=== PATIENT | female | born 1940 | race Caucasian/White ===

== ENCOUNTER 2017-03-18 15:18 | Emergency (ER) | payer MEDICARE ==
[2017-03-18 15:18] VITALS: BMI 25.6
[2017-03-18 15:36] VITALS: TEMP 97.6
--- NOTE | 2017-03-18 17:00 | C.PDOC ---
History Of Present Illness Pt c/o rectal pain. Time Seen by Provider: 03/18/17 15:37 Chief Complaint (Nursing): GI Problem History Per: Patient, Family History/Exam Limitations: other (Blind) Onset/Duration Of Symptoms: Days (few), Intermittent Episodes Current Symptoms Are (Timing): Still Present Severity: Moderate Location Of Pain/Discomfort: Other (Rectum) Quality Of Discomfort: Unable To Describe, "Pain" Exacerbating Factors: None Alleviating Factors: None Additional History Per: Prior Records Past Medical History Reviewed: Historical Data, Nursing Documentation, Vital Signs Vital Signs: Last Vital Signs Temp 97.6 F 03/18/17 15:30 Pulse 74 03/18/17 15:30 Resp 18 03/18/17 15:30 BP 146/76 03/18/17 15:30 Pulse Ox 97 03/18/17 17:02 - Medical History PMH: Anemia, Anxiety, Asthma, CAD, CHF, COPD, Diabetes, Emphysema, HTN, Hypercholesterolemia, Hyperlipidemia, Hyperthyroidism, Hypothyroidism, Chronic Kidney Disease Surgical History: CABG, Cholecystectomy, Coronary Stent, Pacemaker Other Surgeries: Hemicolectomy with colostomy. BKA. - [facility]ALIA (formerly known as [facility]) Procedures ATHERECTOMY OF OTHER NON-CORONARY VESSEL(S) (11/15/13) BELOW KNEE AMPUTAT NEC (11/15/13) CENTRAL VENOUS CATHETER PLACEMENT WITH GUIDANCE (05/05/14) CONTRAST ARTERIOGRAM-LEG (11/15/13) ENDOSCOPIC BIOPSY OF RECTUM (02/18/15) HEMODIALYSIS (02/18/15) NONEXCIS DEBRID OF WOUND, INFECT, OR BURN (11/15/13) OTHER ENDOSCOPY OF SM INTEST (02/18/15) PACKED CELL TRANSFUSION (11/15/13) PROCEDURE ON TWO VESSELS (11/15/13) VENOUS CATHETERIZATION FOR RENAL DIALYSIS (02/18/15) Family History: States: Unknown Family Hx - Social History Hx Tobacco Use: No Hx Alcohol Use: No Hx Substance Use: No - Immunization History Hx Tetanus Toxoid Vaccination: No Hx Influenza Vaccination: No Hx Pneumococcal Vaccination: No Review Of Systems Except As Marked, All Systems Reviewed And Found Negative. Constitutional: Negative for: Fever Cardiovascular: Negative for: Chest Pain Respiratory: Negative for: Shortness of Breath Gastrointestinal: Positive for: Rectal Pain. Negative for: Vomiting, Abdominal Pain Genitourinary: Negative for: Dysuria Musculoskeletal: Negative for: Neck Pain, Back Pain Neurological: Negative for: Seizures, Altered Mental Status Physical Exam - Physical Exam Appears: No Acute Distress, Chronically Ill Skin: Warm, Dry Head: Atraumatic Neck: Normal ROM, Supple Cardiovascular: Rhythm Regular Respiratory: Normal Breath Sounds, No Accessory Muscle Use Gastrointestinal/Abdominal: Soft, No Tenderness, Other (Colostomy in place draining brown liquid stool) Rectal: Other (Anal os is too small to insert a finger. No external masses.) Back: No CVA Tenderness Extremity: Normal ROM Neurological/Psych: Oriented x3 ED Course And Treatment O2 Sat by Pulse Oximetry: 97 Pulse Ox Interpretation: Normal Medical Decision Making Medical Decision Making: Pt had similar symptoms in 2015 and had a Sigmoidoscopy by Dr. Lino that showed internal hemorrhoids and nonspecific proctitis. Disposition Discussed With DrShyanne: Earnest Kim Jr. Comment: He recommened prescribing pt hemmoroidal rectal suppositories and he will see her in his office. Doctor Will See Patient In The: Office Counseled Patient/Family Regarding: Diagnosis, Need For Followup, Rx Given - Disposition Referrals: Keyla Washington MD [Family Provider] - Earnest Kim Jr., MD [Staff Provider] - Bar Lino MD [Staff Provider] - Disposition: HOME/ ROUTINE Disposition Time: 17:04 Condition: IMPROVED Additional Instructions: Follow up with your doctor and with Dr. Kim for further evaluation and treatment. Return to the ER if you develop fever, vomiting, abdominal pain, worsening of symptoms or if you have any other concerns. Prescriptions: Phenylephrine [Zari-Med NF] 1 supp RC TID PRN #30 sup PRN Reason: Hemorrhoids Instructions: Rectal Pain (ED) - Clinical Impression Clinical Impression: Rectal pain
[2017-03-18 17:19] VITALS: BP 129/94; PULSE 69; RESP 14; O2SAT 98
== END 2017-03-18 17:54 | disposition home or self-care (01) ==
LOC: C.ER 15:18
DX: K62.89 Other specified diseases of anus and rectum (principal)

== ENCOUNTER 2017-04-22 09:25 | Observation (INO) | payer MEDICARE ==
[2017-04-22 09:25] VITALS: BMI 25.6
[2017-04-22] MEDS ORDERED: Aspirin 325 mg EC Tablets PO STA (11:09)
[2017-04-22 11:47] LABS: BASO # 0.1 K/uL (0.0-0.2); BASO % 0.8 % (0.0-2.0); EOS # 0.1 K/uL (0.0-0.7); EOS % 1.4 % (0.0-4.0); HEMATOCRIT 35.1 % (34.0-47.0); LYMPH # 1.5 K/uL (1.0-4.3); MEAN CELL VOLUME 88.4 fL (81.0-99.0); MEAN CORPUSCULAR HEMOGLOBIN 29.4 pg (27.0-31.0); MEAN CORPUSCULAR HGB CONC 33.3 g/dL (33.0-37.0); MEAN PLATELET VOLUME 7.1 fL (7.2-11.7); MONO # 0.6 K/uL (0.0-0.8); MONO % 7.5 % (0.0-10.0); NRBC % 0.1 % (0.0-2.0); RED CELL DISTRIBUTION WIDTH 12.9 % (11.5-14.5); WHITE BLOOD COUNT 7.4 K/uL (4.8-10.8)
[2017-04-22 12:00] LABS: POTASSIUM 4.8 mmol/L (3.6-5.2)
[2017-04-22 12:02] LABS: ALB/GLOB RATIO 1.1 (1.0-2.1); BILIRUBIN,TOTAL 0.6 mg/dL (0.2-1.3); TOTAL PROTEIN 7.3 g/dL (6.3-8.3)
[2017-04-22 12:03] LABS: CALCIUM 9.2 mg/dl (8.6-10.4)
--- NOTE | 2017-04-22 12:17 | C.PDOC ---
History Of Present Illness 76-year-old female, presents to the emergency department with complaints of chest pain after moving left arm last night. pain continued until this morning, resulting in her coming to the ED for evaluation. Pain is non-radiating and reports a cough that is productive with white sputum. Denies fevers, vomiting, diarrhea, recent travel, diaphoresis, or any other associated symptoms. No other complaints at this time. Time Seen by Provider: 04/22/17 10:25 Chief Complaint (Nursing): Chest Pain History Per: Patient History/Exam Limitations: no limitations Onset/Duration Of Symptoms: Hrs Current Symptoms Are (Timing): Still Present Severity: Moderate Pain Scale Rating Of: 5 Quality: "Pain" Associated Symptoms: denies: Nausea, Dyspnea, Diaphoresis, Syncope Exacerbating Factors: Movement Recent travel outside of the [place]: No Past Medical History Reviewed: Historical Data, Nursing Documentation, Vital Signs Vital Signs: Last Vital Signs Temp 98.1 F 04/22/17 09:32 Pulse 75 04/22/17 14:21 Resp 20 04/22/17 14:21 BP 181/69 H 04/22/17 14:21 Pulse Ox 99 04/22/17 14:21 - Medical History PMH: Anemia, Anxiety, Asthma, CAD, CHF, COPD, Diabetes, Emphysema, HTN, Hypercholesterolemia, Hyperlipidemia, Hyperthyroidism, Hypothyroidism, Chronic Kidney Disease Surgical History: CABG, Cholecystectomy, Coronary Stent, [facility] Procedures ATHERECTOMY OF OTHER NON-CORONARY VESSEL(S) (11/15/13) BELOW KNEE AMPUTAT NEC (11/15/13) CENTRAL VENOUS CATHETER PLACEMENT WITH GUIDANCE (05/05/14) CONTRAST ARTERIOGRAM-LEG (11/15/13) ENDOSCOPIC BIOPSY OF RECTUM (02/18/15) HEMODIALYSIS (02/18/15) NONEXCIS DEBRID OF WOUND, INFECT, OR BURN (11/15/13) OTHER ENDOSCOPY OF SM INTEST (02/18/15) PACKED CELL TRANSFUSION (11/15/13) PROCEDURE ON TWO VESSELS (11/15/13) VENOUS CATHETERIZATION FOR RENAL DIALYSIS (02/18/15) Family History: States: No Known Family Hx - Social History Hx Tobacco Use: No Hx Alcohol Use: No Hx Substance Use: No - Immunization History Hx Tetanus Toxoid Vaccination: No Hx Influenza Vaccination: No Hx Pneumococcal Vaccination: No Review Of Systems Except As Marked, All Systems Reviewed And Found Negative. Constitutional: Negative for: Fever, Chills Cardiovascular: Positive for: Chest Pain Respiratory: Positive for: Cough, Sputum. Negative for: Shortness of Breath Gastrointestinal: Negative for: Nausea, Vomiting, Diarrhea Physical Exam - Physical Exam Appears: Non-toxic, No Acute Distress Skin: Warm, Dry, No Rash Head: Atraumatic, Normacephalic Eye(s): bilateral: Normal Inspection, PERRL, EOMI Nose: Normal Oral Mucosa: Moist Lips: Normal Appearing Neck: Normal ROM Cardiovascular: Rhythm Regular, No Murmur Respiratory: Decreased Breath Sounds, No Accessory Muscle Use, No Rales, No Rhonchi, No Stridor, No Wheezing Gastrointestinal/Abdominal: Soft, No Tenderness Back: Normal Inspection Extremity: No Tenderness, Other (Right lower extremity: BKA. Left lower ext: 2-3 + pitting edema. No tenderness to palpation. ) Pulses: Left Dorsalis Pedis: Normal Neurological/Psych: Oriented x3, Normal Motor, Normal Sensation ED Course And Treatment - Laboratory Results Result Diagrams: 04/22/17 11:42 04/22/17 11:42 ECG: Interpreted By Me, Viewed By Al ECG Rhythm: Sinus Rhythm, R BBB ECG Interpretation: No Acute Changes (compared to: 05/26/16) Rate From EC O2 Sat by Pulse Oximetry: 98 (on RA) Pulse Ox Interpretation: Normal - Radiology CXR: Interpreted by Me CXR Interpretation: Yes: No Acute Disease. No: Infiltrates, Cardiomegaly Medical Decision Making Medical Decision Making: The case was discussed with Dr. Washington who agrees to admit the patient to his service. Patient is requesting Dr. Malik for cardiology consult. Disposition - Disposition Disposition: HOSPITALIZED Disposition Time: 11:00 Condition: FAIR - Clinical Impression Clinical Impression: Chest pain, Congestive heart failure - PA / [employer] / Resident Statement MD/DO has reviewed & agrees with the documentation as recorded. - Scribe Statement The provider has reviewed the documentation as recorded by the Scribe (Yeimi Preston) All medical record entries made by the Scribe were at my direction and personally dictated by me. I have reviewed the chart and agree that the record accurately reflects my personal performance of the history, physical exam, medical decision making, and the department course for this patient. I have also personally directed, reviewed, and agree with the discharge instructions and disposition.
[2017-04-22 13:11] LABS: TROPONIN I 0.02 ng/mL (0.00-0.120)
--- NOTE | 2017-04-22 14:09 | RAD ---
PROCEDURE: CHEST RADIOGRAPH, 1 VIEW HISTORY: chest pain COMPARISON: 02/16/2016. FINDINGS: LUNGS: There is mild pulmonary venous congestion. There is bibasilar atelectasis. There is no focal consolidation PLEURA: No pneumothorax or pleural fluid seen. CARDIOVASCULAR: The heart is normal in size. Status post CABG. Atherosclerotic aortic arch calcifications are present. . There is stable position of ileus with ABX. OSSEOUS STRUCTURES: No significant abnormalities. VISUALIZED UPPER ABDOMEN: Normal. OTHER FINDINGS: None. IMPRESSION: No acute findings.
--- NOTE | 2017-04-22 18:00 | CP.PCM.HP ---
History of Present Illness - History of Present Illness History of Present Illness: CC: Chest pain x 1 day HPI: 76-year-old female, presents to the emergency department with complaints of right sided chest pain for the past day. She states that she attempted to stretch yesterday morning when the chest pain first began. She states the pain was located at the Right sternum, and radiated to the Right chest wall with Right arm movement. She described the pain as 8/10, exacerbated with R arm motion, and not associate with deep breathing. She took Tylenol which helped relieve the pain for several hours. Later last night, the R sided chest pain returned, and was still present in the morning, which prompted her to come to the ED. She also admits to a chronic non-productive cough, present for the past few months, which she describes as intermittent throughout the day, and associated with mucous sensation that she cannot expel. She admits her blood pressure recorded in her doctors office on 04/12/17 was 135/72, and is surprised how high it is today in the ED (181/69). Denies fevers, vomiting, diarrhea, recent travel, diaphoresis, or any other associated symptoms. No other complaints at this time. PMHx: Anemia, anxiety, asthma, CAD, CHF, COPD, DM, HTN, HLD, Hypothyroidism, CKD , h/o TIA SHx: CABG in 2004 at [facility] in [place] (triple bypass), cholecystectomy, coronary stent, pacemaker, right BKA Meds: See EMR FamHx: unknown Social: pt lives at home with grandson in [place] denies tobacco, EtOH, illicit drug use non-ambulating ileostomy bag in place since 2008, changed by pt's daughter Present on Admission - Present on Admission Any Indicators Present on Admission: No History of DVT/PE: No History of Uncontrolled Diabetes: No Review of Systems - Review of Systems Review of Systems: - Constitutional Constitutional: absent: Fever, Chills - EENT Eyes: Other (blindness bilaterally) Nose/Mouth/Throat: absent: Nasal Discharge, Sinus Pressure, Dysphagia, Sore Throat - Cardiovascular Cardiovascular: Chest pain (R sided, reproducible to palpation) absent: Dyspnea - Respiratory Respiratory: Cough (infrequent non-productive cough). absent: Dyspnea - Gastrointestinal Gastrointestinal: Other (ileostomy/colostomy bag in place). absent: Abdominal Pain, Nausea, Vomiting - Genitourinary Genitourinary: absent: Dysuria, Freq UTI Note: Hx Urinary Incontinence (pt wears diapers) - Musculoskeletal Musculoskeletal: Other (BKA of right leg) - Neurological Neurological: absent: Headaches, Weakness Past Patient History - Infectious Disease Hx of Infectious Diseases: None - Past Medical History & Family History Past Medical History?: Yes - Past Social History Smoking Status: Never Smoked - CARDIAC Hx Congestive Heart Failure: Yes Hx Hypercholesterolemia: Yes Hx Hypertension: Yes Hx Pacemaker: Yes - PULMONARY Hx Asthma: Yes Hx Chronic Obstructive Pulmonary Disease (COPD): Yes Hx Emphysema: Yes - NEUROLOGICAL HX Cerebrovascular Accident: Yes - HEENT Hx HEENT Problems: Yes Hx Blind: Yes - RENAL Hx Chronic Kidney Disease: Yes - ENDOCRINE/METABOLIC Hx Hyperthyroidism: Yes Hx Hypothyroidism: Yes - HEMATOLOGICAL/ONCOLOGICAL Hx Anemia: Yes - INTEGUMENTARY Hx Dermatological Problems: No - MUSCULOSKELETAL/RHEUMATOLOGICAL Hx Musculoskeletal Disorders: Yes Hx Falls: Yes - GASTROINTESTINAL Hx Gastrointestinal Disorders: Yes Hx Bowel Surgery: Yes (ischemic bowel) Hx Colostomy: Yes - GENITOURINARY/GYNECOLOGICAL Hx Genitourinary Disorders: Yes Hx Incontinence: Yes Hx Urinary Tract Infection: Yes - PSYCHIATRIC Hx Anxiety: Yes Hx Substance Use: No - SURGICAL HISTORY Hx Cholecystectomy: Yes Hx Coronary Artery Bypass Graft: Yes Hx Coronary Stent: Yes - ANESTHESIA Hx Anesthesia: Yes Hx Anesthesia Reactions: No Hx Malignant Hyperthermia: No Meds Allergies/Adverse Reactions: Allergies Allergy/AdvReac Type Severity Reaction Status Date / Time No Known Allergies Allergy Verified 03/18/17 15:36 Physical Exam - Additional Findings Additional findings: - Constitutional Appears: Non-toxic, No Acute Distress - Head Exam Head Exam: ATRAUMATIC, NORMOCEPHALIC - Eye Exam Additional comments: Pt is blind in both eyes - ENT Exam ENT Exam: Mucous Membranes Moist, Normal Oropharynx - Neck Exam Neck exam: Negative for: Lymphadenopathy - Respiratory Exam Respiratory Exam: NORMAL BREATHING PATTERN, Wheezes (mild at L lung base), Rales (mild at L lung base). absent: Rhonchi, Respiratory Distress - Cardiovascular Exam Cardiovascular Exam: REGULAR RHYTHM, RRR, +S1, +S2. absent: Clicks, Diastolic murmur, Gallop, Rubs, Systolic Murmur Additional comments: left chest pacemaker sternotomy scars noted -palpation of R chest wall reproduces chest pain (to a mild degree). - GI/Abdominal Exam GI & Abdominal Exam: Soft. absent: Distended, Firm, Guarding, Rebound, Rigid, Tenderness Additional comments: R-sided colostomy bag noted - Extremities Exam Extremities exam: Positive for: pedal edema (2+ pitting edema left foot to knee) , pedal pulses present (decreased, however palpable in L foot). Negative for: calf tenderness Additional comments: R BKA - Back Exam Back exam: absent: CVA tenderness (L), CVA tenderness (R) -scratches present on back, patients states from itching her back. - Neurological Exam Neurological exam: Alert, Oriented x3 - Psychiatric Exam Psychiatric exam: Normal Affect, Normal Mood - Skin Skin Exam: Normal Color, Warm Results - Vital Signs Recent Vital Signs: Last Vital Signs Temp 98.1 F 04/22/17 09:32 Pulse 75 04/22/17 14:21 Resp 20 04/22/17 14:21 BP 181/69 H 04/22/17 14:21 Pulse Ox 99 04/22/17 14:21 - Labs Result Diagrams: 04/22/17 11:42 04/22/17 11:42 Labs: Laboratory Results - last 24 hr 04/22/17 17:27 POC Glucose (mg/dL) 185 H Assessment & Plan - Assessment and Plan (Free Text) Assessment: Chest Pain -ECG Rhythm: Sinus Rhythm, R BBB -Troponin negative x1 -f/u UBALDO + EKG 2030, 330 -Echo from 2013 - EF 35%, LV wall motion moderately impaired. -f/u echo -Cardio consult, Dr. Malik, help appreciated. Hx CHF (congestive heart failure) Status: Chronic - Lasix 20mg IVP BID TANJA -Pro BNP 2250 on admission -previously on Toprol 25 mg po daily HTN (hypertension) Status: Chronic -BP 181/69 on admission -Stop Sodium bicarb 650mg PO BID - possible source of HTN. -Cont home med Imdur 30mg PO qd. Patient believes there may be additional home meds. Daughter will bring them in tomorrow. - Hydralazine 10mg IVP Q6H PRN, SBP >160 Monitor Cough Mucinex Hypothyroidism Status: Chronic -Cont home med- Synthroid 25mcg po daily -f/u TSH GLORIA (acute kidney injury) Status: Acute BUN 58 / Cr 1.6 -monitor Diabetes mellitus Status: Chronic Novolog ISS - low dose continue home med: Repaglinide 2mg TID Accucheckryder ACHS Hyperlipidemia Status: Acute Comment: Cont home med- Crestor 10mg po HS CAD (coronary artery disease) Comment: s/p CABG Cont home med- ASA 81mg po daily, Plavix 75mg po daily Ileostomy in place Status: Acute Comment: Pt reports 6 years ago colon ischemia requiring surgery. Denies IBD or cancer. Hx of right BKA -site CDI, sensation in tact. Prophylactic measure Status: Acute Comment: Heparin 5000units SC Q12H Pepcid 20mg PO Qdaily Xanax 0.25mg PO BID, PRN anxiety - Date & Time Date: 04/22/17 Time: 18:30
[2017-04-22] MEDS: guaiFENesin 600 mg ER Tab PO SCH (20:35)
[2017-04-22] MEDS: (Novolog) Insulin Aspart, Recombinant 100 u/ml 10 ml vial SC SCH ×2 (20:35→22:41)
[2017-04-23 01:32] VITALS: RESP 20
[2017-04-23] MEDS: Levothyroxine 25 MCG TAB PO SCH (05:51)
[2017-04-23] MEDS: (Novolog) Insulin Aspart, Recombinant 100 u/ml 10 ml vial SC SCH ×4 (07:45→21:56)
[2017-04-23 08:51] LABS: BASO % 0.6 % (0.0-2.0); EOS # 0.1 K/uL (0.0-0.7); EOS % 1.6 % (0.0-4.0); HEMATOCRIT 36.1 % (34.0-47.0); LYMPH # 1.2 K/uL (1.0-4.3); LYMPH % 17.8 % (20.0-40.0); MEAN CORPUSCULAR HEMOGLOBIN 29.8 pg (27.0-31.0); MEAN CORPUSCULAR HGB CONC 33.8 g/dL (33.0-37.0); MEAN PLATELET VOLUME 7.5 fL (7.2-11.7); MONO # 0.4 K/uL (0.0-0.8); MONO % 6.5 % (0.0-10.0); RED CELL DISTRIBUTION WIDTH 12.7 % (11.5-14.5); WHITE BLOOD COUNT 6.8 K/uL (4.8-10.8)
[2017-04-23 09:13] LABS: POTASSIUM 4.6 mmol/L (3.6-5.2)
[2017-04-23 09:15] LABS: BILIRUBIN,TOTAL 0.7 mg/dL (0.2-1.3)
[2017-04-23 09:16] LABS: ALB/GLOB RATIO 1.1 (1.0-2.1); CALCIUM 9.3 mg/dl (8.6-10.4); MAGNESIUM 1.6 mg/dL (1.6-2.3)
[2017-04-23 09:48] LABS: THYROID STIMULATING HORMONE 2.44 mIU/L (0.46-4.68)
[2017-04-23] MEDS: guaiFENesin 600 mg ER Tab PO SCH ×2 (10:24→17:30)
--- NOTE | 2017-04-23 12:38 | CARD ---
APPROVED REPORT EKG Measurement Heart [id number] [place] [id number] <Conclusion> Normal sinus rhythm Right bundle branch block Possible Lateral infarct, age undetermined Possible Inferior infarct, age undetermined Abnormal ECG
--- NOTE | 2017-04-23 18:10 | CP.PCM.CON ---
History of Present Illness - History of Present Illness History of Present Illness: Reason for consultation: Cough and SOB 76-year-old female, presents to the emergency department with complaints of chest pain after moving left arm last night. pain continued until this morning, resulting in her coming to the ED for evaluation. Pain is non-radiating and reports a cough that is productive with white sputum. Review of Systems - Review of Systems All systems: reviewed and no additional remarkable complaints except (COUGH shortness of breath) Past Patient History - Infectious Disease Hx of Infectious Diseases: None - Past Medical History & Family History Past Medical History?: Yes - Past Social History Smoking Status: Never Smoked - CARDIAC Hx Congestive Heart Failure: Yes Hx Hypercholesterolemia: Yes Hx Hypertension: Yes - PULMONARY Hx Chronic Obstructive Pulmonary Disease (COPD): Yes - NEUROLOGICAL HX Cerebrovascular Accident: Yes - HEENT Hx HEENT Problems: Yes Hx Blind: Yes - RENAL Hx Chronic Kidney Disease: Yes - ENDOCRINE/METABOLIC Hx Hypothyroidism: Yes - HEMATOLOGICAL/ONCOLOGICAL Hx Anemia: Yes - INTEGUMENTARY Hx Dermatological Problems: No - MUSCULOSKELETAL/RHEUMATOLOGICAL Hx Musculoskeletal Disorders: Yes Hx Falls: Yes - GASTROINTESTINAL Hx Gastrointestinal Disorders: Yes Hx Bowel Surgery: Yes (ischemic bowel) Hx Colostomy: Yes - GENITOURINARY/GYNECOLOGICAL Hx Genitourinary Disorders: Yes Hx Incontinence: Yes Hx Urinary Tract Infection: Yes - PSYCHIATRIC Hx Anxiety: Yes Hx Substance Use: No - SURGICAL HISTORY Hx Cholecystectomy: Yes Hx Coronary Artery Bypass Graft: Yes Hx Coronary Stent: Yes - ANESTHESIA Hx Anesthesia: Yes Hx Anesthesia Reactions: No Hx Malignant Hyperthermia: No Meds Allergies/Adverse Reactions: Allergies Allergy/AdvReac Type Severity Reaction Status Date / Time No Known Allergies Allergy Verified 03/18/17 15:36 - Medications Medications: Current Medications Alprazolam (Xanax) 0.25 mg PO BID PRN PRN Reason: Anxiety Stop: 04/29/17 19:38 Last Admin: 04/23/17 10:27 Dose: 0.25 mg Aspirin (Aspirin Chewable) 81 mg PO DAILY [facility] Last Admin: 04/23/17 10:24 Dose: 81 mg Clopidogrel Bisulfate (Plavix) 75 mg PO DAILY [facility] Last Admin: 04/23/17 10:24 Dose: 75 mg Famotidine (Pepcid) 20 mg PO DAILY [facility] Last Admin: 04/23/17 10:24 Dose: 20 mg Furosemide (Lasix) 20 mg IVP Q12 [facility] Last Admin: 04/23/17 10:25 Dose: 20 mg Guaifenesin (Mucinex La) 600 mg PO BID [facility] Last Admin: 04/23/17 17:30 Dose: 600 mg Heparin Sodium (Porcine) (Heparin) 5,000 units SC Q12 [facility] Last Admin: 04/23/17 10:25 Dose: 5,000 units Hydralazine HCl (Apresoline) 10 mg IVP Q6H PRN PRN Reason: SBP > 160 Insulin Aspart (Novolog) 0 unit SC ACHS [facility] PRN Reason: Protocol Last Admin: 04/23/17 17:29 Dose: 2 unit Isosorbide Mononitrate (Imdur) 30 mg PO DAILY [facility] Last Admin: 04/23/17 10:24 Dose: 30 mg Levothyroxine Sodium (Synthroid) 25 mcg PO DAILY@0630 [facility] Last Admin: 04/23/17 05:51 Dose: 25 mcg Repaglinide (Prandin) 2 mg PO ACTID [facility] Last Admin: 04/23/17 17:30 Dose: 2 mg Rosuvastatin Calcium (Crestor) 10 mg PO HS [facility] Last Admin: 04/22/17 22:09 Dose: 10 mg Tamsulosin HCl (Flomax) 0.4 mg PO DAILY [facility] Last Admin: 04/23/17 10:24 Dose: 0.4 mg Physical Exam - Head Exam Head Exam: ATRAUMATIC, NORMOCEPHALIC - Eye Exam Eye Exam: Normal appearance - ENT Exam ENT Exam: Mucous Membranes Moist - Neck Exam Neck exam: Positive for: Normal Inspection - Respiratory Exam Respiratory Exam: Clear to Auscultation Bilateral Results - Vital Signs Recent Vital Signs: Last Vital Signs Temp 98.6 F 04/23/17 15:51 Pulse 89 04/23/17 15:51 Resp 20 04/23/17 15:51 BP 99/71 L 04/23/17 15:51 Pulse Ox 98 04/23/17 15:51 - Labs Result Diagrams: 04/24/17 07:14 04/24/17 07:14 Labs: Laboratory Results - last 24 hr 04/22/17 04/23/17 04/23/17 22:39 01:04 06:53 WBC RBC Hgb Hct MCV MCH MCHC RDW Plt Count MPV Neut % (Auto) Lymph % (Auto) Hartley % (Auto) Eos % (Auto) Baso % (Auto) Neut # Lymph # Hartley # Eos # Baso # APTT Sodium Potassium Chloride Carbon Dioxide Anion Gap BUN Creatinine Est GFR ( Amer) Est GFR (Non-Af Amer) POC Glucose (mg/dL) 221 H 243 H Random Glucose Calcium Phosphorus Magnesium Total Bilirubin AST ALT Alkaline Phosphatase Total Creatine Kinase 51 CK-MB (Mass) 1.58 Troponin I, Quant 0.0400 Total Protein Albumin Globulin Albumin/Globulin Ratio Triglycerides Cholesterol LDL Cholesterol Direct HDL Cholesterol TSH 3rd Generation 04/23/17 04/23/17 04/23/17 08:38 08:38 08:38 WBC 6.8 RBC 4.11 Hgb 12.2 Hct 36.1 MCV 88.0 MCH 29.8 MCHC 33.8 RDW 12.7 Plt Count 146 MPV 7.5 Neut % (Auto) 73.5 Lymph % (Auto) 17.8 L Hartley % (Auto) 6.5 Eos % (Auto) 1.6 Baso % (Auto) 0.6 Neut # 5.0 Lymph # 1.2 Hartley # 0.4 Eos # 0.1 Baso # 0.0 APTT 29 Sodium 139 Potassium 4.6 Chloride 106 Carbon Dioxide 23 Anion Gap 14 BUN 57 H Creatinine 1.6 H Est GFR ( Amer) 38 Est GFR (Non-Af Amer) 31 POC Glucose (mg/dL) Random Glucose 228 H Calcium 9.3 Phosphorus 4.0 Magnesium 1.6 Total Bilirubin 0.7 AST 37 H D ALT 31 Alkaline Phosphatase 124 Total Creatine Kinase CK-MB (Mass) Troponin I, Quant Total Protein 7.0 Albumin 3.6 Globulin 3.4 Albumin/Globulin Ratio 1.1 Triglycerides 173 H D Cholesterol 112 LDL Cholesterol Direct 36 HDL Cholesterol 37 TSH 3rd Generation 2.44 04/23/17 04/23/17 11:25 16:39 WBC RBC Hgb Hct MCV MCH MCHC RDW Plt Count MPV Neut % (Auto) Lymph % (Auto) Hartley % (Auto) Eos % (Auto) Baso % (Auto) Neut # Lymph # Hartley # Eos # Baso # APTT Sodium Potassium Chloride Carbon Dioxide Anion Gap BUN Creatinine Est GFR ( Amer) Est GFR (Non-Af Amer) POC Glucose (mg/dL) 370 H 211 H Random Glucose Calcium Phosphorus Magnesium Total Bilirubin AST ALT Alkaline Phosphatase Total Creatine Kinase CK-MB (Mass) Troponin I, Quant Total Protein Albumin Globulin Albumin/Globulin Ratio Triglycerides Cholesterol LDL Cholesterol Direct HDL Cholesterol TSH 3rd Generation Assessment & Plan (1) COPD (chronic obstructive pulmonary disease) with emphysema Status: Acute Comment: cough and shortness of breath secondary to COPD. Chest-x-ray showed no infiltrate. Cardiology workup
--- NOTE | 2017-04-23 20:26 | CP.PCM.CON ---
History of Present Illness - History of Present Illness History of Present Illness: History of Present Illness - History of Present Illness History of Present Illness: Reason For consultation: Chest pain HPI: 76-year-old female, presents to the emergency department with complaints of right sided chest pain for the past day. She states that she attempted to stretch yesterday morning when the chest pain first began. She states the pain was located at the Right sternum, and radiated to the Right chest wall with Right arm movement. She described the pain as 8/10, exacerbated with R arm motion, and not associate with deep breathing. She took Tylenol which helped relieve the pain for several hours. Later last night, the R sided chest pain returned, and was still present in the morning, which prompted her to come to the ED. She also admits to a chronic non-productive cough, present for the past few months, which she describes as intermittent throughout the day, and associated with mucous sensation that she cannot expel. She admits her blood pressure recorded in her doctors office on 04/12/17 was 135/72, and is surprised how high it is today in the ED (181/69). Denies fevers, vomiting, diarrhea, recent travel, diaphoresis, or any other associated symptoms. No other complaints at this time. 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 absent: Dyspnea - Gastrointestinal Gastrointestinal: Other (ileostomy/colostomy bag in place). absent: Abdominal Pain, Nausea, Vomiting - Genitourinary Genitourinary: absent: Dysuria, Freq UTI Note: Hx Urinary Incontinence (pt wears diapers) - Musculoskeletal Musculoskeletal: Other (BKA of right leg) - Neurological Neurological: absent: Headaches, Weakness Physical Exam - Additional Findings Additional findings: - Constitutional Appears: Non-toxic, No Acute Distress - Head Exam Head Exam: ATRAUMATIC, NORMOCEPHALIC - Eye Exam Additional comments: Pt is blind in both eyes - ENT Exam ENT Exam: Mucous Membranes Moist, Normal Oropharynx - Neck Exam Neck exam: Negative for: Lymphadenopathy - Respiratory Exam Respiratory Exam: NORMAL BREATHING PATTERN, Wheezes (mild at L lung base), Rales (mild at L lung base). absent: Rhonchi, Respiratory Distress - Cardiovascular Exam Cardiovascular Exam: REGULAR RHYTHM, RRR, +S1, +S2. absent: Clicks, Diastolic murmur, Gallop, Rubs, Systolic Murmur Additional comments: left chest pacemaker sternotomy scars noted -palpation of R chest wall reproduces chest pain (to a mild degree). - GI/Abdominal Exam GI & Abdominal Exam: Soft. absent: Distended, Firm, Guarding, Rebound, Rigid, Tenderness Additional comments: R-sided colostomy bag noted - Extremities Exam Extremities exam: Positive for: pedal edema (2+ pitting edema left foot to knee) , pedal pulses present (decreased, however palpable in L foot). Negative for: calf tenderness Additional comments: R BKA - Back Exam Back exam: absent: CVA tenderness (L), CVA tenderness (R) -scratches present on back, patients states from itching her back. - Neurological Exam Neurological exam: Alert, Oriented x3 - Psychiatric Exam Psychiatric exam: Normal Affect, Normal Mood - Skin Skin Exam: Normal Color, Warm Past Patient History - Infectious Disease Hx of Infectious Diseases: None - Past Medical History & Family History Past Medical History?: Yes - Past Social History Smoking Status: Never Smoked - CARDIAC Hx Congestive Heart Failure: Yes Hx Hypercholesterolemia: Yes Hx Hypertension: Yes - PULMONARY Hx Chronic Obstructive Pulmonary Disease (COPD): Yes - NEUROLOGICAL HX Cerebrovascular Accident: Yes - HEENT Hx HEENT Problems: Yes Hx Blind: Yes - RENAL Hx Chronic Kidney Disease: Yes - ENDOCRINE/METABOLIC Hx Hypothyroidism: Yes - HEMATOLOGICAL/ONCOLOGICAL Hx Anemia: Yes - INTEGUMENTARY Hx Dermatological Problems: No - MUSCULOSKELETAL/RHEUMATOLOGICAL Hx Musculoskeletal Disorders: Yes Hx Falls: Yes - GASTROINTESTINAL Hx Gastrointestinal Disorders: Yes Hx Bowel Surgery: Yes (ischemic bowel) Hx Colostomy: Yes - GENITOURINARY/GYNECOLOGICAL Hx Genitourinary Disorders: Yes Hx Incontinence: Yes Hx Urinary Tract Infection: Yes - PSYCHIATRIC Hx Anxiety: Yes Hx Substance Use: No - SURGICAL HISTORY Hx Cholecystectomy: Yes Hx Coronary Artery Bypass Graft: Yes Hx Coronary Stent: Yes - ANESTHESIA Hx Anesthesia: Yes Hx Anesthesia Reactions: No Hx Malignant Hyperthermia: No Meds Allergies/Adverse Reactions: Allergies Allergy/AdvReac Type Severity Reaction Status Date / Time No Known Allergies Allergy Verified 03/18/17 15:36 - Medications Medications: Current Medications Albuterol/Ipratropium (Duoneb 3 Mg/0.5 Mg (3 Ml) Ud) 3 ml INH RQ6 [facility] Alprazolam (Xanax) 0.25 mg PO BID PRN PRN Reason: Anxiety Stop: 04/29/17 19:38 Last Admin: 04/23/17 10:27 Dose: 0.25 mg Aspirin (Aspirin Chewable) 81 mg PO DAILY [facility] Last Admin: 04/23/17 10:24 Dose: 81 mg Clopidogrel Bisulfate (Plavix) 75 mg PO DAILY [facility] Last Admin: 04/23/17 10:24 Dose: 75 mg Famotidine (Pepcid) 20 mg PO DAILY [facility] Last Admin: 04/23/17 10:24 Dose: 20 mg Furosemide (Lasix) 20 mg IVP Q12 [facility] Last Admin: 04/23/17 10:25 Dose: 20 mg Guaifenesin (Mucinex La) 600 mg PO BID [facility] Last Admin: 04/23/17 17:30 Dose: 600 mg Heparin Sodium (Porcine) (Heparin) 5,000 units SC Q12 [facility] Last Admin: 04/23/17 10:25 Dose: 5,000 units Hydralazine HCl (Apresoline) 10 mg IVP Q6H PRN PRN Reason: SBP > 160 Insulin Aspart (Novolog) 0 unit SC ACHS [facility] PRN Reason: Protocol Last Admin: 04/23/17 17:29 Dose: 2 unit Isosorbide Mononitrate (Imdur) 30 mg PO DAILY [facility] Last Admin: 04/23/17 10:24 Dose: 30 mg Levothyroxine Sodium (Synthroid) 25 mcg PO DAILY@0630 [facility] Last Admin: 04/23/17 05:51 Dose: 25 mcg Repaglinide (Prandin) 2 mg PO ACTID [facility] Last Admin: 04/23/17 17:30 Dose: 2 mg Rosuvastatin Calcium (Crestor) 10 mg PO HS [facility] Last Admin: 04/22/17 22:09 Dose: 10 mg Tamsulosin HCl (Flomax) 0.4 mg PO DAILY [facility] Last Admin: 04/23/17 10:24 Dose: 0.4 mg Results - Vital Signs Recent Vital Signs: Last Vital Signs Temp 98.6 F 04/23/17 15:51 Pulse 68 04/23/17 16:00 Resp 20 04/23/17 15:51 BP 99/71 L 04/23/17 15:51 Pulse Ox 98 04/23/17 15:51 - Labs Result Diagrams: 04/23/17 08:38 04/23/17 08:38 Labs: Laboratory Results - last 24 hr 04/22/17 04/23/17 04/23/17 22:39 01:04 06:53 WBC RBC Hgb Hct MCV MCH MCHC RDW Plt Count MPV Neut % (Auto) Lymph % (Auto) [place] % (Auto) Eos % (Auto) Baso % (Auto) Neut # Lymph # [place] # Eos # Baso # APTT Sodium Potassium Chloride Carbon Dioxide Anion Gap BUN Creatinine Est GFR ( Amer) Est GFR (Non-Af Amer) POC Glucose (mg/dL) 221 H 243 H Random Glucose Calcium Phosphorus Magnesium Total Bilirubin AST ALT Alkaline Phosphatase Total Creatine Kinase 51 CK-MB (Mass) 1.58 Troponin I, Quant 0.0400 Total Protein Albumin Globulin Albumin/Globulin Ratio Triglycerides Cholesterol LDL Cholesterol Direct HDL Cholesterol TSH 3rd Generation 04/23/17 04/23/17 04/23/17 08:38 08:38 08:38 WBC 6.8 RBC 4.11 Hgb 12.2 Hct 36.1 MCV 88.0 MCH 29.8 MCHC 33.8 RDW 12.7 Plt Count 146 MPV 7.5 Neut % (Auto) 73.5 Lymph % (Auto) 17.8 L [place] % (Auto) 6.5 Eos % (Auto) 1.6 Baso % (Auto) 0.6 Neut # 5.0 Lymph # 1.2 [place] # 0.4 Eos # 0.1 Baso # 0.0 APTT 29 Sodium 139 Potassium 4.6 Chloride 106 Carbon Dioxide 23 Anion Gap 14 BUN 57 H Creatinine 1.6 H Est GFR ( Amer) 38 Est GFR (Non-Af Amer) 31 POC Glucose (mg/dL) Random Glucose 228 H Calcium 9.3 Phosphorus 4.0 Magnesium 1.6 Total Bilirubin 0.7 AST 37 H D ALT 31 Alkaline Phosphatase 124 Total Creatine Kinase CK-MB (Mass) Troponin I, Quant Total Protein 7.0 Albumin 3.6 Globulin 3.4 Albumin/Globulin Ratio 1.1 Triglycerides 173 H D Cholesterol 112 LDL Cholesterol Direct 36 HDL Cholesterol 37 TSH 3rd Generation 2.44 04/23/17 04/23/17 11:25 16:39 WBC RBC Hgb Hct MCV MCH MCHC RDW Plt Count MPV Neut % (Auto) Lymph % (Auto) [place] % (Auto) Eos % (Auto) Baso % (Auto) Neut # Lymph # [place] # Eos # Baso # APTT Sodium Potassium Chloride Carbon Dioxide Anion Gap BUN Creatinine Est GFR ( Amer) Est GFR (Non-Af Amer) POC Glucose (mg/dL) 370 H 211 H Random Glucose Calcium Phosphorus Magnesium Total Bilirubin AST ALT Alkaline Phosphatase Total Creatine Kinase CK-MB (Mass) Troponin I, Quant Total Protein Albumin Globulin Albumin/Globulin Ratio Triglycerides Cholesterol LDL Cholesterol Direct HDL Cholesterol TSH 3rd Generation Assessment & Plan - Assessment and Plan (Free Text) Assessment: Assessment & Plan - Assessment and Plan (Free Text) Assessment: Chest Pain Given presentation unlikely cardiac Follow [place] will follow Hx CHF (congestive heart failure) Status: Chronic - Lasix 20mg IVP BID [facility]AN[facility] -Pro BNP 2250 on admission -previously on Toprol 25 mg po daily HTN (hypertension) Status: Chronic -BP 181/69 on admission -Stop Sodium bicarb 650mg PO BID - possible source of HTN. -Cont home med Imdur 30mg PO qd. Patient believes there may be additional home meds. Daughter will bring them in tomorrow. - Hydralazine 10mg IVP Q6H PRN, SBP >160 Monitor Cough Mucinex Hypothyroidism Status: Chronic -Cont home med- Synthroid 25mcg po daily -f/u TSH GLORIA (acute kidney injury) Status: Acute BUN 58 / Cr 1.6 -monitor Diabetes mellitus Status: Chronic Novolog ISS - low dose continue home med: Repaglinide 2mg TID Sarthak BLUM Hyperlipidemia Status: Acute Comment: Cont home med- Crestor 10mg po HS CAD (coronary artery disease) Comment: s/p CABG Cont home med- ASA 81mg po daily, Plavix 75mg po daily Ileostomy in place Status: Acute Comment: Pt reports 6 years ago colon ischemia requiring surgery. Denies IBD or cancer. Hx of right BKA -site CDI, sensation in tact. Prophylactic measure Status: Acute Comment: Heparin 5000units SC Q12H Pepcid 20mg PO Qdaily Xanax 0.25mg PO BID, PRN anxiety
[2017-04-23] MEDS: Albuterol-Ipratrop 3 mg / 0.5 (3 ml) UD INH SCH (22:26)
[2017-04-24] MEDS: Albuterol-Ipratrop 3 mg / 0.5 (3 ml) UD INH SCH ×3 (01:19→13:12)
[2017-04-24 07:27] LABS: BASO % 0.4 % (0.0-2.0); EOS # 0.1 K/uL (0.0-0.7); EOS % 1.8 % (0.0-4.0); LYMPH # 1.4 K/uL (1.0-4.3); LYMPH % 20.8 % (20.0-40.0); MEAN CELL VOLUME 88.5 fL (81.0-99.0); MEAN CORPUSCULAR HEMOGLOBIN 29.5 pg (27.0-31.0); MEAN CORPUSCULAR HGB CONC 33.3 g/dL (33.0-37.0); MEAN PLATELET VOLUME 7.6 fL (7.2-11.7); MONO # 0.5 K/uL (0.0-0.8); MONO % 7.9 % (0.0-10.0); RED CELL DISTRIBUTION WIDTH 12.7 % (11.5-14.5)
[2017-04-24] MEDS: Levothyroxine 25 MCG TAB PO SCH (07:33)
[2017-04-24] MEDS: (Novolog) Insulin Aspart, Recombinant 100 u/ml 10 ml vial SC SCH ×2 (07:34→11:48)
[2017-04-24 08:08] VITALS: O2SAT 97
[2017-04-24 08:12] LABS: POTASSIUM 4.9 mmol/L (3.6-5.2)
[2017-04-24 08:14] LABS: BILIRUBIN,TOTAL 0.6 mg/dL (0.2-1.3); TOTAL PROTEIN 6.5 g/dL (6.3-8.3)
[2017-04-24 08:15] LABS: CALCIUM 8.9 mg/dl (8.6-10.4); MAGNESIUM 1.6 mg/dL (1.6-2.3); PHOSPHOROUS 4.5 mg/dL (2.5-4.5)
[2017-04-24] MEDS: guaiFENesin 600 mg ER Tab PO SCH ×2 (09:55→17:16)
--- NOTE | 2017-04-24 11:26 | CARD ---
APPROVED REPORT EKG Measurement Heart [id number] HI [id number] <Conclusion> Normal sinus rhythm Nonspecific intraventricular block Possible Lateral infarct, age undetermined Possible Inferior infarct, age undetermined Abnormal ECG
--- NOTE | 2017-04-24 11:59 | PCM.HF ---
Heart Failure Core Measure Beta-Jenny Prescribed: None Contraindication/Reason for not providing: COPD AnticoagulationTherapy for Atrial Fibrillation/Atrialflutter: No Contraindication/Reason for not providing: no afib Implantable Cardioverter Defibrillator Therapy: Yes Contraindication/Reason for not providing: has pacemaker
--- NOTE | 2017-04-24 13:38 | CARD ---
APPROVED REPORT EKG Measurement Heart [id number] [place] [id number] <Conclusion> Normal sinus rhythm Right bundle branch block Possible Inferior infarct, age undetermined Abnormal ECG
--- NOTE | 2017-04-24 13:41 | CARD ---
APPROVED REPORT EXAM: Two-dimensional and M-mode echocardiogram with Doppler and color Doppler. Other Information Quality : GoodRhythm : NSR INDICATION CVA/TIA CAD Congestive Heart Failure COPD CKD Surgery/Intervention Pacemaker: CABG: RISK FACTORS Hypertension Hyperlipidemia Diabetes M-Mode DIMENSIONS RVDd2.89 (2.1-3.2cm)Left Atrium (MM)2.40 (2.5-4.0cm) IVSd1.28 (0.7-1.1cm)Aortic Root3.19 (2.2-3.7cm) LVDd3.86 (4.0-5.6cm)Aortic Cusp Exc.1.70 (1.5-2.0cm) PWd1.21 (0.7-1.1cm)FS (%) 27 % LVDs2.82 (2.0-3.8cm)LVEF (%)53 (>50%) Aortic Valve AI P 1/2 [id number] Mitral Valve MV E Nijrbomu59.6cm/sMV A Tbnlblom959.8cm/sE/A ratio0.6 TDI E/Lateral E'0.0E/Medial E'0.0 Tricuspid Valve TR Peak Taqyajqi096tk/sTR Peak Gr.[id number] <Conclusion> normal size la,lv & ra rv. normal lv ef of 50-55%. abnormal septal motion from pacemaker/icd in rv. lv diastolic dysfunction grade one. normal rv function. sclerotic trileaflet aortic valve with mild ai. mac.mild mr, mild tr with normal pulmonary systolic pressures of 30 mm of hg. no pericardial effusion. normal size sclerotic aortic root.
--- NOTE | 2017-04-24 15:54 | CP.PCM.PN ---
Subjective - Date & Time of Evaluation Date of Evaluation: 04/24/17 Time of Evaluation: 09:00 - Subjective Subjective: patient seen and examined Breathing much improved Still complaining of slight cough Afebrile Objective - Vital Signs/Intake and Output Vital Signs (last 24 hours): Temp Pulse Resp BP Pulse Ox 98.0 F 64 20 150/80 97 04/24/17 07:07 04/24/17 07:07 04/24/17 07:07 04/24/17 09:55 04/24/17 07:07 - Medications Medications: Current Medications Albuterol/Ipratropium (Duoneb 3 Mg/0.5 Mg (3 Ml) Ud) 3 ml INH RQ6 [facility] Last Admin: 04/24/17 13:12 Dose: Not Given Alprazolam (Xanax) 0.25 mg PO BID PRN PRN Reason: Anxiety Stop: 04/29/17 19:38 Last Admin: 04/24/17 09:55 Dose: 0.25 mg Aspirin (Aspirin Chewable) 81 mg PO DAILY [facility] Last Admin: 04/24/17 09:55 Dose: 81 mg Clopidogrel Bisulfate (Plavix) 75 mg PO DAILY [facility] Last Admin: 04/24/17 09:55 Dose: 75 mg Famotidine (Pepcid) 20 mg PO DAILY [facility] Last Admin: 04/24/17 09:55 Dose: 20 mg Furosemide (Lasix) 20 mg IVP Q12 [facility] Last Admin: 04/24/17 09:55 Dose: 20 mg Guaifenesin (Mucinex La) 600 mg PO BID [facility] Last Admin: 04/24/17 09:55 Dose: 600 mg Heparin Sodium (Porcine) (Heparin) 5,000 units SC Q12 [facility] Last Admin: 04/24/17 09:56 Dose: 5,000 units Hydralazine HCl (Apresoline) 10 mg IVP Q6H PRN PRN Reason: SBP > 160 Insulin Aspart (Novolog) 0 unit SC ACHS [facility] PRN Reason: Protocol Last Admin: 04/24/17 11:48 Dose: 3 unit Isosorbide Mononitrate (Imdur) 30 mg PO DAILY [facility] Last Admin: 04/24/17 09:58 Dose: 30 mg Levothyroxine Sodium (Synthroid) 25 mcg PO DAILY@0630 [facility] Last Admin: 04/24/17 07:33 Dose: 25 mcg Repaglinide (Prandin) 2 mg PO ACTID [facility] Last Admin: 04/24/17 11:49 Dose: 2 mg Rosuvastatin Calcium (Crestor) 10 mg PO HS [facility] Last Admin: 04/23/17 21:56 Dose: 10 mg Tamsulosin HCl (Flomax) 0.4 mg PO DAILY [facility] Last Admin: 04/24/17 09:55 Dose: 0.4 mg - Labs Labs: 04/24/17 07:14 04/24/17 07:14 APTT 29 SECONDS (21-34) 04/23/17 08:38 - Head Exam Head Exam: ATRAUMATIC, NORMOCEPHALIC - ENT Exam ENT Exam: Mucous Membranes Moist - Neck Exam Neck Exam: Full ROM, Normal Inspection - Cardiovascular Exam Cardiovascular Exam: Irregular Rhythm - GI/Abdominal Exam GI & Abdominal Exam: Soft, Normal Bowel Sounds Assessment and Plan (1) COPD (chronic obstructive pulmonary disease) with emphysema Assessment & Plan: continue nebulizer treatment consider inhaled steroids Status: Acute
[2017-04-24 16:15] VITALS: BP 86/45; PULSE 67; TEMP 97.8
--- NOTE | 2017-04-24 18:23 | CP.PCM.PN ---
Subjective - Date & Time of Evaluation Date of Evaluation: 04/24/17 Time of Evaluation: 11:00 - Subjective Subjective: Alert, awake, legally blind. No sob or chest pains. Objective - Vital Signs/Intake and Output Vital Signs (last 24 hours): Temp Pulse Resp BP Pulse Ox 97.8 F 67 20 86/45 L 97 04/24/17 16:15 04/24/17 16:15 04/24/17 16:15 04/24/17 16:15 04/24/17 16:15 - Medications Medications: Current Medications Albuterol/Ipratropium (Duoneb 3 Mg/0.5 Mg (3 Ml) Ud) 3 ml INH RQ6 [facility] Last Admin: 04/24/17 13:12 Dose: Not Given Alprazolam (Xanax) 0.25 mg PO BID PRN PRN Reason: Anxiety Stop: 04/29/17 19:38 Last Admin: 04/24/17 09:55 Dose: 0.25 mg Aspirin (Aspirin Chewable) 81 mg PO DAILY [facility] Last Admin: 04/24/17 09:55 Dose: 81 mg Clopidogrel Bisulfate (Plavix) 75 mg PO DAILY [facility] Last Admin: 04/24/17 09:55 Dose: 75 mg Famotidine (Pepcid) 20 mg PO DAILY [facility] Last Admin: 04/24/17 09:55 Dose: 20 mg Furosemide (Lasix) 20 mg IVP Q12 [facility] Last Admin: 04/24/17 09:55 Dose: 20 mg Guaifenesin (Mucinex La) 600 mg PO BID [facility] Last Admin: 04/24/17 17:16 Dose: 600 mg Heparin Sodium (Porcine) (Heparin) 5,000 units SC Q12 [facility] Last Admin: 04/24/17 09:56 Dose: 5,000 units Hydralazine HCl (Apresoline) 10 mg IVP Q6H PRN PRN Reason: SBP > 160 Insulin Aspart (Novolog) 0 unit SC ACHS [facility] PRN Reason: Protocol Last Admin: 04/24/17 11:48 Dose: 3 unit Isosorbide Mononitrate (Imdur) 30 mg PO DAILY [facility] Last Admin: 04/24/17 09:58 Dose: 30 mg Levothyroxine Sodium (Synthroid) 25 mcg PO DAILY@0630 [facility] Last Admin: 04/24/17 07:33 Dose: 25 mcg Repaglinide (Prandin) 2 mg PO ACTID [facility] Last Admin: 04/24/17 17:16 Dose: 2 mg Rosuvastatin Calcium (Crestor) 10 mg PO HS [facility] Last Admin: 04/23/17 21:56 Dose: 10 mg Tamsulosin HCl (Flomax) 0.4 mg PO DAILY [facility] Last Admin: 04/24/17 09:55 Dose: 0.4 mg - Labs Labs: 04/24/17 07:14 04/24/17 07:14 APTT 29 SECONDS (21-34) 04/23/17 08:38 Assessment and Plan - Assessment and Plan (Free Text) Assessment: Patient is seen and examined. Alert, oriented, denies sob or chest pains. Cleared by cardiology, d/w DR [place], plan to discharge home today. Will continue with present meds at home. Advised to follow up in the office in 1 week.
--- NOTE | 2017-04-24 23:19 | CP.PCM.HP ---
History of Present Illness - History of Present Illness History of Present Illness: 76 Year old female with history of multiple medical problems. Patient presented to the emergency room on the day of admission with right sided chest pain associated with shortness of breath. Patient was evaluated in emergency room and admitted for further management. Review of Systems - EENT Additional comments: bilateral blindness - Cardiovascular Cardiovascular: Chest Pain Past Patient History - Infectious Disease Hx of Infectious Diseases: None - Past Medical History & Family History Past Medical History?: Yes - Past Social History Smoking Status: Never Smoked - CARDIAC Hx Congestive Heart Failure: Yes Hx Hypercholesterolemia: Yes Hx Hypertension: Yes - PULMONARY Hx Chronic Obstructive Pulmonary Disease (COPD): Yes - NEUROLOGICAL HX Cerebrovascular Accident: Yes - HEENT Hx HEENT Problems: Yes Hx Blind: Yes - RENAL Hx Chronic Kidney Disease: Yes - ENDOCRINE/METABOLIC Hx Hypothyroidism: Yes - HEMATOLOGICAL/ONCOLOGICAL Hx Anemia: Yes - INTEGUMENTARY Hx Dermatological Problems: No - MUSCULOSKELETAL/RHEUMATOLOGICAL Hx Musculoskeletal Disorders: Yes Hx Falls: Yes - GASTROINTESTINAL Hx Gastrointestinal Disorders: Yes Hx Bowel Surgery: Yes (ischemic bowel) Hx Colostomy: Yes - GENITOURINARY/GYNECOLOGICAL Hx Genitourinary Disorders: Yes Hx Incontinence: Yes Hx Urinary Tract Infection: Yes - PSYCHIATRIC Hx Anxiety: Yes Hx Substance Use: No - SURGICAL HISTORY Hx Cholecystectomy: Yes Hx Coronary Artery Bypass Graft: Yes Hx Coronary Stent: Yes - ANESTHESIA Hx Anesthesia: Yes Hx Anesthesia Reactions: No Hx Malignant Hyperthermia: No Meds Allergies/Adverse Reactions: Allergies Allergy/AdvReac Type Severity Reaction Status Date / Time No Known Allergies Allergy Verified 03/18/17 15:36 Physical Exam - Head Exam Head Exam: ATRAUMATIC, NORMAL INSPECTION, NORMOCEPHALIC - Cardiovascular Exam Cardiovascular Exam: REGULAR RHYTHM - Extremities Exam Additional comments: Rt. MADHURI Results - Vital Signs Recent Vital Signs: Last Vital Signs Temp 97.8 F 04/24/17 16:15 Pulse 67 04/24/17 16:15 Resp 20 04/24/17 16:15 BP 86/45 L 04/24/17 16:15 Pulse Ox 97 04/24/17 16:15 - Labs Result Diagrams: 04/24/17 07:14 04/24/17 07:14 Labs: Laboratory Results - last 24 hr 04/24/17 04/24/17 04/24/17 05:59 07:14 07:14 WBC 7.0 RBC 3.84 Hgb 11.3 Hct 34.0 MCV 88.5 MCH 29.5 MCHC 33.3 RDW 12.7 Plt Count 133 MPV 7.6 Neut % (Auto) 69.1 Lymph % (Auto) 20.8 [place] % (Auto) 7.9 Eos % (Auto) 1.8 Baso % (Auto) 0.4 Neut # 4.8 Lymph # 1.4 [place] # 0.5 Eos # 0.1 Baso # 0.0 Sodium 136 Potassium 4.9 Chloride 106 Carbon Dioxide 20 L Anion Gap 15 BUN 65 H Creatinine 2.3 H Est GFR ( Amer) 25 Est GFR (Non-Af Amer) 21 POC Glucose (mg/dL) 212 H Random Glucose 188 H Calcium 8.9 Phosphorus 4.5 Magnesium 1.6 Total Bilirubin 0.6 AST 21 ALT 26 Alkaline Phosphatase 118 Total Protein 6.5 Albumin 3.2 L Globulin 3.2 Albumin/Globulin Ratio 1.0 04/24/17 04/24/17 11:30 16:49 WBC RBC Hgb Hct MCV MCH MCHC RDW Plt Count MPV Neut % (Auto) Lymph % (Auto) [place] % (Auto) Eos % (Auto) Baso % (Auto) Neut # Lymph # [place] # Eos # Baso # Sodium Potassium Chloride Carbon Dioxide Anion Gap BUN Creatinine Est GFR ( Amer) Est GFR (Non-Af Amer) POC Glucose (mg/dL) 292 H 247 H Random Glucose Calcium Phosphorus Magnesium Total Bilirubin AST ALT Alkaline Phosphatase Total Protein Albumin Globulin Albumin/Globulin Ratio Assessment & Plan - Assessment and Plan (Free Text) Assessment: Chest pain , r/o VA HTN NIDDM BKA Plan: Cardiology consult Echocardiogram Rule out VA Resume patient's home medications.
--- NOTE | 2017-04-24 23:34 | CP.PCM.PN ---
Subjective - Date & Time of Evaluation Date of Evaluation: 04/24/17 Time of Evaluation: 16:20 - Subjective Subjective: Patient seen and evaluated Feels better Possible discharge today Objective - Vital Signs/Intake and Output Vital Signs (last 24 hours): Temp Pulse Resp BP Pulse Ox 97.8 F 67 20 86/45 L 97 04/24/17 16:15 04/24/17 16:15 04/24/17 16:15 04/24/17 16:15 04/24/17 16:15 - Labs Labs: 04/24/17 07:14 04/24/17 07:14 APTT 29 SECONDS (21-34) 04/23/17 08:38
== END 2017-04-24 20:23 | disposition home or self-care (01) ==
LOC: C.ER 09:25 → C.9E 14:09 → C.5T 14:09 → INTOOBSV 14:09 → C.5T 16:59
PROVIDERS: ADMIT Internal Medicine; ATTEND Internal Medicine
DX: J44.1 Chronic obstructive pulmonary disease with (acute) exacerbation (principal); Z79.84 Long term (current) use of oral hypoglycemic drugs; Z89.511 Acquired absence of right leg below knee; H54.0 Blindness, both eyes; E78.5 Hyperlipidemia, unspecified
CPT/HCPCS: 36415; 71010; 80053; 80061; 82948; 83735; 83880; 84100; 84443; 84484; 85025; 85730; 93005; 93306; 96374; 97161; 97530; 99285; G0378; G8978; G8979; J1644; J1940

== ENCOUNTER 2017-07-21 16:04 | Inpatient (IN) | payer MEDICARE ==
[2017-07-21 16:04] VITALS: BMI 25.6
[2017-07-21] MEDS ORDERED: Sodium Chloride 0.9% 1,000 ML IV ONE (16:32)
--- NOTE | 2017-07-21 16:39 | C.PDOC ---
History Of Present Illness Latonya is a 76 y/o female presenting to the ED for 3 day history of a non- productive cough. Reports that today she developed fever and chills, and came to the ED. Denies any associated chest pain, shortness of breath, or urinary complaints. States she feels generally fatigued. PMD: Keyla Washington Time Seen by Provider: 07/21/17 16:14 Chief Complaint (Nursing): Cough, Cold, Congestion History Per: Patient History/Exam Limitations: no limitations Onset/Duration Of Symptoms: Days (x 3) Current Symptoms Are (Timing): Still Present Associated Symptoms: Fever, Chills Additional History Per: Family Past Medical History Reviewed: Historical Data, Nursing Documentation, Vital Signs Vital Signs: Last Vital Signs Temp 98.2 F 07/21/17 18:55 Pulse 81 07/21/17 18:55 Resp 16 07/21/17 18:55 BP 120/53 L 07/21/17 18:55 Pulse Ox 100 07/21/17 18:55 - Medical History PMH: Anemia, Anxiety, Asthma, CAD, CHF, COPD, Diabetes, Emphysema, HTN, Hypercholesterolemia, Hyperlipidemia, Hyperthyroidism, Hypothyroidism, Chronic Kidney Disease Surgical History: CABG, Cholecystectomy, Coronary Stent, Pacemaker - [facility] Procedures ATHERECTOMY OF OTHER NON-CORONARY VESSEL(S) (11/15/13) BELOW KNEE AMPUTAT NEC (11/15/13) CENTRAL VENOUS CATHETER PLACEMENT WITH GUIDANCE (05/05/14) CONTRAST ARTERIOGRAM-LEG (11/15/13) ENDOSCOPIC BIOPSY OF RECTUM (02/18/15) HEMODIALYSIS (02/18/15) NONEXCIS DEBRID OF WOUND, INFECT, OR BURN (11/15/13) OTHER ENDOSCOPY OF SM INTEST (02/18/15) PACKED CELL TRANSFUSION (11/15/13) PROCEDURE ON TWO VESSELS (11/15/13) VENOUS CATHETERIZATION FOR RENAL DIALYSIS (02/18/15) Family History: States: Unknown Family Hx - Social History Hx Tobacco Use: No Hx Alcohol Use: No Hx Substance Use: No - Immunization History Hx Tetanus Toxoid Vaccination: No Hx Influenza Vaccination: No Hx Pneumococcal Vaccination: Yes Review Of Systems Except As Marked, All Systems Reviewed And Found Negative. Constitutional: Positive for: Fever, Chills, Other (Generalized fatigue) Cardiovascular: Negative for: Chest Pain Respiratory: Positive for: Cough. Negative for: Shortness of Breath Gastrointestinal: Negative for: Abdominal Pain Genitourinary: Negative for: Dysuria, Frequency, Incontinence Physical Exam - Physical Exam Appears: Non-toxic, No Acute Distress Skin: Normal Color, Warm, Dry Head: Atraumatic, Normacephalic Eye(s): bilateral: Normal Inspection, PERRL, EOMI Nose: Normal Oral Mucosa: Moist Throat: Normal, No Erythema, No Exudate Neck: Normal, Supple Chest: Symmetrical Cardiovascular: Rhythm Regular, No Murmur Respiratory: Normal Breath Sounds, No Accessory Muscle Use Gastrointestinal/Abdominal: Normal Exam, Bowel Sounds (active), Soft, No Tenderness Back: Normal Inspection, No CVA Tenderness Extremity: Pedal Edema (Scant edema on left lower leg), Deformity (Right leg w/ below knee amputation), No Other (ulcerations) Neurological/Psych: Oriented x3, Normal Speech Gait: Steady ED Course And Treatment - Laboratory Results Result Diagrams: 07/21/17 16:58 07/21/17 16:58 O2 Sat by Pulse Oximetry: 95 (RA) Pulse Ox Interpretation: Normal Medical Decision Making Medical Decision Making: Differentials include but are not limited to: Flu vs. Strep vs. Pneumonia Time: 16:31 Initial Plan: --CBC w/ differential --CMP --VBG --Influenza A B stat --Rapid strep group A ag stat --Chest X-Ray --EKG --Patient started on IV fluids --Given Tylenol 975 mg PO --Pending reevaluation EKG shows NSR at 86bpm with RBBB, unchanged from prior EKG Chest X-Ray: Confluent left basilar consolidative changes with associated small left pleural effusion. BNP mildly elevated Strep and flu negative. WBC elevated and febrile. This could be early pna va viral process. Spoke to Dr. Washington. He is requesting ceftriaxone and blood cultures. He is also requesting straight cath (patient refused), ucx and urinalysis. Disposition - Disposition Disposition: HOSPITALIZED Disposition Time: 17:42 Condition: FAIR - Clinical Impression Clinical Impression: Influenza-like illness, Fever - Scribe Statement The provider has reviewed the documentation as recorded by the Ale Delgado All medical record entries made by the [place] were at my direction and personally dictated by me. I have reviewed the chart and agree that the record accurately reflects my personal performance of the history, physical exam, medical decision making, and the department course for this patient. I have also personally directed, reviewed, and agree with the discharge instructions and disposition.
[2017-07-21] MEDS ORDERED: Sodium Chloride 0.9% 1,000 ML ONE (16:55)
[2017-07-21 17:00] LABS: BASO # 0.1 K/uL (0.0-0.2); BASO % 0.5 % (0.0-2.0); EOS % 0.3 % (0.0-4.0); HEMATOCRIT 34.6 % (34.0-47.0); LYMPH # 1.1 K/uL (1.0-4.3); LYMPH % 8.9 % (20.0-40.0); MEAN CORPUSCULAR HEMOGLOBIN 29.6 pg (27.0-31.0); MEAN CORPUSCULAR HGB CONC 33.6 g/dL (33.0-37.0); MEAN PLATELET VOLUME 7.2 fL (7.2-11.7); MONO # 0.8 K/uL (0.0-0.8); MONO % 6.6 % (0.0-10.0); PLATELET COUNT 138 K/uL (130-400); RED CELL DISTRIBUTION WIDTH 12.9 % (11.5-14.5); WHITE BLOOD COUNT 12.5 K/uL (4.8-10.8)
[2017-07-21 17:07] LABS: VENOUS BLOOD GAS BASE EXCESS -5.8 mmol/L (0.0-2.0); VENOUS BLOOD GAS PCO2 37 mmHg (40-60); VENOUS BLOOD PH 7.33 (7.32-7.43)
[2017-07-21 17:09] LABS: POTASSIUM 5.2 mmol/L (3.6-5.2)
[2017-07-21 17:11] LABS: ALB/GLOB RATIO 1.1 (1.0-2.1); BILIRUBIN,TOTAL 0.6 mg/dL (0.2-1.3)
[2017-07-21 17:12] LABS: CALCIUM 9.1 mg/dl (8.6-10.4)
[2017-07-21 17:24] LABS: TROPONIN I 0.021 ng/mL (0.00-0.120)
--- NOTE | 2017-07-21 17:26 | RAD ---
Chest x-ray single frontal view History: Cough. Comparison: 04/22/2017 Findings: Confluent left basilar consolidative changes with associated small left pleural effusion. Mild venous congestion. Milder patchy consolidative changes in the right infrahilar region. Status post median sternotomy and CABG. Cardiomegaly. Calcification at the aortic knob. Left-sided pacemaker. Degenerative changes in the spine and shoulders. Biapical pleural thickening with upper lobe granulomatous changes. Impression: Confluent left basilar consolidative changes with associated small left pleural effusion.
[2017-07-21] MEDS ORDERED: cefTRIAXone IV 1 gm in Dextros 50 ML IVPB ONE ×2 (17:38→18:53)
[2017-07-21 18:14] LABS: RBC URINE 58 /hpf (0-3); URINE BACTERIA FEW (<OCC); URINE BILIRUBIN NEGATIVE (NEGATIVE); URINE BLOOD 3+ (NEGATIVE); URINE COLOR Yellow (YELLOW); URINE GLUCOSE (UA) 1+ mg/dL (Normal); URINE KETONE NEGATIVE (NEGATIVE); URINE LEUKOCYTE ESTERASE 3+ Leu/uL (Negative); URINE PROTEIN 1+ mg/dL (NEGATIVE); URINE UROBILINOGEN NORMAL mg/dL (0.2-1.0); WBC CLUMPS FEW /hpf; WBC URINE 223 /hpf (0-5)
[2017-07-21 18:25] LABS: BASOPHIL 1 % (0-2); NEUTROPHIL 86 % (50-75); TOTAL CELLS COUNTED 100
[2017-07-21] MEDS: (Novolog) Insulin Aspart, Recombinant 100 u/ml 10 ml vial SC SCH (22:46)
[2017-07-21] MEDS: Sodium Chloride 0.9% 1,000 ML IV SCH (22:58)
[2017-07-22] MEDS: Levothyroxine 25 MCG TAB PO SCH (06:10)
[2017-07-22] MEDS: (Novolog) Insulin Aspart, Recombinant 100 u/ml 10 ml vial SC SCH ×4 (09:09→22:05)
[2017-07-22] MEDS: Aritificial Tears (15ml) OU SCH ×3 (14:28→22:04)
[2017-07-22] MEDS: Sodium Chloride 0.9% 1,000 ML IV SCH (17:49)
[2017-07-22 18:46] VITALS: RESP 20
[2017-07-22] MEDS: Azithromycin 250 MG in Sodium Chloride 0.9% 250 ML IVPB SCH (22:12)
[2017-07-23] MEDS: Levothyroxine 25 MCG TAB PO SCH (06:12)
--- NOTE | 2017-07-23 06:47 | HP ---
HISTORY OF PRESENT ILLNESS: The patient is 76-year-old female with history of multiple medical problems presented to emergency room with symptoms of cough and expectoration for the last 3 days. Symptoms were progressing to shortness of breath. The patient presented to emergency room for evaluation and she was found to have bilateral lower lobe pneumonia with left pleural effusion. The patient was admitted for further management. The patient denied to have any sick contact or travel outside of the country. REVIEW OF SYSTEMS: Other review of systems is positive for blindness and right below-knee amputation. ALLERGIES: NO KNOWN ALLERGIES. HOME MEDICATIONS: Include tamsulosin 0.4 mg daily, sodium bicarbonate 650 mg twice a day, Crestor 10 mg daily, Prandin 0.5 mg 3 times a day, levothyroxine 25 mcg daily, Imdur 50 mg daily, Pepcid 20 mg daily, Plavix 75 mg daily, and Xanax 0.25 mg daily. PAST MEDICAL HISTORY: Hypothyroidism, hypertension, coronary artery disease, status post colostomy, and status post right below-knee amputation. SOCIAL HISTORY: No history of smoking, EtOH, or substance abuse. FAMILY HISTORY: Not contributory. PHYSICAL EXAMINATION GENERAL: The patient is not in any cardiopulmonary distress. VITAL SIGNS: Blood pressure 153/69, temperature 98.1, respiratory rate 20, and pulse 76. HEENT: Pupils equal and reactive to light. Normal appearing mucosa of the conjunctivae. Bilateral eye blindness. NECK: Supple. No JVD. No carotid bruits. No lymph node. No thyromegaly. CHEST AND LUNGS: Bilateral symmetrical expansion. Good air exchange. There is bilateral basilar rales. CARDIOVASCULAR: PMI not localized. S1 and S2. No additional sounds. ABDOMEN: Normoactive bowel sounds. No tenderness. No organomegaly. No masses. Colostomy in site. EXTREMITIES: No cyanosis. No clubbing on the left side, right BKA. CENTRAL NERVOUS SYSTEM: Alert, awake, and oriented x3. No neurological deficit could be appreciated. ASSESSMENT: 1. Bilateral pneumonia. 2. Coronary artery disease. 3. Hypertension. 4. Type 2 diabetes mellitus. 5. Chronic kidney disease stage III. PLAN: Continue current IV antibiotics. Started on both Rocephin and azithromycin. Resume patient's home medications. Sameh MD Felix [facility] # [id number]
[2017-07-23] MEDS: (Novolog) Insulin Aspart, Recombinant 100 u/ml 10 ml vial SC SCH ×4 (08:26→22:15)
[2017-07-23] MEDS: Aritificial Tears (15ml) OU SCH ×4 (10:02→22:13)
--- NOTE | 2017-07-23 12:45 | CP.PCM.CON ---
History of Present Illness - History of Present Illness History of Present Illness: 76 y/o female presenting to the ED for 3 day history of a non-productive cough. Reports that today she developed fever and chills, and came to the ED. Denies any associated chest pain, shortness of breath, or urinary complaints. States she feels generally fatigued. - Medical History PMH: Anemia, Anxiety, Asthma, CAD, CHF, COPD, Diabetes, Emphysema, HTN, Hypercholesterolemia, Hyperlipidemia, Hyperthyroidism, Hypothyroidism, Chronic Kidney Disease Surgical History: CABG, Cholecystectomy, Coronary Stent, Pacemaker - [facility] Procedures ATHERECTOMY OF OTHER NON-CORONARY VESSEL(S) (11/15/13) BELOW KNEE AMPUTAT NEC (11/15/13) CENTRAL VENOUS CATHETER PLACEMENT WITH GUIDANCE (05/05/14) CONTRAST ARTERIOGRAM-LEG (11/15/13) ENDOSCOPIC BIOPSY OF RECTUM (02/18/15) HEMODIALYSIS (02/18/15) NONEXCIS DEBRID OF WOUND, INFECT, OR BURN (11/15/13) OTHER ENDOSCOPY OF SM INTEST (02/18/15) PACKED CELL TRANSFUSION (11/15/13) PROCEDURE ON TWO VESSELS (11/15/13) VENOUS CATHETERIZATION FOR RENAL DIALYSIS (02/18/15) Review of Systems - Constitutional Constitutional: As Per HPI - EENT Eyes: absent: As Per HPI, Blind Spots, Blurred Vision, Change in Vision, Decreased Night Vision, Diplopia, Discharge, Dry Eye, Exophthalmos, Floaters, Irritation, Itchy Eyes, Loss of Peripheral Vision, Pain, Photophobia, Requires Corrective Lenses, Sees Flashes, Spots in Vision, Tunnel Vision, Other Visual Disturbances, Loss of Vision, Other Ears: absent: As Per HPI, Decreased Hearing, Ear Discharge, Ear Pain, Tinnitus, Abnormal Hearing, Disequilibrium, Dizziness, Other Nose/Mouth/Throat: absent: As Per HPI, Epistaxis, Nasal Congestion, Nasal Discharge, Nasal Obstruction, Nasal Trauma, Nose Pain, Post Nasal Drip, Sinus Pain, Sinus Pressure, Bleeding Gums, Change in Voice, Dental Pain, Dry Mouth, Dysphagia, Halitosis, Hoarsness, Lip Swelling, Mouth Lesions, Mouth Pain, Odynophagia, Sore Throat, Throat Swelling, Tongue Swelling, Facial Pain, Neck Pain, Neck Mass, Other - Breasts Breasts: absent: As Per HPI, Change in Shape, Mass, Pain, Nipple Discharge, Nipple Inversion, Skin Changes, Swelling, Other - Cardiovascular Cardiovascular: As Per HPI - Respiratory Respiratory: As Per HPI, Cough. absent: Hemoptysis - Gastrointestinal Gastrointestinal: absent: As Per HPI, Abdominal Pain, Belching, Bloating, Change in Bowel Habits, Change in Stool Character, Coffee Ground Emesis, Constipation, Cramping, Diarrhea, Dyspepsia, Dysphagia, Early Satiety, Excessive Flatus, Fecal Incontinence, Heartburn, Hematemesis, Hematochezia, Loose Stools, Melena, Nausea, Odynophagia, Temesmus, Vomiting, Other - Genitourinary Genitourinary: absent: As Per HPI, Change in Urinary Stream, Difficulty Urinating, Dysuria, Flank Pain, Hematuria, Pyuria, Nocturia, Urinary Incontinence, Urinary Frequency, Urinary Hesitance, Urinary Urgency, Voiding Freq/Small Amts, Freq UTI, Hx Renal/Bladder Calculi, Hx /Renal Surgery, Bladder Distension, Other - Reproductive: Female Reproductive:Female: absent: As Per HPI, Amenorrhea, Amenorrhea/ Control, Currently Menstual, Cycle <21 Days, Cycle >35 Days, Cycle Variable, Menses 1-7 Days, Menses >/= 8 Days, Menses Variable, Cycle > 4 Weeks Between, No Menses for 6 Months, Heavy Menses, Light Menses, Normal Menses, Spotting Between Cycles , S/P Hysterectomy, Menopausal, Post Menopausal, Premenarche, Abnormal Vaginal Bleeding, Dysmenorrhea, Dyspareunia, Genital Lesions, Genital Pruritis, Pelvic Pain, Prolapse Symptoms, Sexual Dysfunction, Vaginal Discharge, Vaginal Dryness , Vaginal Odor, Vaginal Pruritis, Other - Menstruation Menstruation: absent: As Per HPI, Amenorrhea, Amenorrhea/ Control, Currently Menstual, Cycle <21 Days, Cycle >35 Days, Cycle Variable, Menses 1-7 Days, Menses >/= 8 Days, Menses Variable, Cycle > 4 Weeks Between, No Menses for 6 Months, Heavy Menses, Light Menses, Normal Menses, Spotting Between Cycles , S/P Hysterectomy, Menopausal, Post Menopausal, Premenarche, Abnormal Vaginal Bleeding, Dysmenorrhea, Other - Integumentary Integumentary: absent: As Per HPI, Acne, Alopecia, Bleeding Lesions, Change in Hair, Change in Nails, Change in Pigmentation, Changing Lesions, Dry Skin, Erythema, Furuncle, Hirsutism, Lesions, New Lesions, Non-Healing Lesions, Photosensitivity, Pruritus, Rash, Skin Pain, Skin Ulcer, Sores, Striae, Swelling , Unusual Bruising, Wounds, Jaundice, Other - Neurological Neurological: absent: As Per HPI, Abnormal Gait, Abnormal Hearing, Abnormal Movements, Abnormal Speech, Behavioral Changes, Burning Sensations, Confusion, Convulsions, Disequilibrium, Dizziness, Numbness, Focal Weakness, Frequent Falls , Headaches, Lack of Coordination, Loss of Vision, Memory Loss, Paresthesias, Radicular Pain, Restless Legs, Sensory Deficit, Syncope, Tingling, Tremor, Vertigo, Weakness, Other Visual Disturbances, Other - Psychiatric Psychiatric: absent: As Per HPI, Abnormal Sleep Pattern, Anhedonia, Anxiety, Auditory Hallucinations, Behavioral Changes, Change in Appetite, Change in Libido, Confusion, Depression, Difficulty Concentrating, Hallucinations, Homicidal Ideation, Hopelessness, Irritability, Memory Loss, Mood Swings, Panic Attacks, Paranoia, Suicidal Ideation, Visual Hallucinations, Tactile Hallucinations, Other - Endocrine Endocrine: absent: As Per HPI, Change in Body Appearance, Change in Libido, Cold Intolorance, Deepening of Voice, Excessive Sweating, Fatigue, Flushing, Heat Intolorance, Increase in Ring/Shoe/Hat Size, Palpitations, Polydipsia, Polyphagia, Polyuria, Other - Hematologic/Lymphatic Hematologic: absent: As Per HPI, Easy Bleeding, Easy Bruising, Lymphadenopathy, Other Past Patient History - Infectious Disease Hx of Infectious Diseases: None - Past Medical History & Family History Past Medical History?: Yes - Past Social History Smoking Status: Never Smoked - CARDIAC Hx Congestive Heart Failure: Yes Hx Hypercholesterolemia: Yes Hx Hypertension: Yes Hx Pacemaker: Yes - PULMONARY Hx Asthma: Yes Hx Chronic Obstructive Pulmonary Disease (COPD): Yes Hx Emphysema: Yes - NEUROLOGICAL HX Cerebrovascular Accident: Yes - HEENT Hx HEENT Problems: Yes Hx Blind: Yes - RENAL Hx Chronic Kidney Disease: Yes - ENDOCRINE/METABOLIC Hx Hyperthyroidism: Yes Hx Hypothyroidism: Yes - HEMATOLOGICAL/ONCOLOGICAL Hx Anemia: Yes - INTEGUMENTARY Hx Dermatological Problems: No - MUSCULOSKELETAL/RHEUMATOLOGICAL Hx Musculoskeletal Disorders: Yes Hx Falls: Yes - GASTROINTESTINAL Hx Gastrointestinal Disorders: Yes Hx Bowel Surgery: Yes (ischemic bowel) Hx Colostomy: Yes - GENITOURINARY/GYNECOLOGICAL Hx Genitourinary Disorders: Yes Hx Incontinence: Yes Hx Urinary Tract Infection: Yes - PSYCHIATRIC Hx Anxiety: Yes Hx Substance Use: No - SURGICAL HISTORY Hx Cholecystectomy: Yes Hx Coronary Artery Bypass Graft: Yes Hx Coronary Stent: Yes - ANESTHESIA Hx Anesthesia: Yes Hx Anesthesia Reactions: No Hx Malignant Hyperthermia: No Meds Allergies/Adverse Reactions: Allergies Allergy/AdvReac Type Severity Reaction Status Date / Time No Known Allergies Allergy Verified 07/21/17 16:09 - Medications Medications: Current Medications Acetaminophen (Tylenol 325mg Tab) 650 mg PO Q6 PRN PRN Reason: Fever >100.4 F Alprazolam (Xanax) 0.25 mg PO DAILY [facility] Stop: 07/29/17 10:01 Last Admin: 07/23/17 10:03 Dose: 0.25 mg Artificial Tears (Artificial Tears) 0 ml OU QID [facility] Last Admin: 07/23/17 10:02 Dose: 2 drop Clopidogrel Bisulfate (Plavix) 75 mg PO DAILY [facility] Last Admin: 07/23/17 10:03 Dose: 75 mg Famotidine (Pepcid) 20 mg PO DAILY [facility] Last Admin: 07/23/17 10:03 Dose: 20 mg Heparin Sodium (Porcine) (Heparin) 5,000 units SC Q12H [facility] Last Admin: 07/23/17 10:14 Dose: 5,000 units Azithromycin 250 mg/ Sodium (Chloride) 250 mls @ 250 mls/hr IVPB Q24H [facility] Last Admin: 07/22/17 22:12 Dose: 250 mls/hr Sodium Chloride (Sodium Chloride 0.9%) 1,000 mls @ 50 mls/hr IV .Q20H [facility] Last Admin: 07/22/17 17:49 Dose: 50 mls/hr Imipenem/Cilastatin Sodium 500 (mg/ Dextrose) 100 mls @ 100 mls/hr IVPB Q6H [facility] Insulin Aspart (Novolog) 0 unit SC ACHS [facility] PRN Reason: Protocol Last Admin: 07/23/17 12:13 Dose: 3 unit Isosorbide Mononitrate (Imdur Er) 30 mg PO DAILY [facility] Last Admin: 07/23/17 10:03 Dose: 30 mg Levothyroxine Sodium (Synthroid) 25 mcg PO DAILY@0630 [facility] Last Admin: 07/23/17 06:12 Dose: 25 mcg Promethazine HCl (Phenergan Syrup) 12.5 mg PO Q6 PRN PRN Reason: Cough Repaglinide (Prandin) 0.5 mg PO TIDAC [facility] Last Admin: 07/23/17 12:14 Dose: 0.5 mg Rosuvastatin Calcium (Crestor) 10 mg PO HS [facility] Last Admin: 07/22/17 22:04 Dose: 10 mg Sodium Bicarbonate (Sodium Bicarbonate Tab) 650 mg PO BID [facility] Last Admin: 07/23/17 10:03 Dose: 650 mg Tamsulosin HCl (Flomax) 0.4 mg PO DAILY [facility] Last Admin: 07/23/17 10:02 Dose: 0.4 mg Physical Exam - Constitutional Appears: Non-toxic, Chronically Ill - Head Exam Head Exam: ATRAUMATIC, NORMAL INSPECTION, NORMOCEPHALIC - Eye Exam Eye Exam: EOMI. absent: Scleral icterus - ENT Exam ENT Exam: Mucous Membranes Dry - Neck Exam Neck exam: Negative for: Lymphadenopathy - Respiratory Exam Respiratory Exam: Decreased Breath Sounds, Rhonchi - Cardiovascular Exam Cardiovascular Exam: REGULAR RHYTHM - GI/Abdominal Exam GI & Abdominal Exam: Diminished Bowel Sounds, Soft. absent: Tenderness - Rectal Exam Rectal Exam: Deferred - Exam Exam: NORMAL INSPECTION - Extremities Exam Extremities exam: Positive for: pedal edema, pedal pulses present. Negative for : calf tenderness, tenderness - Back Exam Back exam: absent: CVA tenderness (L), CVA tenderness (R), paraspinal tenderness - Neurological Exam Neurological exam: Alert, CN II-XII Intact, Oriented x3, Reflexes Normal - Psychiatric Exam Psychiatric exam: Normal Mood Results - Vital Signs Recent Vital Signs: Last Vital Signs Temp 98.8 F 07/23/17 08:55 Pulse 68 07/23/17 08:55 Resp 20 07/23/17 08:55 BP 150/62 07/23/17 08:55 Pulse Ox 96 07/23/17 08:55 - Labs Result Diagrams: 07/21/17 16:58 07/21/17 16:58 Labs: Laboratory Results - last 24 hr 07/22/17 07/22/17 07/23/17 17:13 21:18 07:02 POC Glucose (mg/dL) 303 H 214 H 144 H 07/23/17 11:03 POC Glucose (mg/dL) 221 H Assessment & Plan (1) Fever Status: Acute (2) Influenza-like illness Status: Acute (3) GLORIA (acute kidney injury) Status: Acute (4) Pneumonia Status: Acute (5) Pneumonia Status: Acute - Assessment and Plan (Free Text) Assessment: await cultures cont iv rx
[2017-07-23] MEDS: Sodium Chloride 0.9% 1,000 ML IV SCH ×2 (13:39→18:00)
[2017-07-23] MEDS: Promethazine 12.5 mg/10 ml Syrup PO PRN ×2 (14:24→22:14)
[2017-07-23] MEDS: Azithromycin 250 MG in Sodium Chloride 0.9% 250 ML IVPB SCH (22:11)
--- NOTE | 2017-07-24 02:20 | PN ---
SUBJECTIVE: The patient is seen today on 07/23/2017, she is not in any cardiopulmonary distress. Cough and shortness of breath are less. PHYSICAL EXAMINATION: VITAL SIGNS: Blood pressure is 150/62, temperature 98.8, respiratory rate 20, and pulse 68. HEENT: The patient has blindness in both eyes. NECK: Supple. No JVD. No carotid bruit. No lymph node. No thyromegaly. CHEST AND LUNGS: Bilaterally symmetrical expansion with good air exchange. No rales. No rhonchi. CARDIOVASCULAR SYSTEM: PMI not localized. S1 and S2. No additional sounds. ABDOMEN: Normoactive bowel sounds. No tenderness. No organomegaly. No masses. The patient has colostomy in placed. EXTREMITIES: The patient has right BKA. CENTRAL NERVOUS SYSTEM: Alert, awake, and oriented x3. No neurological deficits could be appreciated. Urine culture is positive for E. coli. ESBL positive E. coli. ASSESSMENT: Bilateral pneumonia, urine tract infection, coronary artery disease, peripheral vascular disease, status post right below-knee amputation. PLAN: We will do ID consult. Continue current antibiotics and medications, and we will order antitussive medications. Keyla Washington MD
[2017-07-24] MEDS: Promethazine 12.5 mg/10 ml Syrup PO PRN (05:51)
[2017-07-24] MEDS: Levothyroxine 25 MCG TAB PO SCH (05:52)
[2017-07-24] MEDS: (Novolog) Insulin Aspart, Recombinant 100 u/ml 10 ml vial SC SCH ×4 (07:20→22:27)
[2017-07-24 07:56] LABS: BASO % 0.4 % (0.0-2.0); EOS # 0.2 K/uL (0.0-0.7); EOS % 2.6 % (0.0-4.0); HEMATOCRIT 31.7 % (34.0-47.0); LYMPH # 0.7 K/uL (1.0-4.3); LYMPH % 10.8 % (20.0-40.0); MEAN CELL VOLUME 88.5 fL (81.0-99.0); MEAN CORPUSCULAR HEMOGLOBIN 30.1 pg (27.0-31.0); MEAN PLATELET VOLUME 7.5 fL (7.2-11.7); MONO # 0.4 K/uL (0.0-0.8); MONO % 6.5 % (0.0-10.0); RED CELL DISTRIBUTION WIDTH 12.7 % (11.5-14.5); WHITE BLOOD COUNT 6.6 K/uL (4.8-10.8)
[2017-07-24 08:12] LABS: POTASSIUM 4.5 mmol/L (3.6-5.2)
[2017-07-24 08:14] LABS: ALB/GLOB RATIO 0.9 (1.0-2.1); BILIRUBIN,TOTAL 0.3 mg/dL (0.2-1.3)
[2017-07-24 08:15] LABS: CALCIUM 8.6 mg/dl (8.6-10.4)
[2017-07-24] MEDS: Aritificial Tears (15ml) OU SCH ×4 (09:30→21:56)
--- NOTE | 2017-07-24 13:44 | CP.PCM.PN ---
Subjective - Date & Time of Evaluation Date of Evaluation: 07/24/17 Time of Evaluation: 09:00 - Subjective Subjective: less fever/ cough blood c/s neg thus far Objective - Vital Signs/Intake and Output Vital Signs (last 24 hours): Temp Pulse Resp BP Pulse Ox 98.1 F 81 20 155/71 H 97 07/24/17 08:00 07/24/17 08:00 07/24/17 08:00 07/24/17 08:00 07/24/17 08:00 Intake and Output: 07/24/17 07/24/17 06:59 18:59 Intake Total 1390 Output Total 700 Balance 690 - Medications Medications: Current Medications Acetaminophen (Tylenol 325mg Tab) 650 mg PO Q6 PRN PRN Reason: Fever >100.4 F Last Admin: 07/23/17 18:01 Dose: 650 mg Alprazolam (Xanax) 0.25 mg PO DAILY [facility] Stop: 07/29/17 10:01 Last Admin: 07/24/17 09:28 Dose: 0.25 mg Artificial Tears (Artificial Tears) 0 ml OU QID [facility] Last Admin: 07/24/17 09:30 Dose: 1 drop Clopidogrel Bisulfate (Plavix) 75 mg PO DAILY [facility] Last Admin: 07/24/17 09:28 Dose: 75 mg Famotidine (Pepcid) 20 mg PO DAILY [facility] Last Admin: 07/24/17 09:28 Dose: 20 mg Heparin Sodium (Porcine) (Heparin) 5,000 units SC Q12H [facility] Last Admin: 07/24/17 09:28 Dose: 5,000 units Azithromycin 250 mg/ Sodium (Chloride) 250 mls @ 250 mls/hr IVPB Q24H [facility] Last Admin: 07/23/17 22:11 Dose: 250 mls/hr Imipenem/Cilastatin Sodium 500 (mg/ Sodium Chloride) 100 mls @ 100 mls/hr IVPB Q6H [facility] Last Admin: 07/24/17 06:06 Dose: 100 mls/hr Insulin Aspart (Novolog) 0 unit SC ACHS [facility] PRN Reason: Protocol Last Admin: 07/24/17 11:47 Dose: 2 unit Isosorbide Mononitrate (Imdur Er) 30 mg PO DAILY [facility] Last Admin: 07/24/17 09:28 Dose: 30 mg Levothyroxine Sodium (Synthroid) 25 mcg PO DAILY@0630 [facility] Last Admin: 07/24/17 05:52 Dose: 25 mcg Promethazine HCl (Phenergan Syrup) 12.5 mg PO Q6 PRN PRN Reason: Cough Last Admin: 07/24/17 05:51 Dose: 12.5 mg Repaglinide (Prandin) 0.5 mg PO TIDAC [facility] Last Admin: 07/24/17 11:49 Dose: 0.5 mg Rosuvastatin Calcium (Crestor) 10 mg PO HS [facility] Last Admin: 07/23/17 22:16 Dose: 10 mg Sodium Bicarbonate (Sodium Bicarbonate Tab) 650 mg PO BID [facility] Last Admin: 07/24/17 09:28 Dose: 650 mg Tamsulosin HCl (Flomax) 0.4 mg PO DAILY [facility] Last Admin: 07/24/17 09:28 Dose: 0.4 mg - Labs Labs: 07/24/17 07:47 07/24/17 07:47 - Constitutional Appears: Non-toxic, Chronically Ill - Head Exam Head Exam: NORMOCEPHALIC - Eye Exam Eye Exam: PERRL - ENT Exam ENT Exam: Mucous Membranes Dry, Normal External Ear Exam - Neck Exam Neck Exam: absent: Lymphadenopathy - Respiratory Exam Respiratory Exam: Decreased Breath Sounds, Rhonchi - Cardiovascular Exam Cardiovascular Exam: REGULAR RHYTHM, +S1, +S2 - GI/Abdominal Exam GI & Abdominal Exam: Distended, Soft - Rectal Exam Rectal Exam: Deferred - Exam Exam: NORMAL INSPECTION - Extremities Exam Extremities Exam: absent: Pedal Edema - Back Exam Back Exam: absent: CVA tenderness (L), CVA tenderness (R) - Neurological Exam Neurological Exam: Alert, Awake, Oriented x3 - Psychiatric Exam Psychiatric exam: Depressed - Skin Skin Exam: Dry Assessment and Plan (1) Fever Status: Acute (2) Influenza-like illness Status: Acute (3) GLORIA (acute kidney injury) Status: Acute (4) Pneumonia Status: Acute (5) Pneumonia Status: Acute
[2017-07-24] MEDS: Azithromycin 250 MG in Sodium Chloride 0.9% 250 ML IVPB SCH (23:00)
--- NOTE | 2017-07-25 00:27 | PN ---
DATE: 07/24/2017 SUBJECTIVE: The patient is seen today on 07/24/2017. The patient is not in any cardiopulmonary distress. PHYSICAL EXAMINATION VITAL SIGNS: Blood pressure is 130/70, temperature 98.2, respiratory rate 18, and pulse 76. HEENT: The patient is blind in both eyes. NECK: Supple. No JVD. No carotid bruit. No lymph node. No thyromegaly. CHEST AND LUNGS: Bilaterally symmetrical expansion with good air exchange. No rales. No rhonchi. CARDIOVASCULAR SYSTEM: PMI not localized. S1 and S2. No additional sounds. ABDOMEN: Normoactive bowel sounds. Colostomy bag in place. EXTREMITIES: Right BKA. No edema or cyanosis of the left lower extremity. CENTRAL NERVOUS SYSTEM: Alert, awake, and oriented x2. No neurological deficits could be appreciated. ASSESSMENT: 1. Community acquired pneumonia. 2. Urinary tract infection. 3. Type 2 diabetes mellitus. 4. Coronary artery disease. PLAN: Continue current IV antibiotics and follow ID recommendations. Ashley MD Felix
[2017-07-25] MEDS: Azithromycin 250 MG in Sodium Chloride 0.9% 250 ML IVPB SCH ×2 (00:38→22:02)
[2017-07-25] MEDS: Levothyroxine 25 MCG TAB PO SCH (06:16)
[2017-07-25 06:36] LABS: BASO % 0.2 % (0.0-2.0); EOS # 0.1 K/uL (0.0-0.7); EOS % 2.1 % (0.0-4.0); HEMATOCRIT 32.2 % (34.0-47.0); LYMPH # 0.9 K/uL (1.0-4.3); LYMPH % 14.5 % (20.0-40.0); MEAN CELL VOLUME 87.7 fL (81.0-99.0); MEAN CORPUSCULAR HEMOGLOBIN 29.8 pg (27.0-31.0); MEAN CORPUSCULAR HGB CONC 33.9 g/dL (33.0-37.0); MEAN PLATELET VOLUME 7.4 fL (7.2-11.7); MONO # 0.6 K/uL (0.0-0.8); MONO % 9.6 % (0.0-10.0); RED CELL DISTRIBUTION WIDTH 12.8 % (11.5-14.5); WHITE BLOOD COUNT 6.5 K/uL (4.8-10.8)
[2017-07-25 07:11] LABS: CALCIUM 8.7 mg/dl (8.6-10.4); POTASSIUM 4.1 mmol/L (3.6-5.2)
[2017-07-25] MEDS: (Novolog) Insulin Aspart, Recombinant 100 u/ml 10 ml vial SC SCH ×4 (08:25→22:01)
[2017-07-25] MEDS: Aritificial Tears (15ml) OU SCH ×4 (10:01→21:56)
--- NOTE | 2017-07-25 11:43 | CARD ---
APPROVED REPORT EKG Measurement Heart [id number] <Conclusion> Normal sinus rhythm Right bundle branch block Possible Inferior infarct, age undetermined Abnormal ECG
[2017-07-25 13:41] LABS: RBC URINE 26 /hpf (0-3); URINE BACTERIA RARE (<OCC); URINE BILIRUBIN NEGATIVE (NEGATIVE); URINE BLOOD 2+ (NEGATIVE); URINE COLOR Yellow (YELLOW); URINE GLUCOSE (UA) 3+ mg/dL (Normal); URINE KETONE TRACE mg/dL (NEGATIVE); URINE LEUKOCYTE ESTERASE 3+ Leu/uL (Negative); URINE PROTEIN 1+ mg/dL (NEGATIVE); URINE UROBILINOGEN NORMAL mg/dL (0.2-1.0); WBC URINE 503 /hpf (0-5)
[2017-07-25] MEDS: Promethazine 12.5 mg/10 ml Syrup PO PRN (14:10)
--- NOTE | 2017-07-26 02:19 | PN ---
DAILY PROGRESS NOTE DATE: 07/25/2017 SUBJECTIVE: She overall feels better with short of breath and less cough. PHYSICAL EXAMINATION: VITAL SIGNS: Blood pressure 131/91, temperature 98.9, respiratory rate 20, and pulse 77. 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 Pale appearing mucosa of the conjunctivae, oropharyngeal and nasal membrane mucosa. NECK: Supple. No JVD. No carotid bruit. No lymph node. No thyromegaly. CHEST AND LUNGS: Bilateral symmetrical expansion. Good air exchange. No rales. No rhonchi. CARDIOVASCULAR SYSTEM: PMI not localized. S1 and S2. No additional sounds. ABDOMEN: Normoactive bowel sounds. No tenderness. No organomegaly. A colostomy bag in place. EXTREMITIES: Right BKA. CENTRAL NERVOUS SYSTEM: Alert, awake, and oriented x3. No neurological deficits could be appreciated. ASSESSMENT: Pneumonia, urinary tract infection, coronary artery disease, hypertension, type 2 diabetes mellitus, and hypothyroidism. PLAN: Continue current IV antibiotics and follow ID recommendations. Ashley MD Felix
[2017-07-26] MEDS: Levothyroxine 25 MCG TAB PO SCH (06:17)
[2017-07-26] MEDS: (Novolog) Insulin Aspart, Recombinant 100 u/ml 10 ml vial SC SCH ×4 (08:12→22:10)
[2017-07-26] MEDS: Aritificial Tears (15ml) OU SCH ×4 (09:26→21:58)
--- NOTE | 2017-07-26 14:52 | CP.PCM.PN ---
Subjective - Date & Time of Evaluation Date of Evaluation: 07/26/17 Time of Evaluation: 10:00 - Subjective Subjective: feels ok no fever cough or sob iv rx in progress Objective - Vital Signs/Intake and Output Vital Signs (last 24 hours): Temp Pulse Resp BP Pulse Ox 98.2 F 75 20 166/77 H 95 07/26/17 08:16 07/26/17 14:01 07/26/17 14:01 07/26/17 14:01 07/26/17 14:01 Intake and Output: 07/26/17 07/26/17 06:59 18:59 Intake Total 1100 600 Output Total 450 600 Balance 650 0 - Medications Medications: Current Medications Acetaminophen (Tylenol 325mg Tab) 650 mg PO Q6 PRN PRN Reason: Fever >100.4 F Last Admin: 07/23/17 18:01 Dose: 650 mg Alprazolam (Xanax) 0.25 mg PO DAILY [facility] Stop: 07/29/17 10:01 Last Admin: 07/26/17 09:25 Dose: 0.25 mg Artificial Tears (Artificial Tears) 0 ml OU QID [facility] Last Admin: 07/26/17 14:05 Dose: 1 drop Clopidogrel Bisulfate (Plavix) 75 mg PO DAILY [facility] Last Admin: 07/26/17 09:25 Dose: 75 mg Famotidine (Pepcid) 20 mg PO DAILY [facility] Last Admin: 07/26/17 09:25 Dose: 20 mg Heparin Sodium (Porcine) (Heparin) 5,000 units SC Q12H [facility] Last Admin: 07/26/17 09:26 Dose: 5,000 units Azithromycin 250 mg/ Sodium (Chloride) 250 mls @ 250 mls/hr IVPB Q24H [facility] Last Admin: 07/25/17 22:02 Dose: 250 mls/hr Imipenem/Cilastatin Sodium 500 (mg/ Sodium Chloride) 100 mls @ 100 mls/hr IVPB Q6H [facility] Last Admin: 07/26/17 12:37 Dose: 100 mls/hr Insulin Aspart (Novolog) 0 unit SC ACHS [facility] PRN Reason: Protocol Last Admin: 07/26/17 11:45 Dose: 4 unit Isosorbide Mononitrate (Imdur Er) 30 mg PO DAILY [facility] Last Admin: 07/26/17 09:25 Dose: 30 mg Levothyroxine Sodium (Synthroid) 25 mcg PO DAILY@0630 [facility] Last Admin: 07/26/17 06:17 Dose: 25 mcg Promethazine HCl (Phenergan Syrup) 12.5 mg PO Q6 PRN PRN Reason: Cough Last Admin: 07/25/17 14:10 Dose: 12.5 mg Repaglinide (Prandin) 0.5 mg PO TIDAC [facility] Last Admin: 07/26/17 11:45 Dose: 0.5 mg Rosuvastatin Calcium (Crestor) 10 mg PO HS [facility] Last Admin: 07/25/17 21:57 Dose: 10 mg Sodium Bicarbonate (Sodium Bicarbonate Tab) 650 mg PO BID [facility] Last Admin: 07/26/17 09:25 Dose: 650 mg Tamsulosin HCl (Flomax) 0.4 mg PO DAILY [facility] Last Admin: 07/26/17 09:25 Dose: 0.4 mg - Labs Labs: 07/25/17 06:23 07/25/17 06:23 - Constitutional Appears: Non-toxic, Chronically Ill - Head Exam Head Exam: NORMOCEPHALIC - Eye Exam Additional comments: blind both eyes - ENT Exam ENT Exam: Mucous Membranes Dry - Neck Exam Neck Exam: absent: Lymphadenopathy - Respiratory Exam Respiratory Exam: Decreased Breath Sounds - Cardiovascular Exam Cardiovascular Exam: REGULAR RHYTHM - GI/Abdominal Exam GI & Abdominal Exam: Distended, Soft - Rectal Exam Rectal Exam: Deferred - Exam Exam: NORMAL INSPECTION - Extremities Exam Extremities Exam: absent: Pedal Edema - Back Exam Back Exam: absent: CVA tenderness (L), CVA tenderness (R) - Neurological Exam Neurological Exam: Alert, Awake, Oriented x3 Assessment and Plan (1) Fever Status: Acute (2) Influenza-like illness Status: Acute (3) GLORIA (acute kidney injury) Status: Acute (4) Pneumonia Status: Acute (5) Pneumonia Status: Acute
[2017-07-26 16:20] VITALS: O2SAT 96
[2017-07-26] MEDS: Azithromycin 250 MG in Sodium Chloride 0.9% 250 ML IVPB SCH (22:02)
--- NOTE | 2017-07-27 02:50 | PN ---
DAILY PROGRESS NOTE DATE: 07/26/2017 SUBJECTIVE: She is not in any cardiopulmonary distress. PHYSICAL EXAMINATION: VITAL SIGNS: Blood pressure is 166/77, temperature 98.2, respiratory rate 20, and pulse 75. HEENT: The patient is blind in both eyes. NECK: Supple. No JVD. No carotid bruit. No lymph node. No thyromegaly. CHEST AND LUNGS: Bilateral symmetrical expansion. Good air exchange. No rales. No rhonchi. CARDIOVASCULAR: PMI not localized. S1 and S2. No additional sounds. ABDOMEN: Normoactive bowel sounds. No tenderness. No organomegaly. No masses. EXTREMITIES: No cyanosis, no clubbing, and no edema of the left lower extremity. The patient has right BKA. CENTRAL NERVOUS SYSTEM: Alert, awake, and oriented x3. No neurological deficits could be appreciated. LABORATORY DATA: Repeated urine culture has no growth on 07/25/2017. The patient is currently on Primaxin treating E. coli positive for ESBL. ASSESSMENT: 1. Pneumonia. 2. Urinary tract infection. 3. Type 2 diabetes mellitus. 4. Hypothyroidism. 5. Coronary artery disease. PLAN: Continue current antibiotics and follow ID recommendations. Keyla Washington MD
[2017-07-27] MEDS: Levothyroxine 25 MCG TAB PO SCH (06:06)
[2017-07-27] MEDS: (Novolog) Insulin Aspart, Recombinant 100 u/ml 10 ml vial SC SCH ×3 (08:16→16:30)
[2017-07-27] MEDS: Aritificial Tears (15ml) OU SCH ×2 (09:07→13:25)
[2017-07-27 11:37] LABS: BASO % 0.4 % (0.0-2.0); EOS # 0.1 K/uL (0.0-0.7); EOS % 1.9 % (0.0-4.0); HEMATOCRIT 31.2 % (34.0-47.0); LYMPH # 0.9 K/uL (1.0-4.3); LYMPH % 14.2 % (20.0-40.0); MEAN CELL VOLUME 88.7 fL (81.0-99.0); MEAN CORPUSCULAR HEMOGLOBIN 30.4 pg (27.0-31.0); MEAN CORPUSCULAR HGB CONC 34.3 g/dL (33.0-37.0); MEAN PLATELET VOLUME 7.3 fL (7.2-11.7); MONO # 0.5 K/uL (0.0-0.8); MONO % 7.5 % (0.0-10.0); RED CELL DISTRIBUTION WIDTH 12.8 % (11.5-14.5); WHITE BLOOD COUNT 6.4 K/uL (4.8-10.8)
[2017-07-27 11:49] LABS: POTASSIUM 4.5 mmol/L (3.6-5.2)
[2017-07-27 11:51] LABS: ALB/GLOB RATIO 1.1 (1.0-2.1); BILIRUBIN,TOTAL 0.3 mg/dL (0.2-1.3); TOTAL PROTEIN 5.7 g/dL (6.3-8.3)
[2017-07-27 11:52] LABS: CALCIUM 9.1 mg/dl (8.6-10.4)
--- NOTE | 2017-07-27 13:56 | CP.PCM.PN ---
Subjective - Date & Time of Evaluation Date of Evaluation: 07/27/17 Time of Evaluation: 10:20 - Subjective Subjective: Pt seen and examined today , denies any chest pain, sob, abdominal pain, dysuria , fever , chills , c/o mild dry cough a febrile Objective - Vital Signs/Intake and Output Vital Signs (last 24 hours): Temp Pulse Resp BP Pulse Ox 97.9 F 73 20 154/73 H 96 07/27/17 07:57 07/27/17 07:57 07/27/17 07:57 07/27/17 07:57 07/27/17 07:57 Intake and Output: 07/27/17 07/27/17 06:59 18:59 Intake Total 400 Output Total 1250 Balance -850 - Medications Medications: Current Medications Acetaminophen (Tylenol 325mg Tab) 650 mg PO Q6 PRN PRN Reason: Fever >100.4 F Last Admin: 07/23/17 18:01 Dose: 650 mg Alprazolam (Xanax) 0.25 mg PO DAILY [facility] Stop: 07/29/17 10:01 Last Admin: 07/27/17 09:07 Dose: 0.25 mg Artificial Tears (Artificial Tears) 0 ml OU QID [facility] Last Admin: 07/27/17 13:25 Dose: 1 drop Clopidogrel Bisulfate (Plavix) 75 mg PO DAILY [facility] Last Admin: 07/27/17 09:07 Dose: 75 mg Famotidine (Pepcid) 20 mg PO DAILY [facility] Last Admin: 07/27/17 09:07 Dose: 20 mg Heparin Sodium (Porcine) (Heparin) 5,000 units SC Q12H [facility] Last Admin: 07/27/17 09:07 Dose: 5,000 units Azithromycin 250 mg/ Sodium (Chloride) 250 mls @ 250 mls/hr IVPB Q24H [facility] Last Admin: 07/26/17 22:02 Dose: 250 mls/hr Imipenem/Cilastatin Sodium 500 (mg/ Sodium Chloride) 100 mls @ 100 mls/hr IVPB Q6H [facility] Last Admin: 07/27/17 13:25 Dose: 100 mls/hr Insulin Aspart (Novolog) 0 unit SC ACHS [facility] PRN Reason: Protocol Last Admin: 07/27/17 12:10 Dose: 4 unit Isosorbide Mononitrate (Imdur Er) 30 mg PO DAILY [facility] Last Admin: 07/27/17 09:06 Dose: 30 mg Levothyroxine Sodium (Synthroid) 25 mcg PO DAILY@0630 [facility] Last Admin: 07/27/17 06:06 Dose: 25 mcg Promethazine HCl (Phenergan Syrup) 12.5 mg PO Q6 PRN PRN Reason: Cough Last Admin: 07/25/17 14:10 Dose: 12.5 mg Repaglinide (Prandin) 0.5 mg PO TIDAC [facility] Last Admin: 07/27/17 12:10 Dose: 0.5 mg Rosuvastatin Calcium (Crestor) 10 mg PO HS [facility] Last Admin: 07/26/17 21:59 Dose: 10 mg Sodium Bicarbonate (Sodium Bicarbonate Tab) 650 mg PO BID [facility] Last Admin: 07/27/17 09:06 Dose: 650 mg Tamsulosin HCl (Flomax) 0.4 mg PO DAILY [facility] Last Admin: 07/27/17 09:07 Dose: 0.4 mg - Labs Labs: 07/27/17 11:29 07/27/17 11:29 - Constitutional Appears: Well, No Acute Distress - Respiratory Exam Respiratory Exam: Clear to Ausculation Bilateral, NORMAL BREATHING PATTERN - Cardiovascular Exam Cardiovascular Exam: REGULAR RHYTHM, +S1, +S2 - GI/Abdominal Exam GI & Abdominal Exam: Soft, Normal Bowel Sounds - Neurological Exam Neurological Exam: Alert, Awake, Oriented x3 Assessment and Plan - Assessment and Plan (Free Text) Assessment: 76 yr old female admitted for fever and cough urine culture - + E coli and sensitive to imepenum and started on imepenum repeat urine culture- negative blood culture- negative labs today - WNL ( cr.- base line) seen by Dr. Washington today , cleared for discharge home today if Dr. Larsen cleared from ID stand point D/W Dr. Larsen , no antibiotics needed upon discharge Discharge plan discussed with patient , who understands and agrees with plan SW will arrange transportation and contact family
[2017-07-27 16:05] VITALS: BP 144/67; PULSE 74; TEMP 98.2
--- NOTE | 2017-07-28 20:30 | DS ---
REASON FOR ADMISSION: This is a 76-year-old female with history of multiple medical problems, was admitted for sepsis secondary to urinary tract infection and pneumonia. COURSE OF HOSPITALIZATION: The patient was admitted to medical floor and she was started and continued on IV antibiotics. The patient was found to have positive UTI and IV antibiotics was continued for 7 days. The patient was stable and repeated urine culture was negative. The patient was discharged to home to resume her usual medications. FINAL DIAGNOSES: 1. Sepsis. 2. Urinary tract infection. 3. Pneumonia. [facility] MD Felix
== END 2017-07-27 17:45 | disposition home or self-care (01) | DRG 871 ==
LOC: C.ER 16:04 → C.9E 17:46 → C.3T 18:19 → OBSVTOIN 07-22 12:36
PROVIDERS: ADMIT Internal Medicine; ATTEND Internal Medicine
DX: A41.9 Sepsis, unspecified organism (principal); J18.9 Pneumonia, unspecified organism; N17.9 Acute kidney failure, unspecified; I13.0 Hypertensive heart and chronic kidney disease with heart failure and stage 1 through stage 4 chronic kidney disease, or unspecified chronic kidney disease; E11.22 Type 2 diabetes mellitus with diabetic chronic kidney disease; I50.9 Heart failure, unspecified; N39.0 Urinary tract infection, site not specified; J44.0 Chronic obstructive pulmonary disease with (acute) lower respiratory infection; E03.9 Hypothyroidism, unspecified; E78.5 Hyperlipidemia, unspecified; I25.10 Atherosclerotic heart disease of native coronary artery without angina pectoris; N18.3 Chronic kidney disease, stage 3 (moderate); Z86.73 Personal history of transient ischemic attack (TIA), and cerebral infarction without residual deficits; Z95.0 Presence of cardiac pacemaker; Z93.3 Colostomy status; J43.9 Emphysema, unspecified

== ENCOUNTER 2017-09-28 19:39 | Inpatient (IN) | payer MEDICARE ==
[2017-09-28 19:40] VITALS: BMI 25.6
[2017-09-28] MEDS ORDERED: Sodium Chloride 0.9% 500 ML IV ONE (20:37)
--- NOTE | 2017-09-28 20:37 | C.PDOC ---
History Of Present Illness 76 year old female with long standing Hx of recurrent UTIs, also has Hx of severe peripheral vascular disease and blind in both eyes all related to her DM. Patient presents today c/o acute pain during urination associated with frequency, urgency with superpubic discomfort. Patient has a BKA in her right leg and RLQ colostomy that is functioning well. Patient reports finishing 1 course of antibiotics approximately a week and a half ago symptoms never resolved. Patient denies fever, SOB, cough, back pain, nausea, vomit. Chief Complaint (Nursing): Female Genitourinary History Per: Patient, Family History/Exam Limitations: no limitations Onset/Duration Of Symptoms: Days Current Symptoms Are (Timing): Still Present Quality Of Discomfort: "Pain" Associated Symptoms: Urinary Symptoms. denies: Fever, Nausea, Back Pain Alleviating Factors: None Recent travel outside of the [place]: No Additional History Per: Patient, Family Abnormal Vaginal Bleeding: No Past Medical History Reviewed: Historical Data, Nursing Documentation, Vital Signs Vital Signs: Last Vital Signs Temp 97.4 F L 09/29/17 00:42 Pulse 80 09/29/17 00:42 Resp 16 09/29/17 00:42 BP 126/53 L 09/29/17 00:42 Pulse Ox 100 09/29/17 00:42 - Medical History PMH: Anemia, Anxiety, Asthma, CAD, CHF, COPD, Diabetes, Emphysema, HTN, Hypercholesterolemia, Hyperlipidemia, Hyperthyroidism, Hypothyroidism, Chronic Kidney Disease Surgical History: CABG, Cholecystectomy, Coronary Stent, Pacemaker - [facility] Procedures ATHERECTOMY OF OTHER NON-CORONARY VESSEL(S) (11/15/13) BELOW KNEE AMPUTAT NEC (11/15/13) CENTRAL VENOUS CATHETER PLACEMENT WITH GUIDANCE (05/05/14) CONTRAST ARTERIOGRAM-LEG (11/15/13) ENDOSCOPIC BIOPSY OF RECTUM (02/18/15) HEMODIALYSIS (02/18/15) NONEXCIS DEBRID OF WOUND, INFECT, OR BURN (11/15/13) OTHER ENDOSCOPY OF SM INTEST (02/18/15) PACKED CELL TRANSFUSION (11/15/13) PROCEDURE ON TWO VESSELS (11/15/13) VENOUS CATHETERIZATION FOR RENAL DIALYSIS (02/18/15) Family History: States: Unknown Family Hx - Social History Hx Tobacco Use: No Hx Alcohol Use: No Hx Substance Use: No - Immunization History Hx Tetanus Toxoid Vaccination: No Hx Influenza Vaccination: No Hx Pneumococcal Vaccination: Yes Review Of Systems Constitutional: Negative for: Fever, Chills Cardiovascular: Negative for: Chest Pain, Palpitations Respiratory: Negative for: Cough, Shortness of Breath Gastrointestinal: Negative for: Nausea, Vomiting, Abdominal Pain Genitourinary: Positive for: Dysuria, Frequency, Incontinence, Hematuria. Negative for: Vaginal Discharge, Vaginal Bleeding Skin: Negative for: Rash Neurological: Negative for: Weakness, Numbness Physical Exam - Physical Exam Appears: Non-toxic, No Acute Distress Skin: Normal Color, Warm, Dry Head: Atraumatic, Normacephalic Eye(s): bilateral: Other (Blind) Ear(s): Bilateral: Normal Nose: No Discharge, No Deformity Oral Mucosa: Moist, No Drooling Throat: Normal, No Erythema, No Exudate Neck: Normal ROM, Supple Chest: Symmetrical Cardiovascular: Rhythm Regular, No Murmur Respiratory: Normal Breath Sounds, No Rales, No Rhonchi, No Wheezing Gastrointestinal/Abdominal: Soft, No Guarding, No Rebound, Other (RLQ colostomy bag functioning well, no signs of infection) Back: No CVA Tenderness Extremity: No Calf Tenderness, Deformity (Right leg BKA), Other (Left foot normal) Neurological/Psych: Oriented x3, Normal Speech, Normal Cognition, Other (Non focal) ED Course And Treatment - Laboratory Results Result Diagrams: 09/28/17 20:55 09/28/17 20:55 O2 Sat by Pulse Oximetry: 99 (On RA) Pulse Ox Interpretation: Normal Medical Decision Making Medical Decision Making: Plan : * Blood work, UA ordered * IV fluids given * Urine culture collected Patient refused straight cath to collect her urine. UTI and DM mellitus labs will be needed for UTI diagnosis. Discussed with patient's PMD, Dr. Washington, who will admit patient under his service. Disposition - Disposition Disposition: HOSPITALIZED Disposition Time: 22:14 Condition: FAIR - Clinical Impression Clinical Impression: UTI (urinary tract infection), Dehydration, UTI (lower urinary tract infection) , Renal insufficiency - Scribe Statement The provider has reviewed the documentation as recorded by the Scribe Jignesh Galindo All medical record entries made by the Scribe were at my direction and personally dictated by me. I have reviewed the chart and agree that the record accurately reflects my personal performance of the history, physical exam, medical decision making, and the department course for this patient. I have also personally directed, reviewed, and agree with the discharge instructions and disposition. Decision To Admit - Pt Status Changed To: Hospital Disposition Of: Inpatient - Admit Certification Admit to Inpatient:: After my assessment, the patient will require hospitalization for at least two midnights. This is because of the severity of symptoms shown, intensity of services needed, and/or the medical risk in this patient being treated as an outpatient. - InPatient: Physician Admission Certification: I certify that this patient requires 2 or more midnights of care for the following reason:: uti,renal insufficiency - . Bed Request Type: Regular Admitting Physician: Keyla Washington Patient Diagnosis: UTI (urinary tract infection), Dehydration, UTI (lower urinary tract infection) , Renal insufficiency
[2017-09-28 20:58] LABS: BASO % 0.5 % (0.0-2.0); EOS # 0.1 K/uL (0.0-0.7); EOS % 1.9 % (0.0-4.0); HEMATOCRIT 31.8 % (34.0-47.0); LYMPH # 1.5 K/uL (1.0-4.3); LYMPH % 22.2 % (20.0-40.0); MEAN CORPUSCULAR HEMOGLOBIN 29.5 pg (27.0-31.0); MEAN CORPUSCULAR HGB CONC 33.2 g/dL (33.0-37.0); MEAN PLATELET VOLUME 7.4 fL (7.2-11.7); MONO # 0.5 K/uL (0.0-0.8); MONO % 7.3 % (0.0-10.0); RED CELL DISTRIBUTION WIDTH 13.3 % (11.5-14.5); WHITE BLOOD COUNT 6.8 K/uL (4.8-10.8)
[2017-09-28 21:13] LABS: RBC URINE 47 /hpf (0-3); URINE BACTERIA MOD (<OCC); URINE BILIRUBIN NEGATIVE (NEGATIVE); URINE BLOOD 3+ (NEGATIVE); URINE COLOR Yellow (YELLOW); URINE GLUCOSE (UA) 1+ mg/dL (Normal); URINE KETONE NEGATIVE (NEGATIVE); URINE LEUKOCYTE ESTERASE 3+ Leu/uL (Negative); URINE PROTEIN 1+ mg/dL (NEGATIVE); URINE UROBILINOGEN NORMAL mg/dL (0.2-1.0); WBC URINE 286 /hpf (0-5)
[2017-09-28 21:14] LABS: ALB/GLOB RATIO 1.2 (1.0-2.1); BILIRUBIN,TOTAL 0.5 mg/dL (0.2-1.3); CALCIUM 8.3 mg/dl (8.6-10.4); POTASSIUM 5.2 mmol/L (3.6-5.2); TOTAL PROTEIN 6.4 g/dL (6.3-8.3)
[2017-09-28] MEDS ORDERED: Piperacillin/Tazobact 2.25 gm Inj IVPB STA (22:15)
[2017-09-28] MEDS ORDERED: Sodium Chloride 0.9% 1,000 ML IV ONE (22:19)
[2017-09-28] MEDS ORDERED: Sodium Chloride 0.9% 1,000 ML ONE (22:30)
[2017-09-28] MEDS ORDERED: Piperacill/Tazo 2.25gm in Dex 2.25 GM/50 ML BAG IVPB ONE (23:00)
[2017-09-29] MEDS: Sodium Chloride 0.9% 1,000 ML IV SCH ×2 (07:33→20:00)
[2017-09-29] MEDS: (Novolog) Insulin Aspart, Recombinant 100 u/ml 10 ml vial SC SCH ×4 (08:13→22:44)
[2017-09-29 08:17] VITALS: RESP 20
[2017-09-29] MEDS: Piperacill/Tazo 2.25gm in Dex 2.25 GM/50 ML BAG IVPB SCH ×2 (14:14→21:18)
[2017-09-29] MEDS: Aritificial Tears (15ml) OU SCH (18:00)
[2017-09-30] MEDS: Piperacill/Tazo 2.25gm in Dex 2.25 GM/50 ML BAG IVPB SCH ×3 (06:02→21:03)
[2017-09-30] MEDS: Levothyroxine 25 MCG TAB PO SCH (06:35)
--- NOTE | 2017-09-30 07:09 | HP ---
HISTORY OF PRESENT ILLNESS: This is a 76-year-old female with history of multiple medical problems including peripheral vascular disease, status post right BKA. The patient is legally blind, with colostomy. The patient presented to emergency room with symptoms of lower abdominal pain associated with burning urination, nausea, vomiting, and decreased oral intake. The patient was evaluated in emergency room where she was found to have acute renal failure with BUN of 78, creatinine 2.2 as well as urine with 286 wbcs. The patient was evaluated in emergency room and admitted for sepsis secondary to urinary tract infection. REVIEW OF SYSTEMS: Other review of systems is negative. ALLERGIES: NO KNOWN ALLERGY. HOME MEDICATIONS: As per MAR. PAST MEDICAL HISTORY: Hypertension, type 2 diabetes mellitus, peripheral vascular disease. PAST SURGICAL HISTORY: Status post colostomy, status post BKA. SOCIAL HISTORY: No history of smoking, EtOH, or substance abuse. FAMILY HISTORY: Noncontributory. PHYSICAL EXAMINATION: GENERAL: The patient is in bed, comfortable, with no cardiopulmonary distress. VITAL SIGNS: Blood pressure 147/69, temperature 98.1, respiratory rate 20, and pulse 73. NECK: Supple. No JVD. No carotid bruit. No lymph node. No thyromegaly. CHEST/LUNGS: Bilateral symmetrical expansion. Good air exchange. No rales, no rhonchi. CARDIOVASCULAR SYSTEM: PMI not localized. S1, S2. No additional sounds. ABDOMEN: Normoactive bowel sounds. No tenderness. No organomegaly. Colostomy is in place. EXTREMITIES: Right BKA. CHIEF PILOT: Alert, awake, oriented x3. No neurological deficit could be appreciated. ASSESSMENT: 1. Symptomatic urinary tract infection. 2. Acute renal failure. 3. Type 2 diabetes mellitus, uncontrolled. 4. Hypertension. 5. Peripheral vascular disease, status post below-knee amputation. 6. Status post colon resection with colostomy secondary to recurrent diverticulitis. PLAN: Continue current antibiotics, IV fluids, resume the patient's home medications, DVT prophylaxis. Ashley MD Felix
[2017-09-30] MEDS: (Novolog) Insulin Aspart, Recombinant 100 u/ml 10 ml vial SC SCH ×4 (07:40→22:02)
[2017-09-30 07:42] LABS: BASO % 0.6 % (0.0-2.0); EOS # 0.2 K/uL (0.0-0.7); EOS % 3.1 % (0.0-4.0); LYMPH % 16.6 % (20.0-40.0); MEAN CELL VOLUME 88.8 fL (81.0-99.0); MEAN CORPUSCULAR HEMOGLOBIN 29.8 pg (27.0-31.0); MEAN CORPUSCULAR HGB CONC 33.6 g/dL (33.0-37.0); MEAN PLATELET VOLUME 7.3 fL (7.2-11.7); MONO # 0.4 K/uL (0.0-0.8); MONO % 7.2 % (0.0-10.0); RED CELL DISTRIBUTION WIDTH 13.1 % (11.5-14.5); WHITE BLOOD COUNT 5.8 K/uL (4.8-10.8)
[2017-09-30 08:22] LABS: ALB/GLOB RATIO 1.1 (1.0-2.1); BILIRUBIN,TOTAL 0.5 mg/dL (0.2-1.3); POTASSIUM 4.9 mmol/L (3.6-5.2); TOTAL PROTEIN 5.8 g/dL (6.3-8.3)
[2017-09-30] MEDS: Aritificial Tears (15ml) OU SCH ×3 (09:04→17:25)
[2017-09-30] MEDS: Sodium Chloride 0.9% 1,000 ML IV SCH (13:14)
--- NOTE | 2017-10-01 00:31 | PN ---
DATE: 09/30/2017 SUBJECTIVE: She has less abdominal pain and burning feeling. PHYSICAL EXAMINATION: VITAL SIGNS: Blood pressure 134/64, temperature 98.4, respiratory rate 20, and pulse 64. HEENT: The patient has bilateral blindness. NECK: Supple. No JVD. No carotid bruit. No lymph node. No thyromegaly. CHEST/LUNGS: Bilateral symmetrical expansion. Good air exchange. No rales, no rhonchi. CARDIOVASCULAR: PMI not localized. S1 and S2. No additional sounds. ABDOMEN: Normoactive bowel sounds. No tenderness. No organomegaly. No masses. The patient has colostomy in place. EXTREMITIES: No cyanosis, no clubbing, no edema. The patient has right BKA. DIRECTOR OF LEADERSHIP DEVELOPMENT: Alert, awake, oriented x2. No neurological deficit could be appreciated. ASSESSMENT: 1. Acute renal failure. 2. Symptomatic urinary tract infection. 3. Type 2 diabetes mellitus. 4. Hypertension. 5. Peripheral vascular disease status post below-knee amputation. 6. Legally blind. PLAN: Continue current IV antibiotics and IV fluid, and monitor electrolytes and kidney function. [facility] MD Felix
[2017-10-01] MEDS: Sodium Chloride 0.9% 1,000 ML IV SCH ×3 (03:15→17:34)
[2017-10-01] MEDS: Piperacill/Tazo 2.25gm in Dex 2.25 GM/50 ML BAG IVPB SCH ×3 (06:05→21:45)
[2017-10-01] MEDS: Levothyroxine 25 MCG TAB PO SCH (06:31)
[2017-10-01 06:59] LABS: HEMATOCRIT 32.1 % (34.0-47.0); MEAN CELL VOLUME 89.8 fL (81.0-99.0); MEAN CORPUSCULAR HEMOGLOBIN 29.7 pg (27.0-31.0); MEAN CORPUSCULAR HGB CONC 33.1 g/dL (33.0-37.0); MEAN PLATELET VOLUME 7.2 fL (7.2-11.7); RED CELL DISTRIBUTION WIDTH 13.4 % (11.5-14.5); WHITE BLOOD COUNT 5.3 K/uL (4.8-10.8)
[2017-10-01 07:50] LABS: CALCIUM 8.1 mg/dl (8.6-10.4); POTASSIUM 4.7 mmol/L (3.6-5.2)
[2017-10-01] MEDS: (Novolog) Insulin Aspart, Recombinant 100 u/ml 10 ml vial SC SCH ×4 (08:23→21:45)
[2017-10-01] MEDS: Aritificial Tears (15ml) OU SCH ×3 (10:03→17:53)
--- NOTE | 2017-10-01 13:10 | CP.PCM.CON ---
<Marcial Manzo - Last Filed: 10/01/17 13:04> History of Present Illness - History of Present Illness History of Present Illness: 76 year old female patient well know to attending, Dr. 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 Pt seen and has no pedal or lower extremity complaints. Pt denies recent f/c/cp/sob/n/v. Past Patient History - Infectious Disease Hx of Infectious Diseases: None - Past Medical History & Family History Past Medical History?: Yes - Past Social History Smoking Status: Never Smoked - CARDIAC Hx Congestive Heart Failure: Yes Hx Hypercholesterolemia: Yes Hx Hypertension: Yes Hx Pacemaker: Yes - PULMONARY Hx Asthma: Yes Hx Chronic Obstructive Pulmonary Disease (COPD): Yes Hx Emphysema: Yes - NEUROLOGICAL HX Cerebrovascular Accident: Yes - HEENT Hx HEENT Problems: Yes Hx Blind: Yes - RENAL Hx Chronic Kidney Disease: Yes - ENDOCRINE/METABOLIC Hx Hyperthyroidism: Yes Hx Hypothyroidism: Yes - HEMATOLOGICAL/ONCOLOGICAL Hx Anemia: Yes - INTEGUMENTARY Hx Dermatological Problems: No - MUSCULOSKELETAL/RHEUMATOLOGICAL Hx Musculoskeletal Disorders: Yes Hx Falls: Yes - GASTROINTESTINAL Hx Gastrointestinal Disorders: Yes Hx Bowel Surgery: Yes (ischemic bowel) Hx Colostomy: Yes - GENITOURINARY/GYNECOLOGICAL Hx Genitourinary Disorders: Yes Hx Incontinence: Yes Hx Urinary Tract Infection: Yes - PSYCHIATRIC Hx Anxiety: Yes Hx Substance Use: No - SURGICAL HISTORY Hx Cholecystectomy: Yes Hx Coronary Artery Bypass Graft: Yes Hx Coronary Stent: Yes - ANESTHESIA Hx Anesthesia: Yes Hx Anesthesia Reactions: No Hx Malignant Hyperthermia: No Meds Allergies/Adverse Reactions: Allergies Allergy/AdvReac Type Severity Reaction Status Date / Time No Known Allergies Allergy Verified 09/28/17 19:53 - Medications Medications: Current Medications Alprazolam (Xanax) 0.25 mg PO DAILY [facility] Last Admin: 10/01/17 10:01 Dose: 0.25 mg Artificial Tears (Artificial Tears) 1 ml OU TID [facility] Last Admin: 10/01/17 10:03 Dose: 1 drop Clopidogrel Bisulfate (Plavix) 75 mg PO DAILY [facility] Last Admin: 10/01/17 09:59 Dose: 75 mg Famotidine (Pepcid) 20 mg PO DAILY [facility] Last Admin: 10/01/17 09:59 Dose: 20 mg Heparin Sodium (Porcine) (Heparin) 5,000 units SC Q8 [facility] Last Admin: 10/01/17 06:03 Dose: 5,000 units Piperacillin Sod/Tazobactam Sod (Zosyn 2.25 Gm Iv Premix) 2.25 gm in 50 mls @ 100 mls/hr IVPB Q8 [facility] Last Admin: 10/01/17 06:05 Dose: 100 mls/hr Sodium Chloride (Sodium Chloride 0.9%) 1,000 mls @ 80 mls/hr IV .[id number] [facility] Last Admin: 10/01/17 10:02 Dose: Not Given Insulin Aspart (Novolog) 0 unit SC ACHS [facility] PRN Reason: Protocol Last Admin: 10/01/17 11:31 Dose: 2 unit Isosorbide Mononitrate (Imdur Er) 30 mg PO DAILY [facility] Last Admin: 10/01/17 09:59 Dose: 30 mg Levothyroxine Sodium (Synthroid) 25 mcg PO DAILY@0630 [facility] Last Admin: 10/01/17 06:31 Dose: 25 mcg Losartan Potassium (Cozaar) 25 mg PO DAILY [facility] Last Admin: 10/01/17 10:01 Dose: 25 mg Mupirocin (Bactroban Ointment) 0 gm TOP BID [facility] Last Admin: 10/01/17 10:03 Dose: 1 applic Pneumococcal Polyvalent Vaccine (Pneumovax 23 Vaccine) 0.5 ml IM .ONCE ONE Stop: 10/02/17 10:01 Repaglinide (Prandin) 0.5 mg PO ACTID [facility] Last Admin: 10/01/17 11:31 Dose: 0.5 mg Rosuvastatin Calcium (Crestor) 10 mg PO HS [facility] Last Admin: 09/30/17 21:02 Dose: 10 mg Sodium Bicarbonate (Sodium Bicarbonate Tab) 650 mg PO BID [facility] Last Admin: 10/01/17 09:59 Dose: 650 mg Tamsulosin HCl (Flomax) 0.4 mg PO DAILY [facility] Last Admin: 10/01/17 09:59 Dose: 0.4 mg Physical Exam - Constitutional Appears: Well, Non-toxic, No Acute Distress - Extremities Exam Additional comments: Lower extremeity focused. Right: BKA site noted, stable soft tisuse coverage absnet pressure points of skin breakdown. Left: Derm: Partial 1st digital amputation site noted, cicatrix well healed and stable. distal 5th digit hyperkeratotic lesion noted, absent acute signs of infection. No open wound or lesions noted. No acute signs of infection noted. MUSK: Partial 1st digital amputation site noted. No tenderness to palpation throughout lower leg. - Neurological Exam Neurological exam: Alert, Oriented x3 - Psychiatric Exam Psychiatric exam: Normal Affect, Normal Mood Results - Vital Signs Recent Vital Signs: Last Vital Signs Temp 98.1 F 10/01/17 08:36 Pulse 68 10/01/17 08:36 Resp 20 10/01/17 08:36 BP 170/77 H 10/01/17 08:36 Pulse Ox 97 10/01/17 08:36 - Labs Result Diagrams: 10/01/17 06:55 10/01/17 06:55 Labs: Laboratory Results - last 24 hr 09/30/17 09/30/17 10/01/17 16:28 21:22 06:55 WBC 5.3 RBC 3.57 L Hgb 10.6 L Hct 32.1 L MCV 89.8 MCH 29.7 MCHC 33.1 RDW 13.4 Plt Count 130 MPV 7.2 Sodium Potassium Chloride Carbon Dioxide Anion Gap BUN Creatinine Est GFR ( Amer) Est GFR (Non-Af Amer) POC Glucose (mg/dL) 293 H 283 H Random Glucose Calcium 10/01/17 10/01/17 10/01/17 06:55 07:23 11:05 WBC RBC Hgb Hct MCV MCH MCHC RDW Plt Count MPV Sodium 141 Potassium 4.7 Chloride 115 H Carbon Dioxide 19 L Anion Gap 12 BUN 31 H Creatinine 1.7 H Est GFR ( Amer) 35 Est GFR (Non-Af Amer) 29 POC Glucose (mg/dL) 173 H 225 H Random Glucose 147 H Calcium 8.1 L Assessment & Plan - Assessment and Plan (Free Text) Assessment: 76 year old 1) stable right BKA site (DOS: 11/15/13) 2) left foot hyperkeratotic lesion, stable. Plan: Pt seen and evaluated with attend with attending, Dr. Yun, present. No indications for local wound care. Pts lower extremities present stable. Stable from podiatric standpoint. - Date & Time Date: 10/01/17 Time: 08:55 <Giovanni Yun - Last Filed: 10/02/17 09:58> Meds - Medications Medications: Current Medications Alprazolam (Xanax) 0.25 mg PO DAILY [facility] Last Admin: 10/01/17 10:01 Dose: 0.25 mg Artificial Tears (Artificial Tears) 1 ml OU TID [facility] Last Admin: 10/01/17 17:53 Dose: 1 drop Clopidogrel Bisulfate (Plavix) 75 mg PO DAILY [facility] Last Admin: 10/01/17 09:59 Dose: 75 mg Famotidine (Pepcid) 20 mg PO DAILY [facility] Last Admin: 10/01/17 09:59 Dose: 20 mg Heparin Sodium (Porcine) (Heparin) 5,000 units SC Q8 [facility] Last Admin: 10/02/17 05:25 Dose: 5,000 units Piperacillin Sod/Tazobactam Sod (Zosyn 2.25 Gm Iv Premix) 2.25 gm in 50 mls @ 100 mls/hr IVPB Q8 [facility] Last Admin: 10/02/17 05:25 Dose: 100 mls/hr Insulin Aspart (Novolog) 0 unit SC ACHS [facility] PRN Reason: Protocol Last Admin: 10/02/17 08:30 Dose: 1 unit Isosorbide Mononitrate (Imdur Er) 30 mg PO DAILY [facility] Last Admin: 10/01/17 09:59 Dose: 30 mg Levothyroxine Sodium (Synthroid) 25 mcg PO DAILY@0630 [facility] Last Admin: 10/02/17 05:34 Dose: 25 mcg Losartan Potassium (Cozaar) 25 mg PO DAILY [facility] Last Admin: 10/01/17 10:01 Dose: 25 mg Mupirocin (Bactroban Ointment) 0 gm TOP BID [facility] Last Admin: 10/01/17 18:45 Dose: 1 applic Naphazoline HCl/Pheniramine Maleate (Naphcon-A Opht) 0 ml OP BID [facility] Last Admin: 10/01/17 20:00 Dose: 2 drop Pneumococcal Polyvalent Vaccine (Pneumovax 23 Vaccine) 0.5 ml IM .ONCE ONE Stop: 10/02/17 10:01 Repaglinide (Prandin) 0.5 mg PO ACTID [facility] Last Admin: 10/02/17 08:30 Dose: 0.5 mg Rosuvastatin Calcium (Crestor) 10 mg PO HS [facility] Last Admin: 10/01/17 21:43 Dose: 10 mg Sodium Bicarbonate (Sodium Bicarbonate Tab) 650 mg PO BID [facility] Last Admin: 10/01/17 17:36 Dose: 650 mg Tamsulosin HCl (Flomax) 0.4 mg PO DAILY [facility] Last Admin: 10/01/17 09:59 Dose: 0.4 mg Results - Vital Signs Recent Vital Signs: Last Vital Signs Temp 98.4 F 10/02/17 07:42 Pulse 67 10/02/17 07:42 Resp 20 10/02/17 07:42 BP 162/82 H 10/02/17 07:42 Pulse Ox 98 10/02/17 07:42 - Labs Result Diagrams: 10/01/17 06:55 10/01/17 06:55 Labs: Laboratory Results - last 24 hr 10/01/17 10/01/17 10/01/17 11:05 16:33 21:03 POC Glucose (mg/dL) 225 H 226 H 249 H 10/02/17 07:26 POC Glucose (mg/dL) 160 H Assessment & Plan - Assessment and Plan (Free Text) Plan: pt was seen at bedside with resident . pt had been seen at her residence on previous sat. for infection of toe 5 left due to pt most likely stubbing toe hitting and pulling nail . nail was removed from distal skin and small amount of drainage and erythema was noted, Bacitracin dressing was applied and follow up mat hospital as pt was to be admitted for other unrelated condition. There is no sign of infection noted in foot . It should be noted as a correction there is no partial amp toe 1 left.agree with all other findings . DR YUN .
[2017-10-01] MEDS: Naphazoline-Pheniramine Ophth Soln OP SCH (20:00)
--- NOTE | 2017-10-02 01:47 | PN ---
DATE: 10/01/2017 SUBJECTIVE: The patient is seen today, 10/01/2017. She is having less abdominal pain and decreased nausea and vomiting and shortness of breath. PHYSICAL EXAMINATION: VITAL SIGNS: Blood pressure 130/62, temperature 98.2, respiratory rate 20 and pulse 71. HEENT: Slightly pale mucosa of the conjunctivae. NECK: Supple. No JVD. No carotid bruit. No lymph node. No thyromegaly. CHEST AND LUNGS: Bilateral symmetrical expansion. Good air exchange. No rales, no rhonchi. CARDIOVASCULAR: PMI not localized. S1 and S2. No additional sounds. ABDOMEN: Normoactive bowel sounds. Colostomy bag in place. EXTREMITIES: Right BKA, and left side, no cyanosis, no clubbing, no edema. CENTRAL NERVOUS SYSTEMS: Alert, awake, oriented X3, and moves all extremities equally. ASSESSMENT: 1. Symptomatic urinary tract infection. 2. Prerenal azotemia with acute renal failure secondary to decreased oral intake and frequent vomiting. 3. Type 2 diabetes mellitus. 4. Hypertension. 5. Coronary artery disease status post coronary artery bypass graft. 6. Peripheral vascular disease status post right [id number]. PLAN: Continue current antibiotics and IV fluids. Creatinine is improving, down to 1.7. Continue Accu-Cheks with insulin coverage. Keyla Washington MD
[2017-10-02] MEDS: Piperacill/Tazo 2.25gm in Dex 2.25 GM/50 ML BAG IVPB SCH ×3 (05:25→21:58)
[2017-10-02] MEDS: Sodium Chloride 0.9% 1,000 ML IV SCH ×2 (05:34→19:21)
[2017-10-02] MEDS: Levothyroxine 25 MCG TAB PO SCH (05:34)
[2017-10-02] MEDS: (Novolog) Insulin Aspart, Recombinant 100 u/ml 10 ml vial SC SCH ×4 (08:30→22:07)
[2017-10-02] MEDS ORDERED: Pneumococcal 23-Valent Vaccine IM ONE (10:00)
[2017-10-02] MEDS: Aritificial Tears (15ml) OU SCH ×3 (10:59→18:00)
[2017-10-02] MEDS: Naphazoline-Pheniramine Ophth Soln OP SCH ×2 (10:59→19:01)
[2017-10-02 14:47] LABS: CALCIUM 7.5 mg/dl (8.6-10.4); POTASSIUM 4.5 mmol/L (3.6-5.2)
--- NOTE | 2017-10-02 22:46 | PN ---
DATE: 10/02/2017 SUBJECTIVE: She is not in any cardiopulmonary distress. PHYSICAL EXAMINATION: VITAL SIGNS: Blood pressure 152/61, temperature 98.7, respiratory rate 20, and pulse 65. HEENT: Slightly pale mucosa of the conjunctiva. NECK: Supple. No JVD. No carotid bruit. No lymph node. No thyromegaly. CHEST AND LUNGS: Bilateral symmetrical expansion. Good air exchange. No rales, no rhonchi. CARDIOVASCULAR SYSTEM: PMI not localized. S1 and S2. No additional sounds. ABDOMEN: Colostomy bag in place. No tenderness. EXTREMITIES: No cyanosis, no clubbing, no edema. CENTRAL NERVOUS SYSTEMS: Alert, awake, oriented x3. No neurological deficit could be appreciated. ASSESSMENT: Sepsis, urinary tract infection, acute renal failure, type 2 diabetes mellitus, hypertension. PLAN: Continue current IV antibiotics and if the patient is feeling stable, we will discharge on p.o. antibiotics tomorrow morning. Keyla Washington MD
[2017-10-02 23:31] VITALS: O2SAT 97
[2017-10-03] MEDS: Levothyroxine 25 MCG TAB PO SCH (05:38)
[2017-10-03] MEDS: Piperacill/Tazo 2.25gm in Dex 2.25 GM/50 ML BAG IVPB SCH ×2 (05:38→13:00)
[2017-10-03 08:07] VITALS: BP 177/78; PULSE 86; TEMP 98.5
[2017-10-03] MEDS: (Novolog) Insulin Aspart, Recombinant 100 u/ml 10 ml vial SC SCH ×2 (08:24→12:30)
[2017-10-03] MEDS: Naphazoline-Pheniramine Ophth Soln OP SCH (10:08)
[2017-10-03] MEDS: Aritificial Tears (15ml) OU SCH ×2 (10:08→12:59)
--- NOTE | 2017-10-03 11:46 | PCM.HF ---
Heart Failure Core Measure - Heart Failure Ejection Fraction: 40 % or Greater (EF 50-55%) FRANK Inhibitor Prescribed: No Contraindication/Reason for not providing: on ARB Beta-Jenny Prescribed: None Contraindication/Reason for not providing: EF >40% Angiotensin II Receptor Jenny Prescribed: Yes AnticoagulationTherapy for Atrial Fibrillation/Atrialflutter: No Contraindication/Reason for not providing: no afib Aldosterone Antagonist Prescribed: No Contraindication/Reason for not providing: EF >40% Hydralazine Nitrate Prescribed: No Contraindication/Reason for not providing: EF > 40% Implantable Cardioverter Defibrillator Therapy: Yes Cardiac Resynchronization Therapy Prescribed: No Contraindication/Reason for not providing: on pacemaker - Follow up Will be discharged to: Home Follow Up Date (must be within 7 days from discharge): 10/07/17 Follow Up Time: 09:00
--- NOTE | 2017-10-03 17:50 | CP.PCM.PN ---
Subjective - Date & Time of Evaluation Date of Evaluation: 10/03/17 Time of Evaluation: 11:00 - Subjective Subjective: Alert, awake, no sob or chest pains, NAD. Objective - Vital Signs/Intake and Output Vital Signs (last 24 hours): Temp Pulse Resp BP Pulse Ox 98.5 F 86 20 177/78 H 97 10/03/17 08:06 10/03/17 08:06 10/03/17 08:06 10/03/17 08:06 10/03/17 08:06 Intake and Output: 10/03/17 10/03/17 06:59 18:59 Intake Total 500 2040 Output Total 100 400 Balance 400 1640 - Labs Labs: 10/01/17 06:55 10/02/17 14:11 Assessment and Plan - Assessment and Plan (Free Text) Assessment: Patient is seen and examined, alert, awake, no distress, legally blind. No sob or chest pains noted. Daughter at the bedside. D/W DR Washington, plan to discharge home today on keflex po for 5 days. All medications called in to the pharmacy. Advised to follow with PMD in 1 week.
--- NOTE | 2017-10-04 09:24 | DS ---
REASON FOR ADMISSION: This is a 76 years old female with history of multiple medical problems, who was admitted for sepsis secondary to urinary tract infection. COURSE OF HOSPITALIZATION: The patient was admitted to medical floor and she was started on IV antibiotics. As the patient was evaluated in the emergency room, she was found to have acute renal failure. The patient was started on both IV fluid and antibiotics and the patient's renal function and her general status of nausea and vomiting have improved significantly and the patient was discharged to home in a stable condition to continue Keflex for another 5 days. FINAL DIAGNOSES: Symptomatic urinary tract infection, acute renal failure, type 2 diabetes mellitus, hypertension, coronary artery disease, status post right below-knee amputation. TORY OF PRESENT ILLNESS: Text. PAST MEDICAL HISTORY: Text. FAMILY HISTORY: Text. HABITS: ____REVIEW OF SYSTEMS: Text. PHYSICAL EXAMINATION: VITAL SIGNS: Text. ABDOMEN: Text. EXTREMITIES: Text. ABDOMEN: Text. NEUROLOGIC: Text. MEDICATIONS: Text, text, text. LABORATORY DATA: Text, text, text. ASSESSMENT AND PLAN: Text. Keyla Washington MD cc:
== END 2017-10-03 15:51 | disposition home or self-care (01) | DRG 872 ==
LOC: C.ER 19:39 → C.9E 22:15 → C.3T 22:43
PROVIDERS: ADMIT Internal Medicine; ATTEND Internal Medicine
DX: A41.9 Sepsis, unspecified organism (principal); N17.9 Acute kidney failure, unspecified; E11.22 Type 2 diabetes mellitus with diabetic chronic kidney disease; E11.51 Type 2 diabetes mellitus with diabetic peripheral angiopathy without gangrene; N39.0 Urinary tract infection, site not specified; I13.0 Hypertensive heart and chronic kidney disease with heart failure and stage 1 through stage 4 chronic kidney disease, or unspecified chronic kidney disease; E86.0 Dehydration; E03.9 Hypothyroidism, unspecified; E11.65 Type 2 diabetes mellitus with hyperglycemia; E78.00 Pure hypercholesterolemia, unspecified; E78.5 Hyperlipidemia, unspecified; H54.8 Legal blindness, as defined in USA; I25.10 Atherosclerotic heart disease of native coronary artery without angina pectoris; I50.9 Heart failure, unspecified; J43.9 Emphysema, unspecified; N18.9 Chronic kidney disease, unspecified; Z86.73 Personal history of transient ischemic attack (TIA), and cerebral infarction without residual deficits; Z87.440 Personal history of urinary (tract) infections; Z89.511 Acquired absence of right leg below knee; Z93.3 Colostomy status; Z90.49 Acquired absence of other specified parts of digestive tract; Z87.19 Personal history of other diseases of the digestive system; Z95.5 Presence of coronary angioplasty implant and graft; Z95.1 Presence of aortocoronary bypass graft; Z95.0 Presence of cardiac pacemaker

== ENCOUNTER 2017-10-14 17:36 | Inpatient (IN) | payer MEDICARE ==
[2017-10-14 17:36] VITALS: BMI 25.6
[2017-10-14] MEDS ORDERED: Lactated Ringer's 1,000 ML IV ONE (20:25)
[2017-10-14] MEDS ORDERED: (Novolin R) Insulin Human Regular 100 units/ml vial IV STA (20:26)
[2017-10-14 20:45] LABS: BASO % 0.5 % (0.0-2.0); EOS # 0.1 K/uL (0.0-0.7); EOS % 1.6 % (0.0-4.0); HEMATOCRIT 33.7 % (34.0-47.0); LYMPH # 0.4 K/uL (1.0-4.3); LYMPH % 5.4 % (20.0-40.0); MEAN CELL VOLUME 88.6 fL (81.0-99.0); MEAN CORPUSCULAR HEMOGLOBIN 29.4 pg (27.0-31.0); MEAN CORPUSCULAR HGB CONC 33.2 g/dL (33.0-37.0); MEAN PLATELET VOLUME 7.5 fL (7.2-11.7); MONO # 0.5 K/uL (0.0-0.8); MONO % 7.3 % (0.0-10.0); PLATELET COUNT 190 K/uL (130-400); RED CELL DISTRIBUTION WIDTH 12.9 % (11.5-14.5); WHITE BLOOD COUNT 7.5 K/uL (4.8-10.8)
[2017-10-14 20:53] LABS: RBC URINE 47 /hpf (0-3); URINE BACTERIA MANY (<OCC); URINE BILIRUBIN NEGATIVE (NEGATIVE); URINE BLOOD 3+ (NEGATIVE); URINE COLOR Yellow (YELLOW); URINE GLUCOSE (UA) 3+ mg/dL (Normal); URINE KETONE NEGATIVE (NEGATIVE); URINE LEUKOCYTE ESTERASE 3+ Leu/uL (Negative); URINE PROTEIN 1+ mg/dL (NEGATIVE); URINE UROBILINOGEN NORMAL mg/dL (0.2-1.0); WBC URINE 288 /hpf (0-5)
[2017-10-14 20:54] LABS: ALB/GLOB RATIO 1.2 (1.0-2.1); BILIRUBIN,TOTAL 0.5 mg/dL (0.2-1.3); CALCIUM 8.3 mg/dl (8.6-10.4); POTASSIUM 5.5 mmol/L (3.6-5.2); TOTAL PROTEIN 7.1 g/dL (6.3-8.3)
[2017-10-14] MEDS ORDERED: (Novolin R) Insulin Human Regular 100 units/ml vial IV ONE (21:01)
[2017-10-14] MEDS ORDERED: (Novolin R) Insulin Human Regular 100 units/ml vial ONE (21:05)
[2017-10-14 21:06] LABS: TROPONIN I 0.033 ng/mL (0.00-0.120)
--- NOTE | 2017-10-14 21:11 | C.PDOC ---
History Of Present Illness 76yo female, brought to ED by her daughter for evaluation of persistent dysuria and UTI for many months. Daughter also reports on episode of vomiting this morning and a tactile fever and chills last night. Time Seen by Provider: 10/14/17 20:16 Chief Complaint (Nursing): Weakness/Neurological Deficit History Per: Patient, Family History/Exam Limitations: no limitations Onset/Duration Of Symptoms: Persistent Current Symptoms Are (Timing): Still Present Past Medical History Reviewed: Historical Data, Nursing Documentation, Vital Signs Vital Signs: Last Vital Signs Temp 98.4 F 10/15/17 01:05 Pulse 96 H 10/15/17 01:05 Resp 20 10/15/17 01:05 BP 142/82 10/15/17 01:05 Pulse Ox 96 10/15/17 01:05 - Medical History PMH: Anemia, Anxiety, Arthritis (BACK; L KNEE), Asthma, CAD, CHF, COPD, Diabetes , Emphysema, HTN, Hypercholesterolemia, Hyperlipidemia, Hyperthyroidism, Hypothyroidism, Chronic Kidney Disease Surgical History: CABG (x3), Cholecystectomy, Coronary Stent, Pacemaker - [facility] Procedures ATHERECTOMY OF OTHER NON-CORONARY VESSEL(S) (11/15/13) BELOW KNEE AMPUTAT NEC (11/15/13) CENTRAL VENOUS CATHETER PLACEMENT WITH GUIDANCE (05/05/14) CONTRAST ARTERIOGRAM-LEG (11/15/13) ENDOSCOPIC BIOPSY OF RECTUM (02/18/15) HEMODIALYSIS (02/18/15) NONEXCIS DEBRID OF WOUND, INFECT, OR BURN (11/15/13) OTHER ENDOSCOPY OF SM INTEST (02/18/15) PACKED CELL TRANSFUSION (11/15/13) PROCEDURE ON TWO VESSELS (11/15/13) VENOUS CATHETERIZATION FOR RENAL DIALYSIS (02/18/15) Family History: States: Unknown Family Hx - Social History Hx Tobacco Use: No Hx Alcohol Use: No Hx Substance Use: No - Immunization History Hx Tetanus Toxoid Vaccination: No Hx Influenza Vaccination: No Hx Pneumococcal Vaccination: Yes Review Of Systems Except As Marked, All Systems Reviewed And Found Negative. Constitutional: Positive for: Fever (tactile), Chills, Other (poorly controlled blood glucose level, 400 despite poor diet.) Gastrointestinal: Positive for: Vomiting (x1) Genitourinary: Positive for: Dysuria, Other (multiple UTI's) Physical Exam - Physical Exam Appears: Non-toxic Skin: Normal Color, Warm Head: Atraumatic, Normacephalic Eye(s): bilateral: Other (cataracts) Neck: Supple Cardiovascular: Rhythm Regular Respiratory: Normal Breath Sounds Gastrointestinal/Abdominal: Soft, Other (right lower quadrant with colostomy bag ) Extremity: Other (right BKA) Neurological/Psych: Oriented x3, Normal Speech, Normal Cognition ED Course And Treatment - Laboratory Results Result Diagrams: 10/14/17 20:35 10/14/17 20:35 Lab Interpretation: Abnormal (unconteolled DM, CRI, UA 288 WBC's) ECG: Viewed By Me ECG Rhythm: Sinus Tachycardia, R BBB ECG Interpretation: Abnormal Interpretation Of ECG: inferior infarct, age undetermined. Rate From EC (bpm) O2 Sat by Pulse Oximetry: 97 Pulse Ox Interpretation: Normal - Radiology CXR: Interpreted by Me CXR Interpretation: Yes: Infiltrates (+RLL PNA, small L effusion (stable, chronic)) Progress Note: insulin, rocephin, azithromycin, IVF's. Reevaluation Time: 21:59 Reassessment Condition: Improved - Physician Consult Information Outcome Of Conversation: 2030: d/w Dr. Washington, PMD- ok to admit to Hospitalists. 2199: d/w Dr. Ramey, Hospitalist- ok to adm Medical Decision Making Medical Decision Making: recurrent UTI poorly controlled DM cough/congestion, RLL PNA Case discussed with PMD Dr. Washington who defers to Hospitalist Time: 2156 Patient to be admitted for evaluation of pneumonia, UTI under Dr. Ramey Disposition Doctor Will See Patient In The: Hospital Counseled Patient/Family Regarding: Studies Performed, Diagnosis - Disposition Disposition: HOSPITALIZED Disposition Time: 22:02 Condition: GOOD - Clinical Impression Clinical Impression: CKD (chronic kidney disease), Renal insufficiency, Diabetes mellitus, Influenza -like illness, Pneumonia - Scribe Statement The provider has reviewed the documentation as recorded by the Ale Palacios Provider Attestation: All medical record entries made by the Ale were at my direction and personally dictated by me. I have reviewed the chart and agree that the record accurately reflects my personal performance of the history, physical exam, medical decision making, and the department course for this patient. I have also personally directed, reviewed, and agree with the discharge instructions and disposition.
--- NOTE | 2017-10-14 21:48 | C.PDOC ---
Time Seen by Provider: 10/14/17 20:16 Chief Complaint (Nursing): Weakness/Neurological Deficit Past Medical History Vital Signs: Last Vital Signs Temp 99.5 F 10/14/17 17:47 Pulse 96 H 10/14/17 17:47 Resp 21 10/14/17 17:47 BP 135/83 10/14/17 17:47 Pulse Ox 98 10/14/17 17:47 - Medical History PMH: Anemia, Anxiety, Arthritis (BACK; L KNEE), Asthma, CAD, CHF, COPD, Diabetes , Emphysema, HTN, Hypercholesterolemia, Hyperlipidemia, Hyperthyroidism, Hypothyroidism, Chronic Kidney Disease Surgical History: CABG (x3), Cholecystectomy, Coronary Stent, Pacemaker - [facility] Procedures ATHERECTOMY OF OTHER NON-CORONARY VESSEL(S) (11/15/13) BELOW KNEE AMPUTAT NEC (11/15/13) CENTRAL VENOUS CATHETER PLACEMENT WITH GUIDANCE (05/05/14) CONTRAST ARTERIOGRAM-LEG (11/15/13) ENDOSCOPIC BIOPSY OF RECTUM (02/18/15) HEMODIALYSIS (02/18/15) NONEXCIS DEBRID OF WOUND, INFECT, OR BURN (11/15/13) OTHER ENDOSCOPY OF SM INTEST (02/18/15) PACKED CELL TRANSFUSION (11/15/13) PROCEDURE ON TWO VESSELS (11/15/13) VENOUS CATHETERIZATION FOR RENAL DIALYSIS (02/18/15) Family History: States: Unknown Family Hx - Social History Hx Tobacco Use: No Hx Alcohol Use: No Hx Substance Use: No - Immunization History Hx Tetanus Toxoid Vaccination: No Hx Influenza Vaccination: No Hx Pneumococcal Vaccination: Yes ED Course And Treatment O2 Sat by Pulse Oximetry: 98 Disposition - Disposition
[2017-10-14] MEDS ORDERED: cefTRIAXone IV 1 gm in Dextros 50 ML IV ONE (21:53)
[2017-10-14] MEDS ORDERED: Azithromycin 500 MG in Sodium Chloride 0.9% 250 ML IV STA (21:53)
[2017-10-14] MEDS ORDERED: cefTRIAXone IV 1 gm in Dextros 50 ML IVPB ONE (22:01)
[2017-10-14 22:25] LABS: EOSINOPHIL 1 % (0-4); NEUTROPHIL 78 % (50-75); TOTAL CELLS COUNTED 100
[2017-10-14 22:26] LABS: LARGE PLATELETS PRESENT
[2017-10-14] MEDS ORDERED: Meropenem 500 MG in Sodium Chloride 0.9% 100 ML IVPB SCH (23:45)
--- NOTE | 2017-10-15 00:17 | CP.PCM.HP ---
<Fabricio Centeno - Last Filed: 10/15/17 00:19> History of Present Illness - History of Present Illness History of Present Illness: Medicine H/P CC: Fever, Chills, Body Aches HPI: Patient is a 76F with a PMH of DM, CHF, COPD and recurrent UTIs comes in after having a week of worsening fatigue, body aches and dysuria. Last night she experienced shaking chills and fevers as well as dysuria. She has been treated for a UTI on and off for years. She was admitted previously for UTI that grew E.coli and then Klebsiella that were relatively resistant. She was treated with imipenem at that time. Nothing makes her symptoms better or worse. Denies radiation. Describes the pain as burning on urination. The dysuria has been intermittent. Also complaining of multiple episodes of vomiting both earlier today and while in the ED. Denies any back pain ROS: Per HPI PMD: Felix PMH: Urinary Incontinence, Reccurent UTI, Anemia, Anxiety, Asthma, CAD, CHF, COPD, Diabetes, Emphysema, HTN, Hypercholesterolemia, Hyperlipidemia, Hyperthyroidism, Hypothyroidism, Chronic Kidney Disease, Blind PSH: CABG (Triple), Cholecystectomy, Coronary Stent, Pacemaker, RT.BKA., colon resection for bowel FH: Unremarkable SH: Denies tobacco use, drinking. Takes care of her self with the help of her daughter Meds: See MAR All: None Present on Admission - Present on Admission Any Indicators Present on Admission: No Review of Systems - Review of Systems Review of Systems: per hpi Past Patient History - Infectious Disease Hx of Infectious Diseases: None - Past Medical History & Family History Past Medical History?: Yes - Past Social History Smoking Status: Never Smoked - CARDIAC Hx Congestive Heart Failure: Yes Hx Hypercholesterolemia: Yes Hx Hypertension: Yes Hx Pacemaker: Yes - PULMONARY Hx Asthma: Yes Hx Chronic Obstructive Pulmonary Disease (COPD): Yes Hx Emphysema: Yes - NEUROLOGICAL Hx Neurological Disorder: Yes HX Cerebrovascular Accident: Yes - HEENT Hx HEENT Problems: Yes Hx Blind: Yes - RENAL Hx Chronic Kidney Disease: Yes - ENDOCRINE/METABOLIC Hx Hyperthyroidism: Yes Hx Hypothyroidism: Yes - HEMATOLOGICAL/ONCOLOGICAL Hx Anemia: Yes - INTEGUMENTARY Hx Dermatological Problems: No - MUSCULOSKELETAL/RHEUMATOLOGICAL Hx Arthritis: Yes (BACK; L KNEE) - GASTROINTESTINAL Hx Gastrointestinal Disorders: Yes Hx Bowel Surgery: Yes (ischemic bowel) Hx Colostomy: Yes - GENITOURINARY/GYNECOLOGICAL Hx Genitourinary Disorders: Yes Hx Incontinence: Yes Hx Urinary Tract Infection: Yes - PSYCHIATRIC Hx Anxiety: Yes Hx Substance Use: No - SURGICAL HISTORY Hx Cholecystectomy: Yes Hx Coronary Artery Bypass Graft: Yes (x3) Hx Coronary Stent: Yes - ANESTHESIA Hx Anesthesia: Yes Hx Anesthesia Reactions: No Hx Malignant Hyperthermia: No Meds Allergies/Adverse Reactions: Allergies Allergy/AdvReac Type Severity Reaction Status Date / Time No Known Allergies Allergy Verified 09/28/17 19:53 Physical Exam - Constitutional Additional comments: congested laying in bed with bucket for emesis - Head Exam Head Exam: ATRAUMATIC, NORMAL INSPECTION, NORMOCEPHALIC - Eye Exam Additional comments: blind - ENT Exam ENT Exam: Mucous Membranes Moist - Neck Exam Neck exam: Positive for: Normal Inspection - Respiratory Exam Respiratory Exam: Clear to Auscultation Bilateral, NORMAL BREATHING PATTERN - Cardiovascular Exam Cardiovascular Exam: REGULAR RHYTHM - GI/Abdominal Exam GI & Abdominal Exam: Normal Bowel Sounds, Soft. absent: Distended, Tenderness Additional comments: ostomy - Extremities Exam Additional comments: R. BKA - Back Exam Back exam: absent: CVA tenderness (L), CVA tenderness (R) - Neurological Exam Neurological exam: Alert, Oriented x3 - Psychiatric Exam Psychiatric exam: Normal Affect, Normal Mood - Skin Skin Exam: Dry, Intact, Normal Color, Warm Results - Vital Signs Recent Vital Signs: Last Vital Signs Temp 99.5 F 10/14/17 17:47 Pulse 91 H 10/14/17 22:57 Resp 16 10/14/17 22:57 BP 113/56 L 10/14/17 22:57 Pulse Ox 96 10/14/17 22:57 - Labs Result Diagrams: 10/14/17 20:35 10/14/17 20:35 Labs: Laboratory Results - last 24 hr 10/14/17 10/14/17 10/14/17 20:00 20:35 20:35 WBC 7.5 RBC 3.80 Hgb 11.2 Hct 33.7 L MCV 88.6 MCH 29.4 MCHC 33.2 RDW 12.9 Plt Count 190 MPV 7.5 Neut % (Auto) 85.2 H Lymph % (Auto) 5.4 L Chambers % (Auto) 7.3 Eos % (Auto) 1.6 Baso % (Auto) 0.5 Neut # 6.4 Lymph # 0.4 L Chambers # 0.5 Eos # 0.1 Baso # 0.0 Neutrophils % (Manual) 78 H Band Neutrophils % 11 H* Lymphocytes % (Manual) 6 L Monocytes % (Manual) 4 Eosinophils % (Manual) 1 Platelet Estimate Normal Large Platelets Present Hypochromasia (manual) Slight Microcytosis (manual) Slight Ovalocytes Slight Sodium Potassium Chloride Carbon Dioxide Anion Gap BUN Creatinine Est GFR ( Amer) Est GFR (Non-Af Amer) POC Glucose (mg/dL) Random Glucose Calcium Total Bilirubin AST ALT Alkaline Phosphatase Troponin I NT-Pro-B Natriuret Pep Total Protein Albumin Globulin Albumin/Globulin Ratio Urine Color Yellow Urine Clarity Hazy Urine pH 5.0 Ur Specific [place]inger 1.012 Urine Protein 1+ H Urine Glucose (UA) 3+ H Urine Ketones Negative Urine Blood 3+ H Urine Nitrate Negative Urine Bilirubin Negative Urine Urobilinogen Normal Ur Leukocyte Esterase 3+ H Urine WBC (Auto) 288 H Urine RBC (Auto) 47 H Ur Squamous Epith Cells 3 Urine Bacteria Many H Influenza Typ A,B (EIA) Negative for flu a/b 10/14/17 10/14/17 10/14/17 20:35 20:39 22:00 WBC RBC Hgb Hct MCV MCH MCHC RDW Plt Count MPV Neut % (Auto) Lymph % (Auto) Chambers % (Auto) Eos % (Auto) Baso % (Auto) Neut # Lymph # Chambers # Eos # Baso # Neutrophils % (Manual) Band Neutrophils % Lymphocytes % (Manual) Monocytes % (Manual) Eosinophils % (Manual) Platelet Estimate Large Platelets Hypochromasia (manual) Microcytosis (manual) Ovalocytes Sodium 135 Potassium 5.5 H Chloride 104 Carbon Dioxide 20 L Anion Gap 16 BUN 50 H Creatinine 1.6 H Est GFR ( Amer) 38 Est GFR (Non-Af Amer) 31 POC Glucose (mg/dL) 307 H 232 H Random Glucose 335 H Calcium 8.3 L Total Bilirubin 0.5 AST 19 ALT 38 Alkaline Phosphatase 129 H D Troponin I 0.0330 NT-Pro-B Natriuret Pep 3420 H Total Protein 7.1 Albumin 3.8 Globulin 3.2 Albumin/Globulin Ratio 1.2 Urine Color Urine Clarity Urine pH Ur Specific [place]inger Urine Protein Urine Glucose (UA) Urine Ketones Urine Blood Urine Nitrate Urine Bilirubin Urine Urobilinogen Ur Leukocyte Esterase Urine WBC (Auto) Urine RBC (Auto) Ur Squamous Epith Cells Urine Bacteria Influenza Typ A,B (EIA) Assessment & Plan (1) Urinary tract infection Assessment and Plan: ID (Rosalinda) Imipenem 50 IV Q6 NS @ 80 Urine Culture - F/U Status: Acute Priority: Medium (2) Diabetes mellitus Assessment and Plan: F/U A1C ISS High Accuchecks Status: Chronic (3) CAD (coronary artery disease) Assessment and Plan: Hx of Triple CABG Plavix 75 PO QD Imdur 30 PO QD Losartan 25 PO QD Crestor 10 PO HS Tele Status: Acute (4) Hypothyroidism Assessment and Plan: Synthroid 25 PO QD Status: Chronic (5) Prophylactic measure Assessment and Plan: Lovenox 40 SC QD Pepcid 20 PO QD CCD Status: Acute <Epi Ramey - Last Filed: 10/15/17 06:38> Results - Vital Signs Recent Vital Signs: Last Vital Signs Temp 98.4 F 10/15/17 01:05 Pulse 96 H 10/15/17 01:05 Resp 20 10/15/17 03:29 BP 142/82 10/15/17 01:05 Pulse Ox 97 10/15/17 01:16 - Labs Result Diagrams: 10/14/17 20:35 10/14/17 20:35 Labs: Laboratory Results - last 24 hr 10/14/17 10/14/17 10/14/17 20:00 20:35 20:35 WBC 7.5 RBC 3.80 Hgb 11.2 Hct 33.7 L MCV 88.6 MCH 29.4 MCHC 33.2 RDW 12.9 Plt Count 190 MPV 7.5 Neut % (Auto) 85.2 H Lymph % (Auto) 5.4 L Chambers % (Auto) 7.3 Eos % (Auto) 1.6 Baso % (Auto) 0.5 Neut # 6.4 Lymph # 0.4 L Chambers # 0.5 Eos # 0.1 Baso # 0.0 Neutrophils % (Manual) 78 H Band Neutrophils % 11 H* Lymphocytes % (Manual) 6 L Monocytes % (Manual) 4 Eosinophils % (Manual) 1 Platelet Estimate Normal Large Platelets Present Hypochromasia (manual) Slight Microcytosis (manual) Slight Ovalocytes Slight Sodium Potassium Chloride Carbon Dioxide Anion Gap BUN Creatinine Est GFR ( Amer) Est GFR (Non-Af Amer) POC Glucose (mg/dL) Random Glucose Calcium Total Bilirubin AST ALT Alkaline Phosphatase Troponin I NT-Pro-B Natriuret Pep Total Protein Albumin Globulin Albumin/Globulin Ratio Urine Color Yellow Urine Clarity Hazy Urine pH 5.0 Ur Specific [place] 1.012 Urine Protein 1+ H Urine Glucose (UA) 3+ H Urine Ketones Negative Urine Blood 3+ H Urine Nitrate Negative Urine Bilirubin Negative Urine Urobilinogen Normal Ur Leukocyte Esterase 3+ H Urine WBC (Auto) 288 H Urine RBC (Auto) 47 H Ur Squamous Epith Cells 3 Urine Bacteria Many H Influenza Typ A,B (EIA) Negative for flu a/b 10/14/17 10/14/17 10/14/17 20:35 20:39 22:00 WBC RBC Hgb Hct MCV MCH MCHC RDW Plt Count MPV Neut % (Auto) Lymph % (Auto) Chambers % (Auto) Eos % (Auto) Baso % (Auto) Neut # Lymph # Chambers # Eos # Baso # Neutrophils % (Manual) Band Neutrophils % Lymphocytes % (Manual) Monocytes % (Manual) Eosinophils % (Manual) Platelet Estimate Large Platelets Hypochromasia (manual) Microcytosis (manual) Ovalocytes Sodium 135 Potassium 5.5 H Chloride 104 Carbon Dioxide 20 L Anion Gap 16 BUN 50 H Creatinine 1.6 H Est GFR ( Amer) 38 Est GFR (Non-Af Amer) 31 POC Glucose (mg/dL) 307 H 232 H Random Glucose 335 H Calcium 8.3 L Total Bilirubin 0.5 AST 19 ALT 38 Alkaline Phosphatase 129 H D Troponin I 0.0330 NT-Pro-B Natriuret Pep 3420 H Total Protein 7.1 Albumin 3.8 Globulin 3.2 Albumin/Globulin Ratio 1.2 Urine Color Urine Clarity Urine pH Ur Specific [place]inger Urine Protein Urine Glucose (UA) Urine Ketones Urine Blood Urine Nitrate Urine Bilirubin Urine Urobilinogen Ur Leukocyte Esterase Urine WBC (Auto) Urine RBC (Auto) Ur Squamous Epith Cells Urine Bacteria Influenza Typ A,B (EIA) Assessment & Plan - Date & Time Date: 10/15/17 (I have seen and examined the patient. I agree with the findings and plan of care as documented by Dr. Centeno. Patient with UTI. Recurrent issue. Monitor for signs and symptoms of sepsis. Check blood and urine cultures. Primaxin for now. ID consult. Also with uncontrolled diabetes and history of CAD. Continue home meds. NISS and accuchecks. Adjust home meds as necessary. Monitor for acute changes.) Time: 06:36 Attending/Attestation - Attestation I have personally seen and examined this patient.: Yes I have fully participated in the care of the patient.: Yes I have reviewed all pertinent clinical information: Yes
[2017-10-15] MEDS ORDERED: Imipenem/Cilastatin 500 MG in Dextrose 5% In Water 100 ML IV SCH (00:30)
[2017-10-15] MEDS: Sodium Chloride 0.9% 1,000 ML IV SCH ×3 (01:00→19:42)
[2017-10-15] MEDS: Imipenem/Cilastatin 500 MG in Dextrose 5% In Water 100 ML IVPB SCH ×3 (01:00→12:29)
[2017-10-15 01:06] VITALS: RESP 20
[2017-10-15] MEDS: Levothyroxine 25 MCG TAB PO SCH (05:40)
--- NOTE | 2017-10-15 07:46 | CP.PCM.PN ---
<Yuriy Smith R - Last Filed: 10/15/17 16:18> Subjective - Date & Time of Evaluation Date of Evaluation: 10/15/17 Time of Evaluation: 07:43 - Subjective Subjective: PGY-[address] Clayton. No acute events noted overnight. Patient states she is feeling much better today. She is no longer having dysuria, shakes, fevers. She says she feels as if she was at her baseline. Her main concern was resuming her home medications. Patient denies chest pain, shortness of breath, abdominal pain, fevers, nausea, vomiting, diarrhea. Objective - Vital Signs/Intake and Output Vital Signs (last 24 hours): Temp Pulse Resp BP Pulse Ox 98.5 F 90 20 140/82 97 10/15/17 05:00 10/15/17 05:00 10/15/17 05:00 10/15/17 05:00 10/15/17 05:00 - Medications Medications: Current Medications Acetaminophen (Tylenol 325mg Tab) 650 mg PO Q6 PRN PRN Reason: Fever >100.4 F Clopidogrel Bisulfate (Plavix) 75 mg PO DAILY [facility] Enoxaparin Sodium (Lovenox) 40 mg SC DAILY [facility] Famotidine (Pepcid) 20 mg PO DAILY [facility] Sodium Chloride (Sodium Chloride 0.9%) 1,000 mls @ 80 mls/hr IV .[id number] [facility] Last Admin: 10/15/17 01:00 Dose: 80 mls/hr Imipenem/Cilastatin Sodium 500 (mg/ Dextrose) 100 mls @ 100 mls/hr IVPB Q6H [facility] Last Admin: 10/15/17 05:40 Dose: 100 mls/hr Insulin Human Regular (Novolin R) 0 unit SC ACHS [facility] PRN Reason: Protocol Isosorbide Mononitrate (Imdur Er) 30 mg PO DAILY [facility] Levothyroxine Sodium (Synthroid) 25 mcg PO DAILY@0630 [facility] Last Admin: 10/15/17 05:40 Dose: 25 mcg Losartan Potassium (Cozaar) 25 mg PO DAILY [facility] Ondansetron HCl (Zofran Inj) 4 mg IVP Q6 PRN PRN Reason: Nausea/Vomiting Rosuvastatin Calcium (Crestor) 10 mg PO HS [facility] Last Admin: 10/15/17 01:44 Dose: 10 mg Saccharomyces Boulardii (Florastor) 250 mg PO Q12 [facility] Tamsulosin HCl (Flomax) 0.4 mg PO DAILY [facility] - Labs Labs: 10/14/17 20:35 10/14/17 20:35 - Additional Findings Additional findings: - Constitutional Additional comments: congested laying in bed with bucket for emesis - Head Exam Head Exam: ATRAUMATIC, NORMAL INSPECTION, NORMOCEPHALIC - Eye Exam 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 absent: Distended, Tenderness Additional comments: ostomy bag with green/yellow fluid - Extremities Exam Additional comments: R. BKA - Back Exam Back exam: absent: CVA tenderness (L), CVA tenderness (R) - Neurological Exam Neurological exam: Alert, Oriented x3 - Psychiatric Exam Psychiatric exam: Normal Affect, Normal Mood - Skin Skin Exam: Dry, Intact, Normal Color, Warm Assessment and Plan - Assessment and Plan (Free Text) Assessment: Urinary tract infection Assessment and Plan: ID consult, Dr Tellez Imipenem 500mg IV Q12H (renal dosing) Florastor 250mg PO Q12H NS @ 80 cc/hr UA 10/14: 3+ blood, 3+ leukocyte esterase, wbc 288 (H), rbc 47 (H), bacteria - many F/U Urine Culture F/U Blood Culture Status: Acute Priority: Medium Diabetes mellitus Assessment and Plan: F/U A1C ISS High Accuchecks Repaglinide 0.5mg PO TIDAC Sodium Bicarbonate 650mg PO BID Status: Chronic Chronic Kidney Disease Elevated potassium; Elevated BUN/Cr CAD (coronary artery disease) Assessment and Plan: Cardiology consult, Dr Malik Hx of Triple CABG Plavix 75mg PO QD Imdur 30mg PO QD Losartan 25mg PO QD Crestor 10mg PO HS TeleSitter Status: Acute Congestive Heart Failure, Diastolic Cardiology consult, Dr Malik Pro-BNP 3420 ECHO 03/2017: Abnormal septal motion from pacemaker/ICD in RV. LV diastolic dysfunction grade one. LVEF 50-55%. Sclerotic tri-leaflet aortic valve with mild ai. Hypothyroidism Assessment and Plan: Synthroid 25 PO QD Status: Chronic Urinary Incontinence Tamsulosin 0.4mg PO QD Anxiety Alprazolam 0.25mg PO QD Prophylactic measure Assessment and Plan: Lovenox 30mg SC QD (renal dosing) Pepcid 20mg PO QD Carb Consistent Diet Status: Acute <Ariana Clayton - Last Filed: 10/16/17 17:13> Objective - Vital Signs/Intake and Output Vital Signs (last 24 hours): Temp Pulse Resp BP Pulse Ox 98.7 F 75 20 119/68 95 10/16/17 15:00 10/16/17 15:00 10/16/17 15:00 10/16/17 15:00 10/16/17 15:00 Intake and Output: 10/16/17 10/16/17 06:59 18:59 Intake Total 1790 750 Output Total 450 Balance 1340 750 - Medications Medications: Current Medications Acetaminophen (Tylenol 325mg Tab) 650 mg PO Q6 PRN PRN Reason: Fever >100.4 F Last Admin: 10/15/17 10:15 Dose: 650 mg Alprazolam (Xanax) 0.25 mg PO DAILY [facility] Stop: 10/22/17 11:46 Last Admin: 10/16/17 09:54 Dose: 0.25 mg Clopidogrel Bisulfate (Plavix) 75 mg PO DAILY [facility] Last Admin: 10/16/17 09:54 Dose: 75 mg Enoxaparin Sodium (Lovenox) 30 mg SC DAILY [facility] Last Admin: 10/16/17 09:55 Dose: 30 mg Famotidine (Pepcid) 20 mg PO DAILY [facility] Last Admin: 10/16/17 09:55 Dose: 20 mg Fluticasone Propionate (Flonase) 1 spr LUIS BID [facility] Last Admin: 10/16/17 09:57 Dose: 1 spr Sodium Chloride (Sodium Chloride 0.9%) 1,000 mls @ 80 mls/hr IV .[id number] [facility] Last Admin: 10/16/17 13:20 Dose: Not Given Imipenem/Cilastatin Sodium 500 (mg/ Sodium Chloride) 100 mls @ 100 mls/hr IV Q12H [facility] Insulin Human Regular (Novolin R) 0 unit SC ACHS [facility] PRN Reason: Protocol Last Admin: 10/16/17 12:01 Dose: 2 unit Isosorbide Mononitrate (Imdur Er) 30 mg PO DAILY [facility] Last Admin: 10/16/17 09:55 Dose: 30 mg Levothyroxine Sodium (Synthroid) 25 mcg PO DAILY@0630 [facility] Last Admin: 10/16/17 06:45 Dose: 25 mcg Losartan Potassium (Cozaar) 25 mg PO DAILY [facility] Last Admin: 10/16/17 09:55 Dose: 25 mg Ondansetron HCl (Zofran Inj) 4 mg IVP Q6 PRN PRN Reason: Nausea/Vomiting Repaglinide (Prandin) 0.5 mg PO TIDAC [facility] Last Admin: 10/16/17 12:01 Dose: 0.5 mg Rosuvastatin Calcium (Crestor) 10 mg PO HS [facility] Last Admin: 10/15/17 21:16 Dose: 10 mg Saccharomyces Boulardii (Florastor) 250 mg PO Q12 [facility] Last Admin: 10/16/17 09:55 Dose: 250 mg Sodium Bicarbonate (Sodium Bicarbonate Tab) 650 mg PO BID [facility] Last Admin: 10/16/17 09:54 Dose: 650 mg Tamsulosin HCl (Flomax) 0.4 mg PO DAILY [facility] Last Admin: 10/16/17 09:55 Dose: 0.4 mg - Labs Labs: 10/16/17 07:54 10/16/17 07:54 Attending/Attestation - Attestation I have personally seen and examined this patient.: Yes I have fully participated in the care of the patient.: Yes I have reviewed all pertinent clinical information, including history, physical exam and plan: Yes Notes (Text): patient was seen and examined Case discussed with the resident I agree with the documentation of the assessment and the plan
[2017-10-15] MEDS: (Novolin R) Insulin Human Regular 100 units/ml vial SC SCH ×4 (08:25→21:17)
--- NOTE | 2017-10-15 08:36 | RAD ---
Chest x-ray single frontal view History: Shortness breath. Comparison 04/22/2017 Findings: Small left pleural effusion with adjacent left basilar airspace opacity. Patchy increased markings in the right infrahilar region which may represent infiltrate. Clinical correlation. Diffuse increased interstitial lung markings. Biapical pleural thickening. Suggestion of left-sided rib deformities. Status post median sternotomy and CABG. Calcification at the aortic knob. Left-sided pacemaker. Degenerative changes in the spine and shoulders. Impression: Small left pleural effusion with adjacent left basilar airspace opacity. Patchy increased markings in the right infrahilar region which may represent infiltrate. Clinical correlation. Diffuse increased interstitial lung markings. Biapical pleural thickening. Suggestion of left-sided rib deformities. Status post median sternotomy and CABG. Calcification at the aortic knob. Left-sided pacemaker.
[2017-10-15 08:38] LABS: BASO % 0.4 % (0.0-2.0); EOS # 0.1 K/uL (0.0-0.7); LYMPH # 0.6 K/uL (1.0-4.3); LYMPH % 10.8 % (20.0-40.0); MEAN CELL VOLUME 88.5 fL (81.0-99.0); MEAN CORPUSCULAR HEMOGLOBIN 30.9 pg (27.0-31.0); MEAN CORPUSCULAR HGB CONC 34.9 g/dL (33.0-37.0); MEAN PLATELET VOLUME 7.2 fL (7.2-11.7); MONO # 0.6 K/uL (0.0-0.8); MONO % 10.5 % (0.0-10.0)
[2017-10-15 09:05] LABS: ALB/GLOB RATIO 0.8 (1.0-2.1); BILIRUBIN,TOTAL 0.4 mg/dL (0.2-1.3); CALCIUM 8.3 mg/dl (8.6-10.4); POTASSIUM 4.6 mmol/L (3.6-5.2); TOTAL PROTEIN 7.6 g/dL (6.3-8.3)
[2017-10-15] MEDS ORDERED: Enoxaparin 40 mg Syringe SC SCH (10:00)
[2017-10-15] MEDS: Saccharomyces Boulardi 250 mg Cap PO SCH ×2 (10:11→21:17)
[2017-10-15] MEDS ORDERED: Imipenem/Cilastatin 500 MG in Dextrose 5% In Water 250 ML IVPB SCH ×2 (12:00→17:45)
--- NOTE | 2017-10-15 13:32 | CP.PCM.CON ---
Past Patient History - Infectious Disease Hx of Infectious Diseases: None - Past Medical History & Family History Past Medical History?: Yes - Past Social History Smoking Status: Unknown If Ever Smoked - CARDIAC Hx Cardiac Disorders: Yes Hx Congestive Heart Failure: Yes Hx Hypercholesterolemia: Yes Hx Hypertension: Yes Hx Pacemaker: Yes - PULMONARY Hx Respiratory Disorders: Yes Hx Asthma: Yes Hx Chronic Obstructive Pulmonary Disease (COPD): Yes Hx Emphysema: Yes - NEUROLOGICAL Hx Neurological Disorder: Yes HX Cerebrovascular Accident: Yes - HEENT Hx HEENT Problems: Yes Hx Blind: Yes - RENAL Hx Chronic Kidney Disease: Yes - ENDOCRINE/METABOLIC Hx Endocrine Disorders: Yes Hx Hyperthyroidism: Yes Hx Hypothyroidism: Yes - HEMATOLOGICAL/ONCOLOGICAL Hx Blood Disorders: Yes Hx Anemia: Yes - INTEGUMENTARY Hx Dermatological Problems: No - MUSCULOSKELETAL/RHEUMATOLOGICAL Hx Musculoskeletal Disorders: Yes Hx Arthritis: Yes (BACK; L KNEE) Hx Falls: No - GASTROINTESTINAL Hx Gastrointestinal Disorders: Yes Hx Bowel Surgery: Yes (ischemic bowel) Hx Colostomy: Yes - GENITOURINARY/GYNECOLOGICAL Hx Genitourinary Disorders: Yes Hx Incontinence: Yes Hx Urinary Tract Infection: Yes - PSYCHIATRIC Hx Psychophysiologic Disorder: Yes Hx Anxiety: Yes Hx Substance Use: No - SURGICAL HISTORY Hx Surgeries: Yes Hx Cholecystectomy: Yes Hx Coronary Artery Bypass Graft: Yes (x3) Hx Coronary Stent: Yes - ANESTHESIA Hx Anesthesia: Yes Hx Anesthesia Reactions: No Hx Malignant Hyperthermia: No Has any member of the family had a problem w/ anesthesia?: No Meds Allergies/Adverse Reactions: Allergies Allergy/AdvReac Type Severity Reaction Status Date / Time No Known Allergies Allergy Verified 09/28/17 19:53 - Medications Medications: Current Medications Acetaminophen (Tylenol 325mg Tab) 650 mg PO Q6 PRN PRN Reason: Fever >100.4 F Last Admin: 10/15/17 10:15 Dose: 650 mg Alprazolam (Xanax) 0.25 mg PO DAILY [facility] Stop: 10/22/17 11:46 Last Admin: 10/15/17 12:27 Dose: 0.25 mg Clopidogrel Bisulfate (Plavix) 75 mg PO DAILY [facility] Last Admin: 10/15/17 10:11 Dose: 75 mg Enoxaparin Sodium (Lovenox) 30 mg SC DAILY [facility] Famotidine (Pepcid) 20 mg PO DAILY [facility] Last Admin: 10/15/17 10:11 Dose: 20 mg Fluticasone Propionate (Flonase) 1 spr LUIS BID [facility] Sodium Chloride (Sodium Chloride 0.9%) 1,000 mls @ 80 mls/hr IV .[id number] [facility] Last Admin: 10/15/17 12:32 Dose: Not Given Imipenem/Cilastatin Sodium 500 (mg/ Dextrose) 250 mls @ 250 mls/hr IVPB Q6H [facility] Imipenem/Cilastatin Sodium 500 (mg/ Dextrose) 250 mls @ 250 mls/hr IV Q12H [facility] Insulin Human Regular (Novolin R) 0 unit SC ACHS [facility] PRN Reason: Protocol Last Admin: 10/15/17 12:27 Dose: 2 unit Isosorbide Mononitrate (Imdur Er) 30 mg PO DAILY [facility] Last Admin: 10/15/17 10:11 Dose: 30 mg Levothyroxine Sodium (Synthroid) 25 mcg PO DAILY@0630 [facility] Last Admin: 10/15/17 05:40 Dose: 25 mcg Losartan Potassium (Cozaar) 25 mg PO DAILY [facility] Last Admin: 10/15/17 10:11 Dose: 25 mg Ondansetron HCl (Zofran Inj) 4 mg IVP Q6 PRN PRN Reason: Nausea/Vomiting Repaglinide (Prandin) 0.5 mg PO TIDAC [facility] Rosuvastatin Calcium (Crestor) 10 mg PO HS [facility] Last Admin: 10/15/17 01:44 Dose: 10 mg Saccharomyces Boulardii (Florastor) 250 mg PO Q12 [facility] Last Admin: 10/15/17 10:11 Dose: 250 mg Sodium Bicarbonate (Sodium Bicarbonate Tab) 650 mg PO BID [facility] Last Admin: 10/15/17 12:27 Dose: 650 mg Tamsulosin HCl (Flomax) 0.4 mg PO DAILY [facility] Last Admin: 10/15/17 10:11 Dose: 0.4 mg Results - Vital Signs Recent Vital Signs: Last Vital Signs Temp 98.0 F 10/15/17 08:10 Pulse 85 10/15/17 08:10 Resp 20 10/15/17 08:10 BP 153/79 H 10/15/17 08:10 Pulse Ox 97 10/15/17 08:10 - Labs Result Diagrams: 10/15/17 08:27 10/15/17 08:27 Labs: Laboratory Results - last 24 hr 10/14/17 10/14/17 10/14/17 20:00 20:35 20:35 WBC 7.5 RBC 3.80 Hgb 11.2 Hct 33.7 L MCV 88.6 MCH 29.4 MCHC 33.2 RDW 12.9 Plt Count 190 MPV 7.5 Neut % (Auto) 85.2 H Lymph % (Auto) 5.4 L [place] % (Auto) 7.3 Eos % (Auto) 1.6 Baso % (Auto) 0.5 Neut # 6.4 Lymph # 0.4 L [place] # 0.5 Eos # 0.1 Baso # 0.0 Neutrophils % (Manual) 78 H Band Neutrophils % 11 H* Lymphocytes % (Manual) 6 L Monocytes % (Manual) 4 Eosinophils % (Manual) 1 Platelet Estimate Normal Large Platelets Present Hypochromasia (manual) Slight Microcytosis (manual) Slight Ovalocytes Slight Sodium Potassium Chloride Carbon Dioxide Anion Gap BUN Creatinine Est GFR ( Amer) Est GFR (Non-Af Amer) POC Glucose (mg/dL) Random Glucose Calcium Total Bilirubin AST ALT Alkaline Phosphatase Troponin I NT-Pro-B Natriuret Pep Total Protein Albumin Globulin Albumin/Globulin Ratio Urine Color Yellow Urine Clarity Hazy Urine pH 5.0 Ur Specific [place] 1.012 Urine Protein 1+ H Urine Glucose (UA) 3+ H Urine Ketones Negative Urine Blood 3+ H Urine Nitrate Negative Urine Bilirubin Negative Urine Urobilinogen Normal Ur Leukocyte Esterase 3+ H Urine WBC (Auto) 288 H Urine RBC (Auto) 47 H Ur Squamous Epith Cells 3 Urine Bacteria Many H Influenza Typ A,B (EIA) Negative for flu a/b 10/14/17 10/14/17 10/14/17 20:35 20:39 22:00 WBC RBC Hgb Hct MCV MCH MCHC RDW Plt Count MPV Neut % (Auto) Lymph % (Auto) [place] % (Auto) Eos % (Auto) Baso % (Auto) Neut # Lymph # [place] # Eos # Baso # Neutrophils % (Manual) Band Neutrophils % Lymphocytes % (Manual) Monocytes % (Manual) Eosinophils % (Manual) Platelet Estimate Large Platelets Hypochromasia (manual) Microcytosis (manual) Ovalocytes Sodium 135 Potassium 5.5 H Chloride 104 Carbon Dioxide 20 L Anion Gap 16 BUN 50 H Creatinine 1.6 H Est GFR ( Amer) 38 Est GFR (Non-Af Amer) 31 POC Glucose (mg/dL) 307 H 232 H Random Glucose 335 H Calcium 8.3 L Total Bilirubin 0.5 AST 19 ALT 38 Alkaline Phosphatase 129 H D Troponin I 0.0330 NT-Pro-B Natriuret Pep 3420 H Total Protein 7.1 Albumin 3.8 Globulin 3.2 Albumin/Globulin Ratio 1.2 Urine Color Urine Clarity Urine pH Ur Specific [place] Urine Protein Urine Glucose (UA) Urine Ketones Urine Blood Urine Nitrate Urine Bilirubin Urine Urobilinogen Ur Leukocyte Esterase Urine WBC (Auto) Urine RBC (Auto) Ur Squamous Epith Cells Urine Bacteria Influenza Typ A,B (EIA) 10/15/17 10/15/17 10/15/17 07:10 08:27 08:27 WBC 6.0 RBC 3.50 L Hgb 10.8 L Hct 31.0 L MCV 88.5 MCH 30.9 MCHC 34.9 RDW 13.0 Plt Count 156 MPV 7.2 Neut % (Auto) 76.3 H Lymph % (Auto) 10.8 L [place] % (Auto) 10.5 H Eos % (Auto) 2.0 Baso % (Auto) 0.4 Neut # 4.6 Lymph # 0.6 L [place] # 0.6 Eos # 0.1 Baso # 0.0 Neutrophils % (Manual) Band Neutrophils % Lymphocytes % (Manual) Monocytes % (Manual) Eosinophils % (Manual) Platelet Estimate Large Platelets Hypochromasia (manual) Microcytosis (manual) Ovalocytes Sodium 132 Potassium 4.6 Chloride 103 Carbon Dioxide 21 L Anion Gap 12 BUN 36 H Creatinine 1.3 H Est GFR ( Amer) 48 Est GFR (Non-Af Amer) 40 POC Glucose (mg/dL) 191 H Random Glucose 197 H Calcium 8.3 L Total Bilirubin 0.4 AST 19 ALT 32 Alkaline Phosphatase 111 Troponin I NT-Pro-B Natriuret Pep Total Protein 7.6 Albumin 3.4 L Globulin 4.2 H Albumin/Globulin Ratio 0.8 L Urine Color Urine Clarity Urine pH Ur Specific [place] Urine Protein Urine Glucose (UA) Urine Ketones Urine Blood Urine Nitrate Urine Bilirubin Urine Urobilinogen Ur Leukocyte Esterase Urine WBC (Auto) Urine RBC (Auto) Ur Squamous Epith Cells Urine Bacteria Influenza Typ A,B (EIA) 10/15/17 11:19 WBC RBC Hgb Hct MCV MCH MCHC RDW Plt Count MPV Neut % (Auto) Lymph % (Auto) [place] % (Auto) Eos % (Auto) Baso % (Auto) Neut # Lymph # [place] # Eos # Baso # Neutrophils % (Manual) Band Neutrophils % Lymphocytes % (Manual) Monocytes % (Manual) Eosinophils % (Manual) Platelet Estimate Large Platelets Hypochromasia (manual) Microcytosis (manual) Ovalocytes Sodium Potassium Chloride Carbon Dioxide Anion Gap BUN Creatinine Est GFR ( Amer) Est GFR (Non-Af Amer) POC Glucose (mg/dL) 228 H Random Glucose Calcium Total Bilirubin AST ALT Alkaline Phosphatase Troponin I NT-Pro-B Natriuret Pep Total Protein Albumin Globulin Albumin/Globulin Ratio Urine Color Urine Clarity Urine pH Ur Specific [place] Urine Protein Urine Glucose (UA) Urine Ketones Urine Blood Urine Nitrate Urine Bilirubin Urine Urobilinogen Ur Leukocyte Esterase Urine WBC (Auto) Urine RBC (Auto) Ur Squamous Epith Cells Urine Bacteria Influenza Typ A,B (EIA)
--- NOTE | 2017-10-15 15:21 | CP.PCM.CON ---
History of Present Illness - History of Present Illness History of Present Illness: dictated Past Patient History - Infectious Disease Hx of Infectious Diseases: None - Past Medical History & Family History Past Medical History?: Yes - Past Social History Smoking Status: Unknown If Ever Smoked - CARDIAC Hx Cardiac Disorders: Yes Hx Congestive Heart Failure: Yes Hx Hypercholesterolemia: Yes Hx Hypertension: Yes Hx Pacemaker: Yes - PULMONARY Hx Respiratory Disorders: Yes Hx Asthma: Yes Hx Chronic Obstructive Pulmonary Disease (COPD): Yes Hx Emphysema: Yes - NEUROLOGICAL Hx Neurological Disorder: Yes HX Cerebrovascular Accident: Yes - HEENT Hx HEENT Problems: Yes Hx Blind: Yes - RENAL Hx Chronic Kidney Disease: Yes - ENDOCRINE/METABOLIC Hx Endocrine Disorders: Yes Hx Hyperthyroidism: Yes Hx Hypothyroidism: Yes - HEMATOLOGICAL/ONCOLOGICAL Hx Blood Disorders: Yes Hx Anemia: Yes - INTEGUMENTARY Hx Dermatological Problems: No - MUSCULOSKELETAL/RHEUMATOLOGICAL Hx Musculoskeletal Disorders: Yes Hx Arthritis: Yes (BACK; L KNEE) Hx Falls: No - GASTROINTESTINAL Hx Gastrointestinal Disorders: Yes Hx Bowel Surgery: Yes (ischemic bowel) Hx Colostomy: Yes - GENITOURINARY/GYNECOLOGICAL Hx Genitourinary Disorders: Yes Hx Incontinence: Yes Hx Urinary Tract Infection: Yes - PSYCHIATRIC Hx Psychophysiologic Disorder: Yes Hx Anxiety: Yes Hx Substance Use: No - SURGICAL HISTORY Hx Surgeries: Yes Hx Cholecystectomy: Yes Hx Coronary Artery Bypass Graft: Yes (x3) Hx Coronary Stent: Yes - ANESTHESIA Hx Anesthesia: Yes Hx Anesthesia Reactions: No Hx Malignant Hyperthermia: No Has any member of the family had a problem w/ anesthesia?: No Meds Allergies/Adverse Reactions: Allergies Allergy/AdvReac Type Severity Reaction Status Date / Time No Known Allergies Allergy Verified 09/28/17 19:53 - Medications Medications: Current Medications Acetaminophen (Tylenol 325mg Tab) 650 mg PO Q6 PRN PRN Reason: Fever >100.4 F Last Admin: 10/15/17 10:15 Dose: 650 mg Alprazolam (Xanax) 0.25 mg PO DAILY [facility] Stop: 10/22/17 11:46 Last Admin: 10/15/17 12:27 Dose: 0.25 mg Clopidogrel Bisulfate (Plavix) 75 mg PO DAILY [facility] Last Admin: 10/15/17 10:11 Dose: 75 mg Enoxaparin Sodium (Lovenox) 30 mg SC DAILY [facility] Famotidine (Pepcid) 20 mg PO DAILY [facility] Last Admin: 10/15/17 10:11 Dose: 20 mg Fluticasone Propionate (Flonase) 1 spr LUIS BID [facility] Sodium Chloride (Sodium Chloride 0.9%) 1,000 mls @ 80 mls/hr IV .[id number] [facility] Last Admin: 10/15/17 12:32 Dose: Not Given Imipenem/Cilastatin Sodium 500 (mg/ Dextrose) 250 mls @ 250 mls/hr IV Q12H [facility] Insulin Human Regular (Novolin R) 0 unit SC ACHS [facility] PRN Reason: Protocol Last Admin: 10/15/17 12:27 Dose: 2 unit Isosorbide Mononitrate (Imdur Er) 30 mg PO DAILY [facility] Last Admin: 10/15/17 10:11 Dose: 30 mg Levothyroxine Sodium (Synthroid) 25 mcg PO DAILY@0630 [facility] Last Admin: 10/15/17 05:40 Dose: 25 mcg Losartan Potassium (Cozaar) 25 mg PO DAILY [facility] Last Admin: 10/15/17 10:11 Dose: 25 mg Ondansetron HCl (Zofran Inj) 4 mg IVP Q6 PRN PRN Reason: Nausea/Vomiting Repaglinide (Prandin) 0.5 mg PO TIDAC [facility] Rosuvastatin Calcium (Crestor) 10 mg PO HS [facility] Last Admin: 10/15/17 01:44 Dose: 10 mg Saccharomyces Boulardii (Florastor) 250 mg PO Q12 [facility] Last Admin: 10/15/17 10:11 Dose: 250 mg Sodium Bicarbonate (Sodium Bicarbonate Tab) 650 mg PO BID [facility] Last Admin: 10/15/17 12:27 Dose: 650 mg Tamsulosin HCl (Flomax) 0.4 mg PO DAILY [facility] Last Admin: 10/15/17 10:11 Dose: 0.4 mg Results - Vital Signs Recent Vital Signs: Last Vital Signs Temp 98.0 F 10/15/17 08:10 Pulse 85 10/15/17 08:10 Resp 20 10/15/17 08:10 BP 153/79 H 10/15/17 08:10 Pulse Ox 97 10/15/17 08:10 - Labs Result Diagrams: 10/15/17 08:27 10/15/17 08:27 Labs: Laboratory Results - last 24 hr 10/14/17 10/14/17 10/14/17 20:00 20:35 20:35 WBC 7.5 RBC 3.80 Hgb 11.2 Hct 33.7 L MCV 88.6 MCH 29.4 MCHC 33.2 RDW 12.9 Plt Count 190 MPV 7.5 Neut % (Auto) 85.2 H Lymph % (Auto) 5.4 L [place] % (Auto) 7.3 Eos % (Auto) 1.6 Baso % (Auto) 0.5 Neut # 6.4 Lymph # 0.4 L [place] # 0.5 Eos # 0.1 Baso # 0.0 Neutrophils % (Manual) 78 H Band Neutrophils % 11 H* Lymphocytes % (Manual) 6 L Monocytes % (Manual) 4 Eosinophils % (Manual) 1 Platelet Estimate Normal Large Platelets Present Hypochromasia (manual) Slight Microcytosis (manual) Slight Ovalocytes Slight Sodium Potassium Chloride Carbon Dioxide Anion Gap BUN Creatinine Est GFR ( Amer) Est GFR (Non-Af Amer) POC Glucose (mg/dL) Random Glucose Calcium Total Bilirubin AST ALT Alkaline Phosphatase Troponin I NT-Pro-B Natriuret Pep Total Protein Albumin Globulin Albumin/Globulin Ratio Urine Color Yellow Urine Clarity Hazy Urine pH 5.0 Ur Specific [place] 1.012 Urine Protein 1+ H Urine Glucose (UA) 3+ H Urine Ketones Negative Urine Blood 3+ H Urine Nitrate Negative Urine Bilirubin Negative Urine Urobilinogen Normal Ur Leukocyte Esterase 3+ H Urine WBC (Auto) 288 H Urine RBC (Auto) 47 H Ur Squamous Epith Cells 3 Urine Bacteria Many H Influenza Typ A,B (EIA) Negative for flu a/b 10/14/17 10/14/17 10/14/17 20:35 20:39 22:00 WBC RBC Hgb Hct MCV MCH MCHC RDW Plt Count MPV Neut % (Auto) Lymph % (Auto) [place] % (Auto) Eos % (Auto) Baso % (Auto) Neut # Lymph # [place] # Eos # Baso # Neutrophils % (Manual) Band Neutrophils % Lymphocytes % (Manual) Monocytes % (Manual) Eosinophils % (Manual) Platelet Estimate Large Platelets Hypochromasia (manual) Microcytosis (manual) Ovalocytes Sodium 135 Potassium 5.5 H Chloride 104 Carbon Dioxide 20 L Anion Gap 16 BUN 50 H Creatinine 1.6 H Est GFR ( Amer) 38 Est GFR (Non-Af Amer) 31 POC Glucose (mg/dL) 307 H 232 H Random Glucose 335 H Calcium 8.3 L Total Bilirubin 0.5 AST 19 ALT 38 Alkaline Phosphatase 129 H D Troponin I 0.0330 NT-Pro-B Natriuret Pep 3420 H Total Protein 7.1 Albumin 3.8 Globulin 3.2 Albumin/Globulin Ratio 1.2 Urine Color Urine Clarity Urine pH Ur Specific [place] Urine Protein Urine Glucose (UA) Urine Ketones Urine Blood Urine Nitrate Urine Bilirubin Urine Urobilinogen Ur Leukocyte Esterase Urine WBC (Auto) Urine RBC (Auto) Ur Squamous Epith Cells Urine Bacteria Influenza Typ A,B (EIA) 10/15/17 10/15/17 10/15/17 07:10 08:27 08:27 WBC 6.0 RBC 3.50 L Hgb 10.8 L Hct 31.0 L MCV 88.5 MCH 30.9 MCHC 34.9 RDW 13.0 Plt Count 156 MPV 7.2 Neut % (Auto) 76.3 H Lymph % (Auto) 10.8 L [place] % (Auto) 10.5 H Eos % (Auto) 2.0 Baso % (Auto) 0.4 Neut # 4.6 Lymph # 0.6 L [place] # 0.6 Eos # 0.1 Baso # 0.0 Neutrophils % (Manual) Band Neutrophils % Lymphocytes % (Manual) Monocytes % (Manual) Eosinophils % (Manual) Platelet Estimate Large Platelets Hypochromasia (manual) Microcytosis (manual) Ovalocytes Sodium 132 Potassium 4.6 Chloride 103 Carbon Dioxide 21 L Anion Gap 12 BUN 36 H Creatinine 1.3 H Est GFR ( Amer) 48 Est GFR (Non-Af Amer) 40 POC Glucose (mg/dL) 191 H Random Glucose 197 H Calcium 8.3 L Total Bilirubin 0.4 AST 19 ALT 32 Alkaline Phosphatase 111 Troponin I NT-Pro-B Natriuret Pep Total Protein 7.6 Albumin 3.4 L Globulin 4.2 H Albumin/Globulin Ratio 0.8 L Urine Color Urine Clarity Urine pH Ur Specific [place] Urine Protein Urine Glucose (UA) Urine Ketones Urine Blood Urine Nitrate Urine Bilirubin Urine Urobilinogen Ur Leukocyte Esterase Urine WBC (Auto) Urine RBC (Auto) Ur Squamous Epith Cells Urine Bacteria Influenza Typ A,B (EIA) 10/15/17 11:19 WBC RBC Hgb Hct MCV MCH MCHC RDW Plt Count MPV Neut % (Auto) Lymph % (Auto) [place] % (Auto) Eos % (Auto) Baso % (Auto) Neut # Lymph # [place] # Eos # Baso # Neutrophils % (Manual) Band Neutrophils % Lymphocytes % (Manual) Monocytes % (Manual) Eosinophils % (Manual) Platelet Estimate Large Platelets Hypochromasia (manual) Microcytosis (manual) Ovalocytes Sodium Potassium Chloride Carbon Dioxide Anion Gap BUN Creatinine Est GFR ( Amer) Est GFR (Non-Af Amer) POC Glucose (mg/dL) 228 H Random Glucose Calcium Total Bilirubin AST ALT Alkaline Phosphatase Troponin I NT-Pro-B Natriuret Pep Total Protein Albumin Globulin Albumin/Globulin Ratio Urine Color Urine Clarity Urine pH Ur Specific [place] Urine Protein Urine Glucose (UA) Urine Ketones Urine Blood Urine Nitrate Urine Bilirubin Urine Urobilinogen Ur Leukocyte Esterase Urine WBC (Auto) Urine RBC (Auto) Ur Squamous Epith Cells Urine Bacteria Influenza Typ A,B (EIA)
[2017-10-15] MEDS: Fluticasone Nasal 50 mcg/Spray NAS SCH (17:56)
--- NOTE | 2017-10-15 18:22 | CARD ---
APPROVED REPORT EKG Measurement Heart [id number] <Conclusion> Sinus tachycardia Left axis deviation Right bundle branch block Inferior infarct, age undetermined Abnormal ECG
[2017-10-16] MEDS: Imipenem/Cilastatin 500 MG in Dextrose 5% In Water 250 ML IV SCH ×2 (00:15→13:19)
[2017-10-16] MEDS: Sodium Chloride 0.9% 1,000 ML IV SCH ×3 (00:50→21:57)
[2017-10-16] MEDS: Levothyroxine 25 MCG TAB PO SCH (06:45)
--- NOTE | 2017-10-16 07:07 | CP.PCM.PN ---
<Yuriy Smith R - Last Filed: 10/16/17 14:53> Subjective - Date & Time of Evaluation Date of Evaluation: 10/16/17 Time of Evaluation: 07:02 - Subjective Subjective: PGY-[address] Clayton. No acute events overnight noted. Her only complaint was nasal congestion. Patient denies chest pain, abdominal pain, shortness of breath, nausea, vomiting , fevers, chills, diarrhea. Objective - Vital Signs/Intake and Output Vital Signs (last 24 hours): Temp Pulse Resp BP Pulse Ox 99.2 F 91 H 20 153/82 H 95 10/16/17 00:00 10/16/17 00:00 10/16/17 00:00 10/16/17 00:00 10/16/17 00:00 Intake and Output: 10/16/17 10/16/17 06:59 18:59 Intake Total 1790 Output Total 450 Balance 1340 - Medications Medications: Current Medications Acetaminophen (Tylenol 325mg Tab) 650 mg PO Q6 PRN PRN Reason: Fever >100.4 F Last Admin: 10/15/17 10:15 Dose: 650 mg Alprazolam (Xanax) 0.25 mg PO DAILY [facility] Stop: 10/22/17 11:46 Last Admin: 10/15/17 12:27 Dose: 0.25 mg Clopidogrel Bisulfate (Plavix) 75 mg PO DAILY [facility] Last Admin: 10/15/17 10:11 Dose: 75 mg Enoxaparin Sodium (Lovenox) 30 mg SC DAILY [facility] Famotidine (Pepcid) 20 mg PO DAILY [facility] Last Admin: 10/15/17 10:11 Dose: 20 mg Fluticasone Propionate (Flonase) 1 spr LUIS BID [facility] Last Admin: 10/15/17 17:56 Dose: 1 spr Sodium Chloride (Sodium Chloride 0.9%) 1,000 mls @ 80 mls/hr IV .[id number] [facility] Last Admin: 10/16/17 00:50 Dose: Not Given Imipenem/Cilastatin Sodium 500 (mg/ Dextrose) 250 mls @ 250 mls/hr IV Q12H [facility] Last Admin: 10/16/17 00:15 Dose: 250 mls/hr Insulin Human Regular (Novolin R) 0 unit SC ACHS [facility] PRN Reason: Protocol Last Admin: 10/15/17 21:17 Dose: Not Given Isosorbide Mononitrate (Imdur Er) 30 mg PO DAILY [facility] Last Admin: 10/15/17 10:11 Dose: 30 mg Levothyroxine Sodium (Synthroid) 25 mcg PO DAILY@0630 [facility] Last Admin: 10/16/17 06:45 Dose: 25 mcg Losartan Potassium (Cozaar) 25 mg PO DAILY [facility] Last Admin: 10/15/17 10:11 Dose: 25 mg Ondansetron HCl (Zofran Inj) 4 mg IVP Q6 PRN PRN Reason: Nausea/Vomiting Repaglinide (Prandin) 0.5 mg PO TIDAC [facility] Last Admin: 10/15/17 16:30 Dose: 0.5 mg Rosuvastatin Calcium (Crestor) 10 mg PO HS [facility] Last Admin: 10/15/17 21:16 Dose: 10 mg Saccharomyces Boulardii (Florastor) 250 mg PO Q12 [facility] Last Admin: 10/15/17 21:17 Dose: 250 mg Sodium Bicarbonate (Sodium Bicarbonate Tab) 650 mg PO BID [facility] Last Admin: 10/15/17 17:55 Dose: 650 mg Tamsulosin HCl (Flomax) 0.4 mg PO DAILY [facility] Last Admin: 10/15/17 10:11 Dose: 0.4 mg - Labs Labs: 10/15/17 08:27 10/15/17 08:27 - Additional Findings Additional findings: - Constitutional Additional comments: congested laying in bed with bucket for emesis - Head Exam Head Exam: ATRAUMATIC, NORMAL INSPECTION, NORMOCEPHALIC - Eye Exam 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 absent: Distended, Tenderness Additional comments: ostomy bag with green/yellow fluid - Extremities Exam Additional comments: R. BKA - Back Exam Back exam: absent: CVA tenderness (L), CVA tenderness (R) - Neurological Exam Neurological exam: Alert, Oriented x3 - Psychiatric Exam Psychiatric exam: Normal Affect, Normal Mood - Skin Skin Exam: Dry, Intact, Normal Color, Warm Assessment and Plan - Assessment and Plan (Free Text) Assessment: Urinary tract infection Assessment and Plan: Recurrent UTIs possibly 2/2 to neurogenic bladder ID consult, Dr Tellez UA 10/14: 3+ blood, 3+ leukocyte esterase, wbc 288 (H), rbc 47 (H), bacteria - many F/U Urine Culture Blood Culture 10/14: shows no growth up to date Imaging: CT abd/pelvis w/o contrast 10/16 (ordered due to recurrent UTIs): "Mild urinary bladder wall thickening and associated adjacent inflammatory stranding. Cystitis is not excluded. Bilateral nonobstructing renal calculi. Left basilar atelectasis/infiltrate. Cholecystectomy. Mildly nodular hepatic contour. Correlate clinically. Partial right hemicolectomy. Right lower quadrant colostomy. Midline abdominal hernia containing bowel without evidence of obstruction. Previously noted abnormal soft tissue density left side of the inferior rectum at the level of the anal rectal complex is again evident and should be further evaluated if it has not already been done as this was previously described on examination of 02/21/2015. Rule out neoplasm. IVC filter ". Aforementioned rectal "abnormal soft tissue density" was worked up in 01/2015, a proctoscopy was performed at that time and a rectal biopsy was done which came back negative for dysplasia. Meds: Imipenem 500mg IV Q12H (renal dosing) Florastor 250mg PO Q12H NS @ 80 cc/hr Status: Acute Priority: Medium Diabetes mellitus Assessment and Plan: F/U A1C ISS High Accuchecks Meds: Repaglinide 0.5mg PO TIDAC Sodium Bicarbonate 650mg PO BID Status: Chronic Chronic Kidney Disease Elevated BUN/Cr CAD (coronary artery disease) Assessment and Plan: Cardiology consult, Dr Malik Hx of Triple CABG Meds: Plavix 75mg PO QD Imdur 30mg PO QD Losartan 25mg PO QD Crestor 10mg PO HS Status: Acute Congestive Heart Failure, Diastolic Cardiology consult, Dr Malik Pro-BNP 3420 ECHO 03/2017: Abnormal septal motion from pacemaker/ICD in RV. LV diastolic dysfunction grade one. LVEF 50-55%. Sclerotic tri-leaflet aortic valve with mild ai. Hypothyroidism Assessment and Plan: Synthroid 25 PO QD Status: Chronic Urinary Incontinence Tamsulosin 0.4mg PO QD Anxiety Alprazolam 0.25mg PO QD Tele[employer]itter Prophylactic measure Assessment and Plan: Lovenox 30mg SC QD (renal dosing) Pepcid 20mg PO QD Carb Consistent Diet Status: Acute <Jared Claytonyadiraregine - Last Filed: 10/16/17 17:27> Objective - Vital Signs/Intake and Output Vital Signs (last 24 hours): Temp Pulse Resp BP Pulse Ox 98.7 F 75 20 119/68 95 10/16/17 15:00 10/16/17 15:00 10/16/17 15:00 10/16/17 15:00 10/16/17 15:00 Intake and Output: 10/16/17 10/16/17 06:59 18:59 Intake Total 1790 750 Output Total 450 Balance 1340 750 - Medications Medications: Current Medications Acetaminophen (Tylenol 325mg Tab) 650 mg PO Q6 PRN PRN Reason: Fever >100.4 F Last Admin: 10/15/17 10:15 Dose: 650 mg Alprazolam (Xanax) 0.25 mg PO DAILY [facility] Stop: 10/22/17 11:46 Last Admin: 10/16/17 09:54 Dose: 0.25 mg Clopidogrel Bisulfate (Plavix) 75 mg PO DAILY [facility] Last Admin: 10/16/17 09:54 Dose: 75 mg Enoxaparin Sodium (Lovenox) 30 mg SC DAILY [facility] Last Admin: 10/16/17 09:55 Dose: 30 mg Famotidine (Pepcid) 20 mg PO DAILY [facility] Last Admin: 10/16/17 09:55 Dose: 20 mg Fluticasone Propionate (Flonase) 1 spr LUIS BID [facility] Last Admin: 10/16/17 09:57 Dose: 1 spr Sodium Chloride (Sodium Chloride 0.9%) 1,000 mls @ 80 mls/hr IV .[id number] [facility] Last Admin: 10/16/17 13:20 Dose: Not Given Imipenem/Cilastatin Sodium 500 (mg/ Sodium Chloride) 100 mls @ 100 mls/hr IV Q12H [facility] Insulin Human Regular (Novolin R) 0 unit SC ACHS [facility] PRN Reason: Protocol Last Admin: 10/16/17 12:01 Dose: 2 unit Isosorbide Mononitrate (Imdur Er) 30 mg PO DAILY [facility] Last Admin: 10/16/17 09:55 Dose: 30 mg Levothyroxine Sodium (Synthroid) 25 mcg PO DAILY@0630 [facility] Last Admin: 10/16/17 06:45 Dose: 25 mcg Losartan Potassium (Cozaar) 25 mg PO DAILY [facility] Last Admin: 10/16/17 09:55 Dose: 25 mg Ondansetron HCl (Zofran Inj) 4 mg IVP Q6 PRN PRN Reason: Nausea/Vomiting Repaglinide (Prandin) 0.5 mg PO TIDAC [facility] Last Admin: 10/16/17 12:01 Dose: 0.5 mg Rosuvastatin Calcium (Crestor) 10 mg PO HS [facility] Last Admin: 10/15/17 21:16 Dose: 10 mg Saccharomyces Boulardii (Florastor) 250 mg PO Q12 [facility] Last Admin: 10/16/17 09:55 Dose: 250 mg Sodium Bicarbonate (Sodium Bicarbonate Tab) 650 mg PO BID [facility] Last Admin: 10/16/17 09:54 Dose: 650 mg Tamsulosin HCl (Flomax) 0.4 mg PO DAILY [facility] Last Admin: 10/16/17 09:55 Dose: 0.4 mg - Labs Labs: 10/16/17 07:54 10/16/17 07:54 Attending/Attestation - Attestation I have personally seen and examined this patient.: Yes I have fully participated in the care of the patient.: Yes I have reviewed all pertinent clinical information, including history, physical exam and plan: Yes Notes (Text): patient is feeling better Seen and examined continue primaxin blood cultures negative HA1c 9.4/poorly controlled DM Need out patient f/u and diabetes control pulmonary consult appreciated.I will get CT chets without contrast I agree with the residents documentation of assessment and the plan 10/16/17 17:25
--- NOTE | 2017-10-16 07:23 | CON ---
INFECTIOUS DISEASE CONSULTATION REQUESTING PHYSICIAN: Epi Ramey DO. HISTORY OF PRESENT ILLNESS: This patient is a 76-year-old female. She was admitted here with fever, chills, and body aches. She states she was recently here with UTI. She got 5 days of antibiotics here and oral. I find she was here from 09/28/2017 to 10/03/2017. She has UTI, renal insufficiency. PAST MEDICAL HISTORY: Significant for diabetes mellitus, CHF, COPD, has had UTIs, comes in with fatigue, body ache. Her nose is runny and she states she may have flu, but she was tested for flu, I guess, and she was told she has pneumoniae. She also admits to having UTI now. She complains of dysuria when she is sits to pee. She is wheelchair bound most of the time, comes in with fever and chills and she was admitted before with UTI and found she had Klebsiella, which was sensitive. She was, however, treated with imipenem at that time and she also has history of colostomy, right BKA, and she is blind. She is having flu like symptoms, body aches, dysuria, fatigue, chills and runny nose. She does not bring up any phlegm. Past medical history is significant for urinary incontinence, recurrent UTI, anemia, anxiety, asthma, CHF, COPD, coronary artery disease, diabetes, emphysema, hypertension, high cholesterol, hyperlipidemia, hyperthyroidism, chronic kidney disease and she is blind because of diabetes. PAST SURGICAL HISTORY: CABG. She also has a pacemaker with defibrillator, right BKA, colon resection for bowel. She does have colostomy and cholecystectomy, coronary stent. FAMILY HISTORY: Unremarkable. SOCIAL HISTORY: Negative for smoking or drinking. Her daughter has authority in her medical decisions. REVIEW OF SYSTEMS: GENERAL: She denied any other new symptoms, but she has had UTIs in the past. She never smoked. CARDIAC: She has congestive heart failure, hypercholesterolemia, hypertension, pacemaker. PULMONARY: She has COPD, asthma, emphysema. NEUROLOGIC: She has CVA in the past, blindness, mostly bed bound. HEENT: She is blind. KIDNEY: She has chronic kidney problem. ENDOCRINOLOGIC: She has had hypo and hyperthyroidism. HEMATOLOGIC: She suffers from anemia. SKIN: Intact skin. She has no problem. MUSCULOSKELETAL: Arthritis, she did have left knee problem. GI: She has had gastrointestinal disorders, ischemic bowel, history of colostomy. : She is incontinent. She wears a diaper and has UTI. PSYCHIATRIC: She has anxiety. No substance abuse. SURGERIES: She has had cholecystectomy, coronary artery bypass, coronary stent. ALLERGIES: SHE IS NOT ALLERGIC TO ANY MEDICINES. MEDICATIONS: Tylenol, Xanax, Plavix, Lovenox, Pepcid, Flonase, imipenem, Novolin R, Imdur, Synthroid, Cozaar, Zofran, Prandin, Crestor, Florastor, sodium bicarbonate, sodium chloride, IV fluid, and she is on Flomax. PHYSICAL EXAMINATION: VITAL SIGNS: I find her temperature is 98.5, pulse 85, blood pressure 153/79, respirations are 20. HEENT: Head is atraumatic and normocephalic. Patient is blind. Mucous membranes are moist. NECK: Supple. JVP is flat. Trachea is central. LUNGS: Clear. No crackles or rhonchi. HEART: S1 and S2 regular. Has coronary artery surgical scar. ABDOMEN: Soft, nontender, no guarding, no rigidity present. She has a colostomy bag. EXTREMITIES: Right BKA. Left leg is unremarkable. She has amputated left great toe, partial. SKIN: No lesions. PSYCHIATRIC: She has a normal affect and mood at this time. LABORATORY DATA: White count today, hemoglobin 10.8, hematocrit 31, platelet count is 156. Sodium is 132, potassium 4.6, chloride 103, CO2 is 21, BUN is 12, creatinine is 1.3. She is on imipenem 500 q.12. Her creatine was elevated when she came in. X-ray shows a small left pleural effusion slightly increased in the right infrahilar area, which may represent infiltrates and left-sided rib deformities, status post sternotomy and CABG. PLAN: At this time, we are awaiting for the culture reports and she is empirically on imipenem. We will follow. She does have renal insufficiency, diabetic with blindness, status post colostomy, and right BKA. Suggest to continue this and if she is having repeated UTIs, we should get a Urology evaluation. She is on Flomax also for that. We will follow. Teresa Tellez MD
[2017-10-16] MEDS: (Novolin R) Insulin Human Regular 100 units/ml vial SC SCH ×4 (07:54→21:58)
[2017-10-16 08:08] LABS: BASO % 0.6 % (0.0-2.0); EOS # 0.1 K/uL (0.0-0.7); EOS % 3.3 % (0.0-4.0); HEMATOCRIT 32.8 % (34.0-47.0); LYMPH # 0.6 K/uL (1.0-4.3); LYMPH % 14.8 % (20.0-40.0); MEAN CELL VOLUME 88.2 fL (81.0-99.0); MEAN CORPUSCULAR HEMOGLOBIN 30.5 pg (27.0-31.0); MEAN CORPUSCULAR HGB CONC 34.6 g/dL (33.0-37.0); MEAN PLATELET VOLUME 7.2 fL (7.2-11.7); MONO # 0.5 K/uL (0.0-0.8); MONO % 12.1 % (0.0-10.0); RED CELL DISTRIBUTION WIDTH 12.9 % (11.5-14.5); WHITE BLOOD COUNT 4.1 K/uL (4.8-10.8)
[2017-10-16 08:30] LABS: ALB/GLOB RATIO 0.8 (1.0-2.1); BILIRUBIN,TOTAL 0.5 mg/dL (0.2-1.3); CALCIUM 8.2 mg/dl (8.6-10.4); POTASSIUM 4.6 mmol/L (3.6-5.2); TOTAL PROTEIN 7.4 g/dL (6.3-8.3)
[2017-10-16] MEDS: Enoxaparin 30 mg Syringe SC SCH (09:55)
[2017-10-16] MEDS: Saccharomyces Boulardi 250 mg Cap PO SCH ×2 (09:55→21:56)
[2017-10-16] MEDS: Fluticasone Nasal 50 mcg/Spray NAS SCH ×2 (09:57→17:59)
[2017-10-16] MEDS ORDERED: Enoxaparin 40 mg Syringe SC SCH (10:00)
[2017-10-16] MEDS ORDERED: Enoxaparin 30 mg Syringe SC SCH (10:00)
--- NOTE | 2017-10-16 13:42 | CT ---
PROCEDURE: CT Abdomen and Pelvis without Oral or IV contrast. HISTORY: recurrent UTIs and urinary incontinence COMPARISON: CT of the abdomen pelvis without contrast performed 05/25/15 TECHNIQUE: Contiguous axial images of the abdomen and pelvis. No oral or IV contrast administered. Coronal and Sagittal reformats generated and reviewed. Radiation dose: Total exam DLP = 758.33 mGy-cm. This CT exam was performed using one or more of the following dose reduction techniques: Automated exposure control, adjustment of the mA and/or kV according to patient size, and/or use of iterative reconstruction technique. FINDINGS: There is limited evaluation of the solid organs without the administration of IV contrast. LOWER THORAX: Left basilar atelectasis or infiltrate. There is no visible pleural effusion or pneumothorax. Partially imaged pacemaker wires. LIVER: Mildly nodular hepatic contour. GALLBLADDER AND BILE DUCTS: Cholecystectomy. PANCREAS: Fatty replacement of the pancreas. SPLEEN: Splenic calcification, likely granuloma. ADRENALS: Unremarkable. KIDNEYS AND URETERS: No hydronephrosis or obstructing renal calculus. Bilateral nonobstructing renal calculi. BLADDER: Mild urinary bladder wall thickening and associated adjacent inflammatory stranding ; correlate with urinalysis. Cystitis is not excluded. REPRODUCTIVE: Uterus is present. BOWEL: The stomach is nondistended. Lack of oral contrast limits evaluation for bowel pathology. No evidence bowel obstruction. Partial right hemicolectomy. Right lower quadrant colostomy. Midline abdominal hernia containing bowel without evidence of obstruction. Previously noted abnormal soft tissue density left side of the inferior rectum at the level of the anal rectal complex is again evident and should be further evaluated if it has not already been done as this was previously described on examination of 02/21/2015. Rule out neoplasm. PERITONEUM: No significant free fluid. No definite free air. LYMPH NODES: No bulky lymphadenopathy identified. VASCULATURE: IVC filter. No aortic aneurysm. BONES: Osseous demineralization. Degenerative changes. OTHER FINDINGS: None. IMPRESSION: Mild urinary bladder wall thickening and associated adjacent inflammatory stranding ; correlate with urinalysis. Cystitis is not excluded. Bilateral nonobstructing renal calculi. Left basilar atelectasis/infiltrate. Cholecystectomy. Mildly nodular hepatic contour. Correlate clinically. Partial right hemicolectomy. Right lower quadrant colostomy. Midline abdominal hernia containing bowel without evidence of obstruction. Previously noted abnormal soft tissue density left side of the inferior rectum at the level of the anal rectal complex is again evident and should be further evaluated if it has not already been done as this was previously described on examination of 02/21/2015. Rule out neoplasm. IVC filter. Additional incidental findings as above.
--- NOTE | 2017-10-16 15:45 | CP.PCM.CON ---
History of Present Illness - History of Present Illness History of Present Illness: Patient is a 76F with a PMH of DM, CHF, COPD and recurrent UTIs comes in after having a week of worsening fatigue, body aches and dysuria. Last night she experienced shaking chills and fevers as well as dysuria. She has been treated for a UTI on and off for years. She was admitted previously for UTI that grew E.coli and then Klebsiella that were relatively resistant. She was treated with imipenem at that time. Pulmonary consult is called for airspace disease seen in left lower lobe on CT abdomen. Patient also complains of cough, yellow phlegm, and intermittent dyspnea. Review of Systems - Review of Systems All systems: reviewed and no additional remarkable complaints except (See HPI rest negative) Past Patient History - Infectious Disease Hx of Infectious Diseases: None - Past Medical History & Family History Past Medical History?: Yes - Past Social History Smoking Status: Unknown If Ever Smoked - CARDIAC Hx Cardiac Disorders: Yes Hx Congestive Heart Failure: Yes Hx Hypercholesterolemia: Yes Hx Hypertension: Yes Hx Pacemaker: Yes - PULMONARY Hx Respiratory Disorders: Yes Hx Asthma: Yes Hx Chronic Obstructive Pulmonary Disease (COPD): Yes Hx Emphysema: Yes - NEUROLOGICAL Hx Neurological Disorder: Yes HX Cerebrovascular Accident: Yes - HEENT Hx HEENT Problems: Yes Hx Blind: Yes - RENAL Hx Chronic Kidney Disease: Yes - ENDOCRINE/METABOLIC Hx Endocrine Disorders: Yes Hx Hyperthyroidism: Yes Hx Hypothyroidism: Yes - HEMATOLOGICAL/ONCOLOGICAL Hx Blood Disorders: Yes Hx Anemia: Yes - INTEGUMENTARY Hx Dermatological Problems: No - MUSCULOSKELETAL/RHEUMATOLOGICAL Hx Musculoskeletal Disorders: Yes Hx Arthritis: Yes (BACK; L KNEE) Hx Falls: No - GASTROINTESTINAL Hx Gastrointestinal Disorders: Yes Hx Bowel Surgery: Yes (ischemic bowel) Hx Colostomy: Yes - GENITOURINARY/GYNECOLOGICAL Hx Genitourinary Disorders: Yes Hx Incontinence: Yes Hx Urinary Tract Infection: Yes - PSYCHIATRIC Hx Psychophysiologic Disorder: Yes Hx Anxiety: Yes Hx Substance Use: No - SURGICAL HISTORY Hx Surgeries: Yes Hx Cholecystectomy: Yes Hx Coronary Artery Bypass Graft: Yes (x3) Hx Coronary Stent: Yes - ANESTHESIA Hx Anesthesia: Yes Hx Anesthesia Reactions: No Hx Malignant Hyperthermia: No Has any member of the family had a problem w/ anesthesia?: No Meds Allergies/Adverse Reactions: Allergies Allergy/AdvReac Type Severity Reaction Status Date / Time No Known Allergies Allergy Verified 09/28/17 19:53 - Medications Medications: Current Medications Acetaminophen (Tylenol 325mg Tab) 650 mg PO Q6 PRN PRN Reason: Fever >100.4 F Last Admin: 10/15/17 10:15 Dose: 650 mg Alprazolam (Xanax) 0.25 mg PO DAILY [facility] Stop: 10/22/17 11:46 Last Admin: 10/16/17 09:54 Dose: 0.25 mg Clopidogrel Bisulfate (Plavix) 75 mg PO DAILY [facility] Last Admin: 10/16/17 09:54 Dose: 75 mg Enoxaparin Sodium (Lovenox) 30 mg SC DAILY [facility] Last Admin: 10/16/17 09:55 Dose: 30 mg Famotidine (Pepcid) 20 mg PO DAILY [facility] Last Admin: 10/16/17 09:55 Dose: 20 mg Fluticasone Propionate (Flonase) 1 spr LUIS BID [facility] Last Admin: 10/16/17 09:57 Dose: 1 spr Sodium Chloride (Sodium Chloride 0.9%) 1,000 mls @ 80 mls/hr IV .[id number] [facility] Last Admin: 10/16/17 13:20 Dose: Not Given Imipenem/Cilastatin Sodium 500 (mg/ Dextrose) 250 mls @ 250 mls/hr IV Q12H [facility] Last Admin: 10/16/17 13:19 Dose: 250 mls/hr Insulin Human Regular (Novolin R) 0 unit SC ACHS [facility] PRN Reason: Protocol Last Admin: 10/16/17 12:01 Dose: 2 unit Isosorbide Mononitrate (Imdur Er) 30 mg PO DAILY [facility] Last Admin: 10/16/17 09:55 Dose: 30 mg Levothyroxine Sodium (Synthroid) 25 mcg PO DAILY@0630 [facility] Last Admin: 10/16/17 06:45 Dose: 25 mcg Losartan Potassium (Cozaar) 25 mg PO DAILY [facility] Last Admin: 10/16/17 09:55 Dose: 25 mg Ondansetron HCl (Zofran Inj) 4 mg IVP Q6 PRN PRN Reason: Nausea/Vomiting Repaglinide (Prandin) 0.5 mg PO TIDAC [facility] Last Admin: 10/16/17 12:01 Dose: 0.5 mg Rosuvastatin Calcium (Crestor) 10 mg PO HS [facility] Last Admin: 10/15/17 21:16 Dose: 10 mg Saccharomyces Boulardii (Florastor) 250 mg PO Q12 [facility] Last Admin: 10/16/17 09:55 Dose: 250 mg Sodium Bicarbonate (Sodium Bicarbonate Tab) 650 mg PO BID [facility] Last Admin: 10/16/17 09:54 Dose: 650 mg Tamsulosin HCl (Flomax) 0.4 mg PO DAILY [facility] Last Admin: 10/16/17 09:55 Dose: 0.4 mg Physical Exam - Head Exam Head Exam: NORMAL INSPECTION - Eye Exam Eye Exam: Normal appearance - ENT Exam ENT Exam: Mucous Membranes Moist - Neck Exam Neck exam: Positive for: Normal Inspection - Respiratory Exam Respiratory Exam: Clear to Auscultation Bilateral - Cardiovascular Exam Cardiovascular Exam: REGULAR RHYTHM, +S1, +S2 - GI/Abdominal Exam GI & Abdominal Exam: Normal Bowel Sounds, Soft - Extremities Exam Extremities exam: Positive for: normal inspection Results - Vital Signs Recent Vital Signs: Last Vital Signs Temp 98 F 10/16/17 08:29 Pulse 73 10/16/17 08:29 Resp 20 10/16/17 08:29 BP 153/74 H 10/16/17 08:29 Pulse Ox 96 10/16/17 08:29 - Labs Result Diagrams: 10/16/17 07:54 10/16/17 07:54 Labs: Laboratory Results - last 24 hr 10/15/17 10/15/17 10/16/17 16:22 20:55 06:58 WBC RBC Hgb Hct MCV MCH MCHC RDW Plt Count MPV Neut % (Auto) Lymph % (Auto) [place] % (Auto) Eos % (Auto) Baso % (Auto) Neut # Lymph # [place] # Eos # Baso # Sodium Potassium Chloride Carbon Dioxide Anion Gap BUN Creatinine Est GFR ( Amer) Est GFR (Non-Af Amer) POC Glucose (mg/dL) 235 H 102 135 H Random Glucose Hemoglobin A1c Calcium Total Bilirubin AST ALT Alkaline Phosphatase Total Protein Albumin Globulin Albumin/Globulin Ratio 10/16/17 10/16/17 10/16/17 07:54 07:54 07:54 WBC 4.1 L RBC 3.72 L Hgb 11.3 Hct 32.8 L MCV 88.2 MCH 30.5 MCHC 34.6 RDW 12.9 Plt Count 148 MPV 7.2 Neut % (Auto) 69.2 Lymph % (Auto) 14.8 L [place] % (Auto) 12.1 H Eos % (Auto) 3.3 Baso % (Auto) 0.6 Neut # 2.9 Lymph # 0.6 L [place] # 0.5 Eos # 0.1 Baso # 0.0 Sodium 131 L Potassium 4.6 Chloride 102 Carbon Dioxide 24 Anion Gap 10 BUN 26 H Creatinine 1.2 Est GFR ( Amer) 53 Est GFR (Non-Af Amer) 44 POC Glucose (mg/dL) Random Glucose 141 H Hemoglobin A1c 9.4 H Calcium 8.2 L Total Bilirubin 0.5 AST 26 ALT 24 Alkaline Phosphatase 98 Total Protein 7.4 Albumin 3.3 L Globulin 4.1 H Albumin/Globulin Ratio 0.8 L 10/16/17 10:52 WBC RBC Hgb Hct MCV MCH MCHC RDW Plt Count MPV Neut % (Auto) Lymph % (Auto) [place] % (Auto) Eos % (Auto) Baso % (Auto) Neut # Lymph # [place] # Eos # Baso # Sodium Potassium Chloride Carbon Dioxide Anion Gap BUN Creatinine Est GFR ( Amer) Est GFR (Non-Af Amer) POC Glucose (mg/dL) 190 H Random Glucose Hemoglobin A1c Calcium Total Bilirubin AST ALT Alkaline Phosphatase Total Protein Albumin Globulin Albumin/Globulin Ratio Assessment & Plan (1) Pneumonia Status: Acute (2) Abnormal abdominal CT scan Status: Acute - Assessment and Plan (Free Text) Plan: Continue Abx LLL CT abdomen findings appear more chronic in nature and there is no evidence of acute pneumonia Will recommend CT chest without contrast to further evaluate Bronchodilators We will follow-up after CT chest.
--- NOTE | 2017-10-16 21:17 | CP.PCM.PN ---
Subjective - Date & Time of Evaluation Date of Evaluation: 10/16/17 Time of Evaluation: 05:00 - Subjective Subjective: dictated Objective - Vital Signs/Intake and Output Vital Signs (last 24 hours): Temp Pulse Resp BP Pulse Ox 98.7 F 75 20 119/68 95 10/16/17 15:00 10/16/17 15:00 10/16/17 15:00 10/16/17 15:00 10/16/17 15:00 Intake and Output: 10/16/17 10/17/17 18:59 06:59 Intake Total 750 Balance 750 - Medications Medications: Current Medications Acetaminophen (Tylenol 325mg Tab) 650 mg PO Q6 PRN PRN Reason: Fever >100.4 F Last Admin: 10/15/17 10:15 Dose: 650 mg Alprazolam (Xanax) 0.25 mg PO DAILY [facility] Stop: 10/22/17 11:46 Last Admin: 10/16/17 09:54 Dose: 0.25 mg Clopidogrel Bisulfate (Plavix) 75 mg PO DAILY [facility] Last Admin: 10/16/17 09:54 Dose: 75 mg Enoxaparin Sodium (Lovenox) 30 mg SC DAILY [facility] Last Admin: 10/16/17 09:55 Dose: 30 mg Famotidine (Pepcid) 20 mg PO DAILY [facility] Last Admin: 10/16/17 09:55 Dose: 20 mg Fluticasone Propionate (Flonase) 1 spr LUIS BID [facility] Last Admin: 10/16/17 17:59 Dose: 1 spr Sodium Chloride (Sodium Chloride 0.9%) 1,000 mls @ 80 mls/hr IV .[id number] [facility] Last Admin: 10/16/17 13:20 Dose: Not Given Imipenem/Cilastatin Sodium 500 (mg/ Sodium Chloride) 100 mls @ 100 mls/hr IV Q12H [facility] Insulin Human Regular (Novolin R) 0 unit SC ACHS [facility] PRN Reason: Protocol Last Admin: 10/16/17 17:10 Dose: 6 unit Isosorbide Mononitrate (Imdur Er) 30 mg PO DAILY [facility] Last Admin: 10/16/17 09:55 Dose: 30 mg Levothyroxine Sodium (Synthroid) 25 mcg PO DAILY@0630 [facility] Last Admin: 10/16/17 06:45 Dose: 25 mcg Losartan Potassium (Cozaar) 25 mg PO DAILY [facility] Last Admin: 10/16/17 09:55 Dose: 25 mg Ondansetron HCl (Zofran Inj) 4 mg IVP Q6 PRN PRN Reason: Nausea/Vomiting Repaglinide (Prandin) 0.5 mg PO TIDAC [facility] Last Admin: 10/16/17 17:10 Dose: 0.5 mg Rosuvastatin Calcium (Crestor) 10 mg PO HS [facility] Last Admin: 10/15/17 21:16 Dose: 10 mg Saccharomyces Boulardii (Florastor) 250 mg PO Q12 [facility] Last Admin: 10/16/17 09:55 Dose: 250 mg Sodium Bicarbonate (Sodium Bicarbonate Tab) 650 mg PO BID [facility] Last Admin: 10/16/17 17:57 Dose: 650 mg Tamsulosin HCl (Flomax) 0.4 mg PO DAILY [facility] Last Admin: 10/16/17 09:55 Dose: 0.4 mg - Labs Labs: 10/16/17 07:54 10/16/17 07:54
--- NOTE | 2017-10-16 21:37 | CT ---
EXAM: CT Chest Without Intravenous Contrast EXAM DATE/TIME: Exam ordered 10/16/2017 5:17 PM CLINICAL HISTORY: 76 years old, female; Signs and symptoms; Cough and shortness of breath; Symptoms not specified; Additional info: R/O interstitial lung disease, possible pneumonia TECHNIQUE: Axial computed tomography images of the chest without intravenous contrast. All CT scans at this facility use one or more dose reduction techniques, viz.: automated exposure control; ma/kV adjustment per patient size (including targeted exams where dose is matched to indication; i.e. head); or iterative reconstruction technique. Coronal and sagittal reformatted images were created and reviewed. COMPARISON: CT - CHEST W/O CONTRAST 2015-02-24 12:16 FINDINGS: Lungs: Thickening of the interlobular septa is noted at the left lung base. Note is made the patient is positioned in a shadow left lateral oblique position for the scan. The interlobular septal thickening may be hypoventilatory change. A 2 mm pleural-based nodule is noted in the right upper lobe (series 3 image 50). Pleural space: Unremarkable. No pneumothorax. No significant effusion. Heart: Coronary artery calcifications present. No significant pericardial effusion. Mediastinum: There is a small hiatal hernia Thyroid: Subcentimeter low density nodules are noted within the thyroid isthmus. Bones/joints: There has been a median sternotomy. No acute fracture. No dislocation. Soft tissues: A pacemaker device is implanted within the soft tissues of the left anterior chest wall. Vasculature: Inferior vena cava filter is present. Lymph nodes: Unremarkable. No enlarged lymph nodes. Gallbladder and bile ducts: Clips are noted in the gallbladder fossa. Spleen: A calcification is noted within the splenic parenchyma. Tubes, lines and devices: Pacemaker wires are noted in the heart. IMPRESSION: Thickening of the interlobular septi within the left lung could be a reflection of interstitial lung disease. Since the patient is positioned dependently in the left side, the thickening could also be related to hypoventilatory change. 2. 2 mm pleural-based nodule in the right upper lobe. For low-risk patients, no follow-up is necessary. For high-risk patients (smoking history or other known risk factors) an optional chest CT at 12 months could be performed. 3. Small hiatal hernia. 4. Subcentimeter low density nodules within the thyroid isthmus. Recommend further evaluation with thyroid ultrasound.
--- NOTE | 2017-10-16 23:04 | CP.PCM.PN ---
Subjective - Date & Time of Evaluation Date of Evaluation: 10/16/17 Time of Evaluation: 08:40 - Subjective Subjective: Patient seen and evaluated Denies chest pain and dyspnea Objective - Vital Signs/Intake and Output Vital Signs (last 24 hours): Temp Pulse Resp BP Pulse Ox 98.7 F 75 20 119/68 95 10/16/17 15:00 10/16/17 15:00 10/16/17 15:00 10/16/17 15:00 10/16/17 15:00 Intake and Output: 10/16/17 10/17/17 18:59 06:59 Intake Total 750 990 Balance 750 990 - Medications Medications: Current Medications Acetaminophen (Tylenol 325mg Tab) 650 mg PO Q6 PRN PRN Reason: Fever >100.4 F Last Admin: 10/15/17 10:15 Dose: 650 mg Alprazolam (Xanax) 0.25 mg PO DAILY [facility] Stop: 10/22/17 11:46 Last Admin: 10/16/17 09:54 Dose: 0.25 mg Clopidogrel Bisulfate (Plavix) 75 mg PO DAILY [facility] Last Admin: 10/16/17 09:54 Dose: 75 mg Enoxaparin Sodium (Lovenox) 30 mg SC DAILY [facility] Last Admin: 10/16/17 09:55 Dose: 30 mg Famotidine (Pepcid) 20 mg PO DAILY [facility] Last Admin: 10/16/17 09:55 Dose: 20 mg Fluticasone Propionate (Flonase) 1 spr LUIS BID [facility] Last Admin: 10/16/17 17:59 Dose: 1 spr Sodium Chloride (Sodium Chloride 0.9%) 1,000 mls @ 80 mls/hr IV .[id number] [facility] Last Admin: 10/16/17 21:57 Dose: 80 mls/hr Imipenem/Cilastatin Sodium 500 (mg/ Sodium Chloride) 100 mls @ 100 mls/hr IV Q12H [facility] Insulin Human Regular (Novolin R) 0 unit SC ACHS [facility] PRN Reason: Protocol Last Admin: 10/16/17 21:58 Dose: Not Given Isosorbide Mononitrate (Imdur Er) 30 mg PO DAILY [facility] Last Admin: 10/16/17 09:55 Dose: 30 mg Levothyroxine Sodium (Synthroid) 25 mcg PO DAILY@0630 [facility] Last Admin: 10/16/17 06:45 Dose: 25 mcg Losartan Potassium (Cozaar) 25 mg PO DAILY [facility] Last Admin: 10/16/17 09:55 Dose: 25 mg Ondansetron HCl (Zofran Inj) 4 mg IVP Q6 PRN PRN Reason: Nausea/Vomiting Repaglinide (Prandin) 0.5 mg PO TIDAC [facility] Last Admin: 10/16/17 17:10 Dose: 0.5 mg Rosuvastatin Calcium (Crestor) 10 mg PO HS [facility] Last Admin: 10/16/17 21:55 Dose: 10 mg Saccharomyces Boulardii (Florastor) 250 mg PO Q12 [facility] Last Admin: 10/16/17 21:56 Dose: 250 mg Sodium Bicarbonate (Sodium Bicarbonate Tab) 650 mg PO BID [facility] Last Admin: 10/16/17 17:57 Dose: 650 mg Tamsulosin HCl (Flomax) 0.4 mg PO DAILY [facility] Last Admin: 10/16/17 09:55 Dose: 0.4 mg - Labs Labs: 10/16/17 07:54 10/16/17 07:54
[2017-10-17] MEDS: Sodium Chloride 0.9% 1,000 ML IV SCH ×3 (01:45→21:28)
--- NOTE | 2017-10-17 02:31 | PN ---
INFECTIOUS DISEASE FOLLOWUP SUBJECTIVE: The patient says she has been coughing a lot. She was seen by the provider network manager. She also tells me she had CAT scans of chest and she also had abdominal and pelvic CAT scan. She is coughing. She is on IV fluids. We will look into that and her IV site gets it is in the antecubital fossa, otherwise she says the dysuria is a little better, but she is incontinent of urine and wears a diaper. She denies any nausea and vomiting. PHYSICAL EXAMINATION: GENERAL: She is obese. VITAL SIGNS: T-max is 98.7, pulse 75, blood pressure 119/68, respirations are 20. HEENT: Head is atraumatic, normocephalic. NECK: Supple. LUNGS: Clear. Decreased breath sounds. No wheezing today. HEART: S1, S2 is regular. ABDOMEN: Soft, nontender. No guarding. No rigidity present. Has a colostomy bag. EXTREMITIES: Have no edema. She has a right BKA. LABORATORY DATA: Labs are noted. Labs show white count is 4.1 today, hemoglobin 11.3, hematocrit 32.8, platelet count is 148. BUN is 26, creatinine is 1.2. She does have diabetes. Urine culture came out as multiple species suggest repeat specimen, this is very difficult to find out with her since she is incontinent. We will again ask for a repeat urine culture if we can straight cath her. Also, we will order a urinalysis again as it was rejected as contaminant and the patient remains on Primaxin. The CAT scan reports are pending for the chest. We will look into her fluid situation as BUN is 26 today, so she does need some fluids, it seems and we will follow the CAT scan results. ASSESSMENT AND PLAN: The patient came in with urinary tract infection, has frequent urinary tract infection and was having dyspnea and had Pulmonary evaluation also. Teresa Tellez MD
[2017-10-17 04:55] LABS: RBC URINE 8 /hpf (0-3); URINE BACTERIA RARE (<OCC); URINE BILIRUBIN NEGATIVE (NEGATIVE); URINE BLOOD 1+ (NEGATIVE); URINE COLOR Yellow (YELLOW); URINE GLUCOSE (UA) 1+ mg/dL (Normal); URINE KETONE NEGATIVE (NEGATIVE); URINE LEUKOCYTE ESTERASE 3+ Leu/uL (Negative); URINE PROTEIN NEGATIVE (NEGATIVE); URINE UROBILINOGEN NORMAL mg/dL (0.2-1.0); WBC URINE 382 /hpf (0-5)
[2017-10-17] MEDS: Levothyroxine 25 MCG TAB PO SCH (06:11)
[2017-10-17] MEDS: (Novolin R) Insulin Human Regular 100 units/ml vial SC SCH ×3 (08:28→21:27)
[2017-10-17 08:45] LABS: BASO % 0.7 % (0.0-2.0); EOS # 0.2 K/uL (0.0-0.7); EOS % 4.2 % (0.0-4.0); HEMATOCRIT 29.8 % (34.0-47.0); LYMPH # 0.8 K/uL (1.0-4.3); LYMPH % 18.4 % (20.0-40.0); MEAN CELL VOLUME 87.7 fL (81.0-99.0); MEAN CORPUSCULAR HEMOGLOBIN 30.6 pg (27.0-31.0); MEAN CORPUSCULAR HGB CONC 34.9 g/dL (33.0-37.0); MEAN PLATELET VOLUME 7.2 fL (7.2-11.7); MONO # 0.6 K/uL (0.0-0.8); MONO % 14.6 % (0.0-10.0); WHITE BLOOD COUNT 4.4 K/uL (4.8-10.8)
[2017-10-17 08:58] LABS: ALB/GLOB RATIO 1.1 (1.0-2.1); BILIRUBIN,TOTAL 0.3 mg/dL (0.2-1.3); CALCIUM 8.2 mg/dl (8.6-10.4); POTASSIUM 4.7 mmol/L (3.6-5.2); TOTAL PROTEIN 5.7 g/dL (6.3-8.3)
[2017-10-17] MEDS: Enoxaparin 30 mg Syringe SC SCH (10:30)
[2017-10-17] MEDS: Saccharomyces Boulardi 250 mg Cap PO SCH ×2 (10:30→21:26)
[2017-10-17] MEDS: Fluticasone Nasal 50 mcg/Spray NAS SCH ×2 (10:42→18:14)
--- NOTE | 2017-10-17 15:24 | CP.PCM.PN ---
Subjective - Date & Time of Evaluation Date of Evaluation: 10/17/17 Time of Evaluation: 15:19 - Subjective Subjective: PGY-[address] Clayton. No acute events overnight noted. Patient refused straight cath for repeat urine culture as prior urine culture possible contamination. Dysuria has improved, patient still incontinent and wears diaper. Patient denies chest pain, abdominal pain, shortness of breath, nausea, vomiting, fever, chills, diarrhea. Objective - Vital Signs/Intake and Output Vital Signs (last 24 hours): Temp Pulse Resp BP Pulse Ox 98 F 84 20 135/72 96 10/17/17 08:17 10/17/17 08:17 10/17/17 08:17 10/17/17 08:17 10/17/17 08:17 Intake and Output: 10/17/17 10/17/17 06:59 18:59 Intake Total 1830 500 Output Total 300 250 Balance 1530 250 - Medications Medications: Current Medications Acetaminophen (Tylenol 325mg Tab) 650 mg PO Q6 PRN PRN Reason: Fever >100.4 F Last Admin: 10/15/17 10:15 Dose: 650 mg Alprazolam (Xanax) 0.25 mg PO DAILY [facility] Stop: 10/22/17 11:46 Last Admin: 10/17/17 10:32 Dose: 0.25 mg Clopidogrel Bisulfate (Plavix) 75 mg PO DAILY [facility] Last Admin: 10/17/17 10:30 Dose: 75 mg Enoxaparin Sodium (Lovenox) 30 mg SC DAILY [facility] Last Admin: 10/17/17 10:30 Dose: 30 mg Famotidine (Pepcid) 20 mg PO DAILY [facility] Last Admin: 10/17/17 10:30 Dose: 20 mg Fluticasone Propionate (Flonase) 1 spr LUIS BID [facility] Last Admin: 10/17/17 10:42 Dose: 1 spr Sodium Chloride (Sodium Chloride 0.9%) 1,000 mls @ 80 mls/hr IV .[id number] [facility] Last Admin: 10/17/17 14:20 Dose: Not Given Imipenem/Cilastatin Sodium 500 (mg/ Sodium Chloride) 100 mls @ 100 mls/hr IV Q12H [facility] Last Admin: 10/17/17 00:26 Dose: 100 mls/hr Insulin Human Regular (Novolin R) 0 unit SC ACHS [facility] PRN Reason: Protocol Last Admin: 10/17/17 08:28 Dose: 2 unit Isosorbide Mononitrate (Imdur Er) 30 mg PO DAILY [facility] Last Admin: 10/17/17 10:30 Dose: 30 mg Levothyroxine Sodium (Synthroid) 25 mcg PO DAILY@0630 [facility] Last Admin: 10/17/17 06:11 Dose: 25 mcg Losartan Potassium (Cozaar) 25 mg PO DAILY [facility] Last Admin: 10/17/17 10:30 Dose: 25 mg Ondansetron HCl (Zofran Inj) 4 mg IVP Q6 PRN PRN Reason: Nausea/Vomiting Repaglinide (Prandin) 0.5 mg PO TIDAC [facility] Last Admin: 10/17/17 08:28 Dose: 0.5 mg Rosuvastatin Calcium (Crestor) 10 mg PO HS [facility] Last Admin: 10/16/17 21:55 Dose: 10 mg Saccharomyces Boulardii (Florastor) 250 mg PO Q12 [facility] Last Admin: 10/17/17 10:30 Dose: 250 mg Sodium Bicarbonate (Sodium Bicarbonate Tab) 650 mg PO BID [facility] Last Admin: 10/17/17 10:30 Dose: 650 mg Tamsulosin HCl (Flomax) 0.4 mg PO DAILY [facility] Last Admin: 10/17/17 10:30 Dose: 0.4 mg - Labs Labs: 10/17/17 08:33 10/17/17 08:33 - Additional Findings Additional findings: Additional comments: - Head Exam Head Exam: ATRAUMATIC, NORMAL INSPECTION, NORMOCEPHALIC - Eye Exam 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 absent: Distended, Tenderness Additional comments: ostomy bag with green/yellow fluid - Extremities Exam Additional comments: R. BKA - Back Exam Back exam: absent: CVA tenderness (L), CVA tenderness (R) - Neurological Exam Neurological exam: Alert, Oriented x3 - Psychiatric Exam Psychiatric exam: Normal Affect, Normal Mood - Skin Skin Exam: Dry, Intact, Normal Color, Warm Assessment and Plan - Assessment and Plan (Free Text) Assessment: Urinary tract infection Assessment and Plan: Recurrent UTIs possibly 2/2 to neurogenic bladder ID consult, Dr Tellez UA 10/14: 3+ blood, 3+ leukocyte esterase, wbc 288 (H), rbc 47 (H), bacteria - many UA 10/17: 1+ blood, 3+ leukocyte esterase, wbc 382 (H), rbc 8 (H), bacteria - rare Urine Culture 10/14 likely contamination Blood Culture 10/14: shows no growth up to date F/U Urine Culture 10/17 Imaging: CT abd/pelvis w/o contrast 10/16 (ordered due to recurrent UTIs): "Mild urinary bladder wall thickening and associated adjacent inflammatory stranding. Cystitis is not excluded. Bilateral nonobstructing renal calculi. Left basilar atelectasis/infiltrate. Cholecystectomy. Mildly nodular hepatic contour. Correlate clinically. Partial right hemicolectomy. Right lower quadrant colostomy. Midline abdominal hernia containing bowel without evidence of obstruction. Previously noted abnormal soft tissue density left side of the inferior rectum at the level of the anal rectal complex is again evident and should be further evaluated if it has not already been done as this was previously described on examination of 02/21/2015. Rule out neoplasm. IVC filter ". Aforementioned rectal "abnormal soft tissue density" was worked up in 01/2015, a proctoscopy was performed at that time and a rectal biopsy was done which came back negative for dysplasia. Meds: Imipenem 500mg IV Q12H (renal dosing) Florastor 250mg PO Q12H NS @ 80 cc/hr Status: Acute Priority: Medium Diabetes mellitus Assessment and Plan: HgbA1C 9.4 ISS High Accuchecks Meds: Repaglinide 0.5mg PO TIDAC Sodium Bicarbonate 650mg PO BID Status: Chronic Chronic Kidney Disease Elevated BUN/Cr CAD (coronary artery disease) Assessment and Plan: Cardiology consult, Dr Malik Hx of Triple CABG Meds: Plavix 75mg PO QD Imdur 30mg PO QD Losartan 25mg PO QD Crestor 10mg PO HS Status: Acute Congestive Heart Failure, Diastolic Cardiology consult, Dr Malik Pro-BNP 3420 ECHO 03/2017: Abnormal septal motion from pacemaker/ICD in RV. LV diastolic dysfunction grade one. LVEF 50-55%. Sclerotic tri-leaflet aortic valve with mild ai. Hypothyroidism Assessment and Plan: Synthroid 25 PO QD Status: Chronic Urinary Incontinence Tamsulosin 0.4mg PO QD Anxiety Alprazolam 0.25mg PO QD [employer] Prophylactic measure Assessment and Plan: Lovenox 30mg SC QD (renal dosing) Pepcid 20mg PO QD Carb Consistent Diet Status: Acute
--- NOTE | 2017-10-17 19:15 | CP.PCM.PN ---
Subjective - Date & Time of Evaluation Date of Evaluation: 10/17/17 Time of Evaluation: 19:15 - Subjective Subjective: Patient seen and examined No events overnight CT chest reviewed Objective - Vital Signs/Intake and Output Vital Signs (last 24 hours): Temp Pulse Resp BP Pulse Ox 98.6 F 69 20 138/68 96 10/17/17 15:00 10/17/17 15:00 10/17/17 15:00 10/17/17 15:00 10/17/17 15:00 Intake and Output: 10/17/17 10/18/17 18:59 06:59 Intake Total 500 Output Total 250 Balance 250 - Medications Medications: Current Medications Acetaminophen (Tylenol 325mg Tab) 650 mg PO Q6 PRN PRN Reason: Fever >100.4 F Last Admin: 10/15/17 10:15 Dose: 650 mg Alprazolam (Xanax) 0.25 mg PO DAILY [facility] Stop: 10/22/17 11:46 Last Admin: 10/17/17 10:32 Dose: 0.25 mg Clopidogrel Bisulfate (Plavix) 75 mg PO DAILY [facility] Last Admin: 10/17/17 10:30 Dose: 75 mg Enoxaparin Sodium (Lovenox) 30 mg SC DAILY [facility] Last Admin: 10/17/17 10:30 Dose: 30 mg Famotidine (Pepcid) 20 mg PO DAILY [facility] Last Admin: 10/17/17 10:30 Dose: 20 mg Fluticasone Propionate (Flonase) 1 spr LUIS BID [facility] Last Admin: 10/17/17 18:14 Dose: 1 spr Sodium Chloride (Sodium Chloride 0.9%) 1,000 mls @ 80 mls/hr IV .[id number] [facility] Last Admin: 10/17/17 14:20 Dose: Not Given Imipenem/Cilastatin Sodium 500 (mg/ Sodium Chloride) 100 mls @ 100 mls/hr IV Q12H [facility] Last Admin: 10/17/17 00:26 Dose: 100 mls/hr Insulin Human Regular (Novolin R) 0 unit SC ACHS [facility] PRN Reason: Protocol Last Admin: 10/17/17 18:16 Dose: 4 unit Isosorbide Mononitrate (Imdur Er) 30 mg PO DAILY [facility] Last Admin: 10/17/17 10:30 Dose: 30 mg Levothyroxine Sodium (Synthroid) 25 mcg PO DAILY@0630 [facility] Last Admin: 10/17/17 06:11 Dose: 25 mcg Losartan Potassium (Cozaar) 25 mg PO DAILY [facility] Last Admin: 10/17/17 10:30 Dose: 25 mg Ondansetron HCl (Zofran Inj) 4 mg IVP Q6 PRN PRN Reason: Nausea/Vomiting Repaglinide (Prandin) 0.5 mg PO TIDAC [facility] Last Admin: 10/17/17 18:16 Dose: 0.5 mg Rosuvastatin Calcium (Crestor) 10 mg PO HS [facility] Last Admin: 10/16/17 21:55 Dose: 10 mg Saccharomyces Boulardii (Florastor) 250 mg PO Q12 [facility] Last Admin: 10/17/17 10:30 Dose: 250 mg Sodium Bicarbonate (Sodium Bicarbonate Tab) 650 mg PO BID [facility] Last Admin: 10/17/17 18:17 Dose: 650 mg Tamsulosin HCl (Flomax) 0.4 mg PO DAILY [facility] Last Admin: 10/17/17 10:30 Dose: 0.4 mg - Labs Labs: 10/17/17 08:33 10/17/17 08:33 - Head Exam Head Exam: NORMAL INSPECTION - Eye Exam Eye Exam: Normal appearance - ENT Exam ENT Exam: Mucous Membranes Moist - Neck Exam Neck Exam: Normal Inspection - Respiratory Exam Respiratory Exam: Clear to Ausculation Bilateral - Cardiovascular Exam Cardiovascular Exam: REGULAR RHYTHM, +S1, +S2 - GI/Abdominal Exam GI & Abdominal Exam: Soft, Normal Bowel Sounds - Extremities Exam Extremities Exam: Normal Inspection Assessment and Plan (1) Lung nodule Status: Acute (2) UTI (lower urinary tract infection) Status: Acute (3) Abnormal CT scan, chest Status: Acute (4) Dyspnea Status: Acute - Assessment and Plan (Free Text) Plan: Continue Abx Bronchodilators Lung nodule needs to outpatient follow-up No evidence of pneumonia DVT/GI prophylaxis
--- NOTE | 2017-10-17 20:39 | CP.PCM.PN ---
Subjective - Date & Time of Evaluation Date of Evaluation: 10/17/17 Time of Evaluation: 16:15 - Subjective Subjective: Patient seen and evaluated Comfortable No cardiac events Objective - Vital Signs/Intake and Output Vital Signs (last 24 hours): Temp Pulse Resp BP Pulse Ox 98.6 F 69 20 138/68 96 10/17/17 15:00 10/17/17 15:00 10/17/17 15:00 10/17/17 15:00 10/17/17 15:00 Intake and Output: 10/17/17 10/18/17 18:59 06:59 Intake Total 500 Output Total 250 Balance 250 - Medications Medications: Current Medications Acetaminophen (Tylenol 325mg Tab) 650 mg PO Q6 PRN PRN Reason: Fever >100.4 F Last Admin: 10/15/17 10:15 Dose: 650 mg Alprazolam (Xanax) 0.25 mg PO DAILY [facility] Stop: 10/22/17 11:46 Last Admin: 10/17/17 10:32 Dose: 0.25 mg Clopidogrel Bisulfate (Plavix) 75 mg PO DAILY [facility] Last Admin: 10/17/17 10:30 Dose: 75 mg Enoxaparin Sodium (Lovenox) 30 mg SC DAILY [facility] Last Admin: 10/17/17 10:30 Dose: 30 mg Famotidine (Pepcid) 20 mg PO DAILY [facility] Last Admin: 10/17/17 10:30 Dose: 20 mg Fluticasone Propionate (Flonase) 1 spr LUIS BID [facility] Last Admin: 10/17/17 18:14 Dose: 1 spr Sodium Chloride (Sodium Chloride 0.9%) 1,000 mls @ 80 mls/hr IV .[id number] [facility] Last Admin: 10/17/17 14:20 Dose: Not Given Imipenem/Cilastatin Sodium 500 (mg/ Sodium Chloride) 100 mls @ 100 mls/hr IV Q12H [facility] Last Admin: 10/17/17 00:26 Dose: 100 mls/hr Insulin Human Regular (Novolin R) 0 unit SC ACHS [facility] PRN Reason: Protocol Last Admin: 10/17/17 18:16 Dose: 4 unit Isosorbide Mononitrate (Imdur Er) 30 mg PO DAILY [facility] Last Admin: 10/17/17 10:30 Dose: 30 mg Levothyroxine Sodium (Synthroid) 25 mcg PO DAILY@0630 [facility] Last Admin: 10/17/17 06:11 Dose: 25 mcg Losartan Potassium (Cozaar) 25 mg PO DAILY [facility] Last Admin: 10/17/17 10:30 Dose: 25 mg Ondansetron HCl (Zofran Inj) 4 mg IVP Q6 PRN PRN Reason: Nausea/Vomiting Repaglinide (Prandin) 0.5 mg PO TIDAC [facility] Last Admin: 10/17/17 18:16 Dose: 0.5 mg Rosuvastatin Calcium (Crestor) 10 mg PO HS [facility] Last Admin: 10/16/17 21:55 Dose: 10 mg Saccharomyces Boulardii (Florastor) 250 mg PO Q12 [facility] Last Admin: 10/17/17 10:30 Dose: 250 mg Sodium Bicarbonate (Sodium Bicarbonate Tab) 650 mg PO BID [facility] Last Admin: 10/17/17 18:17 Dose: 650 mg Tamsulosin HCl (Flomax) 0.4 mg PO DAILY [facility] Last Admin: 10/17/17 10:30 Dose: 0.4 mg - Labs Labs: 10/17/17 08:33 10/17/17 08:33
--- NOTE | 2017-10-17 21:03 | CP.PCM.PN ---
Subjective - Date & Time of Evaluation Date of Evaluation: 10/17/17 Time of Evaluation: 05:15 - Subjective Subjective: dictated Objective - Vital Signs/Intake and Output Vital Signs (last 24 hours): Temp Pulse Resp BP Pulse Ox 98.6 F 69 20 138/68 96 10/17/17 15:00 10/17/17 15:00 10/17/17 15:00 10/17/17 15:00 10/17/17 15:00 Intake and Output: 10/17/17 10/18/17 18:59 06:59 Intake Total 500 Output Total 250 Balance 250 - Medications Medications: Current Medications Acetaminophen (Tylenol 325mg Tab) 650 mg PO Q6 PRN PRN Reason: Fever >100.4 F Last Admin: 10/15/17 10:15 Dose: 650 mg Alprazolam (Xanax) 0.25 mg PO DAILY [facility] Stop: 10/22/17 11:46 Last Admin: 10/17/17 10:32 Dose: 0.25 mg Clopidogrel Bisulfate (Plavix) 75 mg PO DAILY [facility] Last Admin: 10/17/17 10:30 Dose: 75 mg Enoxaparin Sodium (Lovenox) 30 mg SC DAILY [facility] Last Admin: 10/17/17 10:30 Dose: 30 mg Famotidine (Pepcid) 20 mg PO DAILY [facility] Last Admin: 10/17/17 10:30 Dose: 20 mg Fluticasone Propionate (Flonase) 1 spr LUIS BID [facility] Last Admin: 10/17/17 18:14 Dose: 1 spr Sodium Chloride (Sodium Chloride 0.9%) 1,000 mls @ 80 mls/hr IV .[id number] [facility] Last Admin: 10/17/17 14:20 Dose: Not Given Imipenem/Cilastatin Sodium 500 (mg/ Sodium Chloride) 100 mls @ 100 mls/hr IV Q12H [facility] Last Admin: 10/17/17 00:26 Dose: 100 mls/hr Insulin Human Regular (Novolin R) 0 unit SC ACHS [facility] PRN Reason: Protocol Last Admin: 10/17/17 18:16 Dose: 4 unit Isosorbide Mononitrate (Imdur Er) 30 mg PO DAILY [facility] Last Admin: 10/17/17 10:30 Dose: 30 mg Levothyroxine Sodium (Synthroid) 25 mcg PO DAILY@0630 [facility] Last Admin: 10/17/17 06:11 Dose: 25 mcg Losartan Potassium (Cozaar) 25 mg PO DAILY [facility] Last Admin: 10/17/17 10:30 Dose: 25 mg Ondansetron HCl (Zofran Inj) 4 mg IVP Q6 PRN PRN Reason: Nausea/Vomiting Repaglinide (Prandin) 0.5 mg PO TIDAC [facility] Last Admin: 10/17/17 18:16 Dose: 0.5 mg Rosuvastatin Calcium (Crestor) 10 mg PO HS [facility] Last Admin: 10/16/17 21:55 Dose: 10 mg Saccharomyces Boulardii (Florastor) 250 mg PO Q12 [facility] Last Admin: 10/17/17 10:30 Dose: 250 mg Sodium Bicarbonate (Sodium Bicarbonate Tab) 650 mg PO BID [facility] Last Admin: 10/17/17 18:17 Dose: 650 mg Tamsulosin HCl (Flomax) 0.4 mg PO DAILY [facility] Last Admin: 10/17/17 10:30 Dose: 0.4 mg - Labs Labs: 10/17/17 08:33 10/17/17 08:33
[2017-10-18] MEDS: Sodium Chloride 0.9% 1,000 ML IV SCH ×2 (02:45→09:30)
--- NOTE | 2017-10-18 03:03 | PN ---
DATE: SUBJECTIVE: Patient still complained of cough and still complained of dysuria, and she wanted to find out a CAT scan report and she was seen by the contact worker. She denies any other complaints. T-max is 98.6. She also states that Dr. Malik has told her that she cannot have any procedure done and that because of the cardiac situation. PHYSICAL EXAMINATION: VITAL SIGNS: Pulse is 69, blood pressure 138/68, respirations are 20. HEENT: Head is atraumatic, normocephalic. She is blind. NECK: Supple. LUNGS: Clear. Occasional wheeze but decreased rhonchi, better breath sounds. HEART: S1, S2 is regular. ABDOMEN: Soft, nontender. No guarding and no rigidity present. EXTREMITIES: Left leg is unremarkable. 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 LABORATORY DATA: White count is 4.4, hemoglobin 10.4, hematocrit 29.8, platelet count is 138. The serology came out influenza is negative. Actually urine culture showed multiple contaminant, so I had ordered repeat and the repeat one still shows wbc 382 and 3+ leukocytes. ASSESSMENT AND PLAN: She is incontinent of urine and has had many urinary tract infections in the past, so we will follow the report and leave her on Primaxin at this time. She is also on blood thinner Plavix, Lovenox, Pepcid, Flonase, on insulin and isosorbide. She has a pacemaker and she has had amputations. Impression is that she came in. She had acute exacerbation of chronic obstructive pulmonary disease. She has urinary tract infection, and she has history of failure, diabetic and blindness. We will follow with other consultants, and I am waiting for the repeat urine culture report. Teresa Tellez MD
[2017-10-18] MEDS: Levothyroxine 25 MCG TAB PO SCH (06:01)
[2017-10-18] MEDS: (Novolin R) Insulin Human Regular 100 units/ml vial SC SCH ×3 (08:04→17:18)
[2017-10-18 08:20] LABS: BASO % 0.6 % (0.0-2.0); EOS # 0.2 K/uL (0.0-0.7); HEMATOCRIT 28.8 % (34.0-47.0); LYMPH % 21.4 % (20.0-40.0); MEAN CELL VOLUME 87.5 fL (81.0-99.0); MEAN CORPUSCULAR HEMOGLOBIN 31.3 pg (27.0-31.0); MEAN CORPUSCULAR HGB CONC 35.8 g/dL (33.0-37.0); MEAN PLATELET VOLUME 7.2 fL (7.2-11.7); MONO # 0.5 K/uL (0.0-0.8); MONO % 10.9 % (0.0-10.0); NRBC % 0.1 % (0.0-2.0); RED CELL DISTRIBUTION WIDTH 12.8 % (11.5-14.5); WHITE BLOOD COUNT 4.7 K/uL (4.8-10.8)
[2017-10-18 08:30] LABS: BILIRUBIN,TOTAL 0.4 mg/dL (0.2-1.3); CALCIUM 8.3 mg/dl (8.6-10.4); POTASSIUM 4.6 mmol/L (3.6-5.2); TOTAL PROTEIN 6.6 g/dL (6.3-8.3)
[2017-10-18 08:34] LABS: ALB/GLOB RATIO 0.8 (1.0-2.1)
[2017-10-18] MEDS: Fluticasone Nasal 50 mcg/Spray NAS SCH ×2 (09:24→17:19)
[2017-10-18] MEDS: Enoxaparin 30 mg Syringe SC SCH (09:24)
[2017-10-18] MEDS: Saccharomyces Boulardi 250 mg Cap PO SCH (09:25)
--- NOTE | 2017-10-18 15:26 | CP.PCM.PN ---
Subjective - Date & Time of Evaluation Date of Evaluation: 10/18/17 Time of Evaluation: 15:25 Objective - Vital Signs/Intake and Output Vital Signs (last 24 hours): Temp Pulse Resp BP Pulse Ox 98.1 F 77 20 135/69 97 10/18/17 07:42 10/18/17 07:42 10/18/17 07:42 10/18/17 07:42 10/18/17 07:42 Intake and Output: 10/18/17 10/18/17 06:59 18:59 Intake Total 1680 1090 Output Total 100 250 Balance 1580 840 - Medications Medications: Current Medications Acetaminophen (Tylenol 325mg Tab) 650 mg PO Q6 PRN PRN Reason: Fever >100.4 F Last Admin: 10/15/17 10:15 Dose: 650 mg Alprazolam (Xanax) 0.25 mg PO DAILY [facility] Stop: 10/22/17 11:46 Last Admin: 10/18/17 09:24 Dose: 0.25 mg Clopidogrel Bisulfate (Plavix) 75 mg PO DAILY [facility] Last Admin: 10/18/17 09:25 Dose: 75 mg Enoxaparin Sodium (Lovenox) 30 mg SC DAILY [facility] Last Admin: 10/18/17 09:24 Dose: 30 mg Famotidine (Pepcid) 20 mg PO DAILY [facility] Last Admin: 10/18/17 09:25 Dose: 20 mg Fluticasone Propionate (Flonase) 1 spr LUIS BID [facility] Last Admin: 10/18/17 09:24 Dose: 1 spr Imipenem/Cilastatin Sodium 500 (mg/ Sodium Chloride) 100 mls @ 100 mls/hr IV Q12H [facility] Last Admin: 10/18/17 12:07 Dose: 100 mls/hr Insulin Human Regular (Novolin R) 0 unit SC ACHS [facility] PRN Reason: Protocol Last Admin: 10/18/17 12:06 Dose: 2 unit Isosorbide Mononitrate (Imdur Er) 30 mg PO DAILY [facility] Last Admin: 10/18/17 09:24 Dose: 30 mg Levothyroxine Sodium (Synthroid) 25 mcg PO DAILY@0630 [facility] Last Admin: 10/18/17 06:01 Dose: 25 mcg Losartan Potassium (Cozaar) 25 mg PO DAILY [facility] Last Admin: 10/18/17 09:25 Dose: 25 mg Ondansetron HCl (Zofran Inj) 4 mg IVP Q6 PRN PRN Reason: Nausea/Vomiting Repaglinide (Prandin) 0.5 mg PO TIDAC [facility] Last Admin: 10/18/17 12:06 Dose: 0.5 mg Rosuvastatin Calcium (Crestor) 10 mg PO HS [facility] Last Admin: 10/17/17 21:26 Dose: 10 mg Saccharomyces Boulardii (Florastor) 250 mg PO Q12 [facility] Last Admin: 10/18/17 09:25 Dose: 250 mg Sodium Bicarbonate (Sodium Bicarbonate Tab) 650 mg PO BID [facility] Last Admin: 10/18/17 09:24 Dose: 650 mg Tamsulosin HCl (Flomax) 0.4 mg PO DAILY [facility] Last Admin: 10/18/17 09:25 Dose: 0.4 mg - Labs Labs: 10/18/17 08:02 10/18/17 08:02 Assessment and Plan (1) Lung nodule Status: Acute (2) UTI (lower urinary tract infection) Status: Acute (3) Abnormal CT scan, chest Status: Acute (4) Dyspnea Status: Acute
[2017-10-18 16:08] VITALS: BP 151/77; PULSE 75; TEMP 98.3; O2SAT 96
--- NOTE | 2017-10-18 16:19 | CP.PCM.DIS ---
Provider - Provider Date of Admission: 10/14/17 21:57 Attending physician: Epi Ramey MD Primary care physician: PMD: Dr Washington Consults: Cardiology: Dr Malik ID: Dr Tellez Pulm: Dr Jaime Time Spent in preparation of Discharge (in minutes): 39 Hospital Course - Lab Results Lab Results: Micro Results 10/14/17 20:25 Blood Blood Culture - Preliminary NO GROWTH AFTER 3 DAYS 10/14/17 20:25 Blood Blood Culture - Preliminary NO GROWTH AFTER 3 DAYS 10/14/17 20:35 Urine,Clean Catch Urine Culture - Final MULTIPLE SPECIES. SUGGEST REPEAT SPECIMEN. Most Recent Lab Values WBC 4.7 K/uL (4.8-10.8) L 10/18/17 08:02 RBC 3.29 Mil/uL (3.80-5.20) L 10/18/17 08:02 Hgb 10.3 g/dL (11.0-16.0) L 10/18/17 08:02 Hct 28.8 % (34.0-47.0) L 10/18/17 08:02 MCV 87.5 fL (81.0-99.0) 10/18/17 08:02 MCH 31.3 pg (27.0-31.0) H 10/18/17 08:02 MCHC 35.8 g/dL (33.0-37.0) 10/18/17 08:02 RDW 12.8 % (11.5-14.5) 10/18/17 08:02 Plt Count 146 K/uL (130-400) 10/18/17 08:02 MPV 7.2 fL (7.2-11.7) 10/18/17 08:02 Neut % (Auto) 62.1 % (50.0-75.0) 10/18/17 08:02 Lymph % (Auto) 21.4 % (20.0-40.0) 10/18/17 08:02 [place] % (Auto) 10.9 % (0.0-10.0) H 10/18/17 08:02 Eos % (Auto) 5.0 % (0.0-4.0) H 10/18/17 08:02 Baso % (Auto) 0.6 % (0.0-2.0) 10/18/17 08:02 Neut # 2.9 K/uL (1.8-7.0) 10/18/17 08:02 Lymph # 1.0 K/uL (1.0-4.3) 10/18/17 08:02 [place] # 0.5 K/uL (0.0-0.8) 10/18/17 08:02 Eos # 0.2 K/uL (0.0-0.7) 10/18/17 08:02 Baso # 0.0 K/uL (0.0-0.2) 10/18/17 08:02 Neutrophils % (Manual) 78 % (50-75) H 10/14/17 20:35 Band Neutrophils % 11 % (0-2) H* 10/14/17 20:35 Lymphocytes % (Manual) 6 % (20-40) L 10/14/17 20:35 Monocytes % (Manual) 4 % (0-10) 10/14/17 20:35 Eosinophils % (Manual) 1 % (0-4) 10/14/17 20:35 Platelet Estimate Normal (NORMAL) 10/14/17 20:35 Large Platelets Present 10/14/17 20:35 Hypochromasia (manual) Slight 10/14/17 20:35 Microcytosis (manual) Slight 10/14/17 20:35 Ovalocytes Slight 10/14/17 20:35 Sodium 133 mmol/L (132-148) 10/18/17 08:02 Potassium 4.6 mmol/L (3.6-5.2) 10/18/17 08:02 Chloride 107 mmol/L (98-107) 10/18/17 08:02 Carbon Dioxide 20 mmol/L (22-30) L 10/18/17 08:02 Anion Gap 9 (10-20) L 10/18/17 08:02 BUN 21 mg/dL (7-17) H 10/18/17 08:02 Creatinine 1.3 mg/dL (0.7-1.2) H 10/18/17 08:02 Est GFR ( Amer) 48 10/18/17 08:02 Est GFR (Non-Af Amer) 40 10/18/17 08:02 POC Glucose (mg/dL) 194 mg/dL (65-110) H 10/18/17 11:21 Random Glucose 119 mg/dL (65-105) H 10/18/17 08:02 Hemoglobin A1c 9.4 % (4.2-6.5) H 10/16/17 07:54 Calcium 8.3 mg/dl (8.6-10.4) L 10/18/17 08:02 Total Bilirubin 0.4 mg/dL (0.2-1.3) 10/18/17 08:02 AST 22 U/L (14-36) 10/18/17 08:02 ALT 18 U/L (9-52) 10/18/17 08:02 Alkaline Phosphatase 88 U/L (38-126) 10/18/17 08:02 Troponin I 0.0330 ng/mL (0.00-0.120) 10/14/17 20:35 NT-Pro-B Natriuret Pep 3420 pg/mL (0-900) H 10/14/17 20:35 Total Protein 6.6 g/dL (6.3-8.3) 10/18/17 08:02 Albumin 2.9 g/dL (3.5-5.0) L 10/18/17 08:02 Globulin 3.7 gm/dL (2.2-3.9) 10/18/17 08:02 Albumin/Globulin Ratio 0.8 (1.0-2.1) L 10/18/17 08:02 Urine Color Yellow (YELLOW) 10/17/17 04:43 Urine Clarity Hazy (Clear) 10/17/17 04:43 Urine pH 5.0 (5.0-8.0) 10/17/17 04:43 Ur Specific [place] 1.005 (1.003-1.030) 10/17/17 04:43 Urine Protein Negative mg/dL (NEGATIVE) 10/17/17 04:43 Urine Glucose (UA) 1+ mg/dL (Normal) 10/17/17 04:43 Urine Ketones Negative mg/dL (NEGATIVE) 10/17/17 04:43 Urine Blood 1+ (NEGATIVE) H 10/17/17 04:43 Urine Nitrate Negative (NEGATIVE) 10/17/17 04:43 Urine Bilirubin Negative (NEGATIVE) 10/17/17 04:43 Urine Urobilinogen Normal mg/dL (0.2-1.0) 10/17/17 04:43 Ur Leukocyte Esterase 3+ [place]/uL (Negative) H 10/17/17 04:43 Urine WBC (Auto) 382 /hpf (0-5) H 10/17/17 04:43 Urine RBC (Auto) 8 /hpf (0-3) H 10/17/17 04:43 Ur Squamous Epith Cells 2 /hpf (0-5) 10/17/17 04:43 Urine Bacteria Rare (<OCC) 10/17/17 04:43 Urine Yeast (Budding) Occ /hpf (NEGATIVE) H 10/17/17 04:43 Influenza Typ A,B (EIA) Negative for flu a/b (NEGATIVE) 10/14/17 20:00 - Hospital Course Hospital Course: Medicine H/P CC: Fever, Chills, Body Aches HPI: Patient is a 76F with a PMH of DM, CHF, COPD and recurrent UTIs comes in after having a week of worsening fatigue, body aches and dysuria. Last night she experienced shaking chills and fevers as well as dysuria. She has been treated for a UTI on and off for years. She was admitted previously for UTI that grew E.coli and then Klebsiella that were relatively resistant. She was treated with imipenem at that time. Nothing makes her symptoms better or worse. Denies radiation. Describes the pain as burning on urination. The dysuria has been intermittent. Also complaining of multiple episodes of vomiting both earlier today and while in the ED. Denies any back pain ROS: Per HPI PMD: Felix PMH: Urinary Incontinence, Reccurent UTI, Anemia, Anxiety, Asthma, CAD, CHF, COPD, Diabetes, Emphysema, HTN, Hypercholesterolemia, Hyperlipidemia, Hyperthyroidism, Hypothyroidism, Chronic Kidney Disease, Blind PSH: CABG (Triple), Cholecystectomy, Coronary Stent, Pacemaker, RT.BKA., colon resection for bowel FH: Unremarkable SH: Denies tobacco use, drinking. Takes care of her self with the help of her daughter Meds: See MAR All: None HOSPITAL COURSE: UTI This patient was treated for a UTI (possibly 2/2 to neurogenic bladder). ID, Dr Tellez, was consulted, Her blood cultures were negative. A urine culture was done however it was contaminated. A second urine culture was attempted however the patient refused a straight cath. On admission she had a dirty UA which was repeated 3 days later with improvement in results. She was given Imipenem 500mg IVP Q12H (renally dosed) and Florastor 250mg PO Q12. Imaging results are as follows: CT abd/pelvis w/o contrast 10/16 (ordered due to recurrent UTIs): "Mild urinary bladder wall thickening and associated adjacent inflammatory stranding. Cystitis is not excluded. Bilateral nonobstructing renal calculi. Left basilar atelectasis/infiltrate. Cholecystectomy. Mildly nodular hepatic contour. Correlate clinically. Partial right hemicolectomy. Right lower quadrant colostomy. Midline abdominal hernia containing bowel without evidence of obstruction. Previously noted abnormal soft tissue density left side of the inferior rectum at the level of the anal rectal complex is again evident and should be further evaluated if it has not already been done as this was previously described on examination of 02/21/2015. Rule out neoplasm. IVC filter ". Aforementioned rectal "abnormal soft tissue density" was worked up in 01/2015, a proctoscopy was performed at that time and a rectal biopsy was done which came back negative for dysplasia. Diabetes mellitus This is a patient with a history of DM. Her HgbA1C was 9.4. She was put on ISS High dose and accuchecks were done. She was given her home meds Repaglinide 0.5mg PO TIDAC and Sodium Bicarbonate 650mg PO BID. CAD (coronary artery disease) This patient has a history of CAD with a hx of triple CABG. Cardiology was consulted, Dr Malik. She was given the following meds (her home meds): Hx of Triple CABG Meds: Plavix 75mg PO QD Imdur 30mg PO QD Losartan 25mg PO QD Crestor 10mg PO HS Congestive Heart Failure, Diastolic A Pro-BNP was done on this admission which was 3420. An ECHO from 03/2017 showed Abnormal septal motion from pacemaker/ICD in RV. LV diastolic dysfunction grade one. LVEF 50-55%. Sclerotic tri-leaflet aortic valve with mild ai. Hypothyroidism Synthroid 25 PO QD Urinary Incontinence Tamsulosin 0.4mg PO QD Anxiety Alprazolam 0.25mg PO QD TeleSitter Discharge Exam - Head Exam Head Exam: NORMAL INSPECTION - Additional Findings Additional findings: - Head Exam Head Exam: ATRAUMATIC, NORMAL INSPECTION, NORMOCEPHALIC - Eye Exam 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 absent: Distended, Tenderness Additional comments: ostomy bag with green/yellow fluid - Extremities Exam Additional comments: R. BKA - Back Exam Back exam: absent: CVA tenderness (L), CVA tenderness (R) - Neurological Exam Neurological exam: Alert, Oriented x3 - Psychiatric Exam Psychiatric exam: Normal Affect, Normal Mood - Skin Skin Exam: Dry, Intact, Normal Color, Warm Discharge Plan - Discharge Medications Prescriptions: Cephalexin [cephalexin] 500 mg PO TID 4 Days #15 cap - Follow Up Plan Condition: GOOD Disposition: HOME/ ROUTINE Instructions: Urinary Tract Infection in Women (DC), Urinary Tract Infection in Men (DC), Dysuria (GEN) Additional Instructions: Patient is medically stable for discharge. Patient will be given a script for the following medication to be taken as prescribed: Keflex 500mg 1 tablet at breakfast, 1 tablet at lunch, 1 tablet at dinner for a total of 4 days Patient should resume all her normal home medications. Patient should follow-up outpatient with Dr Gary Polo, Phone number: [phone]. Dr Gary Polo will see the patient in his office. Patient should follow-up with her PMD in 1 week. If symptoms return or worsen, patient should promptly return to the ER.
--- NOTE | 2017-10-18 17:25 | CP.PCM.PN ---
Subjective - Date & Time of Evaluation Date of Evaluation: 10/18/17 Time of Evaluation: 05:00 - Subjective Subjective: dictated Objective - Vital Signs/Intake and Output Vital Signs (last 24 hours): Temp Pulse Resp BP Pulse Ox 98.3 F 75 20 151/77 H 96 10/18/17 15:07 10/18/17 15:07 10/18/17 15:07 10/18/17 15:07 10/18/17 15:07 Intake and Output: 10/18/17 10/18/17 06:59 18:59 Intake Total 1680 1090 Output Total 100 250 Balance 1580 840 - Medications Medications: Current Medications Acetaminophen (Tylenol 325mg Tab) 650 mg PO Q6 PRN PRN Reason: Fever >100.4 F Last Admin: 10/15/17 10:15 Dose: 650 mg Alprazolam (Xanax) 0.25 mg PO DAILY [facility] Stop: 10/22/17 11:46 Last Admin: 10/18/17 09:24 Dose: 0.25 mg Clopidogrel Bisulfate (Plavix) 75 mg PO DAILY [facility] Last Admin: 10/18/17 09:25 Dose: 75 mg Enoxaparin Sodium (Lovenox) 30 mg SC DAILY [facility] Last Admin: 10/18/17 09:24 Dose: 30 mg Famotidine (Pepcid) 20 mg PO DAILY [facility] Last Admin: 10/18/17 09:25 Dose: 20 mg Fluticasone Propionate (Flonase) 1 spr LUIS BID [facility] Last Admin: 10/18/17 17:19 Dose: 1 spr Imipenem/Cilastatin Sodium 500 (mg/ Sodium Chloride) 100 mls @ 100 mls/hr IV Q12H [facility] Last Admin: 10/18/17 12:07 Dose: 100 mls/hr Insulin Human Regular (Novolin R) 0 unit SC ACHS [facility] PRN Reason: Protocol Last Admin: 10/18/17 17:18 Dose: 4 unit Isosorbide Mononitrate (Imdur Er) 30 mg PO DAILY [facility] Last Admin: 10/18/17 09:24 Dose: 30 mg Levothyroxine Sodium (Synthroid) 25 mcg PO DAILY@0630 [facility] Last Admin: 10/18/17 06:01 Dose: 25 mcg Losartan Potassium (Cozaar) 25 mg PO DAILY [facility] Last Admin: 10/18/17 09:25 Dose: 25 mg Ondansetron HCl (Zofran Inj) 4 mg IVP Q6 PRN PRN Reason: Nausea/Vomiting Repaglinide (Prandin) 0.5 mg PO TIDAC [facility] Last Admin: 10/18/17 17:19 Dose: 0.5 mg Rosuvastatin Calcium (Crestor) 10 mg PO HS [facility] Last Admin: 10/17/17 21:26 Dose: 10 mg Saccharomyces Boulardii (Florastor) 250 mg PO Q12 [facility] Last Admin: 10/18/17 09:25 Dose: 250 mg Sodium Bicarbonate (Sodium Bicarbonate Tab) 650 mg PO BID [facility] Last Admin: 10/18/17 17:20 Dose: 650 mg Tamsulosin HCl (Flomax) 0.4 mg PO DAILY [facility] Last Admin: 10/18/17 09:25 Dose: 0.4 mg - Labs Labs: 10/18/17 08:02 10/18/17 08:02
--- NOTE | 2017-10-18 20:03 | PN ---
DATE: SUBJECTIVE: The patient is feeling better. She still has nasal voice, however and they were not able to catheterize her as she refused. So, we are going to sent her with the culture report based on the last culture report. Her urine was sensitive to cefazolin. She is going to go on cefazolin at home. PHYSICAL EXAMINATION: GENERAL: She denies any other complaints. She is incontinent of urine. VITAL SIGNS: T-max is 98.3, pulse 75, blood pressure 151/77, respirations are 20. HEENT: Head is atraumatic and normocephalic. NECK: Supple. LUNGS: Have a occasional wheeze, otherwise clear. HEART: S1 and S2, regular. ABDOMEN: Soft, nontender. No guarding. No rigidity present. EXTREMITIES: No edema in the lower extremities. She has a right BKA. IMPRESSION: She had recurrent urinary tract infections and incontinent of urine and is blind. Teresa Tellez MD
--- NOTE | 2017-10-19 16:47 | CP.PCM.PN ---
Subjective - Date & Time of Evaluation Date of Evaluation: 10/18/17 Time of Evaluation: 07:05 - Subjective Subjective: Patient seen and evaluated denies chest pain and dyspnea For discharge today Objective - Vital Signs/Intake and Output Vital Signs (last 24 hours): Temp Pulse Resp BP Pulse Ox 98.3 F 75 20 151/77 H 96 10/18/17 15:07 10/18/17 15:07 10/18/17 15:07 10/18/17 15:07 10/18/17 15:07 - Labs Labs: 10/18/17 08:02 10/18/17 08:02
== END 2017-10-18 20:45 | disposition home or self-care (01) | DRG 690 ==
LOC: C.ER 17:36 → C.9E 21:57 → C.3T 22:54
PROVIDERS: ADMIT Family Medicine; ATTEND Family Medicine
DX: N39.0 Urinary tract infection, site not specified (principal); E11.22 Type 2 diabetes mellitus with diabetic chronic kidney disease; E11.65 Type 2 diabetes mellitus with hyperglycemia; I13.0 Hypertensive heart and chronic kidney disease with heart failure and stage 1 through stage 4 chronic kidney disease, or unspecified chronic kidney disease; I50.32 Chronic diastolic (congestive) heart failure; J44.1 Chronic obstructive pulmonary disease with (acute) exacerbation; E03.9 Hypothyroidism, unspecified; R32 Unspecified urinary incontinence; F41.9 Anxiety disorder, unspecified; I25.10 Atherosclerotic heart disease of native coronary artery without angina pectoris; N18.9 Chronic kidney disease, unspecified; E78.00 Pure hypercholesterolemia, unspecified; H54.7 Unspecified visual loss; Z95.1 Presence of aortocoronary bypass graft; Z95.5 Presence of coronary angioplasty implant and graft; Z89.511 Acquired absence of right leg below knee

== ENCOUNTER 2018-08-27 19:28 | Inpatient (IN) | payer MEDICARE ==
[2018-08-27 19:28] VITALS: BMI 25.6
--- NOTE | 2018-08-27 19:48 | C.PDOC ---
History Of Present Illness 77 year old female with PMHx of insulin dependant DM presents to the ED c/o nausea, feeling tired that started today. Patient states he is feeling very weak, not able to eat anything. Patient denies fever, chills, vomit, diarrhea, dizziness. Time Seen by Provider: 08/27/18 19:47 Chief Complaint (Nursing): GI Problem History Per: Patient History/Exam Limitations: no limitations Onset/Duration Of Symptoms: Days Current Symptoms Are (Timing): Still Present Severity: Moderate Pain Scale Rating Of: 4 Reports Recently: Seen In ED, Treated By A Physician, Hospitalized Recent travel outside of the [place]: No Additional History Per: Patient Past Medical History Reviewed: Historical Data, Nursing Documentation, Vital Signs Vital Signs: Last Vital Signs Temp 98.3 F 08/27/18 19:38 Pulse 91 H 08/27/18 19:38 Resp 18 08/27/18 19:38 BP 170/65 H 08/27/18 19:38 Pulse Ox 98 08/27/18 19:38 - Medical History PMH: Anemia, Anxiety, Arthritis (BACK; L KNEE), Asthma, CAD, CHF, COPD, Diabetes, Emphysema, HTN, Hypercholesterolemia, Hyperlipidemia, Hyperthyroidism, Hypothyroidism, Chronic Kidney Disease Surgical History: CABG (x3), Cholecystectomy, Coronary Stent, Pacemaker - [facility] Procedures ATHERECTOMY OF OTHER NON-CORONARY VESSEL(S) (11/15/13) BELOW KNEE AMPUTAT NEC (11/15/13) CENTRAL VENOUS CATHETER PLACEMENT WITH GUIDANCE (05/05/14) CONTRAST ARTERIOGRAM-LEG (11/15/13) ENDOSCOPIC BIOPSY OF RECTUM (02/18/15) HEMODIALYSIS (02/18/15) NONEXCIS DEBRID OF WOUND, INFECT, OR BURN (11/15/13) OTHER ENDOSCOPY OF SM INTEST (02/18/15) PACKED CELL TRANSFUSION (11/15/13) PROCEDURE ON TWO VESSELS (11/15/13) VENOUS CATHETERIZATION FOR RENAL DIALYSIS (02/18/15) Family History: States: Unknown Family Hx - Social History Hx Tobacco Use: No Hx Alcohol Use: No Hx Substance Use: No - Immunization History Hx Tetanus Toxoid Vaccination: No Hx Influenza Vaccination: Yes Hx Pneumococcal Vaccination: No Review Of Systems Constitutional: Positive for: Malaise. Negative for: Fever, Chills ENT: Negative for: Throat Pain Cardiovascular: Negative for: Chest Pain, Palpitations Gastrointestinal: Positive for: Nausea. Negative for: Vomiting, Abdominal Pain, Diarrhea Genitourinary: Positive for: Dysuria, Frequency Musculoskeletal: Negative for: Back Pain Skin: Negative for: Rash Neurological: Negative for: Weakness, Numbness, Headache, Dizziness Psych: Negative for: Anxiety Physical Exam - Physical Exam Appears: Non-toxic, No Acute Distress Skin: Warm, Dry Head: Normacephalic Eye(s): bilateral: Other (blind) Oral Mucosa: Dry Neck: Supple Chest: Symmetrical, Other (CABG scar) Cardiovascular: Rhythm Regular Respiratory: No Rales, Rhonchi (scattered), No Wheezing Gastrointestinal/Abdominal: Soft, Tenderness (diffuse mild), No Guarding, No Rebound, Other (RLQ colostomy) Back: No CVA Tenderness Extremity: Pedal Edema (left ), Other (right BKA) Pulses: Left Dorsalis Pedis: Normal Neurological/Psych: Oriented x3, Normal Speech Gait: With Assistance ED Course And Treatment - Laboratory Results Result Diagrams: 08/27/18 20:14 08/27/18 20:14 ECG: Interpreted By Me, Viewed By Me ECG Rhythm: Sinus Rhythm (89), R BBB O2 Sat by Pulse Oximetry: 98 (ON RA) Pulse Ox Interpretation: Normal Progress Note: Plan: - EKG. - Labs. - Protonix 40 mg IVP. - IV fluids. - Zofran 4 mg IVP. - UA Disposition Discussed With DrShyanne: Keyla Washington Comment: accepted the pt on his service and took over the care at 10:30PM Doctor Will See Patient In The: Hospital Counseled Patient/Family Regarding: Studies Performed, Diagnosis - Disposition Disposition: HOSPITALIZED Disposition Time: 19:48 Condition: FAIR Forms: [facility] (Lithuanian) - POA Present On Arrival: Poor Glycemic Control - Clinical Impression Clinical Impression: Dehydration, UTI (lower urinary tract infection), Renal function tests abnormal - Scribe Statement The provider has reviewed the documentation as recorded by the Scribe Jignesh Galindo All medical record entries made by the Scribe were at my direction and personally dictated by me. I have reviewed the chart and agree that the record accurately reflects my personal performance of the history, physical exam, medical decision making, and the department course for this patient. I have also personally directed, reviewed, and agree with the discharge instructions and disposition. Decision To Admit - Pt Status Changed To: Hospital Disposition Of: Inpatient - Admit Certification Admit to Inpatient:: After my assessment, the patient will require hospitalization for at least two midnights. This is because of the severity of symptoms shown, intensity of services needed, and/or the medical risk in this patient being treated as an outpatient. - InPatient: Physician Admission Certification: I certify that this patient requires 2 or more midnights of care for the following reason:: After my assessment, the patient will require hospitalization for at least two midnights. This is because of the severity of symptoms shown, intensity of services needed, and/or the medical risk in this patient being treated as an outpatient. - . Bed Request Type: Regular Admitting Physician: Keyla Washington Patient Diagnosis: Dehydration, UTI (lower urinary tract infection), Renal function tests abnormal
[2018-08-27] MEDS ORDERED: Sodium Chloride 0.9% 1,000 ML ONE (20:08)
[2018-08-27] MEDS ORDERED: Sodium Chloride 0.9% 1,000 ML IV ONE (20:15)
[2018-08-27 20:21] LABS: BASO % 0.6 % (0.0-2.0); EOS # 0.2 K/uL (0.0-0.7); EOS % 2.9 % (0.0-4.0); HEMOGLOBIN 11.6 g/dL (11.0-16.0); LYMPH # 0.5 K/uL (1.0-4.3); LYMPH % 9.2 % (20.0-40.0); MEAN CORPUSCULAR HGB CONC 33.2 g/dL (33.0-37.0); MEAN PLATELET VOLUME 7.1 fL (7.2-11.7); MONO # 0.4 K/uL (0.0-0.8); NEUT # 4.3 K/uL (1.8-7.0); NEUT % 80.3 % (50.0-75.0); PLATELET COUNT 154 K/uL (130-400); RBC 3.86 Mil/uL (3.80-5.20); RED CELL DISTRIBUTION WIDTH 13.1 % (11.5-14.5); WHITE BLOOD COUNT 5.3 K/uL (4.8-10.8)
[2018-08-27 20:26] LABS: MEAN CELL VOLUME 90.2 fL (81.0-99.0)
[2018-08-27 20:33] LABS: INR 1.1; PROTHROMBIN TIME 11.5 SECONDS (9.7-12.2)
[2018-08-27 20:48] LABS: ALB/GLOB RATIO 1.2 (1.0-2.1); CALCIUM 9.1 mg/dl (8.6-10.4)
[2018-08-27 20:50] LABS: EOSINOPHIL 2 % (0-4); LYMPHOCYTE 11 % (20-40); MONOCYTE 10 % (0-10); NEUTROPHIL 77 % (50-75); PLATELET ESTIMATE NORMAL (NORMAL); TOTAL CELLS COUNTED 100
[2018-08-27 20:51] LABS: ANISOCYTOSIS SLIGHT; HYPOCHROMIC SLIGHT; POIKILOCYTOSIS SLIGHT
[2018-08-27 21:49] LABS: SQUAMOUS EPITHIAL 1 /hpf (0-5); URINE BACTERIA MOD (<OCC); URINE BILIRUBIN NEGATIVE (NEGATIVE); URINE BLOOD 3+ (NEGATIVE); URINE CLARITY Hazy (Clear); URINE COLOR Yellow (YELLOW); URINE GLUCOSE (UA) NORMAL (Normal); URINE LEUKOCYTE ESTERASE 3+ Leu/uL (Negative); URINE PROTEIN 1+ mg/dL (NEGATIVE); URINE UROBILINOGEN NORMAL mg/dL (0.2-1.0)
[2018-08-27] MEDS ORDERED: Piperacillin/Tazobact 3.375 gm 100 ML IVPB ONE (22:40)
[2018-08-27] MEDS: Piperacillin/Tazobact 3.375 GM in Sodium Chloride 100 ML IVPB SCH (22:48)
[2018-08-28] MEDS: Piperacillin/Tazobact 3.375 GM in Sodium Chloride 100 ML IVPB SCH (04:00)
[2018-08-28 07:13] VITALS: RESP 20
[2018-08-28] MEDS: Sodium Chloride 0.9% 1,000 ML IV SCH ×2 (08:10→20:38)
[2018-08-28] MEDS: Piperacillin/Tazobact 2.25 GM in Sodium Chloride 100 ML IV SCH ×3 (10:56→21:58)
[2018-08-28 11:21] LABS: BASO % 0.2 % (0.0-2.0); EOS # 0.2 K/uL (0.0-0.7); EOS % 3.8 % (0.0-4.0); HEMOGLOBIN 10.8 g/dL (11.0-16.0); LYMPH # 0.3 K/uL (1.0-4.3); LYMPH % 7.5 % (20.0-40.0); MEAN CELL VOLUME 90.1 fL (81.0-99.0); MEAN CORPUSCULAR HEMOGLOBIN 30.9 pg (27.0-31.0); MEAN CORPUSCULAR HGB CONC 34.3 g/dL (33.0-37.0); MEAN PLATELET VOLUME 7.2 fL (7.2-11.7); MONO # 0.4 K/uL (0.0-0.8); MONO % 9.7 % (0.0-10.0); NEUT # 3.4 K/uL (1.8-7.0); NEUT % 78.8 % (50.0-75.0); RBC 3.49 Mil/uL (3.80-5.20); RED CELL DISTRIBUTION WIDTH 12.8 % (11.5-14.5); WHITE BLOOD COUNT 4.3 K/uL (4.8-10.8)
[2018-08-28 11:41] LABS: PLATELET COUNT 122 K/uL (130-400)
--- NOTE | 2018-08-28 12:00 | CARD ---
APPROVED REPORT Date of service: 08/27/2018 EKG Measurement Heart [id number] [id number] <Conclusion> Normal sinus rhythm Possible Left atrial enlargement Right bundle branch block Possible Inferior infarct, age undetermined Abnormal ECG
[2018-08-28 12:19] LABS: BANDS 3 % (0-2); EOSINOPHIL 4 % (0-4); LYMPHOCYTE 7 % (20-40); MONOCYTE 7 % (0-10); NEUTROPHIL 79 % (50-75); PLATELET ESTIMATE SLIGHTLY DECREASED (NORMAL); TOTAL CELLS COUNTED 100
[2018-08-28 12:20] LABS: OVALOCYTES SLIGHT
[2018-08-28] MEDS: (Novolin R) Insulin Human Regular 100 units/ml vial SC SCH ×3 (12:36→21:51)
[2018-08-28] MEDS: Naphazoline-Pheniramine Ophth Soln OP SCH (17:35)
--- NOTE | 2018-08-29 00:30 | CP.PCM.PCO ---
Addendum entered and electronically signed by Ant Hay 08/29/18 06:49: House doctor note: Paged for rash, itchy. Patient seen and examined at bedside. Patient stated it started a few hours prior and it is really itchy. Patient denies SOB & chest pain. Patient has urticaria type of rash on shoulder & back. Vitals WNL. 1 X benadryl ordered. Reviewed medicine list, held Zosyn for now as it might be cause of reaction. Informed nursing staff to give PMD update in AM. Paged again in the AM for similar complaints. Patient states the itch was going away, but now its in the lower back as well. Patient denies SOB & chest pain. Same type of rash as before. 1 X solumedrol 40mg given. Informed nursing staff to give PMD update in AM. Original Note:
[2018-08-29] MEDS ORDERED: MethylPREDNISolone 40 mg Vial IVP STA (05:38)
[2018-08-29] MEDS: Levothyroxine 25 MCG TAB PO SCH (05:45)
[2018-08-29 06:38] LABS: CALCIUM 7.5 mg/dl (8.6-10.4)
--- NOTE | 2018-08-29 06:48 | HP ---
DATE OF EXAM: 08/28/2018 HISTORY OF PRESENT ILLNESS: This is a 77-year-old female with history of multiple medical problems who presented to the emergency room with symptoms of one day duration of generalized weakness and shivering. The patient also admits that she lost her appetite and there is decreased oral intake. The patient was stating that she was not able to lift her head up and she was feeling sick. The patient was brought to the emergency room where she was found to be dehydrated and in metabolic acidosis as well as urinary tract infection. The patient was started on IV antibiotics and admitted for further management. Other review of system is negative. ALLERGIES: NO KNOWN ALLERGY. MEDICATIONS: As per MAR, reviewed and ordered. PAST MEDICAL HISTORY: Peripheral vascular disease, status post right BKA; type 2 diabetes mellitus; blindness; hypertension; chronic kidney disease. SOCIAL HISTORY: No history of smoking, EtOH or substance abuse. FAMILY HISTORY: Noncontributory. PHYSICAL EXAMINATION: GENERAL: The patient is in bed, not in any cardiopulmonary distress at the time of this examination. VITAL SIGNS: Blood pressure 147/64, temperature 97.6, respiratory rate 20 and pulse 84. HEENT: Blindness. NECK: Supple. No JVD. No carotid bruit. No lymph node. No thyromegaly. CHEST AND LUNGS: Bilateral symmetrical expansion. Good air exchange. No rales. No rhonchi. CARDIOVASCULAR SYSTEM: PMI not localized. S1, S2. No additional sounds. ABDOMEN: Normoactive bowel sounds. Colostomy is in place. EXTREMITIES: Left BKA. HELP DESK COORDINATOR: Alert, awake, oriented x3. No neurological deficit could be appreciated. ASSESSMENT: Dehydration, acute on chronic kidney disease, metabolic acidosis, urinary tract infection, type 2 diabetes mellitus, and blindness. PLAN: We will continue IV fluid, IV antibiotics. Follow results of the cultures done. Resume the patient's home medications. Keyla Washington MD
[2018-08-29] MEDS: Naphazoline-Pheniramine Ophth Soln OP SCH ×2 (09:26→17:11)
[2018-08-29] MEDS: Sodium Chloride 0.9% 1,000 ML IV SCH ×2 (09:28→21:34)
[2018-08-29] MEDS: (Novolin R) Insulin Human Regular 100 units/ml vial SC SCH ×4 (09:30→21:33)
[2018-08-29] MEDS ORDERED: Pneumococcal 23-Valent Vaccine IM ONE (10:00)
[2018-08-29] MEDS ORDERED: Influenza Vaccine 60 MCG/0.5 ML SYR (3 yr & up) IM ONE (10:00)
[2018-08-30] MEDS: Levothyroxine 25 MCG TAB PO SCH (05:33)
--- NOTE | 2018-08-30 05:58 | CP.PCM.PCO ---
Physician Communication Note - Physician Communication Note Physician Communication Note: House doc note: Paged for patient's complaints of rash on back. Benadryl 25 Addendum Addendum: 08/30/18 06:01 House doc note: Paged by nurse at 5:45 after patient complained of pruritic rash on back. Patient able to speak in full sentences, denies chest pain or shortness of breath. She states she does not feel like her throat is closing. Benadryl 25mg PO given stat.
[2018-08-30 08:00] LABS: BASO % 0.2 % (0.0-2.0); EOS # 0.2 K/uL (0.0-0.7); EOS % 4.2 % (0.0-4.0); HEMOGLOBIN 9.4 g/dL (11.0-16.0); LYMPH # 0.4 K/uL (1.0-4.3); LYMPH % 7.5 % (20.0-40.0); MEAN CELL VOLUME 89.7 fL (81.0-99.0); MEAN CORPUSCULAR HEMOGLOBIN 30.7 pg (27.0-31.0); MEAN CORPUSCULAR HGB CONC 34.2 g/dL (33.0-37.0); MEAN PLATELET VOLUME 7.4 fL (7.2-11.7); MONO # 0.4 K/uL (0.0-0.8); MONO % 7.2 % (0.0-10.0); NEUT # 4.8 K/uL (1.8-7.0); NEUT % 80.9 % (50.0-75.0); PLATELET COUNT 122 K/uL (130-400); RBC 3.05 Mil/uL (3.80-5.20); RED CELL DISTRIBUTION WIDTH 13.1 % (11.5-14.5)
[2018-08-30 08:26] LABS: ALB/GLOB RATIO 0.9 (1.0-2.1); ALBUMIN 2.4 g/dL (3.5-5.0)
[2018-08-30] MEDS: (Novolin R) Insulin Human Regular 100 units/ml vial SC SCH ×4 (08:26→21:51)
[2018-08-30 09:45] LABS: ANISOCYTOSIS SLIGHT; BANDS 1 % (0-2); BASOPHIL 1 % (0-2); EOSINOPHIL 4 % (0-4); LYMPHOCYTE 10 % (20-40); MONOCYTE 5 % (0-10); NEUTROPHIL 79 % (50-75); PLATELET ESTIMATE SLIGHTLY DECREASED (NORMAL); POIKILOCYTOSIS SLIGHT; TOTAL CELLS COUNTED 100
[2018-08-30 09:46] LABS: HYPOCHROMIC SLIGHT; OVALOCYTES SLIGHT; POLYCHROMIC SLIGHT
[2018-08-30] MEDS: Naphazoline-Pheniramine Ophth Soln OP SCH ×2 (10:13→17:54)
[2018-08-30] MEDS: Sodium Chloride 0.9% 1,000 ML IV SCH ×2 (10:30→21:52)
--- NOTE | 2018-08-30 21:04 | PN ---
DATE: 08/29/2018 SUBJECTIVE: The patient was seen on August 29, 2018. She has mild fever. OBJECTIVE: VITAL SIGNS: Temperature 99.2, respiratory rate 20, pulse 84, and blood pressure 135/65. HEENT: Blindness of both eyes. NECK: Supple. No JVD. No carotid bruit. No lymph node. No thyromegaly. CHEST AND LUNGS: Bilateral symmetrical expansion. Good air exchange. No rales. No rhonchi. CARDIOVASCULAR: PMI not localized. S1, S2. No additional sounds. ABDOMEN: Colostomy bag in place. EXTREMITIES: Right BKA. CENTRAL NERVOUS SYSTEM: Alert, awake, oriented x3. Moves all extremities equally. ASSESSMENT: Acute on chronic kidney disease, dehydration, urinary tract infection, anemia of chronic disease, uncontrolled type 2 diabetes mellitus with hyperglycemia. PLAN: Continue IV fluid, Rocephin 1 g IV daily. Follow the urine culture and blood culture done. Even the patient had a course of outpatient antibiotic, and she is unlikely to have any growth. Ashley MD Felix
--- NOTE | 2018-08-31 01:00 | PN ---
DATE: 08/30/2018 SUBJECTIVE: The patient is seen today, 08/30/2018. She is having rashes and itchiness. PHYSICAL EXAMINATION VITAL SIGNS: Blood pressure 139/67, temperature 97.9, respiratory rate 20 and pulse 68. HEENT: Blindness to both eyes. NECK: Supple. No JVD. No carotid bruit. No lymph node. No thyromegaly. CHEST AND LUNGS: Bilateral symmetrical expansion. Good air exchange. No rales, no rhonchi. CARDIOVASCULAR SYSTEM: PMI not localized. S1, S2. No additional sounds. ABDOMEN: Normoactive bowel sounds. No tenderness. No organomegaly. No masses. EXTREMITIES: No cyanosis, no clubbing, no edema. Right BKA. CENTRAL NERVOUS SYSTEM: Alert, awake, oriented x3. No neurological deficit could be appreciated. SKIN: The patient has erythematous maculopapular rashes with itching. ASSESSMENT: Urinary tract infection, [id number] kidney disease, dehydration, type 2 diabetes mellitus with hyperglycemia, hypertension. PLAN: Continue current IV fluid. Discontinue Rocephin. We will give Benadryl 25 mg three times a day. We will change antibiotic to Cipro 200 mg IV every 12 hours. Keyla Washington MD
[2018-08-31] MEDS: Levothyroxine 25 MCG TAB PO SCH (07:00)
[2018-08-31] MEDS: (Novolin R) Insulin Human Regular 100 units/ml vial SC SCH ×4 (08:35→21:29)
[2018-08-31] MEDS ORDERED: Influenza Vaccine 60 MCG/0.5 ML SYR (3 yr & up) IM ONE (10:00)
[2018-08-31] MEDS ORDERED: Pneumococcal 23-Valent Vaccine IM ONE (10:00)
[2018-08-31] MEDS: Naphazoline-Pheniramine Ophth Soln OP SCH ×2 (10:42→18:14)
[2018-08-31] MEDS ORDERED: Ciprofloxacin 400mg/200ml D5W 400 MG/200 ML BAG IVPB SCH (12:00)
[2018-08-31] MEDS: Sodium Chloride 0.9% 1,000 ML IV SCH (18:16)
--- NOTE | 2018-09-01 00:38 | PN ---
DATE: 08/31/2018 DAILY PROGRESS NOTE SUBJECTIVE: The patient is seen today, 08/31/2018. She is still having itching and generalized body rash. The patient also was confused. PHYSICAL EXAMINATION: VITAL SIGNS: Blood pressure 134/69, temperature 99, respiratory rate 20, pulse 71. HEENT: Slightly pale mucosa of the conjunctivae. NECK: Supple. No JVD. No carotid bruit. No lymph node. No thyromegaly. CHEST AND LUNGS: Bilateral symmetrical expansion. Good air exchange. ABDOMEN: Colostomy bag in place. EXTREMITIES: Left BKA. CENTRAL NERVOUS SYSTEM: Alert, awake, and oriented x2. Moves all extremities equally. ASSESSMENT: Urinary tract infection, acute on chronic kidney disease, dehydration, type 2 diabetes mellitus. PLAN: We will stop the Benadryl as the patient thought to have confusion. We will give one dose of Solu-Medrol 125 mg IV push. We will stop Cipro also. Keyla Washington MD
[2018-09-01] MEDS: Levothyroxine 25 MCG TAB PO SCH (05:40)
[2018-09-01] MEDS: Sodium Chloride 0.9% 1,000 ML IV SCH ×2 (05:53→21:52)
[2018-09-01] MEDS: (Novolin R) Insulin Human Regular 100 units/ml vial SC SCH ×4 (07:54→21:54)
[2018-09-01] MEDS: Naphazoline-Pheniramine Ophth Soln OP SCH ×2 (10:55→17:05)
[2018-09-01 11:28] LABS: BASO % 0.1 % (0.0-2.0); EOS % 0.4 % (0.0-4.0); HEMOGLOBIN 9.8 g/dL (11.0-16.0); LYMPH # 0.5 K/uL (1.0-4.3); LYMPH % 7.7 % (20.0-40.0); MEAN CELL VOLUME 91.3 fL (81.0-99.0); MEAN CORPUSCULAR HEMOGLOBIN 30.6 pg (27.0-31.0); MEAN CORPUSCULAR HGB CONC 33.5 g/dL (33.0-37.0); MEAN PLATELET VOLUME 7.6 fL (7.2-11.7); MONO # 0.2 K/uL (0.0-0.8); MONO % 2.6 % (0.0-10.0); NEUT # 5.5 K/uL (1.8-7.0); NEUT % 89.2 % (50.0-75.0); NRBC % 0.2 % (0.0-2.0); PLATELET COUNT 127 K/uL (130-400); RBC 3.21 Mil/uL (3.80-5.20); WHITE BLOOD COUNT 6.2 K/uL (4.8-10.8)
[2018-09-01 11:41] LABS: CALCIUM 7.9 mg/dl (8.6-10.4)
[2018-09-01 12:15] LABS: LYMPHOCYTE 3 % (20-40); MONOCYTE 1 % (0-10); NEUTROPHIL 96 % (50-75); PLATELET ESTIMATE NORMAL (NORMAL); TOTAL CELLS COUNTED 100
[2018-09-02 00:26] VITALS: PULSE 84; O2SAT 96
--- NOTE | 2018-09-02 04:02 | PN ---
DATE: 09/01/2018 SUBJECTIVE: The patient is seen today. 09/01/2018. She is still having rashes and itching. Antibiotic was started. Microbiology showed no growth in urine or blood. PHYSICAL EXAMINATION: VITAL SIGNS: Blood pressure is 125/63, temperature 98.2, respiratory rate 20, and pulse 72. HEENT: Normal-appearing mucosa of the conjunctivae, oropharynx and nasal membrane mucosa. NECK: Supple. No JVD. No carotid bruit. No lymph node. No thyromegaly. CHEST: Lungs, bilateral symmetrical expansion. Good air exchange. No rales, no rhonchi. CARDIOVASCULAR: PMI not localized. S1, S2. No additional sounds. ABDOMEN: Normoactive bowel sounds. Colostomy bag in place. EXTREMITIES: Left BKA. MODEL TECHNICIAN: Alert, awake, oriented x3. Moves all extremities equally. ASSESSMENT: [id number] renal failure, dehydration, hyperkalemia, possible urinary tract infection with multiple drug allergies. PLAN: Keep the antibiotics off, and give the patient prednisone 40 mg today. If the rashes improve, the patient will be discharged back home today as creatinine is now down to its baseline of 1.6. Keyla Washington MD
[2018-09-02] MEDS: Levothyroxine 25 MCG TAB PO SCH (06:08)
[2018-09-02] MEDS: Sodium Chloride 0.9% 1,000 ML IV SCH (06:14)
[2018-09-02] MEDS: (Novolin R) Insulin Human Regular 100 units/ml vial SC SCH ×3 (08:00→11:53)
[2018-09-02 08:23] VITALS: BP 151/69; TEMP 98.2
[2018-09-02] MEDS: Naphazoline-Pheniramine Ophth Soln OP SCH (10:07)
--- NOTE | 2018-09-02 18:26 | CP.PCM.PN ---
Objective - Vital Signs/Intake and Output Vital Signs (last 24 hours): Temp Pulse Resp BP Pulse Ox 98.2 F 84 20 151/69 H 96 09/02/18 08:22 09/02/18 08:22 09/02/18 08:22 09/02/18 08:22 09/02/18 08:22 Intake and Output: 09/02/18 09/02/18 06:59 18:59 Intake Total 450 120 Output Total 1000 100 Balance -550 20 - Labs Labs: 09/01/18 11:14 09/01/18 11:14 PT 11.5 SECONDS (9.7-12.2) 08/27/18 20:14 INR 1.1 08/27/18 20:14 APTT 30 SECONDS (21-34) 08/27/18 20:14 Assessment and Plan - Assessment and Plan (Free Text) Assessment: Patient admitted with weakness, UTI, seen and examined. Symptoms resolving. Discussed with DR Washington , plan to discharge home today. Advised to follow up in the office in 1 week. Alert and oriented, legally blind , no distress.
--- NOTE | 2018-09-03 20:44 | DS ---
The patient is seen today, 09/02/2018. REASON FOR ADMISSION: This is a 77-year-old female with history of blindness, right below-knee amputation, was admitted for generalized weakness and acute renal failure. COURSE OF HOSPITALIZATION: The patient was admitted to medical floor as she was started on IV fluid. Due to increased white blood cell count in the urine, the patient was also started on IV antibiotics empirically. The patient developed some allergic reaction to Zosyn and then to Cipro. The patient was feeling much better, and she was discharged home to resume her preadmission medications. FINAL DIAGNOSES: Acute renal failure, dehydration, urinary tract infection, type 2 diabetes mellitus, hypertension. [facility] MD Felix
== END 2018-09-02 14:27 | disposition home or self-care (01) | DRG 683 ==
LOC: C.ER 19:28 → C.3T 22:29
PROVIDERS: ADMIT Internal Medicine; ATTEND Internal Medicine
DX: N17.9 Acute kidney failure, unspecified (principal); N39.0 Urinary tract infection, site not specified; I13.0 Hypertensive heart and chronic kidney disease with heart failure and stage 1 through stage 4 chronic kidney disease, or unspecified chronic kidney disease; E87.2 Acidosis; E86.0 Dehydration; E11.65 Type 2 diabetes mellitus with hyperglycemia; E03.9 Hypothyroidism, unspecified; E11.22 Type 2 diabetes mellitus with diabetic chronic kidney disease; J44.9 Chronic obstructive pulmonary disease, unspecified; I25.10 Atherosclerotic heart disease of native coronary artery without angina pectoris; I50.9 Heart failure, unspecified; N18.9 Chronic kidney disease, unspecified; E11.39 Type 2 diabetes mellitus with other diabetic ophthalmic complication; E87.5 Hyperkalemia; D63.8 Anemia in other chronic diseases classified elsewhere; E78.5 Hyperlipidemia, unspecified; E78.00 Pure hypercholesterolemia, unspecified; L50.9 Urticaria, unspecified; H54.8 Legal blindness, as defined in USA; Z89.511 Acquired absence of right leg below knee; Z95.5 Presence of coronary angioplasty implant and graft; Z95.1 Presence of aortocoronary bypass graft; Z79.4 Long term (current) use of insulin

== ENCOUNTER 2018-10-08 00:14 | Inpatient (IN) | payer MEDICARE ==
[2018-10-08 00:15] VITALS: BMI 25.6
--- NOTE | 2018-10-08 00:32 | C.PDOC ---
History Of Present Illness Patient who is an insulin dependent diabetic presents to the ER with a complaint of nausea, feeling tired, and not tolerating PO. Patient was at rehab stating she is not feeling well, especially over the last 3 days. Denies fever or chills. Time Seen by Provider: 10/08/18 00:31 Chief Complaint (Nursing): GI Problem History Per: Patient History/Exam Limitations: no limitations Onset/Duration Of Symptoms: Days (3) Current Symptoms Are (Timing): Still Present Radiation Of Pain To:: None Quality Of Discomfort: Unable To Describe Associated Symptoms: Nausea, Other (Feeling tired, Not tolerating PO). denies: Fever, Chills Exacerbating Factors: None Alleviating Factors: None Recent travel outside of the [place]: No Abnormal Vaginal Bleeding: No Past Medical History Reviewed: Historical Data, Nursing Documentation, Vital Signs - Medical History PMH: Anemia, Anxiety, Arthritis (BACK; L KNEE), Asthma, CAD, CHF, COPD (COPD, Emphysema,), Diabetes, Emphysema, HTN, Hypercholesterolemia, Hyperlipidemia, Hyperthyroidism, Hypothyroidism, Chronic Kidney Disease Surgical History: CABG (x3), Cholecystectomy, Coronary Stent, Pacemaker - [facility] Procedures ATHERECTOMY OF OTHER NON-CORONARY VESSEL(S) (11/15/13) BELOW KNEE AMPUTAT NEC (11/15/13) CENTRAL VENOUS CATHETER PLACEMENT WITH GUIDANCE (05/05/14) CONTRAST ARTERIOGRAM-LEG (11/15/13) ENDOSCOPIC BIOPSY OF RECTUM (02/18/15) HEMODIALYSIS (02/18/15) NONEXCIS DEBRID OF WOUND, INFECT, OR BURN (11/15/13) OTHER ENDOSCOPY OF SM INTEST (02/18/15) PACKED CELL TRANSFUSION (11/15/13) PROCEDURE ON TWO VESSELS (11/15/13) VENOUS CATHETERIZATION FOR RENAL DIALYSIS (02/18/15) Family History: States: No Known Family Hx - Social History Hx Tobacco Use: No Hx Alcohol Use: No Hx Substance Use: No - Immunization History Hx Tetanus Toxoid Vaccination: No Hx Influenza Vaccination: No Hx Pneumococcal Vaccination: Yes Review Of Systems Constitutional: Positive for: Other (Not tolerating PO, Feeling tired). Negative for: Fever, Chills Cardiovascular: Negative for: Chest Pain, Palpitations Respiratory: Negative for: Cough, Shortness of Breath Gastrointestinal: Positive for: Nausea Neurological: Negative for: Weakness, Numbness Physical Exam - Physical Exam Appears: Non-toxic Skin: Warm, Dry Head: Normacephalic Eye(s): bilateral: Other (Blind) Oral Mucosa: Moist Neck: Trachea Midline, Supple Chest: No Tenderness, Other (CABG scar) Cardiovascular: Rhythm Regular Respiratory: No Rales, No Rhonchi, No Wheezing Gastrointestinal/Abdominal: Soft, No Tenderness, Other (LLQ colostomy) Extremity: Pedal Edema (Left trace), Other (Right BKA) Pulses: Left Dorsalis Pedis: Normal Neurological/Psych: Oriented x3 ED Course And Treatment - Laboratory Results Result Diagrams: 10/08/18 00:57 10/08/18 04:35 ECG: Interpreted By Me, Viewed By Me ECG Rhythm: Sinus Rhythm (97), R BBB, Nonspecific Changes O2 Sat by Pulse Oximetry: 97 (Room air) Pulse Ox Interpretation: Normal - Radiology CXR: Interpreted by Me, Viewed By Me CXR Interpretation: Yes: Other (pacer left, small left effusion, cabg). No: Infiltrates, Fracture, Cardiomegaly Progress Note: EKG, blood work, CXR, and urinalysis ordered. IV fluids and zofran administered. spoke wirh dr polanco - icu - in view that her renal function improving, her K back to wnl, pt ok to go to telemetry. Pt is severly dehydrated. Continuing ivf. Lungs are CTA. Abd soft, non tender., colostomy on rlq. no complaints, afebrile. Will need a repeat Lactate in 1 hour Critical Care Time - Critical Care Note Total Time (in mins): 30 Documented critical care: time excludes all time spent performing seperately billable procedures. Disposition Discussed With : Keyla Washington Comment: accepted the pt on his service and took over the care at 4:18 AM Doctor Will See Patient In The: Hospital Counseled Patient/Family Regarding: Studies Performed, Diagnosis - Disposition Disposition: HOSPITALIZED Disposition Time: 00:31 Condition: GUARDED - POA Present On Arrival: Poor Glycemic Control - Clinical Impression Clinical Impression: Dehydration, Electrolyte abnormality, Acute renal failure (ARF), Phantom limb pain, Hyperkalemia - Scribe Statement The provider has reviewed the documentation as recorded by the Scribe Alexx Patel All medical record entries made by the Scribe were at my direction and personally dictated by me. I have reviewed the chart and agree that the record accurately reflects my personal performance of the history, physical exam, medical decision making, and the department course for this patient. I have also personally directed, reviewed, and agree with the discharge instructions and disposition. Decision To Admit - Pt Status Changed To: Hospital Disposition Of: Inpatient - Admit Certification Admit to Inpatient:: After my assessment, the patient will require hospitalization for at least two midnights. This is because of the severity of symptoms shown, intensity of services needed, and/or the medical risk in this patient being treated as an outpatient. - InPatient: Physician Admission Certification:: After my assessment, the patient will require hospitalization for at least two midnights. This is because of the severity of symptoms shown, intensity of services needed, and/or the medical risk in this patient being treated as an outpatient. - . Bed Request Type: Telemetry Admitting Physician: Keyla Washington Patient Diagnosis: Dehydration, Electrolyte abnormality, Acute renal failure (ARF), Phantom limb pain, Hyperkalemia
[2018-10-08] MEDS ORDERED: Sodium Chloride 0.9% 1,000 ML IV ONE ×4 (00:49→05:21)
[2018-10-08] MEDS ORDERED: Sodium Chloride 0.9% 1,000 ML ONE (00:57)
[2018-10-08 01:02] LABS: BASO % 0.3 % (0.0-2.0); EOS % 0.3 % (0.0-4.0); HEMOGLOBIN 11.1 g/dL (11.0-16.0); LYMPH # 0.9 K/uL (1.0-4.3); LYMPH % 9.2 % (20.0-40.0); MEAN CELL VOLUME 91.1 fL (81.0-99.0); MEAN CORPUSCULAR HEMOGLOBIN 29.8 pg (27.0-31.0); MEAN CORPUSCULAR HGB CONC 32.7 g/dL (33.0-37.0); MEAN PLATELET VOLUME 7.3 fL (7.2-11.7); MONO # 0.8 K/uL (0.0-0.8); MONO % 8.2 % (0.0-10.0); NEUT # 8.4 K/uL (1.8-7.0); PLATELET COUNT 210 K/uL (130-400); RBC 3.74 Mil/uL (3.80-5.20); RED CELL DISTRIBUTION WIDTH 13.5 % (11.5-14.5); WHITE BLOOD COUNT 10.2 K/uL (4.8-10.8)
[2018-10-08 01:08] LABS: INR 1.1; PROTHROMBIN TIME 11.7 SECONDS (9.7-12.2)
[2018-10-08 01:18] LABS: VENOUS BLOOD GAS BASE EXCESS -13.3 mmol/L (0.0-2.0); VENOUS BLOOD GAS PCO2 40 mmHg (40-60); VENOUS BLOOD GAS PO2 27 mm/Hg (30-55); VENOUS BLOOD PH 7.17 (7.32-7.43)
[2018-10-08 01:49] LABS: ALB/GLOB RATIO 1.1 (1.0-2.1); ALBUMIN 3.6 g/dL (3.5-5.0); CALCIUM 8.7 mg/dl (8.6-10.4)
[2018-10-08] MEDS ORDERED: Calcium Gluconate 4.65 MEQ in Dextrose 5% In Water 100 ML IVPB ONE (01:50)
[2018-10-08] MEDS ORDERED: Sod Polystyrene Sulf 15 gm/60 ml Susp PO ONE (01:50)
[2018-10-08] MEDS ORDERED: (Novolin R) Insulin Human Regular 100 units/ml vial SC ONE (01:51)
[2018-10-08] MEDS ORDERED: Dextrose 50% SYRINGE Inj (50 ml) IV STA (01:52)
[2018-10-08] MEDS ORDERED: Calcium Gluconate 4.65 mEq/10 ml Inj ONE (01:59)
[2018-10-08] MEDS: Albuterol-Ipratrop 3 mg / 0.5 (3 ml) UD IH SCH ×3 (02:00→02:18)
[2018-10-08] MEDS ORDERED: Sod Polystyrene Sulf 15 gm/60 ml Susp ONE (02:04)
[2018-10-08] MEDS ORDERED: Dextrose 50% SYRINGE Inj (50 ml) ONE (02:05)
[2018-10-08] MEDS ORDERED: (Novolin R) Insulin Human Regular 100 units/ml vial ONE (02:05)
[2018-10-08 02:11] LABS: ANISOCYTOSIS SLIGHT; BANDS 1 % (0-2); LYMPHOCYTE 10 % (20-40); MONOCYTE 10 % (0-10); NEUTROPHIL 79 % (50-75); PLATELET ESTIMATE NORMAL (NORMAL); POIKILOCYTOSIS SLIGHT; TOTAL CELLS COUNTED 100
[2018-10-08] MEDS ORDERED: Albuterol-Ipratrop 3 mg / 0.5 (3 ml) UD ONE ×3 (02:16)
[2018-10-08 05:07] LABS: VENOUS BLOOD GAS BASE EXCESS -17.3 mmol/L (0.0-2.0); VENOUS BLOOD GAS PCO2 39 mmHg (40-60); VENOUS BLOOD GAS PO2 20 mm/Hg (30-55); VENOUS BLOOD PH 7.09 (7.32-7.43)
[2018-10-08 05:13] LABS: CALCIUM 7.7 mg/dl (8.6-10.4)
[2018-10-08] MEDS ORDERED: Piperacillin/Tazobact 3.375 gm 100 ML IVPB STA (05:24)
[2018-10-08] MEDS ORDERED: Gentamicin 80 mg/2mL Inj. IVPB STA (05:29)
[2018-10-08] MEDS ORDERED: Vancomycin 1 GM 1 GM/250 ML BAG IVPB SCH (05:30)
[2018-10-08 07:21] LABS: VENOUS BLOOD GAS BASE EXCESS -18.7 mmol/L (0.0-2.0); VENOUS BLOOD GAS PCO2 35 mmHg (40-60); VENOUS BLOOD GAS PO2 34 mm/Hg (30-55); VENOUS BLOOD PH 7.08 (7.32-7.43)
--- NOTE | 2018-10-08 07:49 | RAD ---
Chest x-ray single frontal view HISTORY: Abdominal pain. COMPARISON: 10/14/2017 Findings: Small left pleural effusion with left basilar consolidative changes. Mild patchy increased markings in the right infrahilar region. Mild venous congestion. Enlarged ectatic aorta with atherosclerotic calcification at the aortic knob. Status post median sternotomy and CABG. Cardiomegaly. Left-sided pacemaker. Degenerative changes in the spine and shoulders. Deformities of several left lateral thoracic ribs. Impression: Small left pleural effusion with left basilar consolidative changes. Mild patchy increased markings in the right infrahilar region. Mild venous congestion. Enlarged ectatic aorta with atherosclerotic calcification at the aortic knob. Status post median sternotomy and CABG. Cardiomegaly. Left-sided pacemaker. Degenerative changes in the spine and shoulders. Deformities of several left lateral thoracic ribs.
[2018-10-08] MEDS ORDERED: Sodium Chloride 0.9% 500 ML IV SCH (08:15)
--- NOTE | 2018-10-08 08:34 | CP.PCM.PN ---
Subjective - Date & Time of Evaluation Date of Evaluation: 10/08/18 Time of Evaluation: 08:25 - Subjective Subjective: INNERSOLE MAKER NOTES RN CALLED AND REPORTED VBG RESULT OF PH 7.03 Patient seen and examined at bed side , alert, ox3 , tachycardia and hypotensive , states she is very weak and not feeling well , associated with abdominal pain and nausea and poor apetite for a week . denies ay fever, dysuria or burning upon urination Objective - Vital Signs/Intake and Output Vital Signs (last 24 hours): Temp Pulse Resp BP Pulse Ox 97.8 F 119 H 20 128/63 98 10/08/18 07:35 10/08/18 07:35 10/08/18 07:35 10/08/18 07:35 10/08/18 07:35 - Medications Medications: Current Medications Vancomycin HCl (Vancomycin 1gm In Normal Saline Addvantage) 1 gm in 250 mls @ 166.667 mls/hr IVPB STAT TANJA; Protocol Last Admin: 10/08/18 06:00 Dose: 166.667 mls/hr Sodium Chloride (Sodium Chloride 0.9%) 500 mls @ 500 mls/hr IV .Q1H TANJA Stop: 10/08/18 09:14 Sodium Bicarbonate 100 meq/ (Sodium Chloride) 1,100 mls @ 100 mls/hr IV .Q11H TANJA Aztreonam 2 gm/ Sodium (Chloride) 100 mls @ 100 mls/hr IVPB Q12 TANJA; Protocol - Labs Labs: 10/08/18 00:57 10/08/18 04:35 PT 11.7 SECONDS (9.7-12.2) 10/08/18 00:57 INR 1.1 10/08/18 00:57 APTT 26 SECONDS (21-34) 10/08/18 00:57 - Constitutional Appears: No Acute Distress - Respiratory Exam Respiratory Exam: Clear to Ausculation Bilateral, NORMAL BREATHING PATTERN - Cardiovascular Exam Cardiovascular Exam: Tachycardia, REGULAR RHYTHM - Neurological Exam Neurological Exam: Alert, Awake, Oriented x3 Assessment and Plan - Assessment and Plan (Free Text) Assessment: A/P 77 yr old female with pmhx of CAD, CHF, COPD Diabetes, Emphysema, HTN, Hypercholesterolemia,sent from rehab with abdominal pain and nausea and admitted with Dehydration, Electrolyte abnormality, Acute renal failure (ARF), and , Hyperkalemia vbg - repeat shows -PH- 7.09, PCO2-35 AND CO2- 11.5, LACTIC ACID - 2.7 Patient received 1 liter of IVF in ER and gentamycin and vanco ordered by ER physician PLAN metbolic acidosis bolus 500 ml nss started stat abg ordered- pending result u/a and C&S - stat D/w Dr. Washington , recommends to start Nahco3 100 meq in 1 liter at 100 ml/hr Dr. Klein nephrology consult and start antibiotics with azactum empirically until cultures and urine test results
[2018-10-08 08:46] LABS: ARTERIAL BLOOD GAS HCO3 12.6 mmol/L (21-28); ARTERIAL BLOOD GAS O2 SAT 99.1 % (95-98); ARTERIAL BLOOD GAS PCO2 26 mm/Hg (35-45); ARTERIAL BLOOD GAS PH 7.21 (7.35-7.45); ARTERIAL BLOOD GAS PO2 103 mm/Hg (80-100); ARTERIAL BLOOD GAS TCO2 11.2 mmol/L (22-28)
[2018-10-08] MEDS ORDERED: Glucagon Recombinant 1 mg Inj IM PRN (08:54)
[2018-10-08] MEDS ORDERED: Dextrose 50% SYRINGE Inj (50 ml) IV PRN (08:54)
[2018-10-08] MEDS: Sodium Bicarbonate 8.4% 150 MEQ in Dextrose 5% In Water 1,000 ML IV SCH (10:29)
--- NOTE | 2018-10-08 10:54 | CT ---
Date of service: 10/08/2018 PROCEDURE: CT Pelvis without contrast HISTORY: Attention right hip COMPARISON: None available. TECHNIQUE: Contiguous axial images of the pelvis . No intravenous or oral contrast given. Coronal and sagittal reformats generated. Radiation dose: Total exam DLP = 895.65 mGy-cm. This CT exam was performed using one or more of the following dose reduction techniques: Automated exposure control, adjustment of the mA and/or kV according to patient size, and/or use of iterative reconstruction technique. FINDINGS: BLADDER: Wall of urinary bladder wall thickening may in part be due to incomplete distention however correlation with urinalysis recommended to exclude cystitis versus other intrinsic/invasive wall lesion.. REPRODUCTIVE ORGANS: There are small apparent vascular calcifications up about the periphery of the uterus. VISUALIZED BOWEL: There is a right parasagittal colostomy seen in the lower abdomen/upper pelvis region. PERITONEUM: Unremarkable, as visualized. No free fluid. No free air. LYMPH NODES: Unremarkable. No enlarged lymph nodes. BONES: No definitive evidence of acute displaced fracture nor dislocation. The osseous structures appear intact or diffusely demineralized. Mild degenerative spondylosis of the lumbosacral spine. Mild sclerosis both SI joints. VASCULATURE: [id number] aortic atherosclerotic calcification or mural plaque present. In situ IVC filter OTHER FINDINGS: No nonobstructing bilateral renal calcifications are present IMPRESSION: No evidence of acute displaced fracture nor dislocation. Wall thickening of the urinary bladder of which may in part be due to incomplete distention however correlation with urinalysis recommended to exclude the possibility of cystitis versus other intrinsic/invasive wall lesion. Right parasagittal colostomy. Note this report was placed in PA review folder for follow up.
[2018-10-08] MEDS ORDERED: Aztreonam 2 GM in Sodium Chloride 0.9% 100 ML IVPB SCH (11:00)
--- NOTE | 2018-10-08 11:57 | CP.PCM.CON ---
History of Present Illness - History of Present Illness History of Present Illness: ptis seen and examined, full consult is dictated #[id number] 1. GLORIA on ckd-3 2. hyperchloremic met.acidosis 3. s/p Hyperkalemia 4. s/p hypotension 5. b/l nephrolithiasis check urinalysis, c/s c/w ivf D5W with nahco3 150 meq /lit at 100 ml/hr x 24 hrs check urine lytes, osm, cr bmp in am Past Patient History - Infectious Disease Hx of Infectious Diseases: None - Past Medical History & Family History Past Medical History?: Yes - Past Social History Smoking Status: Former Smoker - CARDIAC Hx Congestive Heart Failure: Yes Hx Hypercholesterolemia: Yes Hx Hypertension: Yes Hx Pacemaker: Yes - PULMONARY Hx Asthma: Yes Hx Chronic Obstructive Pulmonary Disease (COPD): Yes (COPD, Emphysema,) Hx Emphysema: Yes - NEUROLOGICAL HX Cerebrovascular Accident: Yes - HEENT Hx HEENT Problems: Yes Hx Blind: Yes - RENAL Hx Chronic Kidney Disease: Yes - ENDOCRINE/METABOLIC Hx Diabetes Mellitus Type 1: Yes Hx Hyperthyroidism: Yes Hx Hypothyroidism: Yes - HEMATOLOGICAL/ONCOLOGICAL Hx Anemia: Yes - INTEGUMENTARY Hx Dermatological Problems: No - MUSCULOSKELETAL/RHEUMATOLOGICAL Hx Falls: No - GASTROINTESTINAL Hx Gastrointestinal Disorders: Yes Hx Bowel Surgery: Yes (ischemic bowel) Hx Colostomy: Yes Other/Comment: amputation - GENITOURINARY/GYNECOLOGICAL Hx Genitourinary Disorders: Yes Hx Incontinence: Yes Hx Urinary Tract Infection: Yes - PSYCHIATRIC Hx Anxiety: Yes Hx Substance Use: No - SURGICAL HISTORY Hx Cholecystectomy: Yes Hx Coronary Artery Bypass Graft: Yes (x3) Hx Coronary Stent: Yes - ANESTHESIA Hx Anesthesia: Yes Hx Anesthesia Reactions: No Hx Malignant Hyperthermia: No Meds Allergies/Adverse Reactions: Allergies Allergy/AdvReac Type Severity Reaction Status Date / Time piperacillin Allergy RASH Verified 10/08/18 00:22 - Medications Medications: Current Medications Acetaminophen (Tylenol 325mg Tab) 650 mg PO Q6 PRN PRN Reason: Pain, moderate (4-7) Last Admin: 10/08/18 11:26 Dose: 650 mg Alprazolam (Xanax) 0.25 mg PO DAILY TANJA Stop: 10/15/18 10:01 Last Admin: 10/08/18 10:33 Dose: 0.25 mg Clopidogrel Bisulfate (Plavix) 75 mg PO DAILY TANJA Dextrose (Dextrose 50% Inj) 0 ml IV STAT PRN; Protocol PRN Reason: Hypoglycemia Protocol Dextrose (Glutose 15) 0 gm PO ONCE PRN; Protocol PRN Reason: Hypoglycemia Protocol Glucagon (Glucagen Diagnostic Kit) 0 mg IM STAT PRN; Protocol PRN Reason: Hypoglycemia Protocol Heparin Sodium (Porcine) (Heparin) 5,000 units SC Q12 TANJA Last Admin: 10/08/18 10:33 Dose: 5,000 units Vancomycin HCl (Vancomycin 1gm In Normal Saline Addvantage) 1 gm in 250 mls @ 166.667 mls/hr IVPB STAT TANJA; Protocol Last Admin: 10/08/18 06:00 Dose: 166.667 mls/hr Sodium Bicarbonate 150 meq/ (Dextrose) 1,150 mls @ 100 mls/hr IV .[id number] TANJA Last Admin: 10/08/18 10:29 Dose: 100 mls/hr Dextrose (Dextrose 5% In Water 1000 Ml) 1,000 mls @ 0 mls/hr IV .Q0M PRN; Protocol PRN Reason: Hypoglycemia Protocol Aztreonam 1 gm/ Sodium (Chloride) 100 mls @ 100 mls/hr IVPB Q12 TANJA; Protocol Insulin Aspart (Novolog) 0 unit SC ACHS TANJA; Protocol Levothyroxine Sodium (Synthroid) 25 mcg PO DAILY@0630 TANJA Rosuvastatin Calcium (Crestor) 5 mg PO HS TANJA Tamsulosin HCl (Flomax) 0.4 mg PO DAILY [facility] Last Admin: 10/08/18 10:33 Dose: 0.4 mg Results - Vital Signs Recent Vital Signs: Last Vital Signs Temp 97.8 F 10/08/18 07:35 Pulse 119 H 10/08/18 07:35 Resp 20 10/08/18 07:35 BP 128/63 10/08/18 07:35 Pulse Ox 98 10/08/18 07:35 - Labs Result Diagrams: 10/08/18 00:57 10/08/18 20:10 Labs: Laboratory Results - last 24 hr 10/08/18 10/08/18 10/08/18 00:21 00:57 00:57 WBC 10.2 D RBC 3.74 L Hgb 11.1 Hct 34.0 MCV 91.1 MCH 29.8 MCHC 32.7 L RDW 13.5 Plt Count 210 MPV 7.3 Neut % (Auto) 82.0 H Lymph % (Auto) 9.[address] [place] % (Auto) 8.2 Eos % (Auto) 0.3 Baso % (Auto) 0.3 Neut # (Auto) 8.4 H Lymph # (Auto) 0.[address] [place] # (Auto) 0.8 Eos # (Auto) 0.0 Baso # (Auto) 0.0 Neutrophils % (Manual) 79 H Band Neutrophils % 1 Lymphocytes % (Manual) 10 L Monocytes % (Manual) 10 Platelet Estimate Normal Poikilocytosis (manual Slight Anisocytosis (manual) Slight PT INR APTT Puncture Site pCO2 pO2 HCO3 ABG pH ABG Total CO2 ABG O2 Saturation ABG Base Excess Eugene Test ABG Potassium VBG pH VBG pCO2 VBG HCO3 VBG Total CO2 VBG O2 Sat (Calc) VBG Base Excess VBG Potassium A-a O2 Difference Respiratory Index Glucose Lactate FiO2 Crit Value Called To Crit Value Called By Crit Value Read Back Blood Gas Notified Time Sodium 135 Potassium 6.2 H* D Chloride 108 H Carbon Dioxide 15 L Anion Gap 18 BUN 85 H Creatinine 3.2 H Est GFR ( Amer) 17 Est GFR (Non-Af Amer) 14 POC Glucose (mg/dL) 137 H Random Glucose 145 H Calcium 8.7 Total Bilirubin 0.5 AST 29 ALT 25 Alkaline Phosphatase 103 Total Protein 7.0 Albumin 3.6 Globulin 3.4 Albumin/Globulin Ratio 1.1 Lipase 12 L Arterial Blood Potassium Venous Blood Potassium B-Hydroxybutyrate 0.36 H 10/08/18 10/08/18 10/08/18 00:57 01:10 04:19 WBC RBC Hgb Hct MCV MCH MCHC RDW Plt Count MPV Neut % (Auto) Lymph % (Auto) [place] % (Auto) Eos % (Auto) Baso % (Auto) Neut # (Auto) Lymph # (Auto) [place] # (Auto) Eos # (Auto) Baso # (Auto) Neutrophils % (Manual) Band Neutrophils % Lymphocytes % (Manual) Monocytes % (Manual) Platelet Estimate Poikilocytosis (manual Anisocytosis (manual) PT 11.7 INR 1.1 APTT 26 Puncture Site pCO2 pO2 27 L HCO3 ABG pH ABG Total CO2 ABG O2 Saturation ABG Base Excess Eugene Test ABG Potassium VBG pH 7.17 L* VBG pCO2 40 VBG HCO3 12.8 VBG Total CO2 15.8 L VBG O2 Sat (Calc) 49.1 VBG Base Excess -13.3 L VBG Potassium 5.4 H A-a O2 Difference Respiratory Index Glucose 157 H Lactate 1.1 FiO2 Crit Value Called To Johnnie lin/rn Crit Value Called By Joselo durham/rt Crit Value Read Back Y Blood Gas Notified Time 120 Sodium 135.0 Potassium Chloride 106.0 Carbon Dioxide Anion Gap BUN Creatinine Est GFR ( Amer) Est GFR (Non-Af Amer) POC Glucose (mg/dL) 258 H Random Glucose Calcium Total Bilirubin AST ALT Alkaline Phosphatase Total Protein Albumin Globulin Albumin/Globulin Ratio Lipase Arterial Blood Potassium Venous Blood Potassium 5.4 H B-Hydroxybutyrate 10/08/18 10/08/18 10/08/18 04:35 04:55 07:17 WBC RBC Hgb Hct MCV MCH MCHC RDW Plt Count MPV Neut % (Auto) Lymph % (Auto) [place] % (Auto) Eos % (Auto) Baso % (Auto) Neut # (Auto) Lymph # (Auto) [place] # (Auto) Eos # (Auto) Baso # (Auto) Neutrophils % (Manual) Band Neutrophils % Lymphocytes % (Manual) Monocytes % (Manual) Platelet Estimate Poikilocytosis (manual Anisocytosis (manual) PT INR APTT Puncture Site pCO2 pO2 20 L 34 HCO3 ABG pH ABG Total CO2 ABG O2 Saturation ABG Base Excess Eugene Test ABG Potassium VBG pH 7.09 L* 7.08 L* VBG pCO2 39 L 35 L VBG HCO3 9.2 8.8 VBG Total CO2 13.0 L 11.5 L VBG O2 Sat (Calc) 32.6 L 66.7 H VBG Base Excess -17.3 L -18.7 L VBG Potassium 3.9 4.3 A-a O2 Difference Respiratory Index Glucose 276 H 316 H Lactate 3.1 H 2.7 H FiO2 Crit Value Called To Johnnie alberto medical orderlyjerilyn Engle rn 6t Crit Value Called By Rosemary patel rt Edmundo manrique [employer] restorer Crit Value Read Back Y Y Blood Gas Notified Time 505 720 Sodium 136 138.0 140.0 Potassium 4.2 Chloride 113 H 114.0 H 115.0 H Carbon Dioxide 12 L Anion Gap 16 BUN 77 H Creatinine 2.9 H Est GFR ( Amer) 19 Est GFR (Non-Af Amer) 16 POC Glucose (mg/dL) Random Glucose 263 H Calcium 7.7 L Total Bilirubin AST ALT Alkaline Phosphatase Total Protein Albumin Globulin Albumin/Globulin Ratio Lipase Arterial Blood Potassium Venous Blood Potassium 3.9 4.3 B-Hydroxybutyrate 10/08/18 08:39 WBC RBC Hgb Hct MCV MCH MCHC RDW Plt Count MPV Neut % (Auto) Lymph % (Auto) [place] % (Auto) Eos % (Auto) Baso % (Auto) Neut # (Auto) Lymph # (Auto) [place] # (Auto) Eos # (Auto) Baso # (Auto) Neutrophils % (Manual) Band Neutrophils % Lymphocytes % (Manual) Monocytes % (Manual) Platelet Estimate Poikilocytosis (manual Anisocytosis (manual) PT INR APTT Puncture Site Rba pCO2 26 L pO2 103 H HCO3 12.6 L ABG pH 7.21 L ABG Total CO2 11.2 L ABG O2 Saturation 99.1 H ABG Base Excess -15.8 L Eugene Test Na ABG Potassium 4.3 VBG pH VBG pCO2 VBG HCO3 VBG Total CO2 VBG O2 Sat (Calc) VBG Base Excess VBG Potassium A-a O2 Difference 14.0 Respiratory Index 0.1 Glucose 366 H Lactate 1.5 FiO2 21.0 Crit Value Called To Crit Value Called By Crit Value Read Back Blood Gas Notified Time Sodium 139.0 Potassium Chloride 118.0 H Carbon Dioxide Anion Gap BUN Creatinine Est GFR ( Amer) Est GFR (Non-Af Amer) POC Glucose (mg/dL) Random Glucose Calcium Total Bilirubin AST ALT Alkaline Phosphatase Total Protein Albumin Globulin Albumin/Globulin Ratio Lipase Arterial Blood Potassium 4.3 Venous Blood Potassium B-Hydroxybutyrate
[2018-10-08] MEDS: (Novolog) Insulin Aspart, Recombinant 100 u/ml 10 ml vial SC SCH ×3 (13:02→22:00)
[2018-10-08 20:49] LABS: CALCIUM 8.2 mg/dl (8.6-10.4)
--- NOTE | 2018-10-08 21:07 | CARD ---
APPROVED REPORT Date of service: 10/08/2018 EKG Measurement Heart [id number] <Conclusion> Normal sinus rhythm Possible Left atrial enlargement Right bundle branch block Inferior infarct, age undetermined Cannot rule out Anterior infarct, age undetermined Abnormal ECG
[2018-10-08] MEDS: Aztreonam 1 GM in Sodium Chloride 0.9% 100 ML IVPB SCH (22:01)
[2018-10-08 22:35] LABS: SQUAMOUS EPITHIAL < 1 /hpf (0-5); URINE BILIRUBIN NEGATIVE (NEGATIVE); URINE BLOOD 3+ (NEGATIVE); URINE CLARITY Hazy (Clear); URINE COLOR Yellow (YELLOW); URINE GLUCOSE (UA) 2+ mg/dL (Normal); URINE LEUKOCYTE ESTERASE 3+ Leu/uL (Negative); URINE PROTEIN 2+ mg/dL (NEGATIVE); URINE UROBILINOGEN NORMAL mg/dL (0.2-1.0); WBC CLUMPS MANY /hpf
[2018-10-08 22:43] LABS: URINE BACTERIA FEW (<OCC)
[2018-10-08 22:59] LABS: CREATININE, RANDOM URINE 32.2 mg/dL
[2018-10-09] MEDS: Sodium Bicarbonate 8.4% 150 MEQ in Dextrose 5% In Water 1,000 ML IV SCH
[2018-10-09] MEDS: Levothyroxine 25 MCG TAB PO SCH (06:34)
--- NOTE | 2018-10-09 06:41 | HP ---
HISTORY OF PRESENT ILLNESS: This is a 77-year-old female with history of multiple medical problems was in subacute rehabilitation when she started to feel nausea and she has decreased oral intake. The patient has generalized weakness associated with body aches and remarkable decrease of oral intake. The patient was brought to emergency room for evaluation where she was found to have acute kidney injury with metabolic acidosis and hyperkalemia. 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 Other review of system is negative. ALLERGIES: Positive for penicillin. MEDICATIONS: Reviewed and ordered as per MAR. SOCIAL HISTORY: No history of smoking, EtOH or substance abuse. FAMILY HISTORY: Noncontributory. PAST MEDICAL HISTORY: Coronary artery disease, status post coronary artery bypass graft, status post partial colectomy with colostomy bag in place, type 2 diabetes mellitus, hypothyroidism, hypertension. PHYSICAL EXAMINATION: GENERAL: The patient is not in any cardiopulmonary distress at the time of this examination. VITAL SIGNS: Blood pressure 128/63, temperature 97.8, respiratory rate 20, and pulse 119. HEENT: Blindness of both eyes. Normal-appearing mucosa. NECK: Supple. No JVD. No carotid bruit. No lymph node. No thyromegaly. CHEST AND LUNGS: Bilateral symmetrical expansion. Good air exchange. No rales, no rhonchi. CARDIOVASCULAR SYSTEM: PMI not localized. S1, S2. No additional sounds. ABDOMEN: Normoactive bowel sounds. No tenderness. No organomegaly. No masses. EXTREMITIES: Right BKA and no cyanosis, no clubbing, no edema. CENTRAL NERVOUS SYSTEM: Alert, awake, oriented x2. No neurological deficit could be appreciated. LABORATORY DATA: Blood work done in the emergency room revealed metabolic acidosis. ASSESSMENT: Acute renal failure with BUN of 85 and creatinine 3.2, hyperkalemia with potassium 6.2, history of type 2 diabetes mellitus, hypothyroidism, hypertension, legally blind. PLAN: We will give the patient IV fluid, sodium bicarbonate. Due to lactic acidosis, also we will start the patient empirically on antibiotics and we will follow urine culture and blood culture, renal consult. Keyla Washington MD [facility] # [id number]
[2018-10-09] MEDS: (Novolog) Insulin Aspart, Recombinant 100 u/ml 10 ml vial SC SCH ×4 (08:08→21:58)
--- NOTE | 2018-10-09 08:25 | CON ---
DATE: 10/08/2018 RENAL CONSULTATION LOCATED: Room 663, bed A. REQUESTED BY: Keyla Washington MD REASON FOR CONSULTATION: Hyperkalemia, metabolic acidosis, renal failure, and for further evaluation. HISTORY OF PRESENT ILLNESS: Mrs. Lovell is a 77-year-old elderly female with a past medical history significant for longstanding hypertension, diabetes for more than 20 years, coronary artery disease, status post CABG about 13 years ago, status post AICD and defibrillator placement, also chronic kidney disease with a baseline creatinine about 1.7 to 2, status post right partial colectomy with a colostomy, bilateral nephrolithiasis, and hyperlipidemia who presented to the emergency room with chief complaints of nausea, vomiting, and also copious amount of fluid in the colostomy bag for the last few days. Denies any fever or chills. Denies headache, dizziness, and also complains of lower back pain. The patient was found to be hypertensive in the emergency room, and the patient was given 2 L bolus IV fluids, and subsequently, given another liter on the floor. The patient is not in acute distress. The patient was treated for the hyperkalemia last night. The patient still complains of nausea and vomiting; vomiting mostly clear fluid. The patient is not in acute distress, slightly restless. PAST MEDICAL HISTORY: Significant for anemia, anxiety, arthritis, asthma, CAD, CHF, COPD, emphysema, diabetes, hypertension, hyperlipidemia, chronic kidney disease, and hypothyroidism. PAST SURGICAL HISTORY: Status post cholecystectomy, status post CABG and AICD placement, and status post right BKA. ALLERGIES: ALLERGY TO PIPERACILLIN. SOCIAL HISTORY: Denies any smoking, alcohol, or drug abuse. FAMILY HISTORY: Not significant. CURRENT MEDICATIONS: Include as follows: Azactam 1 g every 12 hours, Crestor 5 mg p.o. at bedtime, IV fluids D5W with 150 mEq sodium bicarbonate at 100 mL per hour, Flomax 0.4 mg p.o. daily, subcu heparin 5000 units every 12 hours, Plavix 75 mg p.o. daily, levothyroxine 25 mcg p.o. daily, Xanax 0.25 mg p.o. daily, Tylenol, and Zofran 4 mg IV every 8 hours p.r.n. REVIEW OF SYSTEMS: Significant for nausea, vomiting, back pain, and weakness. All other review of systems are reviewed and are negative. PHYSICAL EXAMINATION: VITAL SIGNS: Her blood pressure on admission to the emergency room 78/31, pulse 78, respirations 18, temperature 97.4, and saturation 97%. Height 5 feet 1 inch, weight is 125 pounds. GENERAL: Mrs. Lovell is a 77-year-old elderly female, moderately built, moderately nourished, not in acute distress. HEENT: Pupils are normal and reactive to light and accommodation. Conjunctivae pink. Sclerae anicteric. Tongue is moist. Trachea is midline. LUNGS: Symmetric on both sides. Bilateral breath sounds present. Clear to auscultation. CARDIOVASCULAR SYSTEM: [place] at the fifth intercostal space midclavicular line. S1 and S2 audible. No murmur. No gallop. The patient has a midsternal scar present from the previous CABG, and also the patient has AICD on the left subclavian region. ABDOMEN: Status post colostomy, status post right partial colectomy, and cholecystectomy scars present. Abdomen is soft and tympanitic. No guarding. No rigidity. No hepatosplenomegaly. CENTRAL NERVOUS SYSTEM: The patient is alert, awake, and oriented times 2 to 3. Sensory and motor system is grossly within normal limits. EXTREMITIES: No cyanosis, no clubbing, no edema in the left leg; status post BKA. LABORATORY DATA: Include as follows: As of 10/08/2018; WBC 10.2, hemoglobin 11.1, hematocrit is 34, and platelets 210. Neutrophils 79, bands 1, lymphs 10, monos 10. PT 11.7, PTT 26; and VBG, pH is 7.17, pCO2 40, bicarb is 12.8, and saturation 49%. Repeat VBG; pH 7, pCO2 of 35, bicarb is 8.8, and saturation is 66.7%. Other laboratory data on admission: Sodium 135, potassium 6.2, chloride 108, CO2 of 15, with anion gap of 12, BUN 85, creatinine 3.2, glucose 145, calcium 8.7. Total bili 0.5, AST 29, ALT 25, alkaline phosphatase 103, total protein 7, albumin 3.6. Repeat potassium this morning is 4.2, sodium 136, chloride 113, CO2 of 12, BUN 77, creatinine 2.6, glucose 263, and calcium 7.7. Anion gap is 11. Urinalysis as of 10/08/2018; yellow, hazy, pH 5, specific 112, protein 2+, glucose 2+, ketones negative, blood 3+, nitrites negative, bilirubin negative, urobilinogen normal, leukocyte esterase 3+, wbc's 739, rbc's 121, bacteria occasional, wbc's clumps many, squamous epithelial cells 1, yeast occasional, urine osmolality 412. Urine creatinine and urine sodium are pending. Beta hydroxybutyric acid is 0.36. Other reports as of 10/08/2018, chest x-ray, impression; degenerative changes in spine and shoulder, deformities of several left lateral thoracic ribs, small left pleural effusion with left basilar consolidative changes, mild patchy increased markings in the right infrahilar region, mild venous congestion, enlarged ectatic aorta with atherosclerotic calcification in the aortic valve, status post median sternotomy and CABG and cardiomegaly, left-sided pacemaker. CT of the pelvis as of 10/08/2018, impression; non-obstructing bilateral renal calcification was present. No evidence of acute displaced fracture or dislocation, wall thickening of the urinary bladder which may in part due to incomplete distention, however, correlation with urinalysis recommended to exclude the possibility of cystitis versus other intrinsic invasive lesion, right parasagittal colostomy. ASSESSMENT AND PLAN: In summary, Mrs. Lovell is a 77-year-old elderly female with history of longstanding hypertension, diabetes, hyperlipidemia, coronary artery disease, status post coronary artery bypass grafting, status post automatic implantable cardioverter defibrillator placement, status post cholecystectomy, status post right partial colectomy, status post right below knee amputation who was admitted with weakness, nausea, vomiting, and hypotension with copious amount of drainage from the colostomy and high potassium on admission with a baseline creatinine about 1.7 from the last admission. 1. Acute kidney injury on top of the chronic kidney disease stage 3. 2. Hyperchloremic metabolic acidosis, most likely secondary to colostomy. 3. Hyperkalemia. 4. Hypotension. 5. Continue IV fluids D5W with sodium bicarb 150 mEq at 100 mL/hour. The patient has a bicarb deficit about 350 mEq to correct the bicarb to about 20 to 22. Check urine cultures and also check urine lytes and osmolality, creatinine to calculate FENa and followup BMP in a.m. Case discussed with nurse practitioner in rounds. 6. Nephrolithiasis, non-obstructing. We will follow with you. Thank you for allowing me to participate in your patient's care. Rafael Krishna MD
[2018-10-09] MEDS: Aztreonam 1 GM in Sodium Chloride 0.9% 100 ML IVPB SCH ×2 (10:14→22:27)
[2018-10-09] MEDS ORDERED: Dextrose 50% SYRINGE Inj (50 ml) IV PRN (12:34)
[2018-10-09] MEDS ORDERED: Glucagon Recombinant 1 mg Inj IM PRN (12:34)
[2018-10-09 14:22] LABS: CALCIUM 7.9 mg/dl (8.6-10.4)
[2018-10-09] MEDS: Sodium Chloride 0.45% 1,000 ML IV SCH ×2 (14:26→22:29)
[2018-10-09] MEDS ORDERED: Potassium Chloride 20 mEq/15 ml LIQ UD PO ONE (15:45)
[2018-10-09] MEDS: (Lantus) Insulin Glargine, Recombinant SC SCH (22:28)
--- NOTE | 2018-10-10 00:05 | PN ---
DATE: 10/09/2018 SUBJECTIVE: The patient is seen today, 10/09/2018. She is not in any cardiopulmonary distress and was examined and the patient's daughter was at the bedside. PHYSICAL EXAMINATION: VITAL SIGNS: Blood pressure 119/70, temperature 97.9, respiratory rate 20, and pulse 97. HEENT: The patient has bilateral blindness. Normal-appearing mucosa of the conjunctivae, oropharynx, and nasal membrane mucosa. NECK: Supple. No JVD. No carotid bruit. No lymph node. No thyromegaly. CHEST AND LUNGS: Bilateral symmetrical expansion. Good air exchange. No rales, no rhonchi. CARDIOVASCULAR SYSTEM: PMI not localized. S1, S2. No additional sounds. ABDOMEN: Normoactive bowel sounds. No tenderness. No organomegaly. No masses. The patient's colostomy is in place EXTREMITIES: No cyanosis, no clubbing, no edema on the left lower extremity, but the patient has right BKA. SPANISH MEDICAL INTERPRETER: Alert, awake, oriented x2. Moves all extremities equally. LABORATORY DATA: Urinalysis showed wbcs more than 700 and urine culture is pending. ASSESSMENT: 1. Symptomatic urinary tract infection. 2. Acute on chronic kidney disease. 3. Hyperkalemia. PLAN: Continue IV fluid with sodium bicarb. Resume the patient's diabetes medications as the patient has hyperglycemia. Monitor electrolytes. Keyla Washington MD
[2018-10-10] MEDS: Levothyroxine 25 MCG TAB PO SCH (06:09)
[2018-10-10] MEDS: (Novolog) Insulin Aspart, Recombinant 100 u/ml 10 ml vial SC SCH ×4 (08:36→21:48)
[2018-10-10 08:58] LABS: CALCIUM 7.9 mg/dl (8.6-10.4)
[2018-10-10] MEDS: Aztreonam 1 GM in Sodium Chloride 0.9% 100 ML IVPB SCH ×2 (09:06→22:02)
[2018-10-10] MEDS: Sodium Chloride 0.45% 1,000 ML IV SCH (09:11)
--- NOTE | 2018-10-10 09:17 | CP.PCM.PN ---
Subjective - Date & Time of Evaluation Date of Evaluation: 10/10/18 Time of Evaluation: 09:17 - Subjective Subjective: pt is seen and examined, follow up consult is dictated #[id number] Objective - Vital Signs/Intake and Output Vital Signs (last 24 hours): Temp Pulse Resp BP Pulse Ox 99.0 F 95 H 18 112/58 L 97 10/10/18 07:40 10/10/18 07:40 10/10/18 07:40 10/10/18 07:40 10/10/18 07:40 Intake and Output: 10/10/18 10/10/18 06:59 18:59 Intake Total 2120 Output Total 1150 Balance 970 - Medications Medications: Current Medications Acetaminophen (Tylenol 325mg Tab) 650 mg PO Q6 PRN PRN Reason: Pain, moderate (4-7) Last Admin: 10/09/18 18:52 Dose: 650 mg Alprazolam (Xanax) 0.25 mg PO DAILY [facility] Stop: 10/15/18 10:01 Last Admin: 10/10/18 09:07 Dose: 0.25 mg Clopidogrel Bisulfate (Plavix) 75 mg PO DAILY [facility] Last Admin: 10/10/18 09:07 Dose: 75 mg Dextrose (Dextrose 50% Inj) 0 ml IV STAT PRN; Protocol PRN Reason: Hypoglycemia Protocol Dextrose (Glutose 15) 0 gm PO ONCE PRN; Protocol PRN Reason: Hypoglycemia Protocol Dextrose (Dextrose 50% Inj) 0 ml IV STAT PRN; Protocol PRN Reason: Hypoglycemia Protocol Dextrose (Glutose 15) 0 gm PO ONCE PRN; Protocol PRN Reason: Hypoglycemia Protocol Glucagon (Glucagen Diagnostic Kit) 0 mg IM STAT PRN; Protocol PRN Reason: Hypoglycemia Protocol Glucagon (Glucagen Diagnostic Kit) 0 mg IM STAT PRN; Protocol PRN Reason: Hypoglycemia Protocol Heparin Sodium (Porcine) (Heparin) 5,000 units SC Q12 [facility] Last Admin: 10/10/18 09:07 Dose: 5,000 units Dextrose (Dextrose 5% In Water 1000 Ml) 1,000 mls @ 0 mls/hr IV .Q0M PRN; Protocol PRN Reason: Hypoglycemia Protocol Aztreonam 1 gm/ Sodium (Chloride) 100 mls @ 100 mls/hr IVPB Q12 [facility]; Protocol Last Admin: 10/10/18 09:06 Dose: 100 mls/hr Dextrose (Dextrose 5% In Water 1000 Ml) 1,000 mls @ 0 mls/hr IV .Q0M PRN; Protocol PRN Reason: Hypoglycemia Protocol Sodium Chloride (Sodium Chloride 0.45%) 1,000 mls @ 100 mls/hr IV .Q10H [facility] Last Admin: 10/09/18 22:29 Dose: 100 mls/hr Insulin Aspart (Novolog) 0 unit SC [facility]; Protocol Last Admin: 10/10/18 08:36 Dose: 3 units Insulin Glargine (Lantus) 8 unit SC [facility] Last Admin: 10/09/18 22:28 Dose: Not Given Levothyroxine Sodium (Synthroid) 25 mcg PO DAILY@0630 [facility] Last Admin: 10/10/18 06:09 Dose: 25 mcg Ondansetron HCl (Zofran Inj) 4 mg IVP Q8 PRN PRN Reason: Nausea/Vomiting Last Admin: 10/09/18 18:51 Dose: 4 mg Repaglinide (Prandin) 0.5 mg PO TIDAC [facility] Last Admin: 10/10/18 08:36 Dose: 0.5 mg Rosuvastatin Calcium (Crestor) 5 mg PO [facility] Last Admin: 10/09/18 22:27 Dose: 5 mg Tamsulosin HCl (Flomax) 0.4 mg PO DAILY [facility] Last Admin: 10/10/18 09:07 Dose: 0.4 mg - Labs Labs: 10/08/18 00:57 10/10/18 08:25 PT 11.7 SECONDS (9.7-12.2) 10/08/18 00:57 INR 1.1 10/08/18 00:57 APTT 26 SECONDS (21-34) 10/08/18 00:57
[2018-10-10] MEDS: Naphazoline-Pheniramine Ophth Soln OP SCH (17:53)
[2018-10-10] MEDS: (Lantus) Insulin Glargine, Recombinant SC SCH (21:49)
[2018-10-11] MEDS: Sodium Chloride 0.45% 1,000 ML IV SCH ×2 (05:00→09:12)
[2018-10-11] MEDS: Levothyroxine 25 MCG TAB PO SCH (05:43)
[2018-10-11] MEDS: (Novolog) Insulin Aspart, Recombinant 100 u/ml 10 ml vial SC SCH ×4 (07:41→21:57)
[2018-10-11] MEDS: Aztreonam 1 GM in Sodium Chloride 0.9% 100 ML IVPB SCH ×2 (09:11→21:23)
[2018-10-11] MEDS: Naphazoline-Pheniramine Ophth Soln OP SCH ×2 (09:12→17:55)
--- NOTE | 2018-10-11 10:26 | CON ---
DATE: 10/10/2018 FOLLOWUP RENAL CONSULTATION LOCATION: The patient is located in room 663, bed A. REQUESTED BY: Keyla Washington MD REASON FOR FOLLOWUP: Acute renal failure, chronic kidney disease, metabolic acidosis, hyperkalemia, and dehydration. HISTORY OF PRESENT ILLNESS: Ms. Lovell is a 77-year-old elderly female with past medical history significant for longstanding hypertension, diabetes, coronary artery disease status post CABG, status post pacemaker placement, status post right partial colectomy, status post colostomy, status post cholecystectomy, legally blind, status post right BKA, was admitted with the chief complaint of feeling weak, nausea, vomiting, and watery diarrhea, copious amount of liquid stool in the colostomy bag. The patient claims this morning she had emptied the bag around 6 o'clock and from 6 to 9 o'clock again her colostomy bag was full with liquid, ____ watery. The patient is complaining of slight nausea, but no vomiting, no fever, no cough, no shortness of breath, no abdominal pain. PHYSICAL EXAMINATION: VITAL SIGNS: Blood pressure 112/58, pulse 95, respirations 18, temperature 99, and saturation 97%. Height 5 feet 1 inch and weight is 125 pounds. GENERAL: Ms. Lovell is a 77-year-old elderly female, moderately built, moderately nourished, not in distress. HEENT: Pupils are normal and reactive to light and accommodation. Conjunctivae pink. Sclerae anicteric. Legally blind. Tongue is moist. Trachea is midline. LUNGS: Symmetric on both sides. Bilateral breath sounds present. Clear to auscultation. CVS: [place] at the fifth intercostal space in the midclavicular area. S1, S2 audible. No murmur or gallop. ABDOMEN: Normal in appearance, soft, tympanitic. No guarding. No rigidity. No hepatosplenomegaly. The patient has a colostomy on the right side, full of liquid stool, very watery. MANAGER WIND: The patient is alert, awake, and oriented x3. Nonfocal neuro examination. Cranial nerves II through XII grossly intact. The patient is legally blind. EXTREMITIES: No cyanosis, no clubbing, no edema on the left leg. Status post right BKA. CURRENT MEDICATIONS: Include as follows; Azactam 1 g every 12 hours, Crestor 5 mg at bedtime, IV fluids half-normal saline at 100 mL per hour, Flomax 0.4 mg daily, subcu heparin 5000 every 12 hours, Lantus 8 units subcu at bedtime, Plavix 75 mg p.o. daily, Prandin 0.5 mg p.o. t.i.d., levothyroxine 25 mcg p.o. daily, Tylenol, Xanax, and Zofran. LABORATORY DATA: Include as follows: As of 10/10/2018; sodium 130, potassium 3.7, chloride 101, CO2 of 19, BUN 53, creatinine 2.9, glucose 220, calcium 7.9 and magnesium 1.5. Urine culture negative as of 10/08/2018 and blood culture x2 negative as of 10/08/2018. ASSESSMENT AND PLAN: In summary, Ms. Lovell is a 77-year-old elderly female with a history of hypertension, diabetes, coronary artery disease, hyperlipidemia, status post coronary artery bypass grafting, status post pacemaker, status post right below-knee amputation with right partial colectomy and colostomy with liquid stool. 1. Acute renal failure on chronic kidney disease most likely secondary to intravascular depletion secondary to diarrhea, nausea, and vomiting. 2. Metabolic acidosis secondary to colostomy. 3. Hypertension. 4. Diabetes. Continue intravenous fluids half-normal saline at 100 mL per hour. Continue monitoring BMP. Continue antibiotics as per Infectious Disease recommendations. We will follow with you. Thank you for allowing me to participate in your patient's care. Rafael Krishna MD
--- NOTE | 2018-10-11 13:02 | CP.PCM.PN ---
Subjective - Date & Time of Evaluation Date of Evaluation: 10/11/18 Time of Evaluation: 13:02 - Subjective Subjective: pt is seen and examined, follow up consult is dictated #[id number] c/w ivf, bmp in am ceron ivf ti 1.2 ns with 75 meq /lit at 100 ml/hr Objective - Vital Signs/Intake and Output Vital Signs (last 24 hours): Temp Pulse Resp BP Pulse Ox 98.0 F 82 18 137/66 94 L 10/11/18 07:40 10/11/18 11:30 10/11/18 07:40 10/11/18 07:40 10/11/18 07:40 Intake and Output: 10/11/18 10/11/18 06:59 18:59 Intake Total 920 Output Total 1200 350 Balance -280 -350 - Medications Medications: Current Medications Acetaminophen (Tylenol 325mg Tab) 650 mg PO Q6 PRN PRN Reason: Pain, moderate (4-7) Last Admin: 10/09/18 18:52 Dose: 650 mg Alprazolam (Xanax) 0.25 mg PO DAILY [facility] Stop: 10/15/18 10:01 Last Admin: 10/11/18 09:12 Dose: 0.25 mg Clopidogrel Bisulfate (Plavix) 75 mg PO DAILY [facility] Last Admin: 10/11/18 09:12 Dose: 75 mg Dextrose (Dextrose 50% Inj) 0 ml IV STAT PRN; Protocol PRN Reason: Hypoglycemia Protocol Dextrose (Glutose 15) 0 gm PO ONCE PRN; Protocol PRN Reason: Hypoglycemia Protocol Dextrose (Dextrose 50% Inj) 0 ml IV STAT PRN; Protocol PRN Reason: Hypoglycemia Protocol Last Admin: 10/11/18 06:56 Dose: 50 ml Dextrose (Glutose 15) 0 gm PO ONCE PRN; Protocol PRN Reason: Hypoglycemia Protocol Glucagon (Glucagen Diagnostic Kit) 0 mg IM STAT PRN; Protocol PRN Reason: Hypoglycemia Protocol Glucagon (Glucagen Diagnostic Kit) 0 mg IM STAT PRN; Protocol PRN Reason: Hypoglycemia Protocol Heparin Sodium (Porcine) (Heparin) 5,000 units SC Q12 [facility] Last Admin: 10/11/18 09:12 Dose: 5,000 units Dextrose (Dextrose 5% In Water 1000 Ml) 1,000 mls @ 0 mls/hr IV .Q0M PRN; Protocol PRN Reason: Hypoglycemia Protocol Aztreonam 1 gm/ Sodium (Chloride) 100 mls @ 100 mls/hr IVPB Q12 [facility]; Protocol Last Admin: 10/11/18 09:11 Dose: 100 mls/hr Dextrose (Dextrose 5% In Water 1000 Ml) 1,000 mls @ 0 mls/hr IV .Q0M PRN; Protocol PRN Reason: Hypoglycemia Protocol Sodium Chloride (Sodium Chloride 0.45%) 1,000 mls @ 100 mls/hr IV .Q10H [facility] Last Admin: 10/11/18 09:12 Dose: 100 mls/hr Insulin Aspart (Novolog) [address] [facility]; Protocol Last Admin: 10/11/18 12:08 Dose: Not Given Insulin Glargine (Lantus) 8 unit SC [facility] Last Admin: 10/10/18 21:49 Dose: Not Given Levothyroxine Sodium (Synthroid) 25 mcg PO DAILY@0630 [facility] Last Admin: 10/11/18 05:43 Dose: 25 mcg Naphazoline HCl/Pheniramine Maleate (Naphcon-A Opht) 0 ml OP BID [facility] Last Admin: 10/11/18 09:12 Dose: 2 drop Ondansetron HCl (Zofran Inj) 4 mg IVP Q8 PRN PRN Reason: Nausea/Vomiting Last Admin: 10/11/18 12:08 Dose: 4 mg Repaglinide (Prandin) 0.5 mg PO TIDAC [facility] Last Admin: 10/11/18 12:08 Dose: Not Given Rosuvastatin Calcium (Crestor) 5 mg PO HS [facility] Last Admin: 10/10/18 22:01 Dose: 5 mg Tamsulosin HCl (Flomax) 0.4 mg PO DAILY [facility] Last Admin: 10/11/18 09:12 Dose: 0.4 mg - Labs Labs: 10/08/18 00:57 10/10/18 08:25 PT 11.7 SECONDS (9.7-12.2) 10/08/18 00:57 INR 1.1 10/08/18 00:57 APTT 26 SECONDS (21-34) 10/08/18 00:57
[2018-10-11 17:43] LABS: CALCIUM 7.6 mg/dl (8.6-10.4)
[2018-10-11] MEDS: (Lantus) Insulin Glargine, Recombinant SC SCH (21:27)
--- NOTE | 2018-10-11 21:47 | PN ---
DATE: 10/10/2018 SUBJECTIVE: She was not in any cardiopulmonary distress. The patient denied to have any nausea or vomiting. PHYSICAL EXAMINATION: VITAL SIGNS: Blood pressure 115/71, temperature 98.2, respiratory rate 18 and pulse 90. HEENT: The patient has blindness of both eyes. NECK: Supple. No JVD. No carotid bruit. No lymph node. No thyromegaly. CHEST AND LUNGS: Bilateral symmetrical expansion. Good air exchange. No rales, no rhonchi. CARDIOVASCULAR: PMI not localized. S1, S2. No additional sounds. ABDOMEN: Normoactive bowel sounds. Colostomy in place. EXTREMITIES: The patient has right BKA and left lower extremity has no edema or cyanosis or clubbing. CENTRAL NERVOUS SYSTEM: Alert, awake, oriented x3 and moves all extremities equally. ASSESSMENT: Dehydration, acute on chronic kidney disease, status post hyperkalemia, type 2 diabetes mellitus, hypothyroidism, hypertension, coronary artery disease, status post coronary artery bypass graft, peripheral vascular disease, status post right below-knee amputation. PLAN: Continue current medications, IV fluids, sodium bicarbonate. Follow nephrology consultants. Keyla Washington MD
--- NOTE | 2018-10-12 00:26 | PN ---
DATE: 10/11/2018 SUBJECTIVE: She is not in any cardiopulmonary distress. PHYSICAL EXAMINATION VITAL SIGNS: Blood pressure 115/71, temperature 98.2, respiratory rate 18 and pulse 90. HEENT: Blindness of both eyes. NECK: Supple. No JVD. No carotid bruit. No lymph node. No thyromegaly. CHEST AND LUNGS: Bilateral symmetrical expansion. Good air exchange. No rales, no rhonchi. CARDIOVASCULAR SYSTEM: PMI not localized. S1, S2. No additional sounds. ABDOMEN: Colostomy is in place. EXTREMITIES: Right BKA. CENTRAL NERVOUS SYSTEM: Alert, awake, oriented x2. No neurological deficit could be appreciated. ASSESSMENT: [id number] kidney disease, dehydration, status post hyperkalemia, hyponatremia. PLAN: Follow Nephrology library sales consultant's recommendations. Continue current medications and management. Symptomatic treatment for nausea. Keyla Washington MD
--- NOTE | 2018-10-12 00:35 | PN ---
DATE: 10/11/2018 SUBJECTIVE: She is not in any cardiopulmonary distress. The patient is on normal saline. PHYSICAL EXAMINATION VITAL SIGNS: Blood pressure 120/66, temperature 98, respiratory rate 18 and pulse 80. HEENT: Blindness of both eyes. NECK: Supple. No JVD. No carotid bruit. No lymph node. No thyromegaly. CHEST AND LUNGS: Bilateral symmetrical expansion. Good air exchange. No rales, no rhonchi. CARDIOVASCULAR SYSTEM: PMI not localized. S1, S2. No additional sounds. ABDOMEN: Colostomy bag in place. EXTREMITIES: Right BKA. CENTRAL NERVOUS SYSTEM: Alert, awake, oriented x2. No neurological deficit could be appreciated. ASSESSMENT: [id number] kidney disease, dehydration, status post hyperkalemia, hyponatremia, type 2 diabetes mellitus, hypothyroidism. PLAN: Follow Nephrology recommendations. Continue current IV fluid. Monitor electrolytes. [facility] MD Felix
[2018-10-12] MEDS: Sodium Bicarbonate 8.4% 75 MEQ in Sodium Chloride 0.45% 925 ML IV SCH ×3 (00:41→19:51)
[2018-10-12] MEDS: Levothyroxine 25 MCG TAB PO SCH (05:43)
[2018-10-12 08:24] LABS: BASO % 0.2 % (0.0-2.0); EOS # 0.2 K/uL (0.0-0.7); EOS % 3.2 % (0.0-4.0); HEMOGLOBIN 9.6 g/dL (11.0-16.0); LYMPH # 0.7 K/uL (1.0-4.3); LYMPH % 13.8 % (20.0-40.0); MEAN CELL VOLUME 90.7 fL (81.0-99.0); MEAN CORPUSCULAR HEMOGLOBIN 30.9 pg (27.0-31.0); MEAN CORPUSCULAR HGB CONC 34.1 g/dL (33.0-37.0); MEAN PLATELET VOLUME 7.4 fL (7.2-11.7); MONO # 0.6 K/uL (0.0-0.8); NEUT # 3.3 K/uL (1.8-7.0); NEUT % 69.8 % (50.0-75.0); RBC 3.11 Mil/uL (3.80-5.20); RED CELL DISTRIBUTION WIDTH 13.1 % (11.5-14.5)
[2018-10-12] MEDS: (Novolog) Insulin Aspart, Recombinant 100 u/ml 10 ml vial SC SCH ×4 (08:24→21:42)
[2018-10-12 08:28] LABS: ALBUMIN 2.7 g/dL (3.5-5.0); CALCIUM 7.6 mg/dl (8.6-10.4)
[2018-10-12 08:29] LABS: WHITE BLOOD COUNT 4.8 K/uL (4.8-10.8)
[2018-10-12] MEDS: Naphazoline-Pheniramine Ophth Soln OP SCH ×2 (09:57→18:11)
[2018-10-12] MEDS: Aztreonam 1 GM in Sodium Chloride 0.9% 100 ML IVPB SCH ×2 (09:58→21:41)
--- NOTE | 2018-10-12 20:41 | PN ---
DATE: 10/12/2018 SUBJECTIVE: The patient is seen today, 10/12/2018. She is still feeling intermittent nausea and lower extremity pain. PHYSICAL EXANIMATION: VITAL SIGNS: Blood pressure is 129/55, temperature 98, respiratory rate 20 and pulse 79. HEENT: The patient is blind in both eyes. NECK: Supple. No JVD. No carotid bruit. No lymph node. No thyromegaly. CHEST AND LUNGS: Bilateral symmetrical expansion. Good air exchange. No rales, no rhonchi. CARDIOVASCULAR: PMI not localized. S1, S2. No additional sounds. ABDOMEN: Normoactive bowel sounds. No tenderness. No organomegaly. No masses. EXTREMITIES: Right BKA. CENTRAL NERVOUS SYSTEM: Alert, awake, and oriented x2. Moves all extremities equally. ASSESSMENT: [id number] kidney disease, hyperkalemia, peripheral vascular disease, status post right below-knee amputation, type 2 diabetes mellitus, hypothyroidism. PLAN: Continue current IV fluid. Follow image assembler recommendations. Accu-Cheks with insulin coverage. We will get orthopedic consult for the pain in the right hip region. Keyla Washington MD
[2018-10-12] MEDS: (Lantus) Insulin Glargine, Recombinant SC SCH (21:43)
[2018-10-13] MEDS: Levothyroxine 25 MCG TAB PO SCH (05:38)
[2018-10-13] MEDS: (Novolog) Insulin Aspart, Recombinant 100 u/ml 10 ml vial SC SCH ×4 (08:00→21:57)
[2018-10-13] MEDS: Aztreonam 1 GM in Sodium Chloride 0.9% 100 ML IVPB SCH ×2 (10:35→21:56)
[2018-10-13] MEDS: Naphazoline-Pheniramine Ophth Soln OP SCH ×2 (10:36→17:34)
--- NOTE | 2018-10-13 11:13 | PN ---
DATE: 10/11/2018 FOLLOWUP RENAL CONSULTATION LOCATION: The patient is located in room 663, bed A. REQUESTED BY: Keyla Washington MD REASON FOR FOLLOWUP: Acute renal failure, chronic kidney disease. HISTORY OF PRESENT ILLNESS: The patient is a 77-year-old elderly female with a past medical history significant for longstanding hypertension, diabetes, coronary artery disease, status post CABG, status post pacemaker, status post right partial colectomy and colostomy, and also right BKA, chronic kidney disease who was admitted with nausea, vomiting, decreased p.o. intake, and watery stool. The patient is not in acute distress. Claims occasional nausea but no vomiting today. No chest pain, no palpitation. No fever. No cough. No abdominal pain. PHYSICAL EXAMINATION: VITAL SIGNS: As follows: Blood pressure 137/66, pulse 86, respirations 18, temperature 98, and saturation 94%. Height 5 feet 1 inch, weight is 125 pounds. GENERAL: The patient is a 77-year-old elderly female, moderately built, moderately nourished, not in distress. Legally blind. HEENT: Pupils normal. Conjunctiva pink. Sclerae anicteric. Tongue is moist. Trachea is midline. LUNGS: Symmetric on both sides. Bilateral breath sounds present. Clear to auscultation. CARDIOVASCULAR SYSTEM: [place] at the fifth intercostal space, midclavicular line. S1, S2 audible. No murmur or gallop. ABDOMEN: The patient has a colostomy with liquid stool. Abdomen is soft, tympanitic. No guarding. No rigidity. No hepatosplenomegaly. CENTRAL NERVOUS SYSTEM: The patient is alert, awake, and oriented times 2 to 3. Sensory and motor system is grossly within normal limits. EXTREMITIES: No cyanosis, no clubbing, no edema on the left leg. Status post right BKA. CURRENT MEDICATIONS: Include as follows: Azactam 1 g every 12 hours, Crestor 5 mg p.o. at bedtime, Flomax 0.4 mg p.o. daily, subcu heparin 5000 units every 12 hours, Lantus 8 units subcu at bedtime, NovoLog for sliding scale, Plavix 75 mg p.o. daily, thiamine 0.5 mg p.o. t.i.d., IV fluids half-normal saline at 100 mL/hour, Synthroid 25 mcg daily, Tylenol, Xanax 0.25 mg p.o. daily, Zofran 4 mg IV every 8 hours p.r.n. LABORATORY DATA: Include as follows: As of 10/11/2018, sodium 127, potassium 3.7, chloride 117, BUN 58, creatinine 3.5, and calcium is 7.6. IMPRESSION: In summary, the patient is a 77-year-old elderly female with hypertension, diabetes, coronary artery disease, status post coronary artery bypass grafting, status post pacemaker, status post partial right colectomy and colostomy with liquid stool with nausea, vomiting, and decreased p.o. intake. 1. Hyponatremia, most likely secondary to gastrointestinal loss and intravascular depletion, cannot rule out secondary to hypotonic fluids. 2. Metabolic acidosis non-anion gap. 3. Acute on chronic kidney disease. PLAN: We will change IV fluids to half-normal saline with 75 mEq sodium bicarb 100 mL/hour, and continue to monitor BMP. We will follow with you. Thank you for allowing me to participate in your patient's care. Continue antibiotics as per ID recommendation. We will check BMP in a.m. Rafael Krishna MD
--- NOTE | 2018-10-13 11:13 | RAD ---
PROCEDURE: Right Hip and pelvis radiographs. HISTORY: Rt. hip pain COMPARISON: None. FINDINGS: BONES: Normal. No fracture. There is bony demineralization JOINTS: Normal. SOFT TISSUES: Normal. OTHER FINDINGS: None. IMPRESSION: No acute findings
--- NOTE | 2018-10-13 11:15 | RAD ---
Date of service: 10/13/2018 PROCEDURE: Right Femur Radiographs. HISTORY: right leg pain COMPARISON: None. TECHNIQUE: AP and Lateral Radiographs of the right femur. FINDINGS: FEMUR: Normal. No fracture. There has been previous amputation at the level of the proximal tibia. SOFT TISSUES: Normal. OTHER FINDINGS: None. IMPRESSION: No acute findings
--- NOTE | 2018-10-13 11:16 | RAD ---
Date of service: 10/13/2018 PROCEDURE: Right knee HISTORY: right leg pain COMPARISON: TECHNIQUE: Two views FINDINGS: Previous amputation at the level of the proximal tibia and fibula. Degenerative changes in the knee joint. No acute findings IMPRESSION: No acute findings
[2018-10-13 11:24] LABS: CALCIUM 7.6 mg/dl (8.6-10.4)
[2018-10-13] MEDS ORDERED: Sodium Chloride 0.9% 1,000 ML IV SCH (12:00)
--- NOTE | 2018-10-13 12:38 | CP.PCM.PN ---
Subjective - Date & Time of Evaluation Date of Evaluation: 10/13/18 Time of Evaluation: 12:38 - Subjective Subjective: pt is seen and examined, follow up consult is dictated #[id number] check bmp,po4, pth, vit d level, alb in am Objective - Vital Signs/Intake and Output Vital Signs (last 24 hours): Temp Pulse Resp BP Pulse Ox 98.2 F 80 20 145/74 97 10/13/18 07:20 10/13/18 07:30 10/13/18 07:20 10/13/18 07:20 10/13/18 07:20 Intake and Output: 10/13/18 10/13/18 06:59 18:59 Intake Total 1900 Output Total 900 Balance 1000 - Medications Medications: Current Medications Acetaminophen (Tylenol 325mg Tab) 650 mg PO Q6 PRN PRN Reason: Pain, moderate (4-7) Last Admin: 10/11/18 22:19 Dose: 650 mg Alprazolam (Xanax) 0.25 mg PO DAILY [facility] Stop: 10/15/18 10:01 Last Admin: 10/13/18 10:34 Dose: 0.25 mg Clopidogrel Bisulfate (Plavix) 75 mg PO DAILY [facility] Last Admin: 10/13/18 10:34 Dose: 75 mg Dextrose (Dextrose 50% Inj) 0 ml IV STAT PRN; Protocol PRN Reason: Hypoglycemia Protocol Dextrose (Glutose 15) 0 gm PO ONCE PRN; Protocol PRN Reason: Hypoglycemia Protocol Dextrose (Dextrose 50% Inj) 0 ml IV STAT PRN; Protocol PRN Reason: Hypoglycemia Protocol Last Admin: 10/11/18 06:56 Dose: 50 ml Dextrose (Glutose 15) 0 gm PO ONCE PRN; Protocol PRN Reason: Hypoglycemia Protocol Glucagon (Glucagen Diagnostic Kit) 0 mg IM STAT PRN; Protocol PRN Reason: Hypoglycemia Protocol Glucagon (Glucagen Diagnostic Kit) 0 mg IM STAT PRN; Protocol PRN Reason: Hypoglycemia Protocol Heparin Sodium (Porcine) (Heparin) 5,000 units SC Q12 [facility] Last Admin: 10/13/18 10:34 Dose: 5,000 units Dextrose (Dextrose 5% In Water 1000 Ml) 1,000 mls @ 0 mls/hr IV .Q0M PRN; Protocol PRN Reason: Hypoglycemia Protocol Aztreonam 1 gm/ Sodium (Chloride) 100 mls @ 100 mls/hr IVPB Q12 [facility]; Protocol Last Admin: 10/13/18 10:35 Dose: 100 mls/hr Sodium Chloride (Sodium Chloride 0.9%) 1,000 mls @ 100 mls/hr IV .Q10H [facility] Insulin Aspart (Novolog) 0 unit SC ACHS [facility]; Protocol Last Admin: 10/13/18 08:00 Dose: Not Given Insulin Glargine (Lantus) 8 unit SC HS [facility] Last Admin: 10/12/18 21:43 Dose: Not Given Levothyroxine Sodium (Synthroid) 25 mcg PO DAILY@0630 [facility] Last Admin: 10/13/18 05:38 Dose: 25 mcg Naphazoline HCl/Pheniramine Maleate (Naphcon-A Opht) 0 ml OP BID [facility] Last Admin: 10/13/18 10:36 Dose: 2 drop Ondansetron HCl (Zofran Inj) 4 mg IVP Q8 PRN PRN Reason: Nausea/Vomiting Last Admin: 10/12/18 03:36 Dose: 4 mg Repaglinide (Prandin) 0.5 mg PO TIDAC [facility] Last Admin: 10/13/18 08:14 Dose: 0.5 mg Rosuvastatin Calcium (Crestor) 5 mg PO HS [facility] Last Admin: 10/12/18 21:41 Dose: 5 mg Tamsulosin HCl (Flomax) 0.4 mg PO DAILY [facility] Last Admin: 10/13/18 10:34 Dose: 0.4 mg - Labs Labs: 10/12/18 07:59 10/13/18 10:58 PT 11.7 SECONDS (9.7-12.2) 10/08/18 00:57 INR 1.1 10/08/18 00:57 APTT 26 SECONDS (21-34) 10/08/18 00:57
[2018-10-13] MEDS: (Lantus) Insulin Glargine, Recombinant SC SCH (21:56)
--- NOTE | 2018-10-13 23:38 | CON ---
DATE: 10/13/2018 INPATIENT CONSULTATION REASON FOR CONSULTATION: Right lower extremity pain. Consult is as follows. HISTORY OF PRESENT ILLNESS: This is a 77-year-old female who was admitted five days ago for dehydration and renal insufficiency with complaints of right lower extremity pain. The patient states that she approximately two months ago had a fall, which actually injured her left side. She states in the left side, her pain has resolved, but she started having right lower extremity pain, which she states started after physical therapy. She states that she felt the physical therapist was too rough with her when she was at the rehab facility. PAST MEDICAL HISTORY: Significant for prior below-knee amputation on the right side. She does have a prosthesis, but she does not use it and is essentially nonambulatory and just does [id number] transfers. She denies any left lower extremity pain. She denies any right groin pain. She states that the pain that she feels is mostly in the back in the muscle part of her thigh. PHYSICAL EXAMINATION: GENERAL: This is an elderly female, in no apparent distress. She is awake, alert, and oriented x3. EXTREMITIES: Evaluation of the right lower extremity shows a right BKA. The stump appears to be healed and is nontender. She does have some tenderness above the knee and has some tenderness posteriorly in the area of her hamstrings. No obvious swelling is appreciated. Appears to be soft. There is no crepitus. She is able to actively flex the hip without any significant pain. With gentle passive internal and external rotation, there is no pain. Her sensation is intact. Evaluation of the left lower extremity again shows no pain with passive or active range of motion of the left lower extremity. There was no obvious deformity and no swelling or crepitus is appreciated. Grossly, she is neurovascularly intact. DIAGNOSTIC DATA: She had x-rays of the right hip, femur and knee, which showed no obvious fractures or dislocation. She had a CAT scan of the pelvis, which again showed no obvious fractures or dislocation. IMPRESSION AND PLAN: Right lower extremity pain. This appeared to be more soft tissue in origin and bony. I would recommend that we get a venous Doppler just to ensure that there is no deep venous thrombosis. For now, I would recommend physical therapy with modalities for her pain and pain medications as needed. We will follow up once the Doppler is complete. Glenn Whipple MD [facility] # [phone]
--- NOTE | 2018-10-14 00:50 | PN ---
DATE: 10/13/2018 SUBJECTIVE: The patient is seen today, 10/13/2018. She is still complaining of pain on the right hip region. OBJECTIVE: VITAL SIGNS: Blood pressure is 133/82, temperature 98, respiratory rate 20, and pulse 65. HEENT: The patient is blind in both eyes. NECK: Supple. No JVD. No carotid bruit. No lymph node. No thyromegaly. CHEST AND LUNGS: Bilateral symmetrical expansion. Good air exchange. No rales, no rhonchi. CARDIOVASCULAR SYSTEM: PMI not localized. S1, S2. No additional sounds. ABDOMEN: Normoactive bowel sounds. No tenderness. No organomegaly. No masses. Also colostomy bag is in place. EXTREMITIES: Right BKA and no edema or swelling of the left side. CENTRAL NERVOUS SYSTEM: Alert, awake, oriented x2; and moves all extremities equally. ASSESSMENT: Acute on chronic kidney disease, hyperkalemia, dehydration, symptomatic urinary tract infection, pain in the right femur, and hip area. PLAN: Follow the x-rays ordered and follow the orthopedic consults. Continue IV fluid. [facility] MD Felix
[2018-10-14] MEDS: Levothyroxine 25 MCG TAB PO SCH (05:37)
[2018-10-14] MEDS: (Novolog) Insulin Aspart, Recombinant 100 u/ml 10 ml vial SC SCH ×5 (08:08→22:28)
[2018-10-14 08:24] LABS: CALCIUM 7.7 mg/dl (8.6-10.4)
[2018-10-14] MEDS: Naphazoline-Pheniramine Ophth Soln OP SCH ×2 (09:29→17:19)
[2018-10-14] MEDS: Aztreonam 1 GM in Sodium Chloride 0.9% 100 ML IVPB SCH ×2 (09:29→22:11)
--- NOTE | 2018-10-14 11:50 | PN ---
DATE: 10/13/2018 FOLLOWUP RENAL CONSULTATION LOCATION: The patient is located in room 663, bed A. REQUESTED BY: Keyla Washington MD REASON FOR FOLLOWUP: Acute renal failure, chronic kidney disease, and for further evaluation. HISTORY OF PRESENT ILLNESS: The patient is a 77-year-old elderly female with a past medical history significant for longstanding hypertension, diabetes, coronary artery disease, status post CABG, status post pacemaker, status post right partial colectomy, status post colostomy, right BKA who was admitted with weakness, hypotension, increased BUN and creatinine, hyperkalemia, metabolic acidosis. The patient is feeling much better today, not in acute distress. Denies any chest pain or palpitation. Denies any fever or cough. No abdominal pain. No nausea, vomiting, or diarrhea. PHYSICAL EXAMINATION: VITAL SIGNS: As follows: Blood pressure this morning 145/74, pulse 81, respirations 20, temperature 98.2, saturation 97%. Height 5 feet 1 inch, weight is 125 pounds. GENERAL: The patient is a 77-year-old elderly female, legally blind, moderately built, moderately nourished, not in distress. HEENT: Pupils normal and reactive to light and accommodation. Conjunctivae pink. Sclerae anicteric. Tongue is moist. Trachea is midline. No thyroid enlargement. LUNGS: Symmetric on both sides. Bilateral breath sounds present. Clear to auscultation. CARDIOVASCULAR SYSTEM: [place] at the fifth intercostal space midclavicular line. S1, S2 audible. No murmur or gallop. ABDOMEN: Normal in appearance. The patient has a colostomy bag with watery stool. Abdomen is soft, tympanitic. No guarding. No rigidity. No hepatosplenomegaly. CENTRAL NERVOUS SYSTEM: The patient is alert, awake, and oriented times two to three. Sensory and motor system is within normal limits. EXTREMITIES: No cyanosis, no clubbing, no edema on the left leg; status post right BKA. CURRENT MEDICATIONS: Include as follows as Azactam 1 g every 12 hours, Crestor 5 mg at bedtime, IV fluids half-normal saline with 75 mEq sodium bicarb in each liter at 100 mL/hour, and subcu heparin every 12 hours, Plavix 75 mg daily, Prandin 0.5 mg p.o. t.i.d., Synthroid 25 mcg daily, Tylenol, alprazolam, and Zofran 4 mg IV daily. LABORATORY DATA: Include as follows: Sodium 129, potassium 3.8, chloride 101, CO2 of 19, BUN 59, creatinine 3.2, glucose 119, calcium 7.6. IMPRESSION: In summary, the patient is a 77-year-old elderly female with hypertension, diabetes, coronary artery disease, status post coronary artery bypass grafting, status post pacemaker, status post colostomy, and right below knee amputation, chronic kidney disease who was admitted with weakness and hypotension with hyperkalemia, metabolic acidosis. 1. Acute renal failure, on chronic kidney disease. 2. Metabolic acidosis secondary to gastrointestinal loss secondary to colostomy. 3. Hyponatremia, most likely secondary to gastrointestinal loss. Continue IV fluids D5W with 75 mEq sodium bicarb in each liter at 100 mL/hour. Repeat BMP in a.m. We will continue antibiotics as per ID recommendations. We will follow with you. Thank you for allowing me to participate in your patient's care and also check phosphorus and PTH intact level in a.m. Rafael Krishna MD
--- NOTE | 2018-10-14 12:07 | CP.PCM.PN ---
Subjective - Date & Time of Evaluation Date of Evaluation: 10/14/18 Time of Evaluation: 12:03 - Subjective Subjective: Patient complaining of right leg pain. She refused the doppler yesterday saying it caused too much pain. She says that she had a doppler about a week ago at [facility] that was normal. She told the RN that the test was 2 weeks ago. Exp lained to patient that she is still having pain and she could have developed new finding within the last 1-2 weeks, and that we still do not have an explanation for her pain, and that these tests are necessary. She still refused to allow doppler.Denies CP/SOB/dizziness Objective - Vital Signs/Intake and Output Vital Signs (last 24 hours): Temp Pulse Resp BP Pulse Ox 98.2 F 82 20 152/78 H 97 10/14/18 07:00 10/14/18 07:30 10/14/18 07:00 10/14/18 07:00 10/14/18 07:00 Intake and Output: 10/14/18 10/14/18 06:59 18:59 Intake Total 1100 Output Total 300 Balance 800 - Medications Medications: Current Medications Acetaminophen (Tylenol 325mg Tab) 650 mg PO Q6 PRN PRN Reason: Pain, moderate (4-7) Last Admin: 10/13/18 14:40 Dose: 650 mg Alprazolam (Xanax) 0.25 mg PO DAILY [facility] Stop: 10/15/18 10:01 Last Admin: 10/14/18 09:28 Dose: 0.25 mg Clopidogrel Bisulfate (Plavix) 75 mg PO DAILY [facility] Last Admin: 10/14/18 09:28 Dose: 75 mg Dextrose (Dextrose 50% Inj) 0 ml IV STAT PRN; Protocol PRN Reason: Hypoglycemia Protocol Dextrose (Glutose 15) 0 gm PO ONCE PRN; Protocol PRN Reason: Hypoglycemia Protocol Dextrose (Dextrose 50% Inj) 0 ml IV STAT PRN; Protocol PRN Reason: Hypoglycemia Protocol Last Admin: 10/11/18 06:56 Dose: 50 ml Dextrose (Glutose 15) 0 gm PO ONCE PRN; Protocol PRN Reason: Hypoglycemia Protocol Glucagon (Glucagen Diagnostic Kit) 0 mg IM STAT PRN; Protocol PRN Reason: Hypoglycemia Protocol Glucagon (Glucagen Diagnostic Kit) 0 mg IM STAT PRN; Protocol PRN Reason: Hypoglycemia Protocol Aztreonam 1 gm/ Sodium (Chloride) 100 mls @ 100 mls/hr IVPB Q12 [facility]; Protocol Last Admin: 10/14/18 09:29 Dose: 100 mls/hr Sodium Bicarbonate 75 meq/ (Sodium Chloride) 1,075 mls @ 100 mls/hr IV .[id number] [facility] Stop: 10/15/18 13:31 Last Admin: 10/14/18 04:04 Dose: 100 mls/hr Insulin Aspart (Novolog) 0 unit SC ACHS [facility]; Protocol Last Admin: 10/14/18 08:08 Dose: 1 units Insulin Glargine (Lantus) 8 unit SC [facility] Last Admin: 10/13/18 21:56 Dose: Not Given Levothyroxine Sodium (Synthroid) 25 mcg PO DAILY@0630 [facility] Last Admin: 10/14/18 05:37 Dose: 25 mcg Naphazoline HCl/Pheniramine Maleate (Naphcon-A Opht) 0 ml OP BID [facility] Last Admin: 10/14/18 09:29 Dose: 2 drop Ondansetron HCl (Zofran Inj) 4 mg IVP Q8 PRN PRN Reason: Nausea/Vomiting Last Admin: 10/12/18 03:36 Dose: 4 mg Repaglinide (Prandin) 0.5 mg PO TIDAC [facility] Last Admin: 10/14/18 08:09 Dose: 0.5 mg Rosuvastatin Calcium (Crestor) 5 mg PO HS [facility] Last Admin: 10/13/18 21:56 Dose: 5 mg Tamsulosin HCl (Flomax) 0.4 mg PO DAILY [facility] Last Admin: 10/14/18 09:29 Dose: 0.4 mg - Labs Labs: 10/12/18 07:59 10/14/18 07:47 PT 11.7 SECONDS (9.7-12.2) 10/08/18 00:57 INR 1.1 10/08/18 00:57 APTT 26 SECONDS (21-34) 10/08/18 00:57 - Constitutional Appears: Well, No Acute Distress - Neck Exam Neck Exam: Full ROM, Normal Inspection - Respiratory Exam Respiratory Exam: NORMAL BREATHING PATTERN - Cardiovascular Exam Additional comments: RLE warm, normal color - Extremities Exam Additional comments: still generalized TTP to RLE appears to tolerate exam better this visit - Neurological Exam Neurological Exam: Alert, Awake, Oriented x3 Neuro motor strength exam: Left Lower Extremity: 5 - Psychiatric Exam Psychiatric exam: Normal Affect, Normal Mood - Skin Skin Exam: Dry, Intact, Normal Color, Warm Assessment and Plan (1) Pain in right leg Assessment & Plan: patient refusing dopplers xrays negative RLE again encouraged patient to allow test PT/OT d/w Dr. Whipple, no orthopedic intervention indicated Status: Acute
--- NOTE | 2018-10-14 19:12 | CP.PCM.PN ---
Subjective - Date & Time of Evaluation Date of Evaluation: 10/14/18 Time of Evaluation: 19:11 - Subjective Subjective: pt is seen and examined, pedro tapia consult is dictated #[id number] c/w ivf 1/2 ns with 75 meq nahco3 at 100 ml/hr bmp in am Objective - Vital Signs/Intake and Output Vital Signs (last 24 hours): Temp Pulse Resp BP Pulse Ox 98.9 F 77 20 128/68 95 10/14/18 15:23 10/14/18 16:00 10/14/18 15:23 10/14/18 15:23 10/14/18 15:23 Intake and Output: 10/14/18 10/15/18 18:59 06:59 Intake Total 1250 Output Total 700 Balance 550 - Medications Medications: Current Medications Acetaminophen (Tylenol 325mg Tab) 650 mg PO Q6 PRN PRN Reason: Pain, moderate (4-7) Last Admin: 10/14/18 14:09 Dose: 650 mg Alprazolam (Xanax) 0.25 mg PO DAILY [facility] Stop: 10/15/18 10:01 Last Admin: 10/14/18 09:28 Dose: 0.25 mg Clopidogrel Bisulfate (Plavix) 75 mg PO DAILY [facility] Last Admin: 10/14/18 09:28 Dose: 75 mg Dextrose (Dextrose 50% Inj) 0 ml IV STAT PRN; Protocol PRN Reason: Hypoglycemia Protocol Dextrose (Glutose 15) 0 gm PO ONCE PRN; Protocol PRN Reason: Hypoglycemia Protocol Dextrose (Dextrose 50% Inj) 0 ml IV STAT PRN; Protocol PRN Reason: Hypoglycemia Protocol Last Admin: 10/11/18 06:56 Dose: 50 ml Dextrose (Glutose 15) 0 gm PO ONCE PRN; Protocol PRN Reason: Hypoglycemia Protocol Glucagon (Glucagen Diagnostic Kit) 0 mg IM STAT PRN; Protocol PRN Reason: Hypoglycemia Protocol Glucagon (Glucagen Diagnostic Kit) 0 mg IM STAT PRN; Protocol PRN Reason: Hypoglycemia Protocol Aztreonam 1 gm/ Sodium (Chloride) 100 mls @ 100 mls/hr IVPB Q12 [facility]; Protocol Last Admin: 10/14/18 09:29 Dose: 100 mls/hr Sodium Bicarbonate 75 meq/ (Sodium Chloride) 1,075 mls @ 100 mls/hr IV .[id number] [facility] Stop: 10/15/18 13:31 Last Admin: 10/14/18 17:20 Dose: 100 mls/hr Insulin Aspart (Novolog) 0 unit SC [facility]; Protocol Last Admin: 10/14/18 17:19 Dose: 4 units Insulin Glargine (Lantus) 8 unit SC [facility] Last Admin: 10/13/18 21:56 Dose: Not Given Levothyroxine Sodium (Synthroid) 25 mcg PO DAILY@0630 [facility] Last Admin: 10/14/18 05:37 Dose: 25 mcg Naphazoline HCl/Pheniramine Maleate (Naphcon-A Opht) 0 ml OP BID [facility] Last Admin: 10/14/18 17:19 Dose: 2 drop Ondansetron HCl (Zofran Inj) 4 mg IVP Q8 PRN PRN Reason: Nausea/Vomiting Last Admin: 10/12/18 03:36 Dose: 4 mg Repaglinide (Prandin) 0.5 mg PO TIDAC [facility] Last Admin: 10/14/18 16:43 Dose: 0.5 mg Rosuvastatin Calcium (Crestor) 5 mg PO [facility] Last Admin: 10/13/18 21:56 Dose: 5 mg Tamsulosin HCl (Flomax) 0.4 mg PO DAILY [facility] Last Admin: 10/14/18 09:29 Dose: 0.4 mg - Labs Labs: 10/12/18 07:59 10/14/18 07:47 PT 11.7 SECONDS (9.7-12.2) 10/08/18 00:57 INR 1.1 10/08/18 00:57 APTT 26 SECONDS (21-34) 10/08/18 00:57
[2018-10-14] MEDS: (Lantus) Insulin Glargine, Recombinant SC SCH (22:23)
[2018-10-15 01:29] VITALS: O2SAT 96
--- NOTE | 2018-10-15 03:15 | PN ---
DATE: 10/14/2018 SUBJECTIVE: The patient is seen today, 10/14/2018. The patient is awake and alert and still has pain and muscle spasm on the back of the right thigh. OBJECTIVE: VITAL SIGNS: Blood pressure is 128/68, temperature 98.8, respiratory rate 20, and pulse 83. HEENT: Pupils equal and reactive to light. Normal-appearing mucosa of the conjunctivae, oropharynx, and nasal membrane mucosa. NECK: Supple. No JVD. ABDOMEN: Colostomy bag in place. EXTREMITIES: Right BKA. CENTRAL NERVOUS SYSTEM: Alert, awake, oriented x3. Moves all extremities equally. ASSESSMENT: Acute on chronic kidney disease, gastroesophageal reflux disease. Followup orthopedic consult recommendation regarding the right hip pain. Physical therapy and plan to discharge to subacute rehabilitation. Ashley MD Felix
--- NOTE | 2018-10-15 05:00 | CON ---
DATE: 10/14/2018 FOLLOWUP RENAL CONSULTATION LOCATION: The patient is located in room 663, bed A. REQUESTED BY: Keyla Washington MD REASON FOR FOLLOWUP: Acute renal failure and chronic kidney disease. SUBJECTIVE: Mrs. Lovell is 77-year-old elderly, female with a past medical history significant for longstanding hypertension, diabetes, coronary artery disease status post CABG, status post pacemaker placement, status post right partial colectomy, status post ileostomy, and status post right BKA was admitted with nausea, vomiting, decreased p.o. intake, acidosis, and hyperkalemia. The patient is feeling much better now on IV fluids with half-normal saline with 75 mEq sodium bicarb. The patient is not in acute distress. Denies any headache or dizziness. Denies any chest pain or palpitation. Denies any fever or cough. No abdominal pain. No nausea, vomiting, or diarrhea. The patient has a liquid stool in the ileostomy. PHYSICAL EXAMINATION: VITAL SIGNS: As follows: Blood pressure 128/68, pulse 83, respiration 20, temperature 98.9, and saturation 95%. Height 5 feet 1 inch and weight is 125 pounds. GENERAL: Mrs. Lovell is a 77-year-old elderly female, moderately built, moderately nourished, not in any distress. Legally blind. HEENT: Pupils are normal and reactive to light and accommodation. Conjunctivae pink. Legally blind. Tongue is moist. Trachea is midline. LUNGS: Symmetric on both sides. Bilateral breath sounds present. Clear to auscultation. CVS: [place] at the fifth intercostal space, midclavicular line. S1, S2 audible. No murmur or gallop. ABDOMEN: Normal in appearance. The patient has ileostomy with liquid stool. Abdomen is soft. No hepatosplenomegaly. No abdominal bruit. ENGRAVER COPPERPLATE: The patient is alert, awake, and oriented x2-3. Sensory and motor system is within normal limits. Cranial nerve II through XII are grossly intact. EXTREMITIES: No cyanosis, no clubbing, no edema on the left leg, status post right BKA. CURRENT MEDICATIONS: Include as follows; Azactam 1 g every 12 hours, Crestor 5 mg p.o. at bedtime, Flomax 0.4 mg p.o. daily, baclofen 10 mg p.o. b.i.d., Lantus 8 units subcu at bedtime, NovoLog for sliding scale, Plavix 75 mg daily, IV fluids with half-normal saline with 75 mEq, sodium bicarb 100 mL/hour, levothyroxine 25 mcg daily, Xanax 0.25 mg p.o. daily, Tylenol, and Zofran. LABORATORY DATA: Include as follows: As of 10/14/2018; sodium 131, potassium 3.8, chloride 103, CO2 18, BUN 56, creatinine 2.9, glucose 177, calcium is 7, and phosphorus 4. ASSESSMENT: In summary, Mrs. Lovell is a [id number]ih[age] female with hypertension, diabetes, status post coronary artery bypass grafting, status post pacemaker, status post right below-knee amputation, status post ileostomy with nausea, vomiting was admitted for hyperkalemia, metabolic acidosis, and worsening renal function. 1. Acute renal failure, chronic kidney disease. Renal function is slowly improving. 2. Metabolic acidosis secondary to ileostomy with gastrointestinal loss. 3. Hypertension. 4. Diabetes. PLAN: Continue antibiotics as per ID recommendation. Continue all her current medications. Continue DVT prophylaxis, continue GI prophylaxis, and also continue IV fluids. Repeat BMP in a.m. We will follow with you. Thank you for allowing me to participate in your patient's care. Rafael Krishna MD
[2018-10-15] MEDS: Levothyroxine 25 MCG TAB PO SCH (05:32)
[2018-10-15] MEDS: (Novolog) Insulin Aspart, Recombinant 100 u/ml 10 ml vial SC SCH ×3 (08:25→16:51)
[2018-10-15] MEDS: Naphazoline-Pheniramine Ophth Soln OP SCH ×2 (10:49→18:07)
[2018-10-15] MEDS: Aztreonam 1 GM in Sodium Chloride 0.9% 100 ML IVPB SCH (10:51)
[2018-10-15 12:10] LABS: CALCIUM 7.6 mg/dl (8.6-10.4)
[2018-10-15 12:49] VITALS: PULSE 78
--- NOTE | 2018-10-15 14:56 | CP.PCM.PN ---
Subjective - Date & Time of Evaluation Date of Evaluation: 10/15/18 Time of Evaluation: 14:54 - Subjective Subjective: Patient states her leg is feeling better. Still refusing dopplers. Denies numbness/tingling/CP/SOB/dizziness. Review of Systems - Review of Systems All systems: reviewed and no additional remarkable complaints except - Musculoskeletal Musculoskeletal: As Par HPI - Integumentary Integumentary: As Per HPI - Neurological Neurological: As Per HPI Objective - Vital Signs/Intake and Output Vital Signs (last 24 hours): Temp Pulse Resp BP Pulse Ox 98.5 F 78 18 135/75 96 10/15/18 07:10 10/15/18 08:00 10/15/18 07:10 10/15/18 07:10 10/15/18 07:10 Intake and Output: 10/15/18 10/15/18 06:59 18:59 Intake Total 920 Balance 920 - Medications Medications: Current Medications Acetaminophen (Tylenol 325mg Tab) 650 mg PO Q6 PRN PRN Reason: Pain, moderate (4-7) Last Admin: 10/14/18 14:09 Dose: 650 mg Baclofen (Lioresal) 10 mg PO BID [facility] Last Admin: 10/15/18 10:50 Dose: 10 mg Clopidogrel Bisulfate (Plavix) 75 mg PO DAILY [facility] Last Admin: 10/15/18 10:50 Dose: 75 mg Dextrose (Dextrose 50% Inj) 0 ml IV STAT PRN; Protocol PRN Reason: Hypoglycemia Protocol Dextrose (Glutose 15) 0 gm PO ONCE PRN; Protocol PRN Reason: Hypoglycemia Protocol Dextrose (Dextrose 50% Inj) 0 ml IV STAT PRN; Protocol PRN Reason: Hypoglycemia Protocol Last Admin: 10/11/18 06:56 Dose: 50 ml Dextrose (Glutose 15) 0 gm PO ONCE PRN; Protocol PRN Reason: Hypoglycemia Protocol Glucagon (Glucagen Diagnostic Kit) 0 mg IM STAT PRN; Protocol PRN Reason: Hypoglycemia Protocol Glucagon (Glucagen Diagnostic Kit) 0 mg IM STAT PRN; Protocol PRN Reason: Hypoglycemia Protocol Heparin Sodium (Porcine) (Heparin) 5,000 units SC Q12 TANJA Last Admin: 10/15/18 10:51 Dose: 5,000 units Aztreonam 1 gm/ Sodium (Chloride) 100 mls @ 100 mls/hr IVPB Q12 TANJA; Protocol Last Admin: 10/15/18 10:51 Dose: 100 mls/hr Insulin Aspart (Novolog) 0 unit SC ACHS [facility]; Protocol Last Admin: 10/15/18 11:19 Dose: 2 units Insulin Glargine (Lantus) 8 unit SC [facility] Last Admin: 10/14/18 22:23 Dose: 8 units Levothyroxine Sodium (Synthroid) 25 mcg PO DAILY@0630 [facility] Last Admin: 10/15/18 05:32 Dose: 25 mcg Naphazoline HCl/Pheniramine Maleate (Naphcon-A Opht) 0 ml OP BID [facility] Last Admin: 10/15/18 10:49 Dose: 2 drop Ondansetron HCl (Zofran Inj) 4 mg IVP Q8 PRN PRN Reason: Nausea/Vomiting Last Admin: 10/12/18 03:36 Dose: 4 mg Repaglinide (Prandin) 0.5 mg PO TIDAC [facility] Last Admin: 10/15/18 11:20 Dose: 0.5 mg Rosuvastatin Calcium (Crestor) 5 mg PO [facility] Last Admin: 10/14/18 22:11 Dose: 5 mg Tamsulosin HCl (Flomax) 0.4 mg PO DAILY [facility] Last Admin: 10/15/18 10:51 Dose: 0.4 mg - Labs Labs: 10/12/18 07:59 10/15/18 10:58 PT 11.7 SECONDS (9.7-12.2) 10/08/18 00:57 INR 1.1 10/08/18 00:57 APTT 26 SECONDS (21-34) 10/08/18 00:57 - Constitutional Appears: Well, No Acute Distress - Head Exam Head Exam: ATRAUMATIC - Neck Exam Neck Exam: Full ROM, Normal Inspection - Respiratory Exam Respiratory Exam: NORMAL BREATHING PATTERN - Cardiovascular Exam Additional comments: leg warm - Extremities Exam Additional comments: no swelling or erythema, less tender today, tolerates sxam more - Neurological Exam Neurological Exam: Alert, Awake, Oriented x3 Neuro motor strength exam: Right Lower Extremity: 5 (moving right knee more today) - Psychiatric Exam Psychiatric exam: Normal Affect, Normal Mood - Skin Skin Exam: Dry, Intact, Normal Color, Warm Assessment and Plan (1) Pain in right leg Assessment & Plan: improving per patient refusing dopplers despite recommendation no orthopedic intervention indicated PT/OT d/w Dr. Whipple, agrees with above Status: Acute
[2018-10-15 16:12] VITALS: BP 138/58; RESP 20; TEMP 99
--- NOTE | 2018-10-16 06:22 | DS ---
REASON FOR ADMISSION: This is a 77-year-old female who is legally blind, was admitted through emergency room for uukho-us-ywjoakw kidney disease with dehydration and hyperkalemia. COURSE OF HOSPITALIZATION: The patient was admitted to medical floor and she was started on IV fluid. The patient was given also Kayexalate. The patient's potassium responded well and it remained within normal range. The patient also was given IV fluid and serum creatinine went down from 3.5 to 2.3. FINAL DIAGNOSES: Jdsca-ge-zmbrlem kidney disease, hyperkalemia, right lower extremity muscle spasm, type 2 diabetes mellitus, hypothyroidism, hypertension. [facility] MD Felix
== END 2018-10-15 18:19 | DRG 682 ==
LOC: C.ER 00:14 → C.6T 04:15
PROVIDERS: ADMIT Internal Medicine; ATTEND Internal Medicine
DX: N17.9 Acute kidney failure, unspecified (principal); E11.10 Type 2 diabetes mellitus with ketoacidosis without coma; E87.2 Acidosis; I13.0 Hypertensive heart and chronic kidney disease with heart failure and stage 1 through stage 4 chronic kidney disease, or unspecified chronic kidney disease; N39.0 Urinary tract infection, site not specified; E87.1 Hypo-osmolality and hyponatremia; N18.3 Chronic kidney disease, stage 3 (moderate); E87.5 Hyperkalemia; E87.8 Other disorders of electrolyte and fluid balance, not elsewhere classified; E86.0 Dehydration; E11.22 Type 2 diabetes mellitus with diabetic chronic kidney disease; Z79.4 Long term (current) use of insulin; I25.10 Atherosclerotic heart disease of native coronary artery without angina pectoris; H54.8 Legal blindness, as defined in USA; G54.6 Phantom limb syndrome with pain; I50.9 Heart failure, unspecified; J43.9 Emphysema, unspecified; K21.9 Gastro-esophageal reflux disease without esophagitis; N20.0 Calculus of kidney; Z86.73 Personal history of transient ischemic attack (TIA), and cerebral infarction without residual deficits; Z87.440 Personal history of urinary (tract) infections; Z87.442 Personal history of urinary calculi; Z87.891 Personal history of nicotine dependence; Z89.511 Acquired absence of right leg below knee; Z90.49 Acquired absence of other specified parts of digestive tract; Z93.2 Ileostomy status; E78.5 Hyperlipidemia, unspecified; E78.00 Pure hypercholesterolemia, unspecified; Z95.0 Presence of cardiac pacemaker; Z95.1 Presence of aortocoronary bypass graft; Z95.5 Presence of coronary angioplasty implant and graft; Z95.810 Presence of automatic (implantable) cardiac defibrillator

== ENCOUNTER 2018-11-03 09:46 | Inpatient (IN) | payer MEDICARE ==
[2018-11-03 09:46] VITALS: BMI 25.6
--- NOTE | 2018-11-03 10:50 | C.PDOC ---
History Of Present Illness 77 y/o female with PMH of CKD, HTN, CAD, Anemia, sent to ED by PMD from [place] for evaluation of abnormal labs. Creatinine was found to be elevated today in [place] during routine bloodwork, and patient was advised to seek evaluation in the ED. PT seen here multiple times for the same complaints, most recently discharged 10/16/18 after being admitted for UTI. Has no somatic complaints at this time. Denies fevers, chills, chest pain, SOB, abdominal pain, N/V/D, constipation, headache, dizziness, weakness, numbness, paresthesais, or any other associated complaints. Time Seen by Provider: 11/03/18 10:30 Chief Complaint (Nursing): Abnormal Labs History Per: Patient History/Exam Limitations: no limitations Past Medical History Vital Signs: Last Vital Signs Temp Pulse 98 H 11/03/18 10:07 Resp 20 11/03/18 10:07 BP 104/44 L 11/03/18 10:07 Pulse Ox - Medical History PMH: Anemia, Anxiety, Arthritis, Asthma, CAD, CHF, COPD, Diabetes, Emphysema, HTN, Hypercholesterolemia, Hyperlipidemia, Hyperthyroidism, Hypothyroidism, Chronic Kidney Disease Surgical History: CABG (x3), Cholecystectomy, Coronary Stent, Pacemaker - [facility] Procedures ATHERECTOMY OF OTHER NON-CORONARY VESSEL(S) (11/15/13) BELOW KNEE AMPUTAT NEC (11/15/13) CENTRAL VENOUS CATHETER PLACEMENT WITH GUIDANCE (05/05/14) CONTRAST ARTERIOGRAM-LEG (11/15/13) ENDOSCOPIC BIOPSY OF RECTUM (02/18/15) HEMODIALYSIS (02/18/15) INSERTION OF INFUSION DEV INTO R BASILIC VEIN, PERC APPROACH (10/08/18) NONEXCIS DEBRID OF WOUND, INFECT, OR BURN (11/15/13) OTHER ENDOSCOPY OF SM INTEST (02/18/15) PACKED CELL TRANSFUSION (11/15/13) PROCEDURE ON TWO VESSELS (11/15/13) VENOUS CATHETERIZATION FOR RENAL DIALYSIS (02/18/15) Family History: States: Unknown Family Hx - Social History Hx Tobacco Use: No Hx Alcohol Use: No Hx Substance Use: No - Immunization History Hx Tetanus Toxoid Vaccination: No Hx Influenza Vaccination: No Hx Pneumococcal Vaccination: Yes Review Of Systems Except As Marked, All Systems Reviewed And Found Negative. Constitutional: Negative for: Fever, Chills Eyes: Negative for: Vision Change ENT: Negative for: Nose Congestion Cardiovascular: Negative for: Chest Pain, Palpitations Respiratory: Negative for: Cough, Shortness of Breath Gastrointestinal: Negative for: Nausea, Vomiting, Abdominal Pain Genitourinary: Negative for: Dysuria, Frequency Musculoskeletal: Negative for: Neck Pain, Back Pain Skin: Negative for: Rash Neurological: Negative for: Weakness, Numbness, Altered Mental Status, Headache, Dizziness Physical Exam - Physical Exam Appears: Well, Non-toxic, No Acute Distress Skin: Normal Color, Warm, Dry Head: Atraumatic, Normacephalic, No Tenderness Eye(s): bilateral: Normal Inspection, PERRL, EOMI Nose: Normal Oral Mucosa: Moist Throat: Normal Neck: Normal, Normal ROM, Supple Cardiovascular: Rhythm Regular Respiratory: Normal Breath Sounds Gastrointestinal/Abdominal: Normal Exam, Bowel Sounds (normoactive), Soft, No Tenderness Back: Normal Inspection, No CVA Tenderness, No Vertebral Tenderness, No Paraspinal Tenderness Extremity: Normal ROM, Capillary Refill (<2s), Other (BKA right ) Extremity: Left: No Pedal Edema, Normal ROM, Bilateral: Normal Color And Temperature Pulses: Left Radial: Normal, Right Radial: Normal, Left Dorsalis Pedis: Normal Neurological/Psych: Oriented x3, Normal Speech, Normal Cognition, Normal Motor, Normal Sensation Gait: Unable To Assess ED Course And Treatment - Laboratory Results Result Diagrams: 11/03/18 11:20 11/03/18 11:20 ECG: Viewed By Me ECG Rhythm: Sinus Rhythm Interpretation Of ECG: Rate 87; NSR; Short RI, normal QT interval; RBBB; nonspecific ST/T wave changes, No STEMI Medical Decision Making Medical Decision Making: Initial Plan: * CBC, CMP * Coags * Troponin * UA, culture CMP: K 5,5 Creat 4.9 Kayexelate ordered, EKG ordered Troponin 0.[address] Washington who accepts patient for inpatient admission with diagnosis of acute on chronic kidney injury. Asks for consult from Dr. Ramirez, nephrology, IVF. Disposition - Disposition Disposition: HOSPITALIZED Disposition Time: 12:30 Condition: STABLE - Clinical Impression Clinical Impression: Bgmji-cm-qcjwbhy kidney injury, Hyperkalemia, Dehydration
[2018-11-03 11:33] LABS: BASO % 0.4 % (0.0-2.0); EOS # 0.1 K/uL (0.0-0.7); EOS % 2.2 % (0.0-4.0); HEMOGLOBIN 10.2 g/dL (11.0-16.0); LYMPH # 0.8 K/uL (1.0-4.3); LYMPH % 16.1 % (20.0-40.0); MEAN CELL VOLUME 90.5 fL (81.0-99.0); MEAN CORPUSCULAR HGB CONC 33.2 g/dL (33.0-37.0); MEAN PLATELET VOLUME 6.8 fL (7.2-11.7); MONO # 0.6 K/uL (0.0-0.8); MONO % 11.7 % (0.0-10.0); NEUT # 3.4 K/uL (1.8-7.0); NEUT % 69.6 % (50.0-75.0); RBC 3.4 Mil/uL (3.80-5.20); RED CELL DISTRIBUTION WIDTH 12.7 % (11.5-14.5); WHITE BLOOD COUNT 4.9 K/uL (4.8-10.8)
[2018-11-03 11:38] LABS: INR 1.1; PROTHROMBIN TIME 12.5 SECONDS (9.7-12.2)
[2018-11-03 12:06] LABS: ALBUMIN 3.6 g/dL (3.5-5.0); CALCIUM 8.7 mg/dl (8.6-10.4)
[2018-11-03] MEDS ORDERED: Sodium Chloride 0.9% 1,000 ML IV ONE (12:15)
[2018-11-03 13:06] LABS: TROPONIN I 0.039 ng/mL (0.00-0.120)
[2018-11-03] MEDS ORDERED: Sodium Chloride 0.9% 1,000 ML ONE (13:31)
[2018-11-03] MEDS ORDERED: Sod Polystyrene Sulf 15 gm/60 ml Susp ONE (13:31)
[2018-11-03] MEDS: Sodium Chloride 0.45% 1,000 ML IV SCH (17:48)
--- NOTE | 2018-11-03 19:46 | CP.PCM.CON ---
History of Present Illness - History of Present Illness History of Present Illness: pt is seen and examined, full consult is dictated #[id number] 1. [place] on ckd-3, 2. mild hyperkalemia 3. dehydration 4. dm 5. cad s/p cabg 6.htn/ with low bp this am sec to dehydration start ivf 1/2 ns at 100 ml/hr check urine lytes, osm, cr, u/a, c/s Past Patient History - Infectious Disease Hx of Infectious Diseases: None - Past Medical History & Family History Past Medical History?: Yes - Past Social History Smoking Status: Former Smoker - CARDIAC Hx Cardiac Disorders: Yes Hx Congestive Heart Failure: Yes Hx Hypercholesterolemia: Yes Hx Hypertension: Yes Hx Pacemaker: Yes - PULMONARY Hx Asthma: Yes Hx Chronic Obstructive Pulmonary Disease (COPD): Yes Hx Emphysema: Yes - NEUROLOGICAL Hx Neurological Disorder: Yes HX Cerebrovascular Accident: Yes - HEENT Hx HEENT Problems: Yes Hx Blind: Yes - RENAL Hx Chronic Kidney Disease: Yes - ENDOCRINE/METABOLIC Hx Endocrine Disorders: Yes Hx Hyperthyroidism: Yes Hx Hypothyroidism: Yes - HEMATOLOGICAL/ONCOLOGICAL Hx Blood Disorders: Yes Hx Anemia: Yes - INTEGUMENTARY Hx Dermatological Problems: No - MUSCULOSKELETAL/RHEUMATOLOGICAL Hx Musculoskeletal Disorders: Yes Hx Falls: Yes - GASTROINTESTINAL Hx Gastrointestinal Disorders: Yes Hx Bowel Surgery: Yes (ischemic bowel) Hx Colostomy: Yes Hx Ileostomy: Yes - GENITOURINARY/GYNECOLOGICAL Hx Genitourinary Disorders: Yes Hx Incontinence: Yes Hx Urinary Tract Infection: Yes - PSYCHIATRIC Hx Psychophysiologic Disorder: Yes Hx Anxiety: Yes Hx Substance Use: No - SURGICAL HISTORY Hx Surgeries: Yes Hx Cholecystectomy: Yes Hx Coronary Artery Bypass Graft: Yes (x3) Hx Coronary Stent: Yes - ANESTHESIA Hx Anesthesia: Yes Hx Anesthesia Reactions: No Hx Malignant Hyperthermia: No Has any member of the family had a problem w/ anesthesia?: No Meds Allergies/Adverse Reactions: Allergies Allergy/AdvReac Type Severity Reaction Status Date / Time piperacillin Allergy RASH Verified 10/16/18 20:43 tazobactam [From Zosyn] Allergy Verified 11/03/18 10:15 - Medications Medications: Current Medications Sodium Chloride (Sodium Chloride 0.45%) 1,000 mls @ 100 mls/hr IV .Q10H TANJA Last Admin: 11/03/18 17:48 Dose: 100 mls/hr Results - Vital Signs Recent Vital Signs: Last Vital Signs Temp 98.0 F 11/03/18 16:30 Pulse 83 11/03/18 16:54 Resp 20 11/03/18 16:30 BP 129/70 11/03/18 16:30 Pulse Ox 97 11/03/18 16:30 - Labs Result Diagrams: 11/03/18 11:20 11/03/18 11:20 Labs: Laboratory Results - last 24 hr 11/03/18 11/03/18 11/03/18 11:20 11:20 11:20 WBC 4.9 RBC 3.40 L Hgb 10.2 L Hct 30.7 L MCV 90.5 MCH 30.0 MCHC 33.2 RDW 12.7 Plt Count 303 MPV 6.8 L Neut % (Auto) 69.6 Lymph % (Auto) 16.1 L [place] % (Auto) 11.7 H Eos % (Auto) 2.2 Baso % (Auto) 0.4 Neut # (Auto) 3.4 Lymph # (Auto) 0.8 L [place] # (Auto) 0.6 Eos # (Auto) 0.1 Baso # (Auto) 0.0 PT 12.5 H INR 1.1 APTT 29 Sodium 133 Potassium 5.5 H Chloride 101 Carbon Dioxide 22 Anion Gap 15 BUN 55 H Creatinine 4.9 H Est GFR ( Amer) 10 Est GFR (Non-Af Amer) 9 POC Glucose (mg/dL) Random Glucose 244 H D Calcium 8.7 Total Bilirubin 0.4 AST 17 ALT 15 Alkaline Phosphatase 107 Troponin I 0.0390 Total Protein 7.1 Albumin 3.6 Globulin 3.5 Albumin/Globulin Ratio 1.0 11/03/18 17:00 WBC RBC Hgb Hct MCV MCH MCHC RDW Plt Count MPV Neut % (Auto) Lymph % (Auto) [place] % (Auto) Eos % (Auto) Baso % (Auto) Neut # (Auto) Lymph # (Auto) [place] # (Auto) Eos # (Auto) Baso # (Auto) PT INR APTT Sodium Potassium Chloride Carbon Dioxide Anion Gap BUN Creatinine Est GFR ( Amer) Est GFR (Non-Af Amer) POC Glucose (mg/dL) 208 H Random Glucose Calcium Total Bilirubin AST ALT Alkaline Phosphatase Troponin I Total Protein Albumin Globulin Albumin/Globulin Ratio
[2018-11-03] MEDS ORDERED: Magnesium Hydroxide Susp 30 ml UD PO PRN (22:16)
[2018-11-03] MEDS: (Lantus) Insulin Glargine, Recombinant SC SCH (22:58)
[2018-11-04] MEDS: Sodium Chloride 0.45% 1,000 ML IV SCH ×4 (03:00→22:23)
[2018-11-04] MEDS: Levothyroxine 25 MCG TAB PO SCH (06:30)
--- NOTE | 2018-11-04 06:35 | CON ---
DATE: 11/03/2018 RENAL CONSULTATION LOCATION: The patient is located in room 551, bed B. REQUESTED BY: Keyla Washington MD REASON FOR RENAL CONSULTATION: Acute renal failure, chronic kidney disease, hyperkalemia, and dehydration. HISTORY OF PRESENT ILLNESS: Mrs. Lovell is a 77-year-old elderly female with a past medical history significant for longstanding hypertension; diabetes; coronary artery disease, status post CABG, status post pacemaker placement; legally blind; chronic kidney disease, CKD 3 with baseline creatinine about 1.7 to 2; status post colon surgery; status post ileostomy; and also status post right BKA, who was recently admitted multiple times with acute renal failure and dehydration. The patient was recently discharged to skilled nursing about a week ago. Now, the patient was sent back from the skilled nursing with her altered mental status, decreased p.o. intake, and poor appetite. The patient is not in acute distress. Denies any chest pain or palpitation. Denies any fever or cough. No abdominal pain. No vomiting. The patient is feeling much better after starting IV fluids. PAST MEDICAL HISTORY: Significant for longstanding hypertension, diabetes, chronic kidney disease, coronary artery disease, legally blind, and diabetic retinopathy. PAST SURGICAL HISTORY: Status post CABG, status post pacemaker placement, status post right BKA, and also status post colon surgery and ileostomy. ALLERGIES: ALLERGIC TO ZOSYN. SOCIAL HISTORY: No smoking. No alcohol. No drugs. PERSONAL HISTORY: Not significant. She has a very supportive family. CURRENT MEDICATIONS: Include as follows: Crestor 5 mg at bedtime, Flomax 0.4 mg p.o. daily, Imdur 30 mg p.o. daily, Lantus 8 units subcu at bedtime, milk of magnesia, Naphcon ophthalmic drops, NovoLog per sliding scale, Pepcid 20 mg p.o. daily, Plavix 75 mg daily, Prandin 0.5 mg p.o. t.i.d., cholestyramine 4 g p.o. at bedtime, sodium bicarb tablets 650 mg p.o. b.i.d., and IV fluids half-normal saline at 100 mL per hour, Synthroid 25 mcg p.o. daily, Tylenol, Xanax, and Zofran. REVIEW OF SYSTEMS: Significant for decreased p.o. intake and altered mental status. All other review of systems are reviewed and are negative except watery stool in the ileostomy bag. PHYSICAL EXAMINATION: As follows: VITAL SIGNS: As of 11/03/2018, on admission, blood pressure 104/44, pulse 98, respirations 20, temperature 97.7, and saturation 98%. Height 5 feet 2 inches, weight is 130 pounds. GENERAL: Mrs. Lovell is a 77-year-old elderly female, moderately built, moderately nourished, not in acute distress with shrunken eyes and dry skin. HEENT: Conjunctivae pink. Sclerae anicteric. Legally blind. Tongue is dry. NECK: Trachea is midline. LUNGS: Symmetric on both sides. Bilateral breath sounds present. Clear to auscultation. CARDIOVASCULAR SYSTEM: [place] at the fifth intercostal space and midclavicular line. S1, S2 audible. No murmur. No gallop. The patient has a pacemaker and also a midsternal scar present from the previous CABG. ABDOMEN: Status post colon surgery and status post ileostomy. No guarding. No rigidity. The patient has liquid stool in the ileostomy bag. CENTRAL NERVOUS SYSTEM: The patient is more alert and awake compared to the admission this morning as per the patient's family. The patient is responding appropriately and following commands. Cranial nerves II through XII grossly intact except legally blind. Sensory system is within normal limits. Motor system is normal. EXTREMITIES: No cyanosis, no clubbing, no edema. Skin turgor is poor, status post right BKA. LABORATORY DATA: Include as follows: As of 11/03/2018, WBC 4.9, hemoglobin 10.2, hematocrit is 30.7, and platelets 303. PT 12.5, PTT 29. Sodium 133, potassium 5.5, chloride 101, CO2 22, BUN 55, creatinine 4.9, glucose 244, calcium 8.7. Total bili 0.4, AST 17, ALT 15, alkaline phosphatase 107. Troponin 0.039. Total protein 7.1, albumin is 3.6. ASSESSMENT: In summary, Mrs. Lovell is a 77-year-old elderly female with a history of hypertension, diabetes, hypothyroidism, coronary artery disease, status post coronary artery bypass grafting, status post pacemaker placement, status post colon surgery, status post ileostomy, right below-knee amputation, chronic kidney disease, was admitted with decreased oral intake, feeling nauseous, and altered mental status. 1. Acute renal failure on chronic kidney disease 3. 2. Dehydration. 3. Hyperkalemia secondary to acute renal failure, cannot rule out type 4 renal tubular acidosis. 4. Diabetes. 5. Hypertension. PLAN: Blood pressure is on the low side secondary to decreased intravascular volume, secondary to decreased oral intake. Continue intravenous fluids half-normal saline at 100 mL per hour and repeat basic metabolic panel in morning, and also check urine electrolytes, osmolality, creatinine, urine culture, and urinalysis. I discussed with the patient's grandson, Kennedy and also the patient's daughter, Rosemary, at bedside in length. Thank you for allowing me to participate in your patient's care. Also, discussed with the patient's daughter on the phone when she called the office this afternoon around 3 p.m. Consider surgical evaluation for evaluation of the ileostomy and for possible reversal. Rafael Krishna MD
[2018-11-04 06:56] LABS: CALCIUM 8.5 mg/dl (8.6-10.4)
--- NOTE | 2018-11-04 07:27 | HP ---
HISTORY OF PRESENT ILLNESS: This is a 77-year-old female with history of multiple medical problems who was in subacute rehabilitation at [facility]. The patient was noticed to have decline in mental status with decreased oral intake. The patient had a blood work done that showed increase of serum creatinine to 4.9, BUN 55, and potassium 5.5. The patient was brought to emergency room for evaluation where she was found to have acute on top of chronic renal failure. The patient's other review of systems is positive for generalized weakness and decreased oral intake. ALLERGIES: POSITIVE FOR PENICILLIN, PIPERACILLIN AND TAZOBACTAM. SOCIAL HISTORY: No history of smoking, EtOH, or substance abuse. FAMILY HISTORY: Not contributory. PAST MEDICAL HISTORY: Hypertension, coronary artery disease, status post coronary artery bypass graft, type 2 diabetes mellitus, hypothyroidism, peripheral vascular disease, status post right BKA. MEDICATIONS: As per MAR were reviewed and ordered. PHYSICAL EXAMINATION: GENERAL: The patient is in bed, not in any cardiopulmonary distress at the time of this examination. VITAL SIGNS: Blood pressure 129/70, temperature 98, respiratory rate 20, and pulse 85. HEENT: Blindness of both eyes. NECK: Supple. No JVD. No carotid bruit. No lymph node. No thyromegaly. CHEST AND LUNGS: Bilateral symmetrical expansion. Good air exchange. No rales, no rhonchi. CARDIOVASCULAR SYSTEM: PMI not localized. S1, S2. No additional sounds. ABDOMEN: Ileostomy is in place. No tenderness. No organomegaly. No masses. EXTREMITIES: No cyanosis, no clubbing, no edema on the left side; and right BKA. CENTRAL NERVOUS SYSTEM: Alert, awake, oriented x2. Moves all extremities equally. Blood work showed increase of BUN to 55, creatinine 4.5, potassium 5.5, hemoglobin 10.2. ASSESSMENT: Idnwd-vr-whtblic kidney disease, anemia of chronic disease, hyperkalemia, peripheral vascular disease, status post right below knee amputation, type 2 diabetes mellitus, hypothyroidism. PLAN: Start IV fluids. Renal consult. Follow recommendations. Resume patient's home medications. Accu-Cheks with insulin coverage as needed. Keyla Washington MD [facility] # [phone]
[2018-11-04 08:00] LABS: URINE BILIRUBIN NEGATIVE (NEGATIVE); URINE BLOOD 2+ (NEGATIVE); URINE CLARITY Turbid (Clear); URINE GLUCOSE (UA) NORMAL (Normal); URINE LEUKOCYTE ESTERASE 1+ Leu/uL (Negative); URINE PROTEIN 2+ mg/dL (NEGATIVE); URINE UROBILINOGEN NORMAL mg/dL (0.2-1.0)
[2018-11-04] MEDS: (Novolog) Insulin Aspart, Recombinant 100 u/ml 10 ml vial SC SCH ×4 (08:11→21:05)
[2018-11-04 08:12] LABS: URINE COLOR YELLOW (YELLOW)
[2018-11-04 08:13] LABS: SQUAMOUS EPITHIAL 2 /hpf (0-5); URINE BACTERIA MOD (<OCC)
[2018-11-04 08:14] LABS: URINE AMORPHOUS SEDIMENT MODERATE /ul (<OCC); WBC CLUMPS MANY /hpf
[2018-11-04] MEDS: Naphazoline-Pheniramine Ophth Soln OD SCH ×2 (09:28→17:39)
--- NOTE | 2018-11-04 12:00 | CARD ---
APPROVED REPORT Date of service: 11/03/2018 EKG Measurement Heart [id number] <Conclusion> Sinus rhythm with short KS Right bundle branch block Left anterior fascicular block Bifascicular block Inferior infarct, age undetermined Anterolateral infarct, age undetermined Abnormal ECG
--- NOTE | 2018-11-04 12:24 | CP.PCM.PN ---
Subjective - Date & Time of Evaluation Date of Evaluation: 11/04/18 Time of Evaluation: 12:24 - Subjective Subjective: pt is seen and examined, follow up consult is dictated #[id number] c/w ivf Objective - Vital Signs/Intake and Output Vital Signs (last 24 hours): Temp Pulse Resp BP Pulse Ox 97.3 F L 83 20 150/70 100 11/04/18 08:00 11/04/18 12:18 11/04/18 08:00 11/04/18 09:27 11/04/18 08:00 Intake and Output: 11/04/18 11/04/18 06:59 18:59 Intake Total 1400 Output Total 275 Balance 1125 - Medications Medications: Current Medications Acetaminophen (Tylenol 325mg Tab) 650 mg PO Q6 PRN PRN Reason: Pain, Mild (1-3) Alprazolam (Xanax) 0.25 mg PO BID PRN PRN Reason: Anxiety Stop: 11/10/18 22:17 Last Admin: 11/03/18 22:58 Dose: 0.25 mg Cholestyramine Resin (Prevalite) [address] [facility] Clopidogrel Bisulfate (Plavix) 75 mg PO DAILY [facility] Last Admin: 11/04/18 09:28 Dose: 75 mg Famotidine (Pepcid) 20 mg PO DAILY [facility] Last Admin: 11/04/18 09:28 Dose: 20 mg Heparin Sodium (Porcine) (Heparin) 5,000 units SC Q12 [facility] Last Admin: 11/04/18 09:28 Dose: 5,000 units Sodium Chloride (Sodium Chloride 0.45%) 1,000 mls @ 100 mls/hr IV .Q10H [facility] Last Admin: 11/04/18 03:00 Dose: 100 mls/hr Insulin Aspart (Novolog) 0 unit SC [facility]; Protocol Last Admin: 11/04/18 12:05 Dose: 3 units Insulin Glargine (Lantus) [address] [facility] Last Admin: 11/03/18 22:58 Dose: 8 units Isosorbide Mononitrate (Imdur Er) 30 mg PO DAILY [facility] Last Admin: 11/04/18 09:28 Dose: 30 mg Levothyroxine Sodium (Synthroid) 25 mcg PO DAILY@0630 [facility] Magnesium Hydroxide (Milk Of Magnesia) 30 ml PO Q24H PRN PRN Reason: Constipation Naphazoline HCl/Pheniramine Maleate (Naphcon-A Opht) 0 ml OD BID [facility] Last Admin: 11/04/18 09:28 Dose: 1 drop Ondansetron HCl (Zofran Odt) 4 mg PO Q6 PRN PRN Reason: Nausea/Vomiting Repaglinide (Prandin) 0.5 mg PO TIDAC [facility] Last Admin: 11/04/18 12:04 Dose: 0.5 mg Rosuvastatin Calcium (Crestor) 5 mg PO HS [facility] Last Admin: 11/03/18 22:58 Dose: 5 mg Sodium Bicarbonate (Sodium Bicarbonate Tab) 650 mg PO BID [facility] Last Admin: 11/04/18 09:28 Dose: 650 mg Tamsulosin HCl (Flomax) 0.4 mg PO DAILY [facility] Last Admin: 11/04/18 09:28 Dose: 0.4 mg - Labs Labs: 11/03/18 11:20 11/04/18 06:18 PT 12.5 SECONDS (9.7-12.2) H 11/03/18 11:20 INR 1.1 11/03/18 11:20 APTT 29 SECONDS (21-34) 11/03/18 11:20
[2018-11-04] MEDS: Cholestyramine 4 gm/5.5 gm UD Packet PO SCH (22:14)
[2018-11-04] MEDS: (Lantus) Insulin Glargine, Recombinant SC SCH (22:14)
--- NOTE | 2018-11-05 01:54 | PN ---
DATE: 11/04/2018 SUBJECTIVE: The patient is seen today, 11/04/2018. She is more awake and alert and on IV fluid. PHYSICAL EXAMINATION: VITAL SIGNS: Blood pressure 112/62, temperature 97.9, respiratory rate 20, and pulse 82. HEENT: Blindness of both eyes. NECK: Supple. No JVD. No carotid bruit. No lymph node. No thyromegaly. CHEST AND LUNGS: Bilateral symmetrical expansion. Good air exchange. No rales, no rhonchi. CARDIOVASCULAR SYSTEM: PMI not localized. S1, S2. No additional sounds. ABDOMEN: Ileostomy bag in place. EXTREMITIES: No cyanosis, no clubbing, no edema of the left lower extremity. Right BKA. CENTRAL NERVOUS SYSTEM: Alert, awake, oriented x2. Moves all extremities equally. ASSESSMENT: 1. [id number] kidney disease. 2. Type 2 diabetes mellitus. 3. Hypertension. 4. Coronary artery disease. PLAN: Continue IV fluid and follow Nephrology's recommendations. We will check urine culture. We will give sodium bicarbonate due to the low bicarbonate. Keyla Washington MD
[2018-11-05] MEDS: Levothyroxine 25 MCG TAB PO SCH (06:30)
[2018-11-05 07:26] LABS: BASO % 0.5 % (0.0-2.0); EOS # 0.2 K/uL (0.0-0.7); EOS % 3.7 % (0.0-4.0); HEMOGLOBIN 9.7 g/dL (11.0-16.0); LYMPH # 0.8 K/uL (1.0-4.3); LYMPH % 18.1 % (20.0-40.0); MEAN CELL VOLUME 89.7 fL (81.0-99.0); MEAN CORPUSCULAR HEMOGLOBIN 30.3 pg (27.0-31.0); MEAN CORPUSCULAR HGB CONC 33.8 g/dL (33.0-37.0); MEAN PLATELET VOLUME 6.9 fL (7.2-11.7); MONO # 0.6 K/uL (0.0-0.8); NEUT # 2.8 K/uL (1.8-7.0); NEUT % 63.7 % (50.0-75.0); NRBC % 0.1 % (0.0-2.0); RBC 3.19 Mil/uL (3.80-5.20); WHITE BLOOD COUNT 4.4 K/uL (4.8-10.8)
[2018-11-05 07:32] LABS: ALB/GLOB RATIO 0.9 (1.0-2.1); ALBUMIN 3.1 g/dL (3.5-5.0); CALCIUM 8.3 mg/dl (8.6-10.4)
[2018-11-05] MEDS: (Novolog) Insulin Aspart, Recombinant 100 u/ml 10 ml vial SC SCH ×4 (08:20→21:18)
--- NOTE | 2018-11-05 08:38 | PN ---
DATE: 11/04/2018 FOLLOWUP RENAL CONSULTATION LOCATION: The patient is located room 551, bed B. REQUESTED BY: Keyla Washington MD HISTORY OF PRESENT ILLNESS: The patient is a 77-year-old elderly female with a past medical history significant for longstanding hypertension, diabetes, diabetic retinopathy, coronary artery disease, status post CABG, status post pacemaker, and also status post left BKA, status post ileostomy who was admitted with decreased p.o. intake, altered mental status, worsening renal function, and hyperkalemia. The patient is feeling much better. The patient is on IV hydration half-normal saline at 100 mL/hour. No chest pain. No palpitation. No fever. No cough. No abdominal pain. No nausea, vomiting, or diarrhea. The patient has a liquid stool in the ileostomy bag. PHYSICAL EXAMINATION: VITAL SIGNS: As follows: Blood pressure 150/70, pulse 78, respirations about 20, temperature 97.9, saturation 100%. Height 5 feet 2 inches, weight is 129 pounds. GENERAL: The patient is a 77-year-old elderly female, moderately built, moderately nourished with sunken eyes. HEENT: Conjunctivae pink. Sclerae anicteric. Legally blind. Tongue is moist. Trachea is midline. LUNGS: Symmetric on both sides. Bilateral breath sounds present. Clear to auscultation. CARDIOVASCULAR SYSTEM: [place] at the fifth intercostal space midclavicular line. S1, S2 audible. No murmur or gallop. ABDOMEN: The patient has a ileostomy on the right side. Abdomen is soft and tympanitic. No guarding. No rigidity. No hepatosplenomegaly. CENTRAL NERVOUS SYSTEM: The patient is alert, awake, oriented times 2 to 3. Sensory and motor system is within normal limits. EXTREMITIES: No cyanosis, no clubbing, no edema on the left leg. The patient has right BKA. CURRENT MEDICATIONS: Include as follows: Crestor 5 mg at bedtime, Flomax 0.4 mg p.o. daily, subcu heparin 5000 units every 12 hours, Imdur 30 mg p.o. daily, Lantus 8 units subcu at bedtime, milk of magnesia 30 mL p.o. every 24 hours, famotidine 20 mg p.o. daily, Plavix 75 mg daily, Prandin 0.5 mg p.o. t.i.d., sodium bicarbonate 650 mg p.o. b.i.d., IV fluids half-normal saline at 100 mL/hour daily, Synthroid 25 mcg daily, Tylenol, Xanax 0.25 mg p.o. b.i.d., Zofran 4 mg p.o. every 6 hours p.r.n. LABORATORY DATA: Include as follows: As of 11/04/2018, sodium 132, potassium 4.9, chloride 104, CO2 of 17, BUN 51, creatinine 3.8, glucose 221, calcium 8.5. Urine is yellow, turbid, pH 5, specific gravity 1.033, protein 2+, glucose normal, ketones trace, blood 2+, nitrites negative, bilirubin negative, urobilinogen normal, leukocyte esterase 1+, wbc 900, rbc 3, WBC clumps many, and bacteria moderate. Urine is yeast. Urine creatinine is 217. Urine sodium is 275 and urine potassium is 79.8. IMPRESSION AND PLAN: In summary, the patient is a 77-year-old elderly female with a history of hypertension, diabetes, hypothyroidism, chronic kidney disease, coronary artery disease, status post coronary artery bypass graft, status post right colectomy, and also ileostomy, status post left below knee amputation who was admitted on multiple admissions in the last one month more than three times with altered mental status and dehydration. 1. Acute renal failure, on chronic kidney disease. Renal function is improving with hydration. Continue half normal saline 70 to 100 mL/hour. 2. Rule out urinary tract infection. 3. Hyperchloremic metabolic acidosis, most likely secondary to gastrointestinal loss from the ileostomy. We will increase sodium bicarbonate to 650 mg three times a day and repeat BMP in a.m. Consider Infectious Disease evaluation and antibiotic coverage as per Infectious Disease recommendation. We will follow with you. Thank you for allowing me to participate in your patient's care. Rafael Krishna MD
[2018-11-05] MEDS: Naphazoline-Pheniramine Ophth Soln OD SCH ×2 (09:43→18:04)
[2018-11-05] MEDS: Sodium Chloride 0.45% 1,000 ML IV SCH ×3 (10:40→18:31)
--- NOTE | 2018-11-05 11:47 | CP.PCM.PN ---
Subjective - Date & Time of Evaluation Date of Evaluation: 11/05/18 Time of Evaluation: 11:46 - Subjective Subjective: pt is seen and examined, follow up consult is dictated #[id number] Objective - Vital Signs/Intake and Output Vital Signs (last 24 hours): Temp Pulse Resp BP Pulse Ox 97.7 F 81 20 160/72 H 99 11/05/18 08:30 11/05/18 08:30 11/05/18 08:30 11/05/18 08:30 11/05/18 08:30 Intake and Output: 11/05/18 11/05/18 06:59 18:59 Intake Total 900 900 Output Total 800 1050 Balance 100 -150 - Medications Medications: Current Medications Acetaminophen (Tylenol 325mg Tab) 650 mg PO Q6 PRN PRN Reason: Pain, Mild (1-3) Alprazolam (Xanax) 0.25 mg PO BID PRN PRN Reason: Anxiety Stop: 11/10/18 22:17 Last Admin: 11/04/18 22:17 Dose: 0.25 mg Cholestyramine Resin (Prevalite) 4 gm PO [facility] Last Admin: 11/04/18 22:14 Dose: 4 gm Clopidogrel Bisulfate (Plavix) 75 mg PO DAILY [facility] Last Admin: 11/05/18 09:43 Dose: 75 mg Famotidine (Pepcid) 20 mg PO DAILY [facility] Last Admin: 11/05/18 09:43 Dose: 20 mg Heparin Sodium (Porcine) (Heparin) 5,000 units SC Q12 [facility] Last Admin: 11/05/18 09:43 Dose: 5,000 units Sodium Chloride (Sodium Chloride 0.45%) 1,000 mls @ 100 mls/hr IV .Q10H [facility] Last Admin: 11/05/18 10:40 Dose: 100 mls/hr Insulin Aspart (Novolog) 0 unit SC [facility]; Protocol Last Admin: 11/05/18 08:20 Dose: Not Given Insulin Glargine (Lantus) 8 unit SC [facility] Last Admin: 11/04/18 22:14 Dose: 8 units Isosorbide Mononitrate (Imdur Er) 30 mg PO DAILY [facility] Last Admin: 11/05/18 09:43 Dose: 30 mg Levothyroxine Sodium (Synthroid) 25 mcg PO DAILY@0630 [facility] Last Admin: 11/04/18 06:30 Dose: 25 mcg Magnesium Hydroxide (Milk Of Magnesia) 30 ml PO Q24H PRN PRN Reason: Constipation Naphazoline HCl/Pheniramine Maleate (Naphcon-A Opht) 0 ml OD BID [facility] Last Admin: 11/05/18 09:43 Dose: 1 drop Ondansetron HCl (Zofran Odt) 4 mg PO Q6 PRN PRN Reason: Nausea/Vomiting Repaglinide (Prandin) 0.5 mg PO TIDAC [facility] Last Admin: 11/05/18 07:43 Dose: 0.5 mg Rosuvastatin Calcium (Crestor) 5 mg PO HS [facility] Last Admin: 11/04/18 22:13 Dose: 5 mg Sodium Bicarbonate (Sodium Bicarbonate Tab) 650 mg PO BID [facility] Last Admin: 11/05/18 09:43 Dose: 650 mg Tamsulosin HCl (Flomax) 0.4 mg PO DAILY [facility] Last Admin: 11/05/18 09:43 Dose: 0.4 mg - Labs Labs: 11/05/18 07:04 11/05/18 07:04 PT 12.5 SECONDS (9.7-12.2) H 11/03/18 11:20 INR 1.1 11/03/18 11:20 APTT 29 SECONDS (21-34) 11/03/18 11:20
--- NOTE | 2018-11-05 21:12 | CP.PCM.CON ---
History of Present Illness - History of Present Illness History of Present Illness: dictated Past Patient History - Infectious Disease Hx of Infectious Diseases: None - Past Medical History & Family History Past Medical History?: Yes - Past Social History Smoking Status: Former Smoker - CARDIAC Hx Congestive Heart Failure: Yes Hx Hypertension: Yes - PULMONARY Hx Chronic Obstructive Pulmonary Disease (COPD): Yes - NEUROLOGICAL Hx Neurological Disorder: Yes HX Cerebrovascular Accident: Yes - HEENT Hx HEENT Problems: Yes Hx Blind: Yes - RENAL Hx Chronic Kidney Disease: Yes - ENDOCRINE/METABOLIC Hx Hyperthyroidism: Yes Hx Hypothyroidism: Yes - HEMATOLOGICAL/ONCOLOGICAL Hx Anemia: Yes - INTEGUMENTARY Hx Dermatological Problems: No - MUSCULOSKELETAL/RHEUMATOLOGICAL Hx Arthritis: Yes - GASTROINTESTINAL Hx Gastrointestinal Disorders: Yes Hx Bowel Surgery: Yes (ischemic bowel) Hx Colostomy: Yes Hx Ileostomy: Yes - GENITOURINARY/GYNECOLOGICAL Hx Genitourinary Disorders: Yes Hx Incontinence: Yes Hx Urinary Tract Infection: Yes - PSYCHIATRIC Hx Anxiety: Yes Hx Substance Use: No - SURGICAL HISTORY Hx Cholecystectomy: Yes Hx Coronary Artery Bypass Graft: Yes (x3) Hx Coronary Stent: Yes - ANESTHESIA Hx Anesthesia: Yes Hx Anesthesia Reactions: No Hx Malignant Hyperthermia: No Has any member of the family had a problem w/ anesthesia?: No Meds Allergies/Adverse Reactions: Allergies Allergy/AdvReac Type Severity Reaction Status Date / Time piperacillin Allergy RASH Verified 10/16/18 20:43 tazobactam [From Zosyn] Allergy Verified 11/03/18 10:15 - Medications Medications: Current Medications Acetaminophen (Tylenol 325mg Tab) 650 mg PO Q6 PRN PRN Reason: Pain, Mild (1-3) Alprazolam (Xanax) 0.25 mg PO BID PRN PRN Reason: Anxiety Stop: 11/10/18 22:17 Last Admin: 11/04/18 22:17 Dose: 0.25 mg Cholestyramine Resin (Prevalite) 4 gm PO HS [facility] Last Admin: 11/04/18 22:14 Dose: 4 gm Clopidogrel Bisulfate (Plavix) 75 mg PO DAILY [facility] Last Admin: 11/05/18 09:43 Dose: 75 mg Famotidine (Pepcid) 20 mg PO DAILY [facility] Last Admin: 11/05/18 09:43 Dose: 20 mg Heparin Sodium (Porcine) (Heparin) 5,000 units SC Q12 [facility] Last Admin: 11/05/18 09:43 Dose: 5,000 units Sodium Chloride (Sodium Chloride 0.45%) 1,000 mls @ 100 mls/hr IV .Q10H [facility] Last Admin: 11/05/18 18:31 Dose: Not Given Ciprofloxacin (Cipro 200mg/100ml D5w) 100 mls @ 67 mls/hr IVPB Q12H [facility]; Protocol Insulin Aspart (Novolog) 0 [facility]; Protocol Last Admin: 11/05/18 18:04 Dose: Not Given Insulin Glargine (Lantus) 8 unit SC [facility] Last Admin: 11/04/18 22:14 Dose: 8 units Isosorbide Mononitrate (Imdur Er) 30 mg PO DAILY [facility] Last Admin: 11/05/18 09:43 Dose: 30 mg Levothyroxine Sodium (Synthroid) 25 mcg PO DAILY@0630 [facility] Last Admin: 11/04/18 06:30 Dose: 25 mcg Magnesium Hydroxide (Milk Of Magnesia) 30 ml PO Q24H PRN PRN Reason: Constipation Naphazoline HCl/Pheniramine Maleate (Naphcon-A Opht) 0 ml OD BID [facility] Last Admin: 11/05/18 18:04 Dose: 1 drop Ondansetron HCl (Zofran Odt) 4 mg PO Q6 PRN PRN Reason: Nausea/Vomiting Repaglinide (Prandin) 0.5 mg PO TIDAC [facility] Last Admin: 11/05/18 17:59 Dose: 0.5 mg Rosuvastatin Calcium (Crestor) 5 mg PO [facility] Last Admin: 11/04/18 22:13 Dose: 5 mg Sodium Bicarbonate (Sodium Bicarbonate Tab) 650 mg PO TID [facility] Tamsulosin HCl (Flomax) 0.4 mg PO DAILY [facility] Last Admin: 11/05/18 09:43 Dose: 0.4 mg Results - Vital Signs Recent Vital Signs: Last Vital Signs Temp 97.8 F 11/05/18 16:13 Pulse 73 11/05/18 18:00 Resp 20 11/05/18 16:13 BP 106/58 L 11/05/18 16:13 Pulse Ox 97 11/05/18 16:13 - Labs Result Diagrams: 11/05/18 07:04 11/05/18 07:04 Labs: Laboratory Results - last 24 hr 0111/04/18 11/05/18 07:06 20:55 06:13 WBC RBC Hgb Hct MCV MCH MCHC RDW Plt Count MPV Neut % (Auto) Lymph % (Auto) [place] % (Auto) Eos % (Auto) Baso % (Auto) Neut # (Auto) Lymph # (Auto) [place] # (Auto) Eos # (Auto) Baso # (Auto) Sodium Potassium Chloride Carbon Dioxide Anion Gap BUN Creatinine Est GFR ( Amer) Est GFR (Non-Af Amer) POC Glucose (mg/dL) 205 H 139 H Random Glucose Calcium Total Bilirubin AST ALT Alkaline Phosphatase Total Protein Albumin Globulin Albumin/Globulin Ratio Urine Chloride 221 11/05/18 11/05/18 11/05/18 07:04 07:04 11:55 WBC 4.4 L RBC 3.19 L Hgb 9.7 L Hct 28.6 L MCV 89.7 MCH 30.3 MCHC 33.8 RDW 13.0 Plt Count 263 MPV 6.9 L Neut % (Auto) 63.7 Lymph % (Auto) 18.1 L [place] % (Auto) 14.0 H Eos % (Auto) 3.7 Baso % (Auto) 0.5 Neut # (Auto) 2.8 Lymph # (Auto) 0.8 L [place] # (Auto) 0.6 Eos # (Auto) 0.2 Baso # (Auto) 0.0 Sodium 128 L Potassium 5.0 Chloride 101 Carbon Dioxide 19 L Anion Gap 13 BUN 43 H Creatinine 3.1 H Est GFR ( Amer) 18 Est GFR (Non-Af Amer) 15 POC Glucose (mg/dL) 155 H Random Glucose 129 H D Calcium 8.3 L Total Bilirubin 0.3 AST 17 ALT 13 Alkaline Phosphatase 95 Total Protein 6.4 Albumin 3.1 L Globulin 3.4 Albumin/Globulin Ratio 0.9 L Urine Chloride 11/05/18 11/05/18 16:16 20:46 WBC RBC Hgb Hct MCV MCH MCHC RDW Plt Count MPV Neut % (Auto) Lymph % (Auto) [place] % (Auto) Eos % (Auto) Baso % (Auto) Neut # (Auto) Lymph # (Auto) [place] # (Auto) Eos # (Auto) Baso # (Auto) Sodium Potassium Chloride Carbon Dioxide Anion Gap BUN Creatinine Est GFR ( Amer) Est GFR (Non-Af Amer) POC Glucose (mg/dL) 107 249 H Random Glucose Calcium Total Bilirubin AST ALT Alkaline Phosphatase Total Protein Albumin Globulin Albumin/Globulin Ratio Urine Chloride
--- NOTE | 2018-11-05 21:14 | PN ---
DATE: 11/05/2018 FOLLOWUP RENAL CONSULTATION LOCATION: The patient is located in room 551, bed B. REQUESTED BY: Keyla Washington MD REASON FOR FOLLOWUP: Acute renal failure, chronic kidney disease. HISTORY OF PRESENT ILLNESS: Mrs. Lovell is a 77-year-old elderly female with a past medical history significant for longstanding hypertension, diabetes, chronic kidney disease, coronary artery disease, status post CABG, status post pacemaker, status post right colectomy and ileostomy, status post left BKA who was recently discharged from the [facility], and the patient was sent back to the [facility] with altered mental status and worsening renal function, decreased p.o. intake. The patient is not in acute distress. Denies any chest pain or palpitation. Denies any fever or cough. No abdominal pain. No nausea, vomiting, diarrhea. The patient claims still she has decreased p.o. intake. PHYSICAL EXAMINATION: VITAL SIGNS: As follows: Blood pressure 160/72, pulse 81, respirations 20, temperature 97.7, saturation 99%. Height 5 feet 3 inches and weight is 129 pounds. GENERAL: Mrs. Lovell is a 77-year-old elderly female, moderately built, moderately nourished, not in acute distress. HEENT: Pupils normal and reactive to light. Conjunctivae pink. Sclerae anicteric. The patient is legally blind. Tongue is moist. Trachea is midline. LUNGS: Symmetric on both sides. Bilateral breath sounds present. Clear to auscultation. CARDIOVASCULAR SYSTEM: [place] at the fifth intercostal space midclavicular line. S1, S2 audible. No murmur or gallop. ABDOMEN: Normal in appearance. The patient has ileostomy bag with semi-formed stool. CENTRAL NERVOUS SYSTEM: The patient is alert, awake, and oriented times two to three. Sensory and motor system is grossly within normal limits. EXTREMITIES: No cyanosis, no clubbing, no edema on the left side, status post right BKA. Left lower extremity is normal. CURRENT MEDICATIONS: Include ciprofloxacin 200 mg IV piggyback, Crestor 5 mg at bedtime, Flomax 0.4 mg p.o. daily, subcu heparin 5000 units every 12 hours, Imdur 30 mg p.o. daily, Lantus 8 units subcu at bedtime, milk of magnesia 30 mL p.o. every 24 hours, Pepcid 20 mg p.o. daily, Plavix 75 mg daily, cholestyramine 4 g p.o. at bedtime, sodium bicarb tablets 650 mg p.o. b.i.d., IV fluids half-normal saline at 100 mL/hour, levothyroxine 25 mcg p.o. daily, Tylenol and Xanax 0.25 mg p.o. at b.i.d., Zofran 4 mg p.o. every 6 hours p.r.n. LABORATORY DATA: Include as follows: As of 11/05/2018: WBC 4.4, hemoglobin 9.7, hematocrit is 28.6, platelets 263. Sodium 128, potassium is 4, chloride 101, CO2 of 19, BUN 43, creatinine 1.3, glucose 129, calcium 8.3, total bili 0.3, AST 17, ALT 13, alkaline phosphatase 95, total protein 6.4, albumin is 3.1. IMPRESSION: In summary, Mrs. Lovell is a 77-year-old elderly female with hypertension, diabetes, coronary artery disease, status post coronary artery bypass grafting, status post pacemaker, status post ileostomy, status post left below knee amputation who was admitted with worsening renal function and dehydration and decreased p.o. intake. 1. Acute renal failure on chronic kidney disease stage 3, secondary to intravascular depletion secondary to dehydration secondary to decreased p.o. intake. 2. Dehydration. 3. Metabolic acidosis secondary to renal failure and ileostomy. 4. Diabetes. 5. Urinary tract infection. Urine culture is positive for gram-negative rods. Request Infectious Disease consult with Dr. Tellez for further management of urinary tract infection. We will increase the sodium bicarbonate to 650 mg p.o. t.i.d. We will follow with you. Thank you for allowing me to participate in your patient's care. Rafael Krishna MD
[2018-11-05] MEDS: (Lantus) Insulin Glargine, Recombinant SC SCH ×2 (21:52→22:01)
[2018-11-05] MEDS: Cholestyramine 4 gm/5.5 gm UD Packet PO SCH (21:58)
[2018-11-06] MEDS: Levothyroxine 25 MCG TAB PO SCH (05:59)
[2018-11-06] MEDS: Sodium Chloride 0.45% 1,000 ML IV SCH ×2 (06:05→15:20)
--- NOTE | 2018-11-06 06:29 | CON ---
DATE: 11/05/2018 INFECTIOUS DISEASE CONSULTATION REQUESTED BY: Dr. Krishna and Dr. Washington. HISTORY OF PRESENT ILLNESS: This patient is a 77-year-old female. She has a history of chronic kidney disease. She is legally blind and has coronary artery disease, hypertension and anemia. She also had right BKA and was sent to the emergency room from the senior living with elevated creatinine which was noted on routine blood work. She has had multiple admissions here, and she was recently discharged on 10/16/2018 after being admitted for UTI. She was treated. She denies any fever, chills, chest pain, shortness of breath, abdominal pain, nausea, vomiting, diarrhea or any headache. No dizziness, no weakness, no numbness. She has no complaints at this time. She came in with abnormal labs and she was found to have UTI with gram-negative rods at this time. She does not have any fever, does have abnormal creatinine. PAST MEDICAL HISTORY: Significant for anemia, arthritis, asthma, coronary artery disease, COPD, CHF, diabetes mellitus, emphysema, hypertension, high cholesterol, hyperlipidemia, hypothyroidism and chronic kidney disease. PAST SURGICAL HISTORY: Significant for CABG x3, cholecystectomy. She also has a stent and pacemaker. She also has a colostomy. She had a right BKA. FAMILY HISTORY: Noncontributory. REVIEW OF SYSTEMS: She denied any fevers or chills. Denies any ear, nose or throat problem. Denies any congestion. No chest pain. No palpitations. No nausea. No vomiting. No abdominal pain. She wears a diaper as she has incontinence of urine; has no urgency or frequency or any discomfort when she passes urine. Denies any neck pain. No shortness of breath. No skin rashes. Neurologically, she has no new weakness or numbness. She is, however, legally blind. MEDICATIONS: She is on Tylenol, alprazolam and cholestyramine. I just started Cipro on a lower dose today as SHE IS ALLERGIC TO PENICILLIN, BUT SHE SAYS SHE MAY NOT BE ALLERGIC. We will see how things go with the urine culture tomorrow. Continue the Cipro unless Renal thinks it will worsen her creatinine. I have dosed it, however. She is on Plavix, Pepcid, heparin subcu, insulin, isosorbide, levothyroxine and magnesium. She is on pheniramine maleate, Zofran, Prandin, Crestor, sodium bicarbonate, IV fluids and tamsulosin. PHYSICAL EXAMINATION VITAL SIGNS: I find she is afebrile. T-max is 97.8, heart rate 75, blood pressure 106/58, respirations are 20. HEENT: Eyes are closed. Head is atraumatic and normocephalic. Tongue is dry. NECK. Supple. JVP is flat. LUNGS: Clear. No crackles or rales present. HEART: S1 and S2 regular. She has a pacemaker. ABDOMEN: Soft, nontender. There is a colostomy bag. It may be an ileostomy bag. There are two bags. EXTREMITIES: right BKA present. Left leg is unremarkable. LABORATORY DATA: Labs are noted. Labs show white count 4.4, hemoglobin 9.7, hematocrit 28.6, platelet count is 263. Her chemistry shows BUN 43, creatinine 3.1, sodium 128. ASSESSMENT AND PLAN: She does have significant renal insufficiency, and Renal is following. Her urine culture came out gram-negative rods. At this time, I have just put her on Cipro for tonight and we will change once ID and sensitivity is available. She remains with renal insufficiency and has hyponatremia. There is no chest x-ray done. Get a renal ultrasound done to make sure that this patient has no hydronephrosis, and we will follow with the renal attending. The patient is a diabetic. Teresa Tellez MD
[2018-11-06] MEDS: (Novolog) Insulin Aspart, Recombinant 100 u/ml 10 ml vial SC SCH ×4 (07:18→21:48)
[2018-11-06 07:45] LABS: ALB/GLOB RATIO 0.9 (1.0-2.1); ALBUMIN 2.9 g/dL (3.5-5.0)
[2018-11-06 07:51] LABS: BASO % 0.6 % (0.0-2.0); EOS # 0.2 K/uL (0.0-0.7); EOS % 3.9 % (0.0-4.0); HEMOGLOBIN 9.3 g/dL (11.0-16.0); LYMPH # 0.8 K/uL (1.0-4.3); LYMPH % 18.8 % (20.0-40.0); MEAN CELL VOLUME 88.8 fL (81.0-99.0); MEAN CORPUSCULAR HEMOGLOBIN 29.8 pg (27.0-31.0); MEAN CORPUSCULAR HGB CONC 33.6 g/dL (33.0-37.0); MEAN PLATELET VOLUME 6.9 fL (7.2-11.7); MONO # 0.5 K/uL (0.0-0.8); MONO % 11.9 % (0.0-10.0); NEUT # 2.9 K/uL (1.8-7.0); NEUT % 64.8 % (50.0-75.0); NRBC % 0.1 % (0.0-2.0); RBC 3.1 Mil/uL (3.80-5.20); RED CELL DISTRIBUTION WIDTH 12.9 % (11.5-14.5); WHITE BLOOD COUNT 4.4 K/uL (4.8-10.8)
--- NOTE | 2018-11-06 07:59 | PN ---
DATE: 11/05/2018 SUBJECTIVE: She was more awake and oral intake is fluctuating. PHYSICAL EXAMINATION: VITAL SIGNS: Blood pressure was 106/58, temperature 97.8, respiratory rate 20 and pulse 75. HEENT: Blindness of both eyes. NECK: Supple. No JVD. No carotid bruit. No lymph node. No thyromegaly. CHEST AND LUNGS: Bilateral symmetrical expansion. Good air exchange. No rales, no rhonchi. CARDIOVASCULAR: PMI not localized. S1, S2. No additional sounds. ABDOMEN: There is fluid in the ileostomy bag, but no tenderness or organomegaly. EXTREMITIES: Right BKA. CENTRAL NERVOUS SYSTEM: Alert, awake, oriented x2. No neurological deficit could be appreciated. LABORATORY DATA: Blood work done showed sodium 128, BUN 43, creatinine 3.1, potassium 5. 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 The patient was also started on Cipro. For gram-negative rods in the urine, pending the ID and sensitivity. Keyla Washington MD
[2018-11-06] MEDS ORDERED: Ciprofloxacin 200mg/100ml D5W 100 ML IVPB SCH (10:00)
--- NOTE | 2018-11-06 10:09 | US ---
Renal ultrasound HISTORY: Hydronephrosis. COMPARISON: CT scan dated 10/16/2017 TECHNIQUE: Real-time sonography was performed through the kidneys. FINDINGS: Right kidney: 10.3 x 4.4 x 3.8 centimeters. Moderate right renal hydronephrosis. Increased echogenicity of the renal parenchymal cortex suggestive for medical renal disease. Atherosclerotic calcification and plaque seen within the aorta which is otherwise grossly preserved. Left Kidney: 10.4 x 4.2 x 4.7 centimeters. Mild left renal hydronephrosis. Increased echogenicity of the renal parenchymal cortex suggestive for medical renal disease. Limited evaluation of the urinary bladder demonstrates echogenic debris seen within the urinary bladder posteriorly. Impression: 1. Moderate right and mild left renal hydronephrosis. 2. Increased echogenicity of the bilateral renal parenchymal cortices suggestive for medical renal disease. Clinical correlation. 3. Echogenic debris seen within the urinary bladder. Clinical correlation. Correlation with urinary bladder ultrasound and or cystoscopy may be helpful if clinically indicated.
[2018-11-06] MEDS: Naphazoline-Pheniramine Ophth Soln OD SCH ×2 (10:44→18:31)
[2018-11-06] MEDS: Meropenem 500 MG in Sodium Chloride 0.9% 100 ML IVPB SCH (11:11)
--- NOTE | 2018-11-06 11:16 | RAD ---
Chest x-ray single frontal view HISTORY: Admission film. COMPARISON: 10/16/2018 FINDINGS: Small left pleural effusion. Diffuse increased interstitial markings. Left basilar consolidation. Biapical pleural thickening with upper lobe granulomatous changes. Left-sided pacemaker. Status post median sternotomy and CABG. Atherosclerotic calcification at the aortic knob. Cardiomegaly. Degenerative changes in the spine and shoulders. IMPRESSION: Small left pleural effusion. Diffuse increased interstitial markings. Left basilar consolidation. Biapical pleural thickening with upper lobe granulomatous changes. Left-sided pacemaker. Status post median sternotomy and CABG. Atherosclerotic calcification at the aortic knob. Cardiomegaly.
--- NOTE | 2018-11-06 11:44 | CP.PCM.PN ---
Subjective - Date & Time of Evaluation Date of Evaluation: 11/06/18 Time of Evaluation: 11:43 - Subjective Subjective: pt is seen and examined, follow up consult is dictated #[id number] add lucia Objective - Vital Signs/Intake and Output Vital Signs (last 24 hours): Temp Pulse Resp BP Pulse Ox 98 F 81 20 126/74 96 11/06/18 08:05 11/06/18 10:59 11/06/18 08:05 11/06/18 10:59 11/06/18 08:05 - Medications Medications: Current Medications Acetaminophen (Tylenol 325mg Tab) 650 mg PO Q6 PRN PRN Reason: Pain, Mild (1-3) Alprazolam (Xanax) 0.25 mg PO BID PRN PRN Reason: Anxiety Stop: 11/10/18 22:17 Last Admin: 11/05/18 21:51 Dose: 0.25 mg Cholestyramine Resin (Prevalite) 4 gm PO [facility] Last Admin: 11/05/18 21:58 Dose: Not Given Clopidogrel Bisulfate (Plavix) 75 mg PO DAILY [facility] Last Admin: 11/06/18 10:43 Dose: 75 mg Famotidine (Pepcid) 20 mg PO DAILY [facility] Last Admin: 11/06/18 10:43 Dose: 20 mg Heparin Sodium (Porcine) (Heparin) 5,000 units SC Q12 [facility] Last Admin: 11/06/18 10:44 Dose: 5,000 units Sodium Chloride (Sodium Chloride 0.45%) 1,000 mls @ 100 mls/hr IV .Q10H [facility] Last Admin: 11/06/18 06:05 Dose: 100 mls/hr Meropenem 500 mg/ Sodium (Chloride) 100 mls @ 100 mls/hr IVPB Q24H [facility]; Protoco l Last Admin: 11/06/18 11:11 Dose: 100 mls/hr Insulin Aspart (Novolog) 0 unit SC [facility]; Protocol Last Admin: 11/06/18 07:18 Dose: Not Given Insulin Glargine (Lantus) 8 unit SC HS [facility] Last Admin: 11/05/18 22:01 Dose: Not Given Isosorbide Mononitrate (Imdur Er) 30 mg PO DAILY [facility] Last Admin: 11/06/18 10:43 Dose: 30 mg Levothyroxine Sodium (Synthroid) 25 mcg PO DAILY@0630 [facility] Last Admin: 11/06/18 05:59 Dose: 25 mcg Magnesium Hydroxide (Milk Of Magnesia) 30 ml PO Q24H PRN PRN Reason: Constipation Naphazoline HCl/Pheniramine Maleate (Naphcon-A Opht) 0 ml OD BID [facility] Last Admin: 11/06/18 10:44 Dose: 1 drop Ondansetron HCl (Zofran Odt) 4 mg PO Q6 PRN PRN Reason: Nausea/Vomiting Repaglinide (Prandin) 0.5 mg PO TIDAC [facility] Last Admin: 11/06/18 07:30 Dose: 0.5 mg Rosuvastatin Calcium (Crestor) 5 mg PO HS [facility] Last Admin: 11/05/18 21:58 Dose: 5 mg Sodium Bicarbonate (Sodium Bicarbonate Tab) 650 mg PO TID [facility] Last Admin: 11/06/18 10:43 Dose: 650 mg Tamsulosin HCl (Flomax) 0.4 mg PO DAILY [facility] Last Admin: 11/06/18 10:43 Dose: 0.4 mg - Labs Labs: 11/06/18 07:10 11/06/18 07:10 PT 12.5 SECONDS (9.7-12.2) H 11/03/18 11:20 INR 1.1 11/03/18 11:20 APTT 29 SECONDS (21-34) 11/03/18 11:20
--- NOTE | 2018-11-06 18:24 | CT ---
Date of service: 11/06/2018 PROCEDURE: CT HEAD WITHOUT CONTRAST. HISTORY: AMS COMPARISON: 05/02/2015. TECHNIQUE: Axial computed tomography images were obtained through the head/brain without intravenous contrast. Supplemental Coronal and Sagittal projections created and reviewed. Radiation dose: Total exam DLP = <inf_radiation_dlp> mGy-cm. This CT exam was performed using one or more of the following dose reduction techniques: Automated exposure control, adjustment of the mA and/or kV according to patient size, and/or use of iterative reconstruction technique. FINDINGS: HEMORRHAGE: No intracranial hemorrhage. BRAIN: No mass effect or edema. Cortical and cerebellar atrophy, periventricular small vessel disease. Cystic encephalomalacia change left occipital lobe. VENTRICLES: Unremarkable. No hydrocephalus. CALVARIUM: Unremarkable. PARANASAL SINUSES: Unremarkable as visualized. No significant inflammatory changes. MASTOID AIR CELLS: Unremarkable as visualized. No inflammatory changes. OTHER FINDINGS: Right ocular prosthesis again identified. IMPRESSION: No acute intracranial abnormalities. No significant findings to account for the clinical presentation. No significant interval change compared to the prior examination(s).
--- NOTE | 2018-11-06 18:57 | CP.PCM.PN ---
Subjective - Date & Time of Evaluation Date of Evaluation: 11/06/18 Time of Evaluation: 15:15 - Subjective Subjective: noted Objective - Vital Signs/Intake and Output Vital Signs (last 24 hours): Temp Pulse Resp BP Pulse Ox 98 F 80 20 92/60 L 96 11/06/18 16:43 11/06/18 16:43 11/06/18 16:43 11/06/18 16:43 11/06/18 16:43 - Medications Medications: Current Medications Acetaminophen (Tylenol 325mg Tab) 650 mg PO Q6 PRN PRN Reason: Pain, Mild (1-3) Alprazolam (Xanax) 0.25 mg PO BID PRN PRN Reason: Anxiety Stop: 11/10/18 22:17 Last Admin: 11/05/18 21:51 Dose: 0.25 mg Cholestyramine Resin (Prevalite) [address] [facility] Last Admin: 11/05/18 21:58 Dose: Not Given Clopidogrel Bisulfate (Plavix) 75 mg PO DAILY [facility] Last Admin: 11/06/18 10:43 Dose: 75 mg Famotidine (Pepcid) 20 mg PO DAILY [facility] Last Admin: 11/06/18 10:43 Dose: 20 mg Heparin Sodium (Porcine) (Heparin) 5,000 units SC Q12 [facility] Last Admin: 11/06/18 10:44 Dose: 5,000 units Sodium Chloride (Sodium Chloride 0.45%) 1,000 mls @ 100 mls/hr IV .Q10H [facility] Last Admin: 11/06/18 15:20 Dose: Not Given Meropenem 500 mg/ Sodium (Chloride) 100 mls @ 100 mls/hr IVPB Q24H [facility]; Protocol Last Admin: 11/06/18 11:11 Dose: 100 mls/hr Insulin Aspart (Novolog) 0 unit SC [facility]; Protocol Last Admin: 11/06/18 17:00 Dose: 3 units Insulin Glargine (Lantus) 8 unit SC HS [facility] Last Admin: 11/05/18 22:01 Dose: Not Given Isosorbide Mononitrate (Imdur Er) 30 mg PO DAILY [facility] Last Admin: 11/06/18 10:43 Dose: 30 mg Levothyroxine Sodium (Synthroid) 25 mcg PO DAILY@0630 [facility] Last Admin: 11/06/18 05:59 Dose: 25 mcg Magnesium Hydroxide (Milk Of Magnesia) 30 ml PO Q24H PRN PRN Reason: Constipation Naphazoline HCl/Pheniramine Maleate (Naphcon-A Opht) 0 ml OD BID [facility] Last Admin: 11/06/18 18:31 Dose: 1 drop Ondansetron HCl (Zofran Odt) 4 mg PO Q6 PRN PRN Reason: Nausea/Vomiting Repaglinide (Prandin) 0.5 mg PO TIDAC [facility] Last Admin: 11/06/18 17:00 Dose: 0.5 mg Rosuvastatin Calcium (Crestor) 5 mg PO HS [facility] Last Admin: 11/05/18 21:58 Dose: 5 mg Sodium Bicarbonate (Sodium Bicarbonate Tab) 650 mg PO TID [facility] Last Admin: 11/06/18 17:07 Dose: 650 mg Tamsulosin HCl (Flomax) 0.4 mg PO DAILY [facility] Last Admin: 11/06/18 10:43 Dose: 0.4 mg - Labs Labs: 11/06/18 07:10 11/06/18 07:10 PT 12.5 SECONDS (9.7-12.2) H 11/03/18 11:20 INR 1.1 11/03/18 11:20 APTT 29 SECONDS (21-34) 11/03/18 11:20
[2018-11-06] MEDS: (Lantus) Insulin Glargine, Recombinant SC SCH (21:17)
[2018-11-06] MEDS: Cholestyramine 4 gm/5.5 gm UD Packet PO SCH (21:17)
--- NOTE | 2018-11-06 22:30 | PQF ---
PROVIDER RESPONSE TEXT: Gram Negative UTI REVIEWER QUERY TEXT: Clarification of Clinical Diagnostic Findings Please clarify documentation or clinical relevance for the clinical / diagnostic findings or whether those are insignificant or unable to be further specified. The patient's Clinical Indicators include: ?77 y/o female by PMD from [place] for evaluation of abnormal labs. Creatinine was found to be elevated to day in [place] during routine bloodwork, and patient was advised to seek evaluation in the ED?. BUN: 55/51 - Crea: 4.9/3.8 - GFR: 08/05 - 10/09 Urine Exam: Urine Bacteria: Mod - Ur WBC: 900 - Ur RBC: 3 - Ur Leukocyte Esterase: 1+ - Ur WBC Clumps : Many - Ur Yeast: Rare. Urine Culture: GRAM NEGATIVE JESICA, COLONY COUNT, > 100,000 CFU/ML. Clinical Findings matching with Gram Negative UTI diagnosis, Please consider verify and document it, if agree. Query created by: Niko Cline on 11/05/2018 9:52 AM Electronically signed by: Keyla Washington MD 11/06/2018 10:28 PM
--- NOTE | 2018-11-07 00:12 | PN ---
DATE: 11/06/2018 INFECTIOUS DISEASE FOLLOWUP SUBJECTIVE: I went to see her as the urine culture came out that it was ESBL positive. Hence I had to switch to meropenem, and I went to see her after she had received the dose. She says the nurse told her if she had any itching or any rash to tell her but she did not and she tolerated it well, so we will continue meropenem and her daughter was there and she wanted to know how she got ESBL in the urine. I had to tell her that may be she has had frequent antibiotics and hospitalization, and she is incontinent of urine sometimes. She wears a diaper. There can be multiple causes and she is diabetic, maybe poor sugar control, and she was not ready to listen to this. Anyway, the patient has tolerated the meropenem. PHYSICAL EXAMINATION: VITAL SIGNS: T-max is 98.8, pulse 80. She did have a sonogram done. Blood pressure right now is 92/60, however; respirations are 20, not sure why her blood pressure is low but she had no complaints when I saw. HEENT: Head is atraumatic and normocephalic. She is blind. She, however, communicates well. NECK: Supple. LUNGS: Clear. HEART: S1, S2. Regular. ABDOMEN: Soft, nontender. No guarding, no rigidity present. She has this colostomy which always has liquidy urine which is expected if she has had extensive colon surgery. EXTREMITIES: She has BKA and other extremity appears to be unremarkable. Labs are noted. Labs show white count is 4.4 today, hemoglobin 9.3, hematocrit 27.5, platelet count is 242. Anion gap is 13, BUN is 38, creatinine is 2.2, is decreasing, and Renal is following, and we are following. The urine had Escherichia coli which is extended-spectrum beta-lactamases, and she is in contact precaution, and the daughter was asking how long she has had this and the culture reports which I have from last admission were reviewed, and I do not find any urine culture positive recently, so I had to tell her that this was new, and at this time, we will continue with the Merrem to treat for urinary tract infection. She also had a renal ultrasound done which shows moderate right and mid left renal hydronephrosis, increased echogenicity of bilateral renal parenchyma suggestive of medical renal disease. Clinical correlation. Echogenic debris seen within the urinary bladder. Clinical correlation with urinary bladder ultrasound and cystoscopy may be helpful if clinically indicated. Now, the right kidney has moderate right renal hydronephrosis, increased echogenicity and also mild left renal hydronephrosis, so we will need to review if she has had chronic hydronephrosis and that is why she is back with urinary tract infections and if she has been followed by urologist in the past, we will follow. Teresa Tellez MD
--- NOTE | 2018-11-07 01:35 | PN ---
DATE: 11/06/2018 FOLLOWUP RENAL CONSULTATION LOCATION: The patient is located in room 551, bed B. REQUESTED BY: Keyla Washington MD REASON FOR FOLLOWUP: Acute renal failure, chronic kidney disease, metabolic acidosis. SUBJECTIVE: Mrs. Lovell is a 77-year-old elderly female with a past medical history significant for longstanding hypertension, diabetes, coronary artery disease, status post CABG, status post pacemaker placement, status post right colectomy and ileostomy, status post right BKA, who was admitted from the correction with altered mental status, worsening renal function, hyperkalemia, and metabolic acidosis. The patient is feeling much better on IV fluids. No chest pain, no palpitation. No fever. No cough. No abdominal pain. No nausea, vomiting, diarrhea. Still complains of liquid stool in ileostomy bag. PHYSICAL EXAMINATION: VITAL SIGNS: As follows: Blood pressure 126/63, pulse 74, respiration 20, temperature 98, saturation 96%. Height 5 feet 2 inches and weight is 129 pounds. GENERAL: Mrs. Lovell is a 77-year-old elderly female, moderately built, moderately nourished, not in acute distress. HEENT: Pupils normal, reactive to light and accommodation. Conjunctivae pink. Tongue is moist. Trachea is midline. LUNGS: Symmetric on both sides. Bilateral breath sounds present. Clear to auscultation. CARDIOVASCULAR SYSTEM: [place] at the fifth intercostal space, midclavicular line. S1 and S2 audible. No murmur or gallop. ABDOMEN: Normal in appearance. The patient has an ileostomy bag with liquid stool. Soft, tympanitic. No guarding. No rigidity. No hepatosplenomegaly. CENTRAL NERVOUS SYSTEM: The patient is alert, awake, and oriented x2-3. Sensory and motor system is within normal limits. EXTREMITIES: No cyanosis, no clubbing, no edema of the left leg. Status post right BKA. CURRENT MEDICATIONS: Include as follows: Crestor 5 mg at bedtime, Flomax 0.4 mg daily, subcu heparin 5000 units every 12 hours, Imdur 30 mg p.o. daily, Lantus 8 units subcu at bedtime, meropenem 500 mg IV piggyback every 24 hours, milk of magnesia 30 mL p.o. every 24 hours, Naphcon Ophthalmic eyedrops, NovoLog per sliding scale, Pepcid 20 mg p.o. daily, Plavix 75 mg p.o. daily, Prandin 0.5 mg p.o. t.i.d., cholestyramine 4 g p.o. at bedtime, sodium bicarbonate tablets 650 mg p.o. t.i.d., IV fluids half-normal saline at 100 mL/hour, levothyroxine 25 mcg p.o. daily, Tylenol 650 mg p.o. every 6 hours, Xanax 0.25 mg p.o. b.i.d., Zofran 4 mg p.o. every 6 hours. LABORATORY DATA: Include as follows: Urine culture positive for E. coli more than 100,000 colony forming units and resistant to Cipro and sensitive to meropenem and also positive for extended beta-lactamase positive. Other laboratory data: As of 11/06/2018, WBC 4.5, hemoglobin 9.3, hematocrit is 27.5, platelets 242. Sodium 129, potassium is 4.8, chloride 103, CO2 of 18, BUN 38, creatinine 2.2, glucose is 77 and calcium is 8. Total bilirubin 0.4, AST 16, ALT 14, alkaline phosphatase 89, total protein 6, albumin is 2.9. Accu-Cheks 83, 218, and 230. ASSESSMENT AND PLAN: In summary, Mrs. Lovell is a 77-year-old elderly female with a history of hypertension, diabetes, coronary artery disease, hypothyroidism, status post coronary artery bypass graft with ileostomy, who was admitted with altered mental status, decreased p.o. intake and dehydration. 1. Acute renal failure on chronic kidney disease secondary to dehydration secondary to intravascular depletion and decreased p.o. intake. 2. Anemia secondary to renal failure. We will add Epogen 4000 units subcu three times a week to keep hemoglobin between 11 and 12. 3. Dehydration. Increase p.o. fluid intake and p.o. intake also. Continue IV fluids half-normal saline at 100 mL/hour. 4. Diabetes. Sugars are under control. 5. Metabolic acidosis secondary to gastrointestinal loss from the ileostomy. 6. Urinary tract infection secondary to Escherichia coli with extended spectrum beta-lactamases positive. Continue antibiotics, meropenem as per Infectious Disease recommendations. Repeat basic metabolic profile in a.m. We will follow with you. Thank you for allowing me to participate in your patient's care. Rafael Krishna MD
--- NOTE | 2018-11-07 03:02 | PN ---
DATE: 11/06/2018 SUBJECTIVE: She is more alert and awake and she is tolerating diet well. The patient is currently also on meropenem treating urinary tract infection. PHYSICAL EXAMINATION: VITAL SIGNS: Blood pressure is 92/60, temperature 98, respiratory rate 20 and pulse 80. HEENT: Blindness of both eyes. NECK: Supple. No JVD. No carotid bruit. No lymph nodes. No thyromegaly. CHEST: Lungs, bilateral symmetrical expansion. Good air exchange. No rales, no rhonchi. CARDIOVASCULAR SYSTEM: PMI not localized. S1, S2. No additional sounds. ABDOMEN: Ileostomy tube in place. EXTREMITIES: Right BKA. BAG PRINTER: Alert, awake, oriented x2 and no neurological deficit could be appreciated. ASSESSMENT: 1. [id number] kidney disease. 2. Urinary tract infection with urine culture positive for Escherichia coli that is only sensitive to meropenem. 3. Fluctuation of mental status, likely toxic metabolic encephalopathy and dementia. 4. Type 2 diabetes mellitus. 5. Hypertension. PLAN: Continue current treatment. Neurology consult. CAT scan of the head. We will increase Lantus to twice a day due to the elevated blood sugar. Keyla Washington MD
[2018-11-07] MEDS: Levothyroxine 25 MCG TAB PO SCH (06:14)
[2018-11-07] MEDS: Sodium Chloride 0.45% 1,000 ML IV SCH ×2 (06:17→21:47)
[2018-11-07] MEDS: (Novolog) Insulin Aspart, Recombinant 100 u/ml 10 ml vial SC SCH ×4 (08:25→21:37)
--- NOTE | 2018-11-07 09:12 | CP.PCM.PN ---
Subjective - Date & Time of Evaluation Date of Evaluation: 11/07/18 Time of Evaluation: 09:11 - Subjective Subjective: pt is seen and examined, follow up consult is dictated #[id number] Objective - Vital Signs/Intake and Output Vital Signs (last 24 hours): Temp Pulse Resp BP Pulse Ox 97.7 F 80 20 148/84 98 11/07/18 08:00 11/07/18 08:00 11/07/18 08:00 11/07/18 08:00 11/07/18 08:00 Intake and Output: 11/07/18 11/07/18 06:59 18:59 Intake Total 650 Output Total 300 Balance 350 - Medications Medications: Current Medications Acetaminophen (Tylenol 325mg Tab) 650 mg PO Q6 PRN PRN Reason: Pain, Mild (1-3) Alprazolam (Xanax) 0.25 mg PO BID PRN PRN Reason: Anxiety Stop: 11/10/18 22:17 Last Admin: 11/05/18 21:51 Dose: 0.25 mg Cholestyramine Resin (Prevalite) 4 gm PO HS [facility] Last Admin: 11/06/18 21:17 Dose: Not Given Clopidogrel Bisulfate (Plavix) 75 mg PO DAILY [facility] Last Admin: 11/06/18 10:43 Dose: 75 mg Famotidine (Pepcid) 20 mg PO DAILY [facility] Last Admin: 11/06/18 10:43 Dose: 20 mg Heparin Sodium (Porcine) (Heparin) 5,000 units SC Q12 [facility] Last Admin: 11/06/18 21:18 Dose: Not Given Sodium Chloride (Sodium Chloride 0.45%) 1,000 mls @ 100 mls/hr IV .Q10H [facility] Last Admin: 11/07/18 06:17 Dose: 100 mls/hr Meropenem 500 mg/ Sodium (Chloride) 100 mls @ 100 mls/hr IVPB Q24H [facility]; Protocol Last Admin: 11/06/18 11:11 Dose: 100 mls/hr Insulin Aspart (Novolog) 0 unit SC [facility]; Protocol Last Admin: 11/06/18 21:48 Dose: Not Given Insulin Glargine (Lantus) 8 unit SC HS [facility] Last Admin: 11/06/18 21:17 Dose: Not Given Isosorbide Mononitrate (Imdur Er) 30 mg PO DAILY [facility] Last Admin: 11/06/18 10:43 Dose: 30 mg Levothyroxine Sodium (Synthroid) 25 mcg PO DAILY@0630 [facility] Last Admin: 11/07/18 06:14 Dose: 25 mcg Magnesium Hydroxide (Milk Of Magnesia) 30 ml PO Q24H PRN PRN Reason: Constipation Naphazoline HCl/Pheniramine Maleate (Naphcon-A Opht) 0 ml OD BID [facility] Last Admin: 11/06/18 18:31 Dose: 1 drop Ondansetron HCl (Zofran Odt) 4 mg PO Q6 PRN PRN Reason: Nausea/Vomiting Repaglinide (Prandin) 0.5 mg PO TIDAC [facility] Last Admin: 11/06/18 17:00 Dose: 0.5 mg Rosuvastatin Calcium (Crestor) 5 mg PO HS [facility] Last Admin: 11/06/18 21:18 Dose: Not Given Sodium Bicarbonate (Sodium Bicarbonate Tab) 650 mg PO TID [facility] Last Admin: 11/06/18 17:07 Dose: 650 mg Tamsulosin HCl (Flomax) 0.4 mg PO DAILY [facility] Last Admin: 11/06/18 10:43 Dose: 0.4 mg - Labs Labs: 11/06/18 07:10 11/06/18 07:10 PT 12.5 SECONDS (9.7-12.2) H 11/03/18 11:20 INR 1.1 11/03/18 11:20 APTT 29 SECONDS (21-34) 11/03/18 11:20
[2018-11-07] MEDS: Naphazoline-Pheniramine Ophth Soln OD SCH ×2 (11:31→17:12)
[2018-11-07] MEDS: Meropenem 500 MG in Sodium Chloride 0.9% 100 ML IVPB SCH (11:36)
[2018-11-07 12:03] LABS: BASO % 0.6 % (0.0-2.0); EOS # 0.1 K/uL (0.0-0.7); EOS % 2.6 % (0.0-4.0); HEMOGLOBIN 9.3 g/dL (11.0-16.0); LYMPH # 0.9 K/uL (1.0-4.3); MEAN CELL VOLUME 88.5 fL (81.0-99.0); MEAN CORPUSCULAR HEMOGLOBIN 29.9 pg (27.0-31.0); MEAN CORPUSCULAR HGB CONC 33.8 g/dL (33.0-37.0); MEAN PLATELET VOLUME 6.6 fL (7.2-11.7); MONO # 0.5 K/uL (0.0-0.8); MONO % 10.5 % (0.0-10.0); NEUT # 3.6 K/uL (1.8-7.0); NEUT % 69.3 % (50.0-75.0); RBC 3.11 Mil/uL (3.80-5.20); RED CELL DISTRIBUTION WIDTH 12.7 % (11.5-14.5); WHITE BLOOD COUNT 5.2 K/uL (4.8-10.8)
[2018-11-07 12:51] LABS: ALB/GLOB RATIO 0.9 (1.0-2.1); CALCIUM 8.3 mg/dl (8.6-10.4)
--- NOTE | 2018-11-07 14:18 | CP.PCM.PN ---
Subjective - Date & Time of Evaluation Date of Evaluation: 11/07/18 Time of Evaluation: 14:17 - Subjective Subjective: PGY3 progress note for cardio Objective - Vital Signs/Intake and Output Vital Signs (last 24 hours): Temp Pulse Resp BP Pulse Ox 97.7 F 81 20 159/70 H 98 11/07/18 08:00 11/07/18 11:42 11/07/18 08:00 11/07/18 11:42 11/07/18 08:00 Intake and Output: 11/07/18 11/07/18 06:59 18:59 Intake Total 650 Output Total 300 20 Balance 350 -20 - Medications Medications: Current Medications Acetaminophen (Tylenol 325mg Tab) 650 mg PO Q6 PRN PRN Reason: Pain, Mild (1-3) Alprazolam (Xanax) 0.25 mg PO BID PRN PRN Reason: Anxiety Stop: 11/10/18 22:17 Last Admin: 11/07/18 11:35 Dose: 0.25 mg Cholestyramine Resin (Prevalite) 4 gm PO [facility] Last Admin: 11/06/18 21:17 Dose: Not Given Clopidogrel Bisulfate (Plavix) 75 mg PO DAILY [facility] Last Admin: 11/07/18 11:30 Dose: 75 mg Famotidine (Pepcid) 20 mg PO DAILY [facility] Last Admin: 11/07/18 11:31 Dose: 20 mg Heparin Sodium (Porcine) (Heparin) 5,000 units SC Q12 [facility] Last Admin: 11/07/18 11:31 Dose: 5,000 units Sodium Chloride (Sodium Chloride 0.45%) 1,000 mls @ 100 mls/hr IV .Q10H [facility] Last Admin: 11/07/18 06:17 Dose: 100 mls/hr Meropenem 500 mg/ Sodium (Chloride) 100 mls @ 100 mls/hr IVPB Q24H [facility]; Pr otocol Last Admin: 11/07/18 11:36 Dose: 100 mls/hr Insulin Aspart (Novolog) 0 unit SC ACHS [facility]; Protocol Last Admin: 11/07/18 12:20 Dose: 3 units Insulin Glargine (Lantus) 8 unit SC HS [facility] Last Admin: 11/06/18 21:17 Dose: Not Given Isosorbide Mononitrate (Imdur Er) 30 mg PO DAILY [facility] Last Admin: 11/07/18 11:31 Dose: 30 mg Levothyroxine Sodium (Synthroid) 25 mcg PO DAILY@0630 [facility] Last Admin: 11/07/18 06:14 Dose: 25 mcg Magnesium Hydroxide (Milk Of Magnesia) 30 ml PO Q24H PRN PRN Reason: Constipation Naphazoline HCl/Pheniramine Maleate (Naphcon-A Opht) 0 ml OD BID [facility] Last Admin: 11/07/18 11:31 Dose: 1 drop Ondansetron HCl (Zofran Odt) 4 mg PO Q6 PRN PRN Reason: Nausea/Vomiting Repaglinide (Prandin) 0.5 mg PO TIDAC [facility] Last Admin: 11/07/18 11:30 Dose: 0.5 mg Rosuvastatin Calcium (Crestor) 5 mg PO HS [facility] Last Admin: 11/06/18 21:18 Dose: Not Given Sodium Bicarbonate (Sodium Bicarbonate Tab) 650 mg PO TID [facility] Last Admin: 11/07/18 13:42 Dose: 650 mg Tamsulosin HCl (Flomax) 0.4 mg PO DAILY [facility] Last Admin: 11/07/18 11:31 Dose: 0.4 mg - Labs Labs: 11/07/18 11:51 11/07/18 11:51 PT 12.5 SECONDS (9.7-12.2) H 11/03/18 11:20 INR 1.1 11/03/18 11:20 APTT 29 SECONDS (21-34) 11/03/18 11:20 - Constitutional Appears: Non-toxic, No Acute Distress - Head Exam Head Exam: ATRAUMATIC, NORMOCEPHALIC - ENT Exam ENT Exam: Mucous Membranes Moist - Respiratory Exam Respiratory Exam: Clear to Ausculation Bilateral. absent: Rales, Rhonchi, Wheezes - Cardiovascular Exam Cardiovascular Exam: REGULAR RHYTHM, +S1, +S2 - GI/Abdominal Exam GI & Abdominal Exam: Soft, Normal Bowel Sounds. absent: Distended, Firm, Guarding, Rigid, Tenderness, Organomegaly - Extremities Exam Extremities Exam: absent: Pedal Edema, Tenderness - Neurological Exam Neurological Exam: Alert, Awake, Oriented x3 - Psychiatric Exam Psychiatric exam: Normal Affect, Normal Mood - Skin Skin Exam: Dry, Intact, Normal Color, Warm Assessment and Plan - Assessment and Plan (Free Text) Assessment: 77 year old female with past medical history of HTN, CAD s/p pacemaker, CKD was admitted for abnormal lab values. Cardiology consulted for episode of V tach.
--- NOTE | 2018-11-07 15:40 | CP.PCM.CON ---
History of Present Illness - History of Present Illness History of Present Illness: Neurology Consultation Note: Mrs. Lovell is a 77-year-old woman with a past medical history of multiple medical co-morbidities, who presented with GLORIA on CKD and continues to have hyponatremia with other metabolic derangements. Neurology was consulted by Dr. Washington for altered mental status. Non-contrast CT scan of the head did not show any acute findings, but there was a significant amount of hydrocephalus and chronic ischemic changes with atrophy. Review of Systems - Review of Systems Systems not reviewed;Unavailable: Altered Mental Status Past Patient History - Infectious Disease Hx of Infectious Diseases: None - Past Medical History & Family History Past Medical History?: Yes - Past Social History Smoking Status: Former Smoker - CARDIAC Hx Congestive Heart Failure: Yes Hx Hypertension: Yes - PULMONARY Hx Chronic Obstructive Pulmonary Disease (COPD): Yes - NEUROLOGICAL Hx Neurological Disorder: Yes HX Cerebrovascular Accident: Yes - HEENT Hx HEENT Problems: Yes Hx Blind: Yes - RENAL Hx Chronic Kidney Disease: Yes - ENDOCRINE/METABOLIC Hx Hyperthyroidism: Yes Hx Hypothyroidism: Yes - HEMATOLOGICAL/ONCOLOGICAL Hx Anemia: Yes - INTEGUMENTARY Hx Dermatological Problems: No - MUSCULOSKELETAL/RHEUMATOLOGICAL Hx Arthritis: Yes - GASTROINTESTINAL Hx Gastrointestinal Disorders: Yes Hx Bowel Surgery: Yes (ischemic bowel) Hx Colostomy: Yes Hx Ileostomy: Yes - GENITOURINARY/GYNECOLOGICAL Hx Genitourinary Disorders: Yes Hx Incontinence: Yes Hx Urinary Tract Infection: Yes - PSYCHIATRIC Hx Anxiety: Yes Hx Substance Use: No - SURGICAL HISTORY Hx Cholecystectomy: Yes Hx Coronary Artery Bypass Graft: Yes (x3) Hx Coronary Stent: Yes - ANESTHESIA Hx Anesthesia: Yes Hx Anesthesia Reactions: No Hx Malignant Hyperthermia: No Has any member of the family had a problem w/ anesthesia?: No Meds Allergies/Adverse Reactions: Allergies Allergy/AdvReac Type Severity Reaction Status Date / Time piperacillin Allergy RASH Verified 10/16/18 20:43 tazobactam [From Zosyn] Allergy Verified 11/03/18 10:15 - Medications Medications: Current Medications Acetaminophen (Tylenol 325mg Tab) 650 mg PO Q6 PRN PRN Reason: Pain, Mild (1-3) Alprazolam (Xanax) 0.25 mg PO BID PRN PRN Reason: Anxiety Stop: 11/10/18 22:17 Last Admin: 11/07/18 11:35 Dose: 0.25 mg Cholestyramine Resin (Prevalite) 4 gm PO [facility] Last Admin: 11/06/18 21:17 Dose: Not Given Clopidogrel Bisulfate (Plavix) 75 mg PO DAILY [facility] Last Admin: 11/07/18 11:30 Dose: 75 mg Famotidine (Pepcid) 20 mg PO DAILY [facility] Last Admin: 11/07/18 11:31 Dose: 20 mg Heparin Sodium (Porcine) (Heparin) 5,000 units SC Q12 [facility] Last Admin: 11/07/18 11:31 Dose: 5,000 units Sodium Chloride (Sodium Chloride 0.45%) 1,000 mls @ 100 mls/hr IV .Q10H [facility] Last Admin: 11/07/18 06:17 Dose: 100 mls/hr Meropenem 500 mg/ Sodium (Chloride) 100 mls @ 100 mls/hr IVPB Q24H [facility]; Protocol Last Admin: 11/07/18 11:36 Dose: 100 mls/hr Insulin Aspart (Novolog) [address] [facility]; Protocol Last Admin: 11/07/18 12:20 Dose: 3 units Insulin Glargine (Lantus) 8 unit SC [facility] Last Admin: 11/06/18 21:17 Dose: Not Given Isosorbide Mononitrate (Imdur Er) 30 mg PO DAILY [facility] Last Admin: 11/07/18 11:31 Dose: 30 mg Levothyroxine Sodium (Synthroid) 25 mcg PO DAILY@0630 [facility] Last Admin: 11/07/18 06:14 Dose: 25 mcg Magnesium Hydroxide (Milk Of Magnesia) 30 ml PO Q24H PRN PRN Reason: Constipation Naphazoline HCl/Pheniramine Maleate (Naphcon-A Opht) 0 ml OD BID [facility] Last Admin: 11/07/18 11:31 Dose: 1 drop Ondansetron HCl (Zofran Odt) 4 mg PO Q6 PRN PRN Reason: Nausea/Vomiting Repaglinide (Prandin) 0.5 mg PO TIDAC [facility] Last Admin: 11/07/18 11:30 Dose: 0.5 mg Rosuvastatin Calcium (Crestor) 5 mg PO [facility] Last Admin: 11/06/18 21:18 Dose: Not Given Sodium Bicarbonate (Sodium Bicarbonate Tab) 650 mg PO TID [facility] Last Admin: 11/07/18 13:42 Dose: 650 mg Tamsulosin HCl (Flomax) 0.4 mg PO DAILY [facility] Last Admin: 11/07/18 11:31 Dose: 0.4 mg Physical Exam - Constitutional Appears: Well - Head Exam Head Exam: ATRAUMATIC, NORMAL INSPECTION, NORMOCEPHALIC - Eye Exam Eye Exam: EOMI, Normal appearance, PERRL Pupil Exam: NORMAL ACCOMODATION, PERRL - ENT Exam ENT Exam: Mucous Membranes Moist, Normal Exam - Neck Exam Neck exam: Positive for: Normal Inspection - Respiratory Exam Respiratory Exam: Clear to Auscultation Bilateral, NORMAL BREATHING PATTERN - Cardiovascular Exam Cardiovascular Exam: REGULAR RHYTHM, +S1, +S2 - GI/Abdominal Exam GI & Abdominal Exam: Normal Bowel Sounds, Soft. absent: Tenderness - Rectal Exam Rectal Exam: Deferred - Extremities Exam Extremities exam: Positive for: normal inspection - Back Exam Back exam: NORMAL INSPECTION - Neurological Exam Neurological exam: Alert, CN II-XII Intact, Oriented x3, Reflexes Normal Additional comments: Decreased sensation on left side of the face, bilateral upper extremities are 4/5 in strength, lower extremities are limited due to RLE BKA and LLE weakness due to deconditioning. - Psychiatric Exam Psychiatric exam: Normal Affect, Normal Mood - Skin Skin Exam: Dry, Intact, Normal Color, Warm Results - Vital Signs Recent Vital Signs: Last Vital Signs Temp 97.7 F 11/07/18 08:00 Pulse 81 11/07/18 12:00 Resp 20 11/07/18 08:00 BP 159/70 H 11/07/18 11:42 Pulse Ox 98 11/07/18 08:00 - Labs Result Diagrams: 11/07/18 11:51 11/07/18 11:51 Labs: Laboratory Results - last 24 hr 11/06/18 11/06/18 11/07/18 16:30 21:43 06:36 WBC RBC Hgb Hct MCV MCH MCHC RDW Plt Count MPV Neut % (Auto) Lymph % (Auto) Routt % (Auto) Eos % (Auto) Baso % (Auto) Neut # (Auto) Lymph # (Auto) [place] # (Auto) Eos # (Auto) Baso # (Auto) Sodium Potassium Chloride Carbon Dioxide Anion Gap BUN Creatinine Est GFR ( Amer) Est GFR (Non-Af Amer) POC Glucose (mg/dL) 230 H 234 H 182 H Random Glucose Calcium Total Bilirubin AST ALT Alkaline Phosphatase Total Protein Albumin Globulin Albumin/Globulin Ratio 11/07/18 11/07/18 11/07/18 11:40 11:51 11:51 WBC 5.2 RBC 3.11 L Hgb 9.3 L Hct 27.5 L MCV 88.5 MCH 29.9 MCHC 33.8 RDW 12.7 Plt Count 240 MPV 6.6 L Neut % (Auto) 69.3 Lymph % (Auto) 17.0 L Routt % (Auto) 10.5 H Eos % (Auto) 2.6 Baso % (Auto) 0.6 Neut # (Auto) 3.6 Lymph # (Auto) 0.9 L [place] # (Auto) 0.5 Eos # (Auto) 0.1 Baso # (Auto) 0.0 Sodium 130 L Potassium 4.8 Chloride 105 Carbon Dioxide 19 L Anion Gap 11 BUN 35 H Creatinine 2.2 H Est GFR ( Amer) 26 Est GFR (Non-Af Amer) 22 POC Glucose (mg/dL) 242 H Random Glucose 221 H D Calcium 8.3 L Total Bilirubin 0.3 AST 12 L D ALT 14 Alkaline Phosphatase 99 Total Protein 6.2 L Albumin 3.0 L Globulin 3.2 Albumin/Globulin Ratio 0.9 L Assessment & Plan (1) Acute encephalopathy Assessment and Plan: This appears to be associated with metabolic derangements. The patient is also being treated for acute infection. She likely has toxic-metabolic encephalopathy. Continue treating underlying cause and re-consult if she does not resolve after 72 hours. In addition, she is blind and she may be experiencing delirium. CT scan of the head is consistent with chronic ischemic changes. Exam is consistent with possible new infarct causing left facial droop and numbness. She is on Plavix 75 mg daily. I recommend obtaining PRU [employer] testing to evaluation for efficacy of Plavix and start Aspirin 81 mg daily. PT/OT is also recommended. Case management consult. Thank you for the consultation. Status: Acute
--- NOTE | 2018-11-07 15:51 | CP.PCM.PN ---
Subjective - Date & Time of Evaluation Date of Evaluation: 11/07/18 Time of Evaluation: 15:15 - Subjective Subjective: dictated Objective - Vital Signs/Intake and Output Vital Signs (last 24 hours): Temp Pulse Resp BP Pulse Ox 97.4 F L 82 20 100/62 96 11/07/18 15:41 11/07/18 15:41 11/07/18 15:41 11/07/18 15:41 11/07/18 15:41 Intake and Output: 11/07/18 11/07/18 06:59 18:59 Intake Total 650 Output Total 300 20 Balance 350 -20 - Medications Medications: Current Medications Acetaminophen (Tylenol 325mg Tab) 650 mg PO Q6 PRN PRN Reason: Pain, Mild (1-3) Alprazolam (Xanax) 0.25 mg PO BID PRN PRN Reason: Anxiety Stop: 11/10/18 22:17 Last Admin: 11/07/18 11:35 Dose: 0.25 mg Cholestyramine Resin (Prevalite) 4 gm PO [facility] Last Admin: 11/06/18 21:17 Dose: Not Given Clopidogrel Bisulfate (Plavix) 75 mg PO DAILY [facility] Last Admin: 11/07/18 11:30 Dose: 75 mg Famotidine (Pepcid) 20 mg PO DAILY [facility] Last Admin: 11/07/18 11:31 Dose: 20 mg Heparin Sodium (Porcine) (Heparin) 5,000 units SC Q12 [facility] Last Admin: 11/07/18 11:31 Dose: 5,000 units Sodium Chloride (Sodium Chloride 0.45%) 1,000 mls @ 100 mls/hr IV .Q10H [facility] Last Admin: 11/07/18 06:17 Dose: 100 mls/hr Meropenem 500 mg/ Sodium (Chloride) 100 mls @ 100 mls/hr IVPB Q24H [facility]; Protocol Last Admin: 11/07/18 11:36 Dose: 100 mls/hr Insulin Aspart (Novolog) [address] [facility]; Protocol Last Admin: 11/07/18 12:20 Dose: 3 units Insulin Glargine (Lantus) 8 unit SC HS [facility] Last Admin: 11/06/18 21:17 Dose: Not Given Isosorbide Mononitrate (Imdur Er) 30 mg PO DAILY [facility] Last Admin: 11/07/18 11:31 Dose: 30 mg Levothyroxine Sodium (Synthroid) 25 mcg PO DAILY@0630 [facility] Last Admin: 11/07/18 06:14 Dose: 25 mcg Magnesium Hydroxide (Milk Of Magnesia) 30 ml PO Q24H PRN PRN Reason: Constipation Naphazoline HCl/Pheniramine Maleate (Naphcon-A Opht) 0 ml OD BID [facility] Last Admin: 11/07/18 11:31 Dose: 1 drop Ondansetron HCl (Zofran Odt) 4 mg PO Q6 PRN PRN Reason: Nausea/Vomiting Repaglinide (Prandin) 0.5 mg PO TIDAC [facility] Last Admin: 11/07/18 11:30 Dose: 0.5 mg Rosuvastatin Calcium (Crestor) 5 mg PO HS [facility] Last Admin: 11/06/18 21:18 Dose: Not Given Sodium Bicarbonate (Sodium Bicarbonate Tab) 650 mg PO TID [facility] Last Admin: 11/07/18 13:42 Dose: 650 mg Tamsulosin HCl (Flomax) 0.4 mg PO DAILY [facility] Last Admin: 11/07/18 11:31 Dose: 0.4 mg - Labs Labs: 11/07/18 11:51 11/07/18 11:51 PT 12.5 SECONDS (9.7-12.2) H 11/03/18 11:20 INR 1.1 11/03/18 11:20 APTT 29 SECONDS (21-34) 11/03/18 11:20
--- NOTE | 2018-11-07 17:54 | CARD ---
APPROVED REPORT Date of service: 11/07/2018 EXAM: Two-dimensional and M-mode echocardiogram with Doppler and color Doppler. 2D DIMENSIONS IVSd1.3 (0.7-1.1cm)LVDd3.2 (3.9-5.9cm) PWd1.1 (0.7-1.1cm)LA Tlagmb36 (18-58mL) LVDs2.5 (2.5-4.0cm)FS (%) 19.9 % LVEF (%)42.0 (>50%)LVEF (Jamison's)38.46 % M-Mode DIMENSIONS Left Atrium (MM)3.33 (2.5-4.0cm)IVSd1.15 (0.7-1.1cm) Aortic Root3.29 (2.2-3.7cm)LVDd3.49 (4.0-5.6cm) Aortic Cusp Exc.1.63 (1.5-2.0cm)PWd0.97 (0.7-1.1cm) FS (%) 28 %LVDs2.51 (2.0-3.8cm) LVEF (%)45 (>50%) Aortic Valve AI P 1/2 [id number] Mitral Valve MV E [id number]/sMV A Mdvtkqsf122.1cm/sE/A ratio0.6 TDI Lateral E' Peak V7.25cm/sMedial E' Peak V2.83cm/sE/Lateral E'8.8 E/Medial E'22.5 Tricuspid Valve TR Peak [id number]/sTR Peak [id number] LEFT VENTRICLE The left ventricle is normal size. There is moderate concentric left ventricular hypertrophy. The left ventricular function is moderately reduced. The left ventricular ejection fraction is visually 40% A small apical-septal region is aknetic. Transmitral Doppler flow pattern is Grade I-abnormal relaxation pattern. No left ventricle thrombus noted on this study. There is no ventricular septal defect visualized. There is no left ventricular aneurysm. There is no mass noted in the left ventricle. RIGHT VENTRICLE The right ventricle is normal size. There is normal right ventricular wall thickness. The right ventricular systolic function is normal. PPM wire noted ATRIA The left atrium size is normal. The right atrium size is normal. The interatrial septum is intact with no evidence for an atrial septal defect. AORTIC VALVE The aortic valve is probably tri-leaflet, mild aortic regurgitation. low normal opening, thickened leaflets. There is no aortic valvular stenosis. There is no aortic valvular vegetation. MITRAL VALVE The mitral valve is normal in structure and function. There is no evidence of mitral valve prolapse. There is no mitral valve stenosis. There is trace mitral valve regurgitation noted. TRICUSPID VALVE The tricuspid valve is normal in structure and function. There is mild tricuspid valve regurgitation noted. There is no tricuspid valve prolapse or vegetation. There is no tricuspid valve stenosis. PULMONIC VALVE The pulmonary valve is normal in structure and function. There is no pulmonic valvular regurgitation. There is no pulmonic valvular stenosis. GREAT VESSELS The aortic root is normal in size. The ascending aorta is normal in size. The pulmonary artery is normal. The IVC is normal in size and collapses >50% with inspiration. PERICARDIAL EFFUSION The pericardium appears normal. There is no pleural effusion. <Conclusion> The left ventricular function is moderately reduced. A small apical-septal region is aknetic. The left ventricular ejection fraction is visually 40% There is moderate concentric left ventricular hypertrophy. Transmitral Doppler flow pattern is Grade I-abnormal relaxation pattern. The aortic valve is probably tri-leaflet, mild aortic regurgitation. low normal opening, thickened leaflets.
--- NOTE | 2018-11-07 18:08 | CP.PCM.CON ---
<Nina Arora - Last Filed: 11/07/18 18:02> History of Present Illness - History of Present Illness History of Present Illness: cardio consult note 77 year old female with past medical history of HTN, CAD s/p CABG with pacemaker, DM, CKD is currently admitted for acute on chronic renal failure. Cardiology consulted due to episode of Vtach on 11/06/18. On admission patient was noted to have multiple lab abnormalities including hyperkalemia with potassium of 5.5. She is currently sitting comfortably. Denies having any CP, SOB, abd pain, N/V/D/C, F/C. She is only complaining of left sided facial droop. PMHx: stated above Sx: CABG, pacemaker placed many years ago, BKA, colon sx Social: Denies Allergies: Zosyn Review of Systems - Constitutional Constitutional: As Per HPI. absent: Chills, Fever - EENT Eyes: absent: Change in Vision Nose/Mouth/Throat: absent: Nasal Discharge, Sore Throat - Cardiovascular Cardiovascular: absent: Chest Pain, Dyspnea, Lightheadedness, Palpitations - Respiratory Respiratory: absent: Cough, Dyspnea - Gastrointestinal Gastrointestinal: absent: Abdominal Pain, Nausea, Vomiting - Integumentary Integumentary: absent: Acne, Lesions - Neurological Neurological: absent: Syncope, Weakness Additional comments: facial droop Past Patient History - Infectious Disease Hx of Infectious Diseases: None - Past Medical History & Family History Past Medical History?: Yes - Past Social History Smoking Status: Former Smoker - CARDIAC Hx Congestive Heart Failure: Yes Hx Hypertension: Yes - PULMONARY Hx Chronic Obstructive Pulmonary Disease (COPD): Yes - NEUROLOGICAL Hx Neurological Disorder: Yes HX Cerebrovascular Accident: Yes - HEENT Hx HEENT Problems: Yes Hx Blind: Yes - RENAL Hx Chronic Kidney Disease: Yes - ENDOCRINE/METABOLIC Hx Hyperthyroidism: Yes Hx Hypothyroidism: Yes - HEMATOLOGICAL/ONCOLOGICAL Hx Anemia: Yes - INTEGUMENTARY Hx Dermatological Problems: No - MUSCULOSKELETAL/RHEUMATOLOGICAL Hx Arthritis: Yes - GASTROINTESTINAL Hx Gastrointestinal Disorders: Yes Hx Bowel Surgery: Yes (ischemic bowel) Hx Colostomy: Yes Hx Ileostomy: Yes - GENITOURINARY/GYNECOLOGICAL Hx Genitourinary Disorders: Yes Hx Incontinence: Yes Hx Urinary Tract Infection: Yes - PSYCHIATRIC Hx Anxiety: Yes Hx Substance Use: No - SURGICAL HISTORY Hx Cholecystectomy: Yes Hx Coronary Artery Bypass Graft: Yes (x3) Hx Coronary Stent: Yes - ANESTHESIA Hx Anesthesia: Yes Hx Anesthesia Reactions: No Hx Malignant Hyperthermia: No Has any member of the family had a problem w/ anesthesia?: No Meds Allergies/Adverse Reactions: Allergies Allergy/AdvReac Type Severity Reaction Status Date / Time piperacillin Allergy RASH Verified 10/16/18 20:43 tazobactam [From Zosyn] Allergy Verified 11/03/18 10:15 - Medications Medications: Current Medications Acetaminophen (Tylenol 325mg Tab) 650 mg PO Q6 PRN PRN Reason: Pain, Mild (1-3) Alprazolam (Xanax) 0.25 mg PO BID PRN PRN Reason: Anxiety Stop: 11/10/18 22:17 Last Admin: 11/07/18 11:35 Dose: 0.25 mg Cholestyramine Resin (Prevalite) 4 gm PO [facility] Last Admin: 11/06/18 21:17 Dose: Not Given Clopidogrel Bisulfate (Plavix) 75 mg PO DAILY [facility] Last Admin: 11/07/18 11:30 Dose: 75 mg Famotidine (Pepcid) 20 mg PO DAILY [facility] Last Admin: 11/07/18 11:31 Dose: 20 mg Heparin Sodium (Porcine) (Heparin) 5,000 units SC Q12 [facility] Last Admin: 11/07/18 11:31 Dose: 5,000 units Sodium Chloride (Sodium Chloride 0.45%) 1,000 mls @ 100 mls/hr IV .Q10H [facility] Last Admin: 11/07/18 06:17 Dose: 100 mls/hr Meropenem 500 mg/ Sodium (Chloride) 100 mls @ 100 mls/hr IVPB Q24H [facility]; Protocol Last Admin: 11/07/18 11:36 Dose: 100 mls/hr Insulin Aspart (Novolog) 0 unit SC [facility]; Protocol Last Admin: 11/07/18 17:11 Dose: Not Given Insulin Glargine (Lantus) 8 unit SC [facility] Last Admin: 11/06/18 21:17 Dose: Not Given Isosorbide Mononitrate (Imdur Er) 30 mg PO DAILY [facility] Last Admin: 11/07/18 11:31 Dose: 30 mg Levothyroxine Sodium (Synthroid) 25 mcg PO DAILY@0630 [facility] Last Admin: 11/07/18 06:14 Dose: 25 mcg Magnesium Hydroxide (Milk Of Magnesia) 30 ml PO Q24H PRN PRN Reason: Constipation Naphazoline HCl/Pheniramine Maleate (Naphcon-A Opht) 0 ml OD BID [facility] Last Admin: 11/07/18 17:12 Dose: 1 drop Ondansetron HCl (Zofran Odt) 4 mg PO Q6 PRN PRN Reason: Nausea/Vomiting Repaglinide (Prandin) 0.5 mg PO TIDAC [facility] Last Admin: 11/07/18 17:12 Dose: 0.5 mg Rosuvastatin Calcium (Crestor) 5 mg PO HS [facility] Last Admin: 11/06/18 21:18 Dose: Not Given Sodium Bicarbonate (Sodium Bicarbonate Tab) 650 mg PO TID [facility] Last Admin: 11/07/18 17:12 Dose: 650 mg Tamsulosin HCl (Flomax) 0.4 mg PO DAILY [facility] Last Admin: 11/07/18 11:31 Dose: 0.4 mg Physical Exam - Constitutional Appears: Non-toxic, No Acute Distress - Head Exam Head Exam: ATRAUMATIC, NORMOCEPHALIC - Eye Exam Eye Exam: Normal appearance - ENT Exam ENT Exam: Mucous Membranes Moist - Respiratory Exam Respiratory Exam: Clear to Auscultation Bilateral. absent: Rales, Rhonchi, Wheezes - Cardiovascular Exam Cardiovascular Exam: REGULAR RHYTHM, +S1, +S2 - GI/Abdominal Exam GI & Abdominal Exam: Normal Bowel Sounds, Soft. absent: Tenderness - Extremities Exam Extremities exam: Negative for: pedal edema, tenderness - Neurological Exam Neurological exam: Alert, Oriented x3 - Psychiatric Exam Psychiatric exam: Normal Affect, Normal Mood - Skin Skin Exam: Dry, Intact, Normal Color, Warm Results - Vital Signs Recent Vital Signs: Last Vital Signs Temp 97.4 F L 11/07/18 15:41 Pulse 82 11/07/18 15:41 Resp 20 11/07/18 15:41 BP 100/62 11/07/18 15:41 Pulse Ox 96 11/07/18 15:41 - Labs Result Diagrams: 11/07/18 11:51 11/07/18 11:51 Labs: Laboratory Results - last 24 hr 11/06/18 11/07/18 11/07/18 21:43 06:36 11:40 WBC RBC Hgb Hct MCV MCH MCHC RDW Plt Count MPV Neut % (Auto) Lymph % (Auto) [place] % (Auto) Eos % (Auto) Baso % (Auto) Neut # (Auto) Lymph # (Auto) [place] # (Auto) Eos # (Auto) Baso # (Auto) Sodium Potassium Chloride Carbon Dioxide Anion Gap BUN Creatinine Est GFR ( Amer) Est GFR (Non-Af Amer) POC Glucose (mg/dL) 234 H 182 H 242 H Random Glucose Calcium Total Bilirubin AST ALT Alkaline Phosphatase Total Protein Albumin Globulin Albumin/Globulin Ratio 11/07/18 11/07/18 11/07/18 11:51 11:51 16:07 WBC 5.2 RBC 3.11 L Hgb 9.3 L Hct 27.5 L MCV 88.5 MCH 29.9 MCHC 33.8 RDW 12.7 Plt Count 240 MPV 6.6 L Neut % (Auto) 69.3 Lymph % (Auto) 17.0 L [place] % (Auto) 10.5 H Eos % (Auto) 2.6 Baso % (Auto) 0.6 Neut # (Auto) 3.6 Lymph # (Auto) 0.9 L [place] # (Auto) 0.5 Eos # (Auto) 0.1 Baso # (Auto) 0.0 Sodium 130 L Potassium 4.8 Chloride 105 Carbon Dioxide 19 L Anion Gap 11 BUN 35 H Creatinine 2.2 H Est GFR ( Amer) 26 Est GFR (Non-Af Amer) 22 POC Glucose (mg/dL) 165 H Random Glucose 221 H D Calcium 8.3 L Total Bilirubin 0.3 AST 12 L D ALT 14 Alkaline Phosphatase 99 Total Protein 6.2 L Albumin 3.0 L Globulin 3.2 Albumin/Globulin Ratio 0.9 L Assessment & Plan - Assessment and Plan (Free Text) Assessment: 77 year old female with past medical histoy of DM, HTN, CAD s/p CABG, s/p pacemaker, diabetic retinopathy CKD is being seen for episode of vtach Vtach - likely 2/2 electrolyte abnormality. - Continue tele monitoring - will consider pacemaker/defibrilator monitoring - Will get echo to assess for new areas of infarct CAD - Continue plavix HTN - Imdur DM - Per primary management Case discussed with attending, Dr. Malik - Date & Time Date: 11/07/18 Time: 18:10 <Fabricio Malik - Last Filed: 11/07/18 18:56> Meds - Medications Medications: Current Medications Acetaminophen (Tylenol 325mg Tab) 650 mg PO Q6 PRN PRN Reason: Pain, Mild (1-3) Alprazolam (Xanax) 0.25 mg PO BID PRN PRN Reason: Anxiety Stop: 11/10/18 22:17 Last Admin: 11/07/18 11:35 Dose: 0.25 mg Cholestyramine Resin (Prevalite) 4 gm PO [facility] Last Admin: 11/06/18 21:17 Dose: Not Given Clopidogrel Bisulfate (Plavix) 75 mg PO DAILY [facility] Last Admin: 11/07/18 11:30 Dose: 75 mg Famotidine (Pepcid) 20 mg PO DAILY [facility] Last Admin: 11/07/18 11:31 Dose: 20 mg Heparin Sodium (Porcine) (Heparin) 5,000 units SC Q12 [facility] Last Admin: 11/07/18 11:31 Dose: 5,000 units Sodium Chloride (Sodium Chloride 0.45%) 1,000 mls @ 100 mls/hr IV .Q10H [facility] Last Admin: 11/07/18 06:17 Dose: 100 mls/hr Meropenem 500 mg/ Sodium (Chloride) 100 mls @ 100 mls/hr IVPB Q24H [facility]; Protocol Last Admin: 11/07/18 11:36 Dose: 100 mls/hr Insulin Aspart (Novolog) 0 unit SC [facility]; Protocol Last Admin: 11/07/18 17:11 Dose: Not Given Insulin Glargine (Lantus) 8 unit SC [facility] Last Admin: 11/06/18 21:17 Dose: Not Given Isosorbide Mononitrate (Imdur Er) 30 mg PO DAILY [facility] Last Admin: 11/07/18 11:31 Dose: 30 mg Levothyroxine Sodium (Synthroid) 25 mcg PO DAILY@0630 [facility] Last Admin: 11/07/18 06:14 Dose: 25 mcg Magnesium Hydroxide (Milk Of Magnesia) 30 ml PO Q24H PRN PRN Reason: Constipation Naphazoline HCl/Pheniramine Maleate (Naphcon-A Opht) 0 ml OD BID [facility] Last Admin: 11/07/18 17:12 Dose: 1 drop Ondansetron HCl (Zofran Odt) 4 mg PO Q6 PRN PRN Reason: Nausea/Vomiting Repaglinide (Prandin) 0.5 mg PO TIDAC [facility] Last Admin: 11/07/18 17:12 Dose: 0.5 mg Rosuvastatin Calcium (Crestor) 5 mg PO HS [facility] Last Admin: 11/06/18 21:18 Dose: Not Given Sodium Bicarbonate (Sodium Bicarbonate Tab) 650 mg PO TID [facility] Last Admin: 11/07/18 17:12 Dose: 650 mg Tamsulosin HCl (Flomax) 0.4 mg PO DAILY [facility] Last Admin: 11/07/18 11:31 Dose: 0.4 mg Results - Vital Signs Recent Vital Signs: Last Vital Signs Temp 97.4 F L 11/07/18 15:41 Pulse 72 11/07/18 17:58 Resp 20 11/07/18 15:41 BP 100/62 11/07/18 15:41 Pulse Ox 96 11/07/18 15:41 - Labs Result Diagrams: 11/07/18 11:51 11/07/18 11:51 Labs: Laboratory Results - last 24 hr 11/06/18 11/07/18 11/07/18 21:43 06:36 11:40 WBC RBC Hgb Hct MCV MCH MCHC RDW Plt Count MPV Neut % (Auto) Lymph % (Auto) [place] % (Auto) Eos % (Auto) Baso % (Auto) Neut # (Auto) Lymph # (Auto) [place] # (Auto) Eos # (Auto) Baso # (Auto) Sodium Potassium Chloride Carbon Dioxide Anion Gap BUN Creatinine Est GFR ( Amer) Est GFR (Non-Af Amer) POC Glucose (mg/dL) 234 H 182 H 242 H Random Glucose Calcium Total Bilirubin AST ALT Alkaline Phosphatase Total Protein Albumin Globulin Albumin/Globulin Ratio 11/07/18 11/07/18 11/07/18 11:51 11:51 16:07 WBC 5.2 RBC 3.11 L Hgb 9.3 L Hct 27.5 L MCV 88.5 MCH 29.9 MCHC 33.8 RDW 12.7 Plt Count 240 MPV 6.6 L Neut % (Auto) 69.3 Lymph % (Auto) 17.0 L [place] % (Auto) 10.5 H Eos % (Auto) 2.6 Baso % (Auto) 0.6 Neut # (Auto) 3.6 Lymph # (Auto) 0.9 L [place] # (Auto) 0.5 Eos # (Auto) 0.1 Baso # (Auto) 0.0 Sodium 130 L Potassium 4.8 Chloride 105 Carbon Dioxide 19 L Anion Gap 11 BUN 35 H Creatinine 2.2 H Est GFR ( Amer) 26 Est GFR (Non-Af Amer) 22 POC Glucose (mg/dL) 165 H Random Glucose 221 H D Calcium 8.3 L Total Bilirubin 0.3 AST 12 L D ALT 14 Alkaline Phosphatase 99 Total Protein 6.2 L Albumin 3.0 L Globulin 3.2 Albumin/Globulin Ratio 0.9 L Assessment & Plan - Assessment and Plan (Free Text) Assessment: Patient seen and evaluated personally by me. Plan of care d/w the family practice medical doctor and as documented
[2018-11-07] MEDS: (Lantus) Insulin Glargine, Recombinant SC SCH (21:38)
[2018-11-07] MEDS: Cholestyramine 4 gm/5.5 gm UD Packet PO SCH (21:46)
--- NOTE | 2018-11-08 01:29 | PN ---
DATE: 11/07/2018 SUBJECTIVE: The patient was seen today. She said she was not having any complaints. She did say she had itching before, even she came here a week ago and they were applying some cream. She said nothing kept it better, where she had no complaints of having any problems with meropenem which we started yesterday. Her renal ultrasound did show swelling of the kidneys, and so we will get the urologist. The patient was discussed with Dr. Washington, who is the attending for her, and she did have episode of V-tach on 11/06/2018, including she had hyperkalemia and she was seen by the air surveillance operator, and she does have a pacemaker. PHYSICAL EXAMINATION: VITAL SIGNS: T max is 97.4, pulse is 82 today, blood pressure is 100/62, respirations are 20. HEENT: Head is atraumatic, normocephalic. She is legally blind. NECK: Supple. LUNGS: Clear. No crackles or rales present. HEART: S1, S2 are regular at this time. ABDOMEN: Soft. She has an ileostomy. EXTREMITIES: Right BKA. Left leg is unremarkable. GENITOURINARY: She is incontinent of urine. Her renal ultrasound was noted. She has right kidney 10.3 x 4.4 x 3.8 cm, moderate right renal hydronephrosis, increased echogenicity of the renal parenchyma, suggestive of medical renal disease, atherosclerotic calcification, and plaque seen with the aorta which is otherwise preserved. Left kidney has mild left hydro increased echogenicity of renal parenchyma, suggestive of medical renal disease. She does say she has had many UTIs, and a urinary bladder shows echogenic debris seen in the urinary bladder posteriorly. So at this point we will continue Merrem to treat for the hydronephrosis. We will get a urology evaluation, and we will follow with the primary, and labs were also noted. White count was 5.2, hemoglobin is 9.3, hematocrit 27.5, platelet count is 240, and BUN is 38, creatinine is 2.22 and slightly better than before. Urine obviously showed ESBL, and she is on contact precaution. Sadhna Rosalinda, MD
[2018-11-08] MEDS: Levothyroxine 25 MCG TAB PO SCH (05:51)
[2018-11-08] MEDS: Sodium Chloride 0.45% 1,000 ML IV SCH ×2 (07:53→17:46)
[2018-11-08 08:38] LABS: CALCIUM 8.5 mg/dl (8.6-10.4)
[2018-11-08] MEDS: (Novolog) Insulin Aspart, Recombinant 100 u/ml 10 ml vial SC SCH ×4 (08:45→21:30)
[2018-11-08] MEDS: Naphazoline-Pheniramine Ophth Soln OD SCH ×2 (09:10→17:36)
--- NOTE | 2018-11-08 10:52 | PN ---
DATE: 11/07/2018 SUBJECTIVE: The patient was seen November 07, 2018. She was not in any cardiopulmonary distress. The patient is awake and her oral intake is fair. PHYSICAL EXAMINATION: VITAL SIGNS: Blood pressure 159/70, temperature 97.4, respiratory rate 18 and pulse 82. HEENT: Blindness of both eyes. NECK: Supple. No JVD. No carotid bruit. No lymph node. No thyromegaly. CHEST AND LUNGS: Bilateral symmetrical expansion. Good air exchange. No rales, no rhonchi. CARDIOVASCULAR: PMI not localized. S1, S2. No additional sounds. ABDOMEN: Ileostomy bag in place. No organomegaly. No masses. No tenderness. EXTREMITIES: Right BKA. CENTRAL NERVOUS SYSTEM: Alert, awake, oriented x2 and no neurological deficit could be appreciated. LABORATORY DATA: BUN 38, creatinine 2.3, bicarbonate is 18. CAT scan of the head was done and neurology consult was requested. The CAT scan of the head showed no acute intracranial abnormalities and no significant findings to account for the fluctuation of mental status. Renal ultrasound also was done and it showed moderate right and mild left renal hydronephrosis and increased echogenicity of the bilateral renal parenchymal cortex, suggested for medical renal disease. ASSESSMENT: 1. Moderate renal hydronephrosis, right renal hydronephrosis. 2. Urinary tract infection. 3. Hypertension. 4. Stmun-cj-lhcnynp kidney disease. PLAN: We will do Urology consult for possible cystoscopy. Continue current neurology consult and follow recommendations. Continue current antibiotics. Discussed with Neurology and with Infectious Disease specialist at the bedside. Keyla Washington MD
[2018-11-08] MEDS: Meropenem 500 MG in Sodium Chloride 0.9% 100 ML IVPB SCH (12:38)
--- NOTE | 2018-11-08 13:52 | CP.PCM.PN ---
Subjective - Date & Time of Evaluation Date of Evaluation: 11/08/18 Time of Evaluation: 13:52 - Subjective Subjective: pt is seen and examined, follow up consult is dictated #[id number] Objective - Vital Signs/Intake and Output Vital Signs (last 24 hours): Temp Pulse Resp BP Pulse Ox 97.4 F L 69 20 156/64 H 98 11/08/18 08:00 11/08/18 10:06 11/08/18 08:00 11/08/18 08:00 11/08/18 08:00 Intake and Output: 11/08/18 11/08/18 06:59 18:59 Intake Total 1680 Output Total 700 Balance 980 - Medications Medications: Current Medications Acetaminophen (Tylenol 325mg Tab) 650 mg PO Q6 PRN PRN Reason: Pain, Mild (1-3) Alprazolam (Xanax) 0.25 mg PO BID PRN PRN Reason: Anxiety Stop: 11/10/18 22:17 Last Admin: 11/07/18 21:45 Dose: 0.25 mg Cholestyramine Resin (Prevalite) 4 gm PO HS [facility] Last Admin: 11/07/18 21:46 Dose: 4 gm Clopidogrel Bisulfate (Plavix) 75 mg PO DAILY [facility] Last Admin: 11/08/18 09:10 Dose: 75 mg Famotidine (Pepcid) 20 mg PO DAILY [facility] Last Admin: 11/08/18 09:10 Dose: 20 mg Heparin Sodium (Porcine) (Heparin) 5,000 units SC Q12 [facility] Last Admin: 11/08/18 09:10 Dose: 5,000 units Sodium Chloride (Sodium Chloride 0.45%) 1,000 mls @ 100 mls/hr IV .Q10H [facility] Last Admin: 11/08/18 07:53 Dose: 100 mls/hr Meropenem 500 mg/ Sodium (Chloride) 100 mls @ 100 mls/hr IVPB Q24H [facility]; Protocol Last Admin: 11/08/18 12:38 Dose: 100 mls/hr Insulin Aspart (Novolog) 0 unit SC [facility]; Protocol Last Admin: 11/08/18 12:38 Dose: 3 units Insulin Glargine (Lantus) 8 unit SC [facility] Last Admin: 11/07/18 21:38 Dose: Not Given Isosorbide Mononitrate (Imdur Er) 30 mg PO DAILY [facility] Last Admin: 11/08/18 09:10 Dose: 30 mg Levothyroxine Sodium (Synthroid) 25 mcg PO DAILY@0630 [facility] Last Admin: 11/08/18 05:51 Dose: 25 mcg Magnesium Hydroxide (Milk Of Magnesia) 30 ml PO Q24H PRN PRN Reason: Constipation Naphazoline HCl/Pheniramine Maleate (Naphcon-A Opht) 0 ml OD BID [facility] Last Admin: 11/08/18 09:10 Dose: 1 drop Ondansetron HCl (Zofran Odt) 4 mg PO Q6 PRN PRN Reason: Nausea/Vomiting Repaglinide (Prandin) 0.5 mg PO TIDAC [facility] Last Admin: 11/08/18 12:38 Dose: 0.5 mg Rosuvastatin Calcium (Crestor) 5 mg PO HS [facility] Last Admin: 11/07/18 21:45 Dose: 5 mg Sodium Bicarbonate (Sodium Bicarbonate Tab) 650 mg PO TID [facility] Last Admin: 11/08/18 13:17 Dose: 650 mg Tamsulosin HCl (Flomax) 0.4 mg PO DAILY [facility] Last Admin: 11/08/18 09:10 Dose: 0.4 mg - Labs Labs: 11/07/18 11:51 11/08/18 07:56 PT 12.5 SECONDS (9.7-12.2) H 11/03/18 11:20 INR 1.1 11/03/18 11:20 APTT 29 SECONDS (21-34) 11/03/18 11:20
--- NOTE | 2018-11-08 16:56 | US ---
Date of service: 11/08/2018 PROCEDURE: Ultrasound of the Bladder HISTORY: bilateral hydronephrosis and recurrent uti COMPARISON: 12/22/2014 urinary bladder ultrasound TECHNIQUE: Sonographic evaluation of the bladder was performed. FINDINGS: Unremarkable without wall thickening or intraluminal debris. No calculus or gross mass lesion. No free fluid in pelvis. Prevoid Volume: 108.8 cc. Post void residual: Cannot be calculated. No control over urinary bladder. Debris identified layering in the urinary bladder. No focal bladder wall abnormalities. IMPRESSION: Incomplete assessment of the urinary bladder. No bladder wall abnormalities detected. Considerable debris identified which layers in the urinary bladder.
--- NOTE | 2018-11-08 20:28 | CP.PCM.PN ---
Subjective - Date & Time of Evaluation Date of Evaluation: 11/08/18 Time of Evaluation: 17:25 - Subjective Subjective: dictated Objective - Vital Signs/Intake and Output Vital Signs (last 24 hours): Temp Pulse Resp BP Pulse Ox 98 F 81 20 127/71 97 11/08/18 17:56 11/08/18 18:00 11/08/18 17:56 11/08/18 17:56 11/08/18 17:56 Intake and Output: 11/08/18 11/09/18 18:59 06:59 Intake Total 1300 Output Total 300 Balance 1000 - Medications Medications: Current Medications Acetaminophen (Tylenol 325mg Tab) 650 mg PO Q6 PRN PRN Reason: Pain, Mild (1-3) Alprazolam (Xanax) 0.25 mg PO BID PRN PRN Reason: Anxiety Stop: 11/10/18 22:17 Last Admin: 11/07/18 21:45 Dose: 0.25 mg Cholestyramine Resin (Prevalite) 4 gm PO HS [facility] Last Admin: 11/07/18 21:46 Dose: 4 gm Clopidogrel Bisulfate (Plavix) 75 mg PO DAILY [facility] Last Admin: 11/08/18 09:10 Dose: 75 mg Famotidine (Pepcid) 20 mg PO DAILY [facility] Last Admin: 11/08/18 09:10 Dose: 20 mg Heparin Sodium (Porcine) (Heparin) 5,000 units SC Q12 [facility] Last Admin: 11/08/18 09:10 Dose: 5,000 units Sodium Chloride (Sodium Chloride 0.45%) 1,000 mls @ 100 mls/hr IV .Q10H [facility] Last Admin: 11/08/18 17:46 Dose: 100 mls/hr Meropenem 500 mg/ Sodium (Chloride) 100 mls @ 100 mls/hr IVPB Q24H [facility]; Protocol Last Admin: 11/08/18 12:38 Dose: 100 mls/hr Insulin Aspart (Novolog) 0 unit SC [facility]; Protocol Last Admin: 11/08/18 17:35 Dose: 3 units Insulin Glargine (Lantus) 8 unit SC [facility] Last Admin: 11/07/18 21:38 Dose: Not Given Isosorbide Mononitrate (Imdur Er) 30 mg PO DAILY [facility] Last Admin: 11/08/18 09:10 Dose: 30 mg Levothyroxine Sodium (Synthroid) 25 mcg PO DAILY@0630 [facility] Last Admin: 11/08/18 05:51 Dose: 25 mcg Magnesium Hydroxide (Milk Of Magnesia) 30 ml PO Q24H PRN PRN Reason: Constipation Naphazoline HCl/Pheniramine Maleate (Naphcon-A Opht) 0 ml OD BID [facility] Last Admin: 11/08/18 17:36 Dose: Not Given Ondansetron HCl (Zofran Odt) 4 mg PO Q6 PRN PRN Reason: Nausea/Vomiting Repaglinide (Prandin) 0.5 mg PO TIDAC [facility] Last Admin: 11/08/18 17:35 Dose: 0.5 mg Rosuvastatin Calcium (Crestor) 5 mg PO HS [facility] Last Admin: 11/07/18 21:45 Dose: 5 mg Sodium Bicarbonate (Sodium Bicarbonate Tab) 650 mg PO TID [facility] Last Admin: 11/08/18 17:35 Dose: 650 mg Tamsulosin HCl (Flomax) 0.4 mg PO DAILY [facility] Last Admin: 11/08/18 09:10 Dose: 0.4 mg - Labs Labs: 11/07/18 11:51 11/08/18 07:56 PT 12.5 SECONDS (9.7-12.2) H 11/03/18 11:20 INR 1.1 11/03/18 11:20 APTT 29 SECONDS (21-34) 11/03/18 11:20
--- NOTE | 2018-11-08 20:39 | PN ---
DATE: 11/08/2018 SUBJECTIVE: The patient is seen today, 11/08/2018. She is not in any cardiopulmonary distress. PHYSICAL EXAMINATION: VITAL SIGNS: Blood pressure is 147/61, temperature 98, respiratory rate 20 and pulse 93. HEENT: Blindness of both eyes. NECK: Supple. No JVD. No carotid bruit. No lymph node. No thyromegaly. CHEST AND LUNGS: Bilateral symmetrical expansion. Good air exchange. No rales, no rhonchi. CARDIOVASCULAR: PMI not localized. S1, S2. No additional sounds. ABDOMEN: Normoactive bowel sounds. No tenderness. No organomegaly. No masses. EXTREMITIES: Right BKA. CENTRAL NERVOUS SYSTEM: Alert, awake, oriented x2 and moves all extremities equally. ASSESSMENT: 1. [id number] kidney disease. 2. Urinary tract infection. 3. Bilateral hydronephrosis, right more than left, with possible debris in the bladder. PLAN: Continue current antibiotics, Urology consult and follow recommendations. Keyla Washington MD
[2018-11-08] MEDS: Cholestyramine 4 gm/5.5 gm UD Packet PO SCH (21:23)
[2018-11-08] MEDS: (Lantus) Insulin Glargine, Recombinant SC SCH (21:30)
--- NOTE | 2018-11-08 23:10 | CP.PCM.PN ---
Subjective - Date & Time of Evaluation Date of Evaluation: 11/08/18 Time of Evaluation: 17:30 - Subjective Subjective: patient seen and evaluated Improved breathing and appetite improved Review of Systems - Constitutional Constitutional: As Per HPI. absent: Chills, Fever - EENT Eyes: absent: Change in Vision Nose/Mouth/Throat: absent: Nasal Discharge, Sore Throat - Cardiovascular Cardiovascular: absent: Chest Pain, Dyspnea, Lightheadedness, Palpitations - Respiratory Respiratory: absent: Cough, Dyspnea - Gastrointestinal Gastrointestinal: absent: Abdominal Pain, Nausea, Vomiting - Integumentary Integumentary: absent: Acne, Lesions - Neurological Neurological: absent: Syncope, Weakness Additional comments: Physical Exam - Constitutional Appears: Non-toxic, No Acute Distress - Head Exam Head Exam: ATRAUMATIC, NORMOCEPHALIC - Eye Exam Eye Exam: Normal appearance - ENT Exam ENT Exam: Mucous Membranes Moist - Respiratory Exam Respiratory Exam: Clear to Auscultation Bilateral. absent: Rales, Rhonchi, Wheezes - Cardiovascular Exam Cardiovascular Exam: REGULAR RHYTHM, +S1, +S2 - GI/Abdominal Exam GI & Abdominal Exam: Normal Bowel Sounds, Soft. absent: Tenderness - Extremities Exam Extremities exam: Negative for: pedal edema, tenderness - Neurological Exam Neurological exam: Alert, Oriented x3 - Psychiatric Exam Psychiatric exam: Normal Affect, Normal Mood - Skin Skin Exam: Dry, Intact, Normal Color, Warm Assessment & Plan - Assessment and Plan (Free Text) Assessment: 77 year old female with past medical histoy of DM, HTN, CAD s/p CABG, s/p pacemaker, diabetic retinopathy CKD is being seen for episode of vtach-Non sustained Vtach/Non sustained No further mgt CAD - Continue plavix HTN - Imdur DM - Per primary management Objective - Vital Signs/Intake and Output Vital Signs (last 24 hours): Temp Pulse Resp BP Pulse Ox 98 F 81 20 127/71 97 11/08/18 17:56 11/08/18 18:00 11/08/18 17:56 11/08/18 17:56 11/08/18 17:56 Intake and Output: 11/08/18 11/09/18 18:59 06:59 Intake Total 1300 880 Output Total 300 300 Balance 1000 580 - Medications Medications: Current Medications Acetaminophen (Tylenol 325mg Tab) 650 mg PO Q6 PRN PRN Reason: Pain, Mild (1-3) Alprazolam (Xanax) 0.25 mg PO BID PRN PRN Reason: Anxiety Stop: 11/10/18 22:17 Last Admin: 11/08/18 21:30 Dose: 0.25 mg Cholestyramine Resin (Prevalite) 4 gm PO HS [facility] Last Admin: 11/07/18 21:46 Dose: 4 gm Clopidogrel Bisulfate (Plavix) 75 mg PO DAILY [facility] Last Admin: 11/08/18 09:10 Dose: 75 mg Famotidine (Pepcid) 20 mg PO DAILY [facility] Last Admin: 11/08/18 09:10 Dose: 20 mg Heparin Sodium (Porcine) (Heparin) 5,000 units SC Q12 [facility] Last Admin: 11/08/18 21:30 Dose: 5,000 units Sodium Chloride (Sodium Chloride 0.45%) 1,000 mls @ 100 mls/hr IV .Q10H [facility] Last Admin: 11/08/18 17:46 Dose: 100 mls/hr Meropenem 500 mg/ Sodium (Chloride) 100 mls @ 100 mls/hr IVPB Q24H [facility]; Protocol Last Admin: 11/08/18 12:38 Dose: 100 mls/hr Insulin Aspart (Novolog) 0 unit SC [facility]; Protocol Last Admin: 11/08/18 21:30 Dose: Not Given Insulin Glargine (Lantus) 8 unit SC [facility] Last Admin: 11/08/18 21:30 Dose: 8 units Isosorbide Mononitrate (Imdur Er) 30 mg PO DAILY [facility] Last Admin: 11/08/18 09:10 Dose: 30 mg Levothyroxine Sodium (Synthroid) 25 mcg PO DAILY@0630 [facility] Last Admin: 11/08/18 05:51 Dose: 25 mcg Magnesium Hydroxide (Milk Of Magnesia) 30 ml PO Q24H PRN PRN Reason: Constipation Naphazoline HCl/Pheniramine Maleate (Naphcon-A Opht) 0 ml OD BID [facility] Last Admin: 11/08/18 17:36 Dose: Not Given Ondansetron HCl (Zofran Odt) 4 mg PO Q6 PRN PRN Reason: Nausea/Vomiting Repaglinide (Prandin) 0.5 mg PO TIDAC [facility] Last Admin: 01/12/19 17:35 Dose: 0.5 mg Rosuvastatin Calcium (Crestor) 5 mg PO HS [facility] Last Admin: 11/08/18 21:30 Dose: 5 mg Sodium Bicarbonate (Sodium Bicarbonate Tab) 650 mg PO TID [facility] Last Admin: 11/08/18 17:35 Dose: 650 mg Tamsulosin HCl (Flomax) 0.4 mg PO DAILY [facility] Last Admin: 11/08/18 09:10 Dose: 0.4 mg - Labs Labs: 11/07/18 11:51 11/08/18 07:56 PT 12.5 SECONDS (9.7-12.2) H 11/03/18 11:20 INR 1.1 11/03/18 11:20 APTT 29 SECONDS (21-34) 11/03/18 11:20
--- NOTE | 2018-11-09 01:38 | PN ---
DATE: 11/08/2018 LOCATION: The patient is located in room 551, bed B. REQUESTED BY: Keyla Washington MD REASON FOR FOLLOWUP: Acute renal failure, chronic kidney disease, UTI. HISTORY OF PRESENT ILLNESS: Mrs. Lovell is a 77-year-old elderly female with a past medical history significant for longstanding hypertension, diabetes, coronary artery disease, status post CABG, status post pacemaker, diabetic retinopathy, legally blind, status post right partial colectomy, status post ileostomy, status post right BKA, was [facility] the [facility] with altered mental status and decreased p.o. intake and acute renal failure and dehydration. The patient is receiving IV fluids half-normal saline at 78 mL per hour. Her renal function is gradually improving since admission. Now, creatinine is about 2.2-2.3 which might be her new baseline. The patient denies any complaints, somewhat depressed today after hearing the CT scan report from the Neurology. The patient denies any chest pain or palpitation. Denies any fever or cough. No abdominal pain. No nausea, vomiting, or diarrhea. PHYSICAL EXAMINATION: VITAL SIGNS: As follows, blood pressure 156/64, pulse 74, respirations 20, temperature 97.4, and saturation 98%. Height 5 feet 2 inches, and weight is 129 pounds. GENERAL: Mrs. Lovell is a 77-year-old elderly female, moderately built, moderately nourished, not in acute distress. HEENT: Pupils normal, reactive to light and accommodation. Conjunctivae pink. Sclerae anicteric and legally blind. No thyroid enlargement. Tongue is moist, and trachea is midline. LUNGS: Symmetric on both sides. Bilateral breath sounds present. Clear to auscultation. CARDIOVASCULAR SYSTEM: [place] at the fifth intercostal space and midclavicular line. S1, S2 audible. No murmur or gallop. ABDOMEN: Normal in appearance. Soft, tympanitic. No guarding. No rigidity. No hepatosplenomegaly. The patient has ileostomy on the right side. No abdominal bruits. CENTRAL NERVOUS SYSTEM: The patient is alert, awake, and oriented x3. Nonfocal examination. The patient is katarina both lower extremities. Cranial nerves II through XII grossly intact. EXTREMITIES: No cyanosis, no clubbing on the left side, status post right BKA. CURRENT MEDICATIONS: Include as follows: Crestor 5 mg at bedtime, Flomax 0.4 mg daily, subcu heparin 5000 every 12 hours, Imdur 30 mg p.o. daily, Lantus 8 units subcu at bedtime, meropenem 500 mg every 24 hours, milk of magnesia, Naphcon eye drops, NovoLog for sliding scale, Pepcid 20 mg daily, Plavix 75 mg daily, Prandin 0.5 mg p.o. t.i.d., cholestyramine 4 g p.o. at bedtime, sodium bicarbonate 650 mg p.o. t.i.d., IV fluids half-normal saline at 100 mL per hour, levothyroxine 25 mcg daily, Tylenol, Xanax, and Zofran p.r.n. LABORATORY DATA: Include as follows: As of 11/08/2018, sodium 132, potassium 4.9, chloride 106, CO2 18, BUN 32, creatinine 2.3, glucose 201, calcium is 8.5. CT scan of the head, as of 11/06/2018, brain, no mass effect or edema, cortical and cerebellar atrophy, periventricular small vessel disease, cystic encephalomalacia change, left occipital lobe unremarkable, no hydrocephalus. No acute intracranial abnormalities. No significant findings to account for the clinical presentation. No significant interval change compared to the prior examination. IMPRESSION: In summary, Mrs. Lovell is a 77-year-old elderly female with hypertension, diabetes, coronary artery disease, status post coronary artery bypass graft, status post pacemaker, status post right partial colectomy and ileostomy, right below-knee amputation, and chronic kidney disease, was admitted at this time with decreased oral intake and nauseous and dehydration and worsening renal function and acute mental status changes. 1. Acute renal failure on chronic kidney disease secondary to dehydration, secondary to decreased oral intake and intravascular depletion. 2. Dehydration. 3. Hypertension. 4. Diabetes. 5. Metabolic acidosis secondary to renal failure secondary to ileostomy and gastrointestinal loss. 6. Urinary tract infection secondary to Escherichia coli with extended-spectrum beta-lactamase positive. PLAN: Continue antibiotics as per Infectious Disease recommendation, meropenem; and the renal function is improving nicely. Continue sodium bicarbonate. Continue her current medications. We will follow with you. Thank you for allowing me to participate in your patient's care. Rafael Krishna MD [facility] # [id number]
--- NOTE | 2018-11-09 01:49 | PN ---
DATE: 11/08/2018 SUBJECTIVE: The patient was seen today. Her daughter was at the bedside and she says the first time the patient wanted food. Her appetite r was coming back. She had some bladder ultrasound, she wanted to know the report. She is inquisitive. OBJECTIVE: VITAL SIGNS: T-max is 97.4, pulse 74 and blood pressure is 156/64, respirations are 20. HEENT: Head is atraumatic, normocephalic. NECK: Supple. LUNGS: Clear. HEART: S1, S2 regular. GENERAL: She is clinically blind. ABDOMEN: Soft, nontender, has an ileostomy. EXTREMITIES: Right BKA and left leg is unremarkable. LABORATORY DATA: There were no new labs today. ASSESSMENT AND PLAN: However, she did have extended-spectrum beta-lactamase in the urine and she went for a bladder ultrasound today and she is going to be seen by the urologist. Her bladder ultrasound shows incomplete assessment of the bladder. No bladder wall abnormality. Considerable debris identified, which lies in the urinary bladder. So we will wait for the evaluation and by the urologist. As this patient has extended-spectrum beta-lactamase and she had abnormal renal ultrasound. I started her on Merrem which was started on 11/06/2018, so we will continue that. She does have renal insufficiency and she is also being followed by the renal attending. We will follow. IMPRESSION: This patient does have diabetes, renal insufficiency at this time. She also has some cardiac issues with arrhythmias. She is allergic to penicillin but she tolerated meropenem and today is the third day of meropenem. Teresa Tellez MD
--- NOTE | 2018-11-09 02:06 | CON ---
DATE: 11/08/2018 COMPREHENSIVE UROLOGIC CONSULTATION TIME OF CONSULTATION: Roughly 2:20 p.m. REASON FOR CONSULTATION: Bilateral hydronephrosis. BRIEF HISTORY: The patient is a 77-year-old female who has a prior history of recurrent urinary tract infections and chronic mild bilateral hydronephrosis who has a past medical history of cardiac pathology including congestive heart failure and status post a pacemaker. She also has a history of hypertension, hypercholesterolemia, and thyroid disease. She is also status post a stroke. 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 She is currently on Flomax 0.4 mg daily. She currently does have an E coli UTI and is currently on IV meropenem. It is also sensitive to IV Zosyn IV. She also has a history of COPD, asthma, and emphysema. She is blind. She also has a history of chronic kidney disease and anemia. She also has past history of anxiety and some urinary incontinence. PAST SURGICAL HISTORY: Includes bowel surgery for ischemic bowel disease. She is status post colostomy and ileostomy. ALLERGIES: SHE IS ALLERGIC TO PENICILLIN, WHICH INCLUDES PIPERACILLIN,WHICH SHE DEVELOPED A RASH, MOST LIKELY FROM ZOSYN. SOCIAL HISTORY: She is a former smoker. PHYSICAL EXAMINATION: Today: GENERAL: She is currently resting comfortably. No complaints of pain at this time. VITAL SIGNS: On 11/08/2018 showed a temperature of 97.4. Blood pressure 156/64. Respiratory rate 20. O2 saturation was 98% on room air. HEENT: Examination is grossly within normal limits. NECK: Supple. Thyroid not palpable. ABDOMEN: Soft and nondistended, nontender. No CVA tenderness. No suprapubic tenderness. LABORATORY DATA: She did have a chest x-ray done on 11/05/2018 which showed a small left pleural effusion. Increased interstitial markings. Left basal consolidation. Biapical pleural thickening with upper lobe granulomatous changes. Left-sided pacemaker. Status post median sternotomy and CABG. Atherosclerotic calcification at the aortic knob and cardiomegaly. A renal ultrasound done on 11/06/2018 showed moderate right renal hydronephrosis and medical renal disease. Left kidney showed mild renal hydronephrosis and medical renal disease. Echogenic debris seen within the urinary bladder. Correlation with urinary bladder ultrasound and/or cystoscopy maybe helpful. Laboratory evaluation on 11/07/2018 showed a CBC with a WBC count of 5.2, hemoglobin of 9.3, platelet count 240,000, hematocrit 27.5. Chem profile showed today 11/08/2018 sodium of 132, potassium 4.9, chloride 106, CO2 of 18, BUN and creatinine 38 and 2.3 respectively with a GFR of 21 indicating chronic kidney disease stage IV. Random glucose is 201. Calcium 8.5. Urine C and S showed E coli greater than 100,000 colonies sensitive to meropenem and Zosyn and nitrofurantoin, and is ESBL positive. UROLOGIC DIAGNOSTIC IMPRESSION: 1. Chronic bilateral hydronephrosis, right greater than left. 2. Recurrent Escherichia coli urinary tract infection. PLAN: For this patient will be to order a bladder ultrasound if this was not ordered yet. Continue her IV meropenem for treatment of ESBL E coli urinary tract infection. We can eventually schedule patient for cystoscopy with bilateral retrograde pyelograms when urine is sterile. Efrain Gill MD [facility]
[2018-11-09] MEDS: Sodium Chloride 0.45% 1,000 ML IV SCH ×3 (06:18→21:21)
[2018-11-09] MEDS: Levothyroxine 25 MCG TAB PO SCH (06:23)
[2018-11-09] MEDS: (Novolog) Insulin Aspart, Recombinant 100 u/ml 10 ml vial SC SCH ×4 (08:34→21:23)
[2018-11-09] MEDS: Naphazoline-Pheniramine Ophth Soln OD SCH ×2 (08:59→18:19)
--- NOTE | 2018-11-09 13:19 | CP.PCM.PN ---
Subjective - Date & Time of Evaluation Date of Evaluation: 11/09/18 Time of Evaluation: 13:15 - Subjective Subjective: dictated Objective - Vital Signs/Intake and Output Vital Signs (last 24 hours): Temp Pulse Resp BP Pulse Ox 97.6 F 77 20 143/72 99 11/09/18 08:00 11/09/18 12:02 11/09/18 08:00 11/09/18 08:00 11/09/18 08:00 Intake and Output: 11/09/18 11/09/18 06:59 18:59 Intake Total 880 800 Output Total 300 200 Balance 580 600 - Medications Medications: Current Medications Acetaminophen (Tylenol 325mg Tab) 650 mg PO Q6 PRN PRN Reason: Pain, Mild (1-3) Alprazolam (Xanax) 0.25 mg PO BID PRN PRN Reason: Anxiety Stop: 11/10/18 22:17 Last Admin: 11/08/18 21:30 Dose: 0.25 mg Cholestyramine Resin (Prevalite) 4 gm PO HS [facility] Last Admin: 11/07/18 21:46 Dose: 4 gm Clopidogrel Bisulfate (Plavix) 75 mg PO DAILY [facility] Last Admin: 11/09/18 08:59 Dose: 75 mg Famotidine (Pepcid) 20 mg PO DAILY [facility] Last Admin: 11/09/18 08:59 Dose: 20 mg Heparin Sodium (Porcine) (Heparin) 5,000 units SC Q12 [facility] Last Admin: 11/09/18 08:59 Dose: 5,000 units Sodium Chloride (Sodium Chloride 0.45%) 1,000 mls @ 100 mls/hr IV .Q10H [facility] Last Admin: 11/09/18 06:18 Dose: 100 mls/hr Meropenem 500 mg/ Sodium (Chloride) 100 mls @ 100 mls/hr IVPB Q24H [facility]; Protocol Last Admin: 11/08/18 12:38 Dose: 100 mls/hr Insulin Aspart (Novolog) 0 unit SC [facility]; Protocol Last Admin: 11/09/18 12:41 Dose: 3 units Insulin Glargine (Lantus) 8 unit SC HS [facility] Last Admin: 11/08/18 21:30 Dose: 8 units Isosorbide Mononitrate (Imdur Er) 30 mg PO DAILY [facility] Last Admin: 11/09/18 08:59 Dose: 30 mg Levothyroxine Sodium (Synthroid) 25 mcg PO DAILY@0630 [facility] Last Admin: 11/09/18 06:23 Dose: 25 mcg Magnesium Hydroxide (Milk Of Magnesia) 30 ml PO Q24H PRN PRN Reason: Constipation Naphazoline HCl/Pheniramine Maleate (Naphcon-A Opht) 0 ml OD BID [facility] Last Admin: 11/09/18 08:59 Dose: 2 drop Ondansetron HCl (Zofran Odt) 4 mg PO Q6 PRN PRN Reason: Nausea/Vomiting Repaglinide (Prandin) 0.5 mg PO TIDAC [facility] Last Admin: 11/09/18 12:41 Dose: 0.5 mg Rosuvastatin Calcium (Crestor) 5 mg PO HS [facility] Last Admin: 11/08/18 21:30 Dose: 5 mg Sodium Bicarbonate (Sodium Bicarbonate Tab) 650 mg PO TID [facility] Last Admin: 11/09/18 08:59 Dose: 650 mg Tamsulosin HCl (Flomax) 0.4 mg PO DAILY [facility] Last Admin: 11/09/18 08:59 Dose: 0.4 mg - Labs Labs: 11/07/18 11:51 11/08/18 07:56 PT 12.5 SECONDS (9.7-12.2) H 11/03/18 11:20 INR 1.1 11/03/18 11:20 APTT 29 SECONDS (21-34) 11/03/18 11:20
[2018-11-09] MEDS: Meropenem 500 MG in Sodium Chloride 0.9% 100 ML IVPB SCH (13:20)
--- NOTE | 2018-11-09 16:22 | PN ---
DATE: 11/09/2018 SUBJECTIVE: The patient is little fidgety at this time. She is little uncomfortable which she says she was seen by Dr. Malik and he said the heart was okay. She denies any other complaints. She did eat though according to the family member who is at the bedside. OBJECTIVE: VITAL SIGNS: T-max is 97.6, pulse 76, blood pressure is 143/72, respirations are 20. GENERAL: She is blind and lying in bed. I asked her if she wanted to sit up, but she says she is put her back into the bed. Her saturation remains 99%. She is able to answer questions. NECK: Supple. LUNGS: Clear. HEART: S1, S2 is regular. Heart rate is 83 on the monitor with 100% saturation. ABDOMEN: Soft, flabby. EXTREMITIES: She has ileostomy bag and right BKA on the left leg which is unremarkable at this time. LABORATORY DATA: Noted. She had labs on 11/07/2018 which were stable. Creatinine was, however, 2.3 and creatinine initially was 3 something. ASSESSMENT AND PLAN: We will repeat the labs tomorrow again and we will continue Merrem. We did a renal and bladder ultrasound which showed bilateral hydronephrosis and we are waiting for Dr. Duncan with consult at this time. We will renew the meropenem and we will follow. She has hydronephrosis, she has peripheral vascular disease and diabetes mellitus, probably diabetic and neuro as well as nephropathy and blindness. Teresa Tellez MD
--- NOTE | 2018-11-09 17:28 | CP.PCM.PN ---
Subjective - Date & Time of Evaluation Date of Evaluation: 11/09/18 Time of Evaluation: 17:28 - Subjective Subjective: pt is seen and examined, follow up consult is dictated#[id number] Objective - Vital Signs/Intake and Output Vital Signs (last 24 hours): Temp Pulse Resp BP Pulse Ox 98.5 F 74 20 121/66 97 11/09/18 16:14 11/09/18 16:14 11/09/18 16:14 11/09/18 16:14 11/09/18 16:14 Intake and Output: 11/09/18 11/09/18 06:59 18:59 Intake Total 880 2200 Output Total 300 500 Balance 580 1700 - Medications Medications: Current Medications Acetaminophen (Tylenol 325mg Tab) 650 mg PO Q6 PRN PRN Reason: Pain, Mild (1-3) Alprazolam (Xanax) 0.25 mg PO BID PRN PRN Reason: Anxiety Stop: 11/10/18 22:17 Last Admin: 11/08/18 21:30 Dose: 0.25 mg Cholestyramine Resin (Prevalite) 4 gm PO HS [facility] Last Admin: 11/07/18 21:46 Dose: 4 gm Clopidogrel Bisulfate (Plavix) 75 mg PO DAILY [facility] Last Admin: 11/09/18 08:59 Dose: 75 mg Famotidine (Pepcid) 20 mg PO DAILY [facility] Last Admin: 11/09/18 08:59 Dose: 20 mg Meropenem 500 mg/ Sodium (Chloride) 100 mls @ 100 mls/hr IVPB Q24H [facility]; Protocol Last Admin: 11/09/18 13:20 Dose: 100 mls/hr Insulin Aspart (Novolog) 0 unit SC [facility]; Protocol Last Admin: 11/09/18 12:41 Dose: 3 units Insulin Glargine (Lantus) 8 unit SC HS [facility] Last Admin: 11/08/18 21:30 Dose: 8 units Isosorbide Mononitrate (Imdur Er) 30 mg PO DAILY [facility] Last Admin: 11/09/18 08:59 Dose: 30 mg Levothyroxine Sodium (Synthroid) 25 mcg PO DAILY@0630 [facility] Last Admin: 11/09/18 06:23 Dose: 25 mcg Magnesium Hydroxide (Milk Of Magnesia) 30 ml PO Q24H PRN PRN Reason: Constipation Naphazoline HCl/Pheniramine Maleate (Naphcon-A Opht) 0 ml OD BID [facility] Last Admin: 11/09/18 08:59 Dose: 2 drop Ondansetron HCl (Zofran Odt) 4 mg PO Q6 PRN PRN Reason: Nausea/Vomiting Repaglinide (Prandin) 0.5 mg PO TIDAC [facility] Last Admin: 11/09/18 12:41 Dose: 0.5 mg Rosuvastatin Calcium (Crestor) 5 mg PO HS [facility] Last Admin: 11/08/18 21:30 Dose: 5 mg Sodium Bicarbonate (Sodium Bicarbonate Tab) 650 mg PO TID [facility] Last Admin: 11/09/18 13:20 Dose: 650 mg Tamsulosin HCl (Flomax) 0.4 mg PO DAILY [facility] Last Admin: 11/09/18 08:59 Dose: 0.4 mg - Labs Labs: 11/07/18 11:51 11/08/18 07:56 PT 12.5 SECONDS (9.7-12.2) H 11/03/18 11:20 INR 1.1 11/03/18 11:20 APTT 29 SECONDS (21-34) 11/03/18 11:20
--- NOTE | 2018-11-09 19:58 | CP.PCM.PN ---
Subjective - Date & Time of Evaluation Date of Evaluation: 11/09/18 Time of Evaluation: 14:05 - Subjective Subjective: Patient seen and evaluated No new cardiac events noted Review of Systems - Constitutional Constitutional: As Per HPI. absent: Chills, Fever - EENT Eyes: absent: Change in Vision Nose/Mouth/Throat: absent: Nasal Discharge, Sore Throat - Cardiovascular Cardiovascular: absent: Chest Pain, Dyspnea, Lightheadedness, Palpitations - Respiratory Respiratory: absent: Cough, Dyspnea - Gastrointestinal Gastrointestinal: absent: Abdominal Pain, Nausea, Vomiting - Integumentary Integumentary: absent: Acne, Lesions - Neurological Neurological: absent: Syncope, Weakness Additional comments: Physical Exam - Constitutional Appears: Non-toxic, No Acute Distress - Head Exam Head Exam: ATRAUMATIC, NORMOCEPHALIC - Eye Exam Eye Exam: Normal appearance - ENT Exam ENT Exam: Mucous Membranes Moist - Respiratory Exam Respiratory Exam: Clear to Auscultation Bilateral. absent: Rales, Rhonchi, Wheezes - Cardiovascular Exam Cardiovascular Exam: REGULAR RHYTHM, +S1, +S2 - GI/Abdominal Exam GI & Abdominal Exam: Normal Bowel Sounds, Soft. absent: Tenderness - Extremities Exam Extremities exam: Negative for: pedal edema, tenderness - Neurological Exam Neurological exam: Alert, Oriented x3 - Psychiatric Exam Psychiatric exam: Normal Affect, Normal Mood - Skin Skin Exam: Dry, Intact, Normal Color, Warm Assessment & Plan - Assessment and Plan (Free Text) Assessment: 77 year old female with past medical histoy of DM, HTN, CAD s/p CABG, s/p pacemaker, diabetic retinopathy CKD is being seen for episode of vtach-Non sustained Vtach/Non sustained No further mgt CAD - Continue plavix HTN - Imdur DM - Per primary management Objective - Vital Signs/Intake and Output Vital Signs (last 24 hours): Temp Pulse Resp BP Pulse Ox 98.5 F 74 20 121/66 97 11/09/18 16:14 11/09/18 16:14 11/09/18 16:14 11/09/18 16:14 11/09/18 16:14 Intake and Output: 11/09/18 11/10/18 18:59 06:59 Intake Total 2200 Output Total 500 Balance 1700 - Medications Medications: Current Medications Acetaminophen (Tylenol 325mg Tab) 650 mg PO Q6 PRN PRN Reason: Pain, Mild (1-3) Alprazolam (Xanax) 0.25 mg PO BID PRN PRN Reason: Anxiety Stop: 11/10/18 22:17 Last Admin: 11/08/18 21:30 Dose: 0.25 mg Cholestyramine Resin (Prevalite) 4 gm PO [facility] Last Admin: 11/07/18 21:46 Dose: 4 gm Clopidogrel Bisulfate (Plavix) 75 mg PO DAILY [facility] Last Admin: 11/09/18 08:59 Dose: 75 mg Famotidine (Pepcid) 20 mg PO DAILY [facility] Last Admin: 11/09/18 08:59 Dose: 20 mg Meropenem 500 mg/ Sodium (Chloride) 100 mls @ 100 mls/hr IVPB Q24H [facility]; Protocol Last Admin: 11/09/18 13:20 Dose: 100 mls/hr Sodium Chloride (Sodium Chloride 0.45%) 1,000 mls @ 100 mls/hr IV .Q10H [facility] Insulin Aspart (Novolog) 0 unit SC [facility]; Protocol Last Admin: 11/09/18 18:09 Dose: Not Given Insulin Glargine (Lantus) 8 unit SC [facility] Last Admin: 11/08/18 21:30 Dose: 8 units Isosorbide Mononitrate (Imdur Er) 30 mg PO DAILY [facility] Last Admin: 11/09/18 08:59 Dose: 30 mg Levothyroxine Sodium (Synthroid) 25 mcg PO DAILY@0630 [facility] Last Admin: 11/09/18 06:23 Dose: 25 mcg Magnesium Hydroxide (Milk Of Magnesia) 30 ml PO Q24H PRN PRN Reason: Constipation Naphazoline HCl/Pheniramine Maleate (Naphcon-A Opht) 0 ml OD BID [facility] Last Admin: 11/09/18 18:19 Dose: Not Given Ondansetron HCl (Zofran Odt) 4 mg PO Q6 PRN PRN Reason: Nausea/Vomiting Repaglinide (Prandin) 0.5 mg PO TIDAC [facility] Last Admin: 11/09/18 18:14 Dose: 0.5 mg Rosuvastatin Calcium (Crestor) 5 mg PO [facility] Last Admin: 11/08/18 21:30 Dose: 5 mg Sodium Bicarbonate (Sodium Bicarbonate Tab) 650 mg PO TID [facility] Last Admin: 11/09/18 18:14 Dose: 650 mg Tamsulosin HCl (Flomax) 0.4 mg PO DAILY [facility] Last Admin: 11/09/18 08:59 Dose: 0.4 mg - Labs Labs: 11/07/18 11:51 11/08/18 07:56 PT 12.5 SECONDS (9.7-12.2) H 11/03/18 11:20 INR 1.1 11/03/18 11:20 APTT 29 SECONDS (21-34) 11/03/18 11:20
[2018-11-09] MEDS: (Lantus) Insulin Glargine, Recombinant SC SCH (21:19)
[2018-11-09] MEDS: Cholestyramine 4 gm/5.5 gm UD Packet PO SCH (21:23)
--- NOTE | 2018-11-10 03:47 | PN ---
DATE: 11/09/2018 LOCATION: The patient is located in room 551, bed B. REQUESTED BY: Keyla Washington MD REASON FOR FOLLOWUP: Acute renal failure, chronic kidney disease, and for further evaluation. SUBJECTIVE: Mrs. Lovell is a 77-year-old elderly female with a past medical history significant for longstanding hypertension, diabetes, hyperlipidemia, coronary artery disease, status post CABG, status post pacemaker placement, status post right partial colectomy, ileostomy, right BKA, legally blind, multiple admissions to the hospital, history of dialysis in the past. Now, the patient was admitted from the [place] [facility] with chief complaints of altered mental status, decreased p.o. intake, hyperkalemia, and metabolic acidosis. The patient is feeling much better, on IV hydration. Denies any headache or dizziness. Denies any chest pain or palpitation. Denies any fever or cough. No nausea, vomiting, or diarrhea. Decreased p.o. intake on and off. PHYSICAL EXAMINATION: VITAL SIGNS: This afternoon as follows: Blood pressure 121/66, pulse 74, respirations 20, temperature 98.5, saturation 97%. Height 5 feet 2 inches and weight is 129 pounds. GENERAL: Mrs. Lovell is a 77-year-old elderly female, very pleasant, moderately built, moderately nourished, not in acute distress. HEENT: Pupils normal and reactive to light and accommodation. Conjunctivae pink. Sclerae anicteric and legally blind. Tongue is moist. Trachea is midline. LUNGS: Symmetric on both sides. Bilateral breath sounds present. Clear to auscultation. CARDIOVASCULAR SYSTEM: [place] at the fifth intercostal space, midclavicular line. S1, S2 audible. No murmur or gallop. The patient has a midsternal scar present from the previous CABG. ABDOMEN: The patient has scars from the previous colectomy, partial right side and also ileostomy on the right side. Abdomen is soft, tympanitic. No guarding. No hepatosplenomegaly. Liquid stool in the ileostomy bag. CENTRAL NERVOUS SYSTEM: The patient is alert, awake, oriented times two to three. Sensory and motor system is grossly within normal limits. EXTREMITIES: No cyanosis, no clubbing, no edema on the left side; status post right BKA. LABORATORY DATA: No new labs available for today; and Accu-Cheks 216, 210, 171, and 235. MEDICATIONS: Her current medications include as follows: Crestor 5 mg at bedtime, Flomax 0.4 mg daily, Imdur 30 mg p.o. daily, Lantus 8 units subcu at bedtime, meropenem 500 mg every 24 hours, milk of magnesia 30 mL every 24 hours p.r.n., Pepcid 20 mg p.o. daily, Plavix 75 mg daily, Prandin 0.5 mg p.o. t.i.d., cholestyramine resin 4 g p.o. at bedtime, Tylenol 650 mg every 6 hours p.r.n., sodium bicarbonate 650 mg p.o. t.i.d., IV fluids half-normal saline at 70 mL/hour, Synthroid 25 mcg p.o. daily, Xanax 0.25 mg p.o. b.i.d., and Zofran 4 mg p.o. every 6 hours p.r.n. ASSESSMENT AND PLAN: In summary, Mrs. Lovell is a 77-year-old elderly female with a history of hypertension, diabetes, coronary artery disease, status post coronary artery bypass graft, chronic kidney disease, hypothyroidism, status post pacemaker, right below knee amputation, status post ileostomy who was admitted with altered mental status, dehydration, and increased blood urea nitrogen and creatinine. 1. Acute renal failure on chronic kidney disease secondary to intravascular depletion and dehydration. Cannot rule out acute tubular necrosis. 2. Metabolic acidosis. 3. Hypertension. 4. Anemia secondary to renal failure. 5. Urinary tract infection secondary to Escherichia coli, extended-spectrum beta-lactamases positive. Continue intravenous antibiotics Merrem as per Infectious Disease recommendations. Repeat complete blood count, comprehensive metabolic panel, and phosphorus level in the morning. The patient is stable from the renal standpoint for possible transfer back to [place] [facility] if the patient and family agrees. We will follow with you. Thank you for allowing me to participate in your patient's care. Rafael Krishna MD
[2018-11-10] MEDS: Levothyroxine 25 MCG TAB PO SCH (06:53)
[2018-11-10 07:26] LABS: HEMOGLOBIN 9.1 g/dL (11.0-16.0); MEAN CELL VOLUME 89.3 fL (81.0-99.0); MEAN CORPUSCULAR HEMOGLOBIN 29.4 pg (27.0-31.0); MEAN CORPUSCULAR HGB CONC 32.9 g/dL (33.0-37.0); MEAN PLATELET VOLUME 6.6 fL (7.2-11.7); RBC 3.09 Mil/uL (3.80-5.20); WHITE BLOOD COUNT 5.8 K/uL (4.8-10.8)
[2018-11-10 08:03] LABS: ALB/GLOB RATIO 0.8 (1.0-2.1); ALBUMIN 2.8 g/dL (3.5-5.0); CALCIUM 8.2 mg/dl (8.6-10.4)
[2018-11-10] MEDS: (Novolog) Insulin Aspart, Recombinant 100 u/ml 10 ml vial SC SCH ×4 (08:18→22:02)
[2018-11-10] MEDS: Naphazoline-Pheniramine Ophth Soln OD SCH ×2 (09:18→17:28)
--- NOTE | 2018-11-10 09:25 | PN ---
DATE: 11/07/2018 LOCATION: The patient is located in room 551, bed B. REQUESTED BY: Keyla Washington MD REASON FOR FOLLOWUP: Acute renal failure, chronic kidney disease, hyperkalemia, metabolic acidosis. HISTORY OF PRESENT ILLNESS: The patient is a 77-year-old elderly female with a past medical history significant for longstanding hypertension, diabetes, coronary artery disease, status post CABG, status post pacemaker placement, status post partial colectomy, status post ileostomy, status post right BKA who was admitted with altered mental status, worsening renal function, hyperkalemia, metabolic acidosis from the usp and dehydration. The patient is receiving IV fluids. Renal function is improving nicely. The patient denies any complaints today. No chest pain. No palpitation. No fever. No cough. No abdominal pain. No nausea, vomiting, or diarrhea. PHYSICAL EXAMINATION: VITAL SIGNS: As follows: Blood pressure this morning is 148/84, pulse 80, respirations 20, temperature 97.7, saturation 98%. Height 5 feet 2 inches and weight is 129 pounds. GENERAL: The patient is a 77-year-old elderly female, moderately built, moderately nourished, not in distress. HEENT: Pupils normal and reactive to light and accommodation. Conjunctivae pink. Sclerae anicteric and legally blind. Tongue is moist and trachea is midline. LUNGS: Symmetric on both sides. Bilateral breath sounds present. Clear to auscultation. CARDIOVASCULAR SYSTEM: [place] at the fifth intercostal space, midclavicular line. S1, S2 audible. No murmur or gallop. ABDOMEN: Normal in appearance. Soft, tympanitic. No guarding. No rigidity. No hepatosplenomegaly. CENTRAL NERVOUS SYSTEM: The patient is alert, awake, oriented x3. Sensory and motor system is within normal limits. EXTREMITIES: No cyanosis, no clubbing, no edema on the left leg, status post right bilateral knee amputation. CURRENT MEDICATIONS: Include as follows: Crestor 5 mg at bedtime, Flomax 0.4 mg p.o. daily, subcu heparin 5000 units every 12 hours, Imdur 30 mg p.o. daily, Lantus 8 units subcu at bedtime, meropenem 500 mg every 24 hours, milk of magnesia 30 mL every 24 hours, Naphcon-A ophthalmic drops b.i.d., Pepcid 20 mg p.o. daily, Plavix 75 mg daily, Prandin 0.5 mg p.o. t.i.d., cholestyramine resin 4 g p.o. at bedtime, sodium bicarbonate tablets 650 mg p.o. t.i.d., IV fluids half-normal saline at 100 mL/hour, levothyroxine 25 mcg p.o. daily, Xanax 0.25 mg p.o. b.i.d., Zofran 4 mg p.o. every 6 hours p.r.n., Tylenol. LABORATORY DATA: Include as follows: As of 11/07/2018, WBC 5.2, hemoglobin 9.3, hematocrit is 27.5, platelets 240. Sodium 130, potassium 4.8, chloride 105, CO2 of 19, BUN 35, creatinine 2.2, and glucose 221, calcium 8.3. Total bili 0.3, AST 12, ALT 14, alkaline phos 99, total protein 6, albumin is 3. Urine culture is positive for E. coli and is ESBL positive, and the patient is on isolation. IMPRESSION: In summary, the patient is a 77-year-old elderly female with hypertension, diabetes, coronary artery disease, status post coronary artery bypass grafting, status post pacemaker, status post right partial colectomy, ileostomy, right below knee amputation, chronic kidney disease with dehydration, and increased blood urea nitrogen and creatinine. 1. Acute renal failure, on chronic kidney disease stage 3, secondary to intravascular depletion secondary to dehydration and decreased p.o. intake. 2. Anemia secondary to renal failure. 3. Urinary tract infection secondary to Escherichia coli with extended-spectrum beta-lactamase positive. Continue meropenem as per Infectious Disease recommendation. 4. Hypertension. 5. Diabetes. 6. Metabolic acidosis, improving. Continue sodium bicarbonate tablets 650 t.i.d. We will follow with you. Thank you for allowing me to participate in your patient's care. Rafael Krishna MD
[2018-11-10] MEDS: Meropenem 500 MG in Sodium Chloride 0.9% 100 ML IVPB SCH (10:58)
[2018-11-10] MEDS ORDERED: Magnesium Sulfate 1 gm in D5W 1 GM/100 ML BAG IVPB ONE (11:45)
--- NOTE | 2018-11-10 12:25 | CP.PCM.PN ---
Subjective - Date & Time of Evaluation Date of Evaluation: 11/10/18 Time of Evaluation: 12:24 - Subjective Subjective: pt is seen and examined, follow up consult is dictated #[id number] add epogen , mg Objective - Vital Signs/Intake and Output Vital Signs (last 24 hours): Temp Pulse Resp BP Pulse Ox 98.2 F 84 20 162/67 H 99 11/10/18 08:00 11/10/18 09:20 11/10/18 08:00 11/10/18 09:20 11/10/18 08:00 Intake and Output: 11/10/18 11/10/18 06:59 18:59 Intake Total 800 Output Total 450 Balance 350 - Medications Medications: Current Medications Acetaminophen (Tylenol 325mg Tab) 650 mg PO Q6 PRN PRN Reason: Pain, Mild (1-3) Alprazolam (Xanax) 0.25 mg PO BID PRN PRN Reason: Anxiety Stop: 11/10/18 22:17 Last Admin: 11/09/18 21:19 Dose: 0.25 mg Cholestyramine Resin (Prevalite) 4 gm PO [facility] Last Admin: 11/09/18 21:23 Dose: Not Given Clopidogrel Bisulfate (Plavix) 75 mg PO DAILY [facility] Last Admin: 11/10/18 09:17 Dose: 75 mg Famotidine (Pepcid) 20 mg PO DAILY [facility] Last Admin: 11/10/18 09:17 Dose: 20 mg Meropenem 500 mg/ Sodium (Chloride) 100 mls @ 100 mls/hr IVPB Q24H [facility]; Protocol Last Admin: 11/10/18 10:58 Dose: 100 mls/hr Sodium Chloride (Sodium Chloride 0.45%) 1,000 mls @ 100 mls/hr IV .Q10H [facility] Last Admin: 11/09/18 21:21 Dose: 100 mls/hr Insulin Aspart (Novolog) 0 unit SC [facility]; Protocol Last Admin: 11/10/18 08:18 Dose: 2 units Insulin Glargine (Lantus) 8 unit SC HS [facility] Last Admin: 11/09/18 21:19 Dose: 8 units Isosorbide Mononitrate (Imdur Er) 30 mg PO DAILY [facility] Last Admin: 11/10/18 09:17 Dose: 30 mg Levothyroxine Sodium (Synthroid) 25 mcg PO DAILY@0630 [facility] Last Admin: 11/10/18 06:53 Dose: 25 mcg Magnesium Hydroxide (Milk Of Magnesia) 30 ml PO Q24H PRN PRN Reason: Constipation Naphazoline HCl/Pheniramine Maleate (Naphcon-A Opht) 0 ml OD BID [facility] Last Admin: 11/10/18 09:18 Dose: 1 drop Ondansetron HCl (Zofran Odt) 4 mg PO Q6 PRN PRN Reason: Nausea/Vomiting Repaglinide (Prandin) 0.5 mg PO TIDAC [facility] Last Admin: 11/10/18 08:17 Dose: 0.5 mg Rosuvastatin Calcium (Crestor) 5 mg PO HS [facility] Last Admin: 11/09/18 21:19 Dose: 5 mg Sodium Bicarbonate (Sodium Bicarbonate Tab) 650 mg PO TID [facility] Last Admin: 11/10/18 09:17 Dose: 650 mg Tamsulosin HCl (Flomax) 0.4 mg PO DAILY [facility] Last Admin: 11/10/18 09:17 Dose: 0.4 mg - Labs Labs: 11/10/18 06:10 11/10/18 06:10 PT 12.5 SECONDS (9.7-12.2) H 11/03/18 11:20 INR 1.1 11/03/18 11:20 APTT 29 SECONDS (21-34) 11/03/18 11:20
--- NOTE | 2018-11-10 13:45 | PN ---
DATE: 11/10/2018 TIME OF FOLLOWUP: Roughly 10:50 a.m. SUBJECTIVE: The patient had her bladder ultrasound done on 11/08/2018, which showed unremarkable bladder findings without any bladder wall thickening or intraluminal debris, no calculus or gross mass lesion. No free fluid within the pelvis. There was debris identified layering in the urinary bladder. No focal bladder wall abnormalities. PHYSICAL EXAMINATION: ABDOMEN: Today, her abdomen is soft, not distended or tender. No CVA tenderness, no suprapubic tenderness. ASSESSMENT AND PLAN: The patient is currently resting very comfortably. She is being treated for a positive sacral ulceration and she wants to go to [facility] for rehab. She does not want any cystoscopy or any other procedure performed on her bladder at this time. She was offered this procedure 3-4 years ago and refused at that time also for her probable chronic condition. Plan for this patient will be just to eventually repeat a urinalysis and urine culture and sensitivity. Efrain Gill MD
--- NOTE | 2018-11-10 13:55 | CP.PCM.PN ---
<Flex Hoyos - Last Filed: 11/10/18 17:56> Subjective - Date & Time of Evaluation Date of Evaluation: 11/10/18 Time of Evaluation: 13:52 - Subjective Subjective: Progress Note: Cardiology Service Dr. Malik Patient seen and examined . Patient denies any chest pain, shortness of breath, fevers, chills, or any other complaints. Objective - Vital Signs/Intake and Output Vital Signs (last 24 hours): Temp Pulse Resp BP Pulse Ox 98.2 F 84 20 162/67 H 99 11/10/18 08:00 11/10/18 09:20 11/10/18 08:00 11/10/18 09:20 11/10/18 08:00 Intake and Output: 11/10/18 11/10/18 06:59 18:59 Intake Total 800 Output Total 450 Balance 350 - Medications Medications: Current Medications Acetaminophen (Tylenol 325mg Tab) 650 mg PO Q6 PRN PRN Reason: Pain, Mild (1-3) Alprazolam (Xanax) 0.25 mg PO BID PRN PRN Reason: Anxiety Stop: 11/10/18 22:17 Last Admin: 11/09/18 21:19 Dose: 0.25 mg Cholestyramine Resin (Prevalite) [address] [facility] Last Admin: 11/09/18 21:23 Dose: Not Given Clopidogrel Bisulfate (Plavix) 75 mg PO DAILY [facility] Last Admin: 11/10/18 09:17 Dose: 75 mg Famotidine (Pepcid) 20 mg PO DAILY [facility] Last Admin: 11/10/18 09:17 Dose: 20 mg Meropenem 500 mg/ Sodium (Chloride) 100 mls @ 100 mls/hr IVPB Q24H [facility]; Protocol Last Admin: 11/10/18 10:58 Dose: 100 mls/hr Sodium Chloride (Sodium Chloride 0.45%) 1,000 mls @ 100 mls/hr IV .Q10H [facility] Last Admin: 11/09/18 21:21 Dose: 100 mls/hr Insulin Aspart (Novolog) [address] [facility]; Protocol Last Admin: 11/10/18 12:29 Dose: 3 units Insulin Glargine (Lantus) [address] [facility] Last Admin: 11/09/18 21:19 Dose: 8 units Isosorbide Mononitrate (Imdur Er) 30 mg PO DAILY [facility] Last Admin: 11/10/18 09:17 Dose: 30 mg Levothyroxine Sodium (Synthroid) 25 mcg PO DAILY@0630 [facility] Last Admin: 11/10/18 06:53 Dose: 25 mcg Magnesium Hydroxide (Milk Of Magnesia) 30 ml PO Q24H PRN PRN Reason: Constipation Naphazoline HCl/Pheniramine Maleate (Naphcon-A Opht) 0 ml OD BID [facility] Last Admin: 11/10/18 09:18 Dose: 1 drop Ondansetron HCl (Zofran Odt) 4 mg PO Q6 PRN PRN Reason: Nausea/Vomiting Repaglinide (Prandin) 0.5 mg PO TIDAC [facility] Last Admin: 11/10/18 12:29 Dose: 0.5 mg Rosuvastatin Calcium (Crestor) 5 mg PO HS [facility] Last Admin: 11/09/18 21:19 Dose: 5 mg Sodium Bicarbonate (Sodium Bicarbonate Tab) 650 mg PO TID [facility] Last Admin: 11/10/18 13:30 Dose: 650 mg Tamsulosin HCl (Flomax) 0.4 mg PO DAILY [facility] Last Admin: 11/10/18 09:17 Dose: 0.4 mg - Labs Labs: 11/10/18 06:10 11/10/18 06:10 PT 12.5 SECONDS (9.7-12.2) H 11/03/18 11:20 INR 1.1 11/03/18 11:20 APTT 29 SECONDS (21-34) 11/03/18 11:20 - Head Exam Head Exam: ATRAUMATIC, NORMAL INSPECTION - Eye Exam Eye Exam: EOMI, Normal appearance Pupil Exam: NORMAL ACCOMODATION - ENT Exam ENT Exam: Mucous Membranes Moist, Normal Exam - Neck Exam Neck Exam: Normal Inspection - Respiratory Exam Respiratory Exam: NORMAL BREATHING PATTERN - Cardiovascular Exam Cardiovascular Exam: REGULAR RHYTHM, +S1, +S2 - GI/Abdominal Exam GI & Abdominal Exam: Soft, Normal Bowel Sounds. absent: Mass - Neurological Exam Neurological Exam: Alert, Awake, CN II-XII Intact - Psychiatric Exam Psychiatric exam: Normal Affect, Normal Mood Assessment and Plan - Assessment and Plan (Free Text) Assessment: 77 year old female with past medical histoy of DM, HTN, CAD s/p CABG, s/p pacemaker, diabetic retinopathy CKD is being seen for episode of vtach-Non sustained. Plan: 1.Non-sustained vtach -Resolved. -No further intervention at this time. 2.CAD -Plavix 75mg PO Daily 3.D.M. ISS Lantus 8 units SC HS 4.Hypothryoidism Levothyroixine 25mcg Daily 5.Urinary retention -Tamsulosin .4mg PO Daily 6.Anxiety -Xanax .25 mg PO BID PRN 7. Nausea -Zofran 4 po q6 prn PPX -Pepcid -IV NaCl .45% @100mls/hr Plan discussed with Attending Dr. Malik. Flex Hoyos, PGY-2 <Fabricio Malik - Last Filed: 11/11/18 08:40> Objective - Vital Signs/Intake and Output Vital Signs (last 24 hours): Temp Pulse Resp BP Pulse Ox 97.6 F 83 20 153/68 H 99 11/11/18 08:00 11/11/18 08:00 11/11/18 08:00 11/11/18 08:00 11/11/18 08:00 Intake and Output: 11/11/18 11/11/18 06:59 18:59 Intake Total 1280 Output Total 330 Balance 950 - Medications Medications: Current Medications Acetaminophen (Tylenol 325mg Tab) 650 mg PO Q6 PRN PRN Reason: Pain, Mild (1-3) Cholestyramine Resin (Prevalite) 4 gm PO HS [facility] Last Admin: 11/10/18 21:55 Dose: 4 gm Clopidogrel Bisulfate (Plavix) 75 mg PO DAILY [facility] Last Admin: 11/10/18 09:17 Dose: 75 mg Famotidine (Pepcid) 20 mg PO DAILY [facility] Last Admin: 11/10/18 09:17 Dose: 20 mg Meropenem 500 mg/ Sodium (Chloride) 100 mls @ 100 mls/hr IVPB Q24H [facility]; Protocol Last Admin: 11/10/18 10:58 Dose: 100 mls/hr Sodium Chloride (Sodium Chloride 0.45%) 1,000 mls @ 100 mls/hr IV .Q10H [facility] Last Admin: 11/11/18 03:30 Dose: 100 mls/hr Insulin Aspart (Novolog) 0 unit SC [facility]; Protocol Last Admin: 11/10/18 22:02 Dose: Not Given Insulin Glargine (Lantus) [address] [facility] Last Admin: 11/10/18 21:30 Dose: 8 units Isosorbide Mononitrate (Imdur Er) 30 mg PO DAILY [facility] Last Admin: 11/10/18 09:17 Dose: 30 mg Levothyroxine Sodium (Synthroid) 25 mcg PO DAILY@0630 [facility] Last Admin: 11/11/18 05:34 Dose: 25 mcg Magnesium Hydroxide (Milk Of Magnesia) 30 ml PO Q24H PRN PRN Reason: Constipation Naphazoline HCl/Pheniramine Maleate (Naphcon-A Opht) 0 ml OD BID [facility] Last Admin: 11/10/18 17:28 Dose: 1 drop Ondansetron HCl (Zofran Odt) 4 mg PO Q6 PRN PRN Reason: Nausea/Vomiting Repaglinide (Prandin) 0.5 mg PO TIDAC [facility] Last Admin: 11/10/18 17:28 Dose: 0.5 mg Rosuvastatin Calcium (Crestor) [address] [facility] Last Admin: 11/10/18 21:29 Dose: 5 mg Sodium Bicarbonate (Sodium Bicarbonate Tab) 650 mg PO TID [facility] Last Admin: 11/10/18 17:28 Dose: 650 mg Tamsulosin HCl (Flomax) 0.4 mg PO DAILY [facility] Last Admin: 11/10/18 09:17 Dose: 0.4 mg - Labs Labs: 11/11/18 07:57 11/11/18 07:57 PT 12.5 SECONDS (9.7-12.2) H 11/03/18 11:20 INR 1.1 11/03/18 11:20 APTT 29 SECONDS (21-34) 11/03/18 11:20 Assessment and Plan - Assessment and Plan (Free Text) Plan: Patient seen and evaluated personally by me. Patient scheduled for urological procedures for possible obstructive uropathy Patient has non modifiable cardiac risk factors include systolic CHF, CAD s/p stents, along with other medical pulmonary co morbidities include CKD, Severe pulmonary HTN, DM with end organ damage As per ACC/AHA guidelines this patient is considered for any urological procedures with general anaesthesia high cardiac risk (5-7% event rate). Patient is optimized with medications form my side. If the procedures clinically necessary and if the benefit outweighs the risk can proceed if the patient and the family agrees. Recommend also consider pulmonary assessment for severe pumonary HTN and the potential risk of intubation.
--- NOTE | 2018-11-10 14:55 | CP.PCM.PN ---
Subjective - Date & Time of Evaluation Date of Evaluation: 11/10/18 Time of Evaluation: 14:53 - Subjective Subjective: Neuro Follow-Up Note: Mrs. Lovell was evaluated this afternoon. She continues to feel the left side of her face numb. She states that the numbness has been present for 2 weeks and she has had no change in sensation. Denies other symptoms; no h/a, dizziness, chest pain, palpitations, sob, abd pain, n/v/d. Objective - Vital Signs/Intake and Output Vital Signs (last 24 hours): Temp Pulse Resp BP Pulse Ox 98.2 F 84 20 162/67 H 99 11/10/18 08:00 11/10/18 09:20 11/10/18 08:00 11/10/18 09:20 11/10/18 08:00 Intake and Output: 11/10/18 11/10/18 06:59 18:59 Intake Total 800 Output Total 450 Balance 350 - Medications Medications: Current Medications Acetaminophen (Tylenol 325mg Tab) 650 mg PO Q6 PRN PRN Reason: Pain, Mild (1-3) Alprazolam (Xanax) 0.25 mg PO BID PRN PRN Reason: Anxiety Stop: 11/10/18 22:17 Last Admin: 11/09/18 21:19 Dose: 0.25 mg Cholestyramine Resin (Prevalite) 4 gm PO [facility] Last Admin: 11/09/18 21:23 Dose: Not Given Clopidogrel Bisulfate (Plavix) 75 mg PO DAILY [facility] Last Admin: 11/10/18 09:17 Dose: 75 mg Famotidine (Pepcid) 20 mg PO DAILY [facility] Last Admin: 11/10/18 09:17 Dose: 20 mg Meropenem 500 mg/ Sodium (Chloride) 100 mls @ 100 mls/hr IVPB Q24H [facility]; Protocol Last Admin: 11/10/18 10:58 Dose: 100 mls/hr Sodium Chloride (Sodium Chloride 0.45%) 1,000 mls @ 100 mls/hr IV .Q10H [facility] Last Admin: 11/09/18 21:21 Dose: 100 mls/hr Insulin Aspart (Novolog) 0 unit SC [facility]; Protocol Last Admin: 11/10/18 12:29 Dose: 3 units Insulin Glargine (Lantus) 8 unit SC HS [facility] Last Admin: 11/09/18 21:19 Dose: 8 units Isosorbide Mononitrate (Imdur Er) 30 mg PO DAILY [facility] Last Admin: 11/10/18 09:17 Dose: 30 mg Levothyroxine Sodium (Synthroid) 25 mcg PO DAILY@0630 [facility] Last Admin: 11/10/18 06:53 Dose: 25 mcg Magnesium Hydroxide (Milk Of Magnesia) 30 ml PO Q24H PRN PRN Reason: Constipation Naphazoline HCl/Pheniramine Maleate (Naphcon-A Opht) 0 ml OD BID [facility] Last Admin: 11/10/18 09:18 Dose: 1 drop Ondansetron HCl (Zofran Odt) 4 mg PO Q6 PRN PRN Reason: Nausea/Vomiting Repaglinide (Prandin) 0.5 mg PO TIDAC [facility] Last Admin: 11/10/18 12:29 Dose: 0.5 mg Rosuvastatin Calcium (Crestor) 5 mg PO [facility] Last Admin: 11/09/18 21:19 Dose: 5 mg Sodium Bicarbonate (Sodium Bicarbonate Tab) 650 mg PO TID [facility] Last Admin: 11/10/18 13:30 Dose: 650 mg Tamsulosin HCl (Flomax) 0.4 mg PO DAILY [facility] Last Admin: 11/10/18 09:17 Dose: 0.4 mg - Labs Labs: 11/10/18 06:10 11/10/18 06:10 PT 12.5 SECONDS (9.7-12.2) H 11/03/18 11:20 INR 1.1 11/03/18 11:20 APTT 29 SECONDS (21-34) 11/03/18 11:20 - Constitutional Appears: Well, Non-toxic, No Acute Distress - Head Exam Head Exam: ATRAUMATIC, NORMAL INSPECTION, NORMOCEPHALIC - Eye Exam Additional comments: pt is blind - ENT Exam ENT Exam: Mucous Membranes Moist - Neck Exam Neck Exam: Full ROM, Normal Inspection - Respiratory Exam Respiratory Exam: NORMAL BREATHING PATTERN - Cardiovascular Exam Additional comments: has pacemaker - GI/Abdominal Exam GI & Abdominal Exam: Soft - Extremities Exam Extremities Exam: absent: Calf Tenderness, Full ROM, Pedal Edema Additional comments: right BKA generalized weakness noted to other extremities. - Back Exam Back Exam: NORMAL INSPECTION - Neurological Exam Neurological Exam: Alert, Awake, Reflexes Normal Neuro motor strength exam: Left Upper Extremity: 4 (centura technical lead senior developer 4/5), Right Upper Extremity: 4 (centura technical lead senior developer 5/5), Left Lower Extremity: 3, Right Lower Extremity: 3 (right bka) Additional comments: speech clear, fluid follows all commands + left sided droop noted Sensation slightly diminished to left side of face compared to right No tremors or clonus - Psychiatric Exam Psychiatric exam: Normal Affect, Normal Mood - Skin Skin Exam: Normal Color Assessment and Plan (1) Acute encephalopathy Assessment & Plan: Imaging reviewed: -CT head (11/06/18): No acute intracranial abnormalities. No significant findings to account for the clinical presentation. No significant interval change compared to the prior examination(s). -Repeat CT Head without contrast tomorrow morning to r/o acute changes. -Continue current medications and treatment, including Plavix and statin. -Will hold off on ASA 81mg as the pt admitted that she was recently taken off of Ecotrin by her brass instrument repair technician, Dr. Malik, and placed on Plavix instead. -Continue PT/OT -Notify neuro team of any acute changes in pt's condition. Case discussed with Dr. Bosch Status: Acute
--- NOTE | 2018-11-10 15:46 | CP.PCM.PN ---
Subjective - Date & Time of Evaluation Date of Evaluation: 11/10/18 Time of Evaluation: 15:00 - Subjective Subjective: dictated Objective - Vital Signs/Intake and Output Vital Signs (last 24 hours): Temp Pulse Resp BP Pulse Ox 98.2 F 84 20 162/67 H 99 11/10/18 08:00 11/10/18 09:20 11/10/18 08:00 11/10/18 09:20 11/10/18 08:00 Intake and Output: 11/10/18 11/10/18 06:59 18:59 Intake Total 800 Output Total 450 Balance 350 - Medications Medications: Current Medications Acetaminophen (Tylenol 325mg Tab) 650 mg PO Q6 PRN PRN Reason: Pain, Mild (1-3) Alprazolam (Xanax) 0.25 mg PO BID PRN PRN Reason: Anxiety Stop: 11/10/18 22:17 Last Admin: 11/09/18 21:19 Dose: 0.25 mg Cholestyramine Resin (Prevalite) 4 gm PO [facility] Last Admin: 11/09/18 21:23 Dose: Not Given Clopidogrel Bisulfate (Plavix) 75 mg PO DAILY [facility] Last Admin: 11/10/18 09:17 Dose: 75 mg Famotidine (Pepcid) 20 mg PO DAILY [facility] Last Admin: 11/10/18 09:17 Dose: 20 mg Meropenem 500 mg/ Sodium (Chloride) 100 mls @ 100 mls/hr IVPB Q24H [facility]; Protocol Last Admin: 11/10/18 10:58 Dose: 100 mls/hr Sodium Chloride (Sodium Chloride 0.45%) 1,000 mls @ 100 mls/hr IV .Q10H [facility] Last Admin: 11/09/18 21:21 Dose: 100 mls/hr Insulin Aspart (Novolog) 0 unit SC [facility]; Protocol Last Admin: 11/10/18 12:29 Dose: 3 units Insulin Glargine (Lantus) 8 unit SC [facility] Last Admin: 11/09/18 21:19 Dose: 8 units Isosorbide Mononitrate (Imdur Er) 30 mg PO DAILY [facility] Last Admin: 11/10/18 09:17 Dose: 30 mg Levothyroxine Sodium (Synthroid) 25 mcg PO DAILY@0630 [facility] Last Admin: 11/10/18 06:53 Dose: 25 mcg Magnesium Hydroxide (Milk Of Magnesia) 30 ml PO Q24H PRN PRN Reason: Constipation Naphazoline HCl/Pheniramine Maleate (Naphcon-A Opht) 0 ml OD BID [facility] Last Admin: 11/10/18 09:18 Dose: 1 drop Ondansetron HCl (Zofran Odt) 4 mg PO Q6 PRN PRN Reason: Nausea/Vomiting Repaglinide (Prandin) 0.5 mg PO TIDAC [facility] Last Admin: 11/10/18 12:29 Dose: 0.5 mg Rosuvastatin Calcium (Crestor) 5 mg PO HS [facility] Last Admin: 11/09/18 21:19 Dose: 5 mg Sodium Bicarbonate (Sodium Bicarbonate Tab) 650 mg PO TID [facility] Last Admin: 11/10/18 13:30 Dose: 650 mg Tamsulosin HCl (Flomax) 0.4 mg PO DAILY [facility] Last Admin: 11/10/18 09:17 Dose: 0.4 mg - Labs Labs: 11/10/18 06:10 11/10/18 06:10 PT 12.5 SECONDS (9.7-12.2) H 11/03/18 11:20 INR 1.1 11/03/18 11:20 APTT 29 SECONDS (21-34) 11/03/18 11:20
[2018-11-10] MEDS: Sodium Chloride 0.45% 1,000 ML IV SCH ×2 (17:53→19:00)
[2018-11-10] MEDS ORDERED: EPOETIN ALFA 10,000 UNIT/ML ML SC ONE (21:15)
[2018-11-10] MEDS: (Lantus) Insulin Glargine, Recombinant SC SCH (21:30)
[2018-11-10] MEDS: Cholestyramine 4 gm/5.5 gm UD Packet PO SCH (21:55)
--- NOTE | 2018-11-10 22:17 | PN ---
DATE: 11/10/2018 SUBJECTIVE: The patient is seen today, 11/10/2018. PHYSICAL EXAMINATION: VITAL SIGNS: She is afebrile, temperature 98.3, respiratory rate 20, blood pressure 106/56, pulse 77. HEENT: Blindness of both eyes. NECK: Supple. No JVD. No carotid bruit. No lymph node. No thyromegaly. CHEST AND LUNGS: Bilateral symmetrical expansion. Good air exchange. No rales, no rhonchi. CARDIOVASCULAR SYSTEM: PMI not localized. S1, S2. No additional sounds. ABDOMEN: Normoactive bowel sounds. No tenderness. No organomegaly. No masses. EXTREMITIES: No cyanosis, no clubbing, no edema in the left lower extremity and right BKA. CENTRAL NERVOUS SYSTEM: Alert, awake, oriented x2. No neurological deficit could be appreciated. LABORATORY DATA: Blood work today showed hemoglobin 9.1, hematocrit 27.6, BUN of 35 and creatinine 1.9. ASSESSMENT: [id number] kidney disease; urinary tract infection; bilateral hydronephrosis, right more than left; coronary artery disease, status post coronary artery bypass graft. PLAN: The patient had a urology consult by Dr. Gill, who recommended cystoscopy. We will get cardiology clearance. Discussed with the patient and her daughter at the bedside. Keyla Washington MD
--- NOTE | 2018-11-11 00:24 | PN ---
DATE: 11/10/2018 INFECTIOUS DISEASE FOLLOWUP SUBJECTIVE: The patient is lying in bed. She denies any complaints. She says she is waiting for the food to come from home. She likes scrambled eggs. PHYSICAL EXAMINATION: VITAL SIGNS: T-max is 98.3, pulse 77, blood pressure 106/56, respirations are 20. HEAD: Atraumatic, normocephalic, blind. She is in no respiratory distress. NECK: Supple. LUNGS: Clear. HEART: S1 and S2, regular. ABDOMEN: Soft, nontender. She has an ileostomy tube. EXTREMITIES: She has a right BKA. Left leg is unremarkable. ASSESSMENT AND PLAN: Awaiting for the Urology note. She has received five days of meropenem. I want to give her five more days to cover for hydronephrosis and I would repeat the culture if possible. The patient is being followed by Renal attending at this time, renal functions have worsened. She is diabetic. She will follow the recommendations with them and continue meropenem at a lower dose. Urine culture was already ordered today, so we will follow from there. Teresa Tellez MD
--- NOTE | 2018-11-11 02:59 | CON ---
DATE: 11/10/2018 LOCATION: The patient is located in room 551, bed B. REQUESTED BY: Keyla Washington MD REASON FOR FOLLOWUP: Acute renal failure, chronic kidney disease. SUBJECTIVE: Mrs. Lovell is a 77-year-old elderly female with a past medical history significant for longstanding hypertension, diabetes, coronary artery disease, status post CABG, status post pacemaker placement, status post right partial colectomy, status post ileostomy, status post right BKA, legally blind, diabetic retinopathy was admitted with decreased p.o. intake, altered mental status, increased BUN and creatinine, and hyperkalemia. The patient is on IV hydration. Renal function is improving nicely. The patient denies any complaints except the decreased p.o. intake. Denies any nausea, vomiting, or diarrhea. No abdominal pain. No nausea. No fever. No cough. PHYSICAL EXAMINATION: VITAL SIGNS: As follows: Blood pressure 155/69, pulse 76, respirations 20, temperature 98.2, and saturation 99%. Height 5 feet 2 inches and weight is 138 pounds. GENERAL: Mrs. Lovell is a 77-year-old elderly female, moderately built, moderately nourished, not in acute distress. HEENT: Pupils normal. Conjunctivae pink. Sclerae anicteric. Legally blind. Tongue is moist. Trachea is midline. LUNGS: Symmetric on both sides. Bilateral breath sounds present. Clear to auscultation. CVS: Stuart at the fifth intercostal space, midclavicular area. S1 and S2 audible. No murmur or gallop. ABDOMEN: The patient has ileostomy with liquid stool. Abdomen is soft, tympanitic. No guarding. No rigidity. No hepatosplenomegaly. CLINICAL RESEARCH NURSE: The patient is alert, awake, and oriented x2-3. Sensory and motor system is within normal limits. EXTREMITIES: No cyanosis, no clubbing, no edema on the left leg, status post right BKA. CURRENT MEDICATIONS: Include as follows; Crestor 5 mg p.o. at bedtime, Flomax 0.4 mg p.o. daily, Imdur 30 mg p.o. daily, Lantus 8 units subcu at bedtime, meropenem 100 mg IV piggyback every 24 hours, milk of magnesia 30 mL p.o. every 24 hours, Pepcid 20 mg p.o. daily, Plavix 75 mg p.o. daily, Prandin 0.5 mg p.o. t.i.d., cholestyramine 4 g p.o. at bedtime, sodium bicarb 650 mg p.o. t.i.d., IV fluids half-normal saline at 100 mL/hour, levothyroxine 25 mcg p.o. daily, Tylenol, Xanax, and Zofran. LABORATORY DATA: Include as follows: As of 11/10/2018; WBC 5.8, hemoglobin 9.1, hematocrit is 27.6, and platelets 225. Sodium 133, potassium is 5, chloride 110, CO2 17, BUN 35, creatinine 1.9, glucose 214, calcium 8.2, phosphorus 3.6, magnesium 1.2. Total bili 0.3, AST 12, ALT 15, alkaline phosphatase 92, total protein 6.1, albumin is 2.8. ASSESSMENT AND PLAN: In summary, Mrs. Lovell is a 77-year-old elderly female with a past medical history significant for hypertension, diabetes, coronary artery disease, diabetic retinopathy, legally blind, status post ileostomy was admitted with decreased oral intake, dehydration, increased blood urea nitrogen and creatinine. 1. Acute renal failure on chronic kidney disease. Renal function is improving with intravenous hydration. 2. Metabolic acidosis secondary to ileostomy and gastrointestinal loss. 3. Anemia secondary to chronic kidney disease. Continue her gentle intravenous hydration and we will add Procrit three times a week, hold for hemoglobin more than 11. We will follow with you. Thank you for allowing me to participate in your patient's care. Supplement magnesium as needed. Rafael Krishna MD
[2018-11-11] MEDS: Sodium Chloride 0.45% 1,000 ML IV SCH (03:30)
[2018-11-11] MEDS: Levothyroxine 25 MCG TAB PO SCH (05:34)
[2018-11-11 08:07] LABS: BASO % 0.5 % (0.0-2.0); EOS # 0.1 K/uL (0.0-0.7); EOS % 1.7 % (0.0-4.0); HEMOGLOBIN 8.9 g/dL (11.0-16.0); LYMPH # 0.8 K/uL (1.0-4.3); LYMPH % 9.4 % (20.0-40.0); MEAN CELL VOLUME 89.2 fL (81.0-99.0); MEAN CORPUSCULAR HGB CONC 33.6 g/dL (33.0-37.0); MEAN PLATELET VOLUME 6.6 fL (7.2-11.7); MONO # 0.5 K/uL (0.0-0.8); MONO % 5.9 % (0.0-10.0); NEUT # 7.1 K/uL (1.8-7.0); NEUT % 82.5 % (50.0-75.0); PLATELET COUNT 223 K/uL (130-400); RBC 2.97 Mil/uL (3.80-5.20); WHITE BLOOD COUNT 8.6 K/uL (4.8-10.8)
[2018-11-11] MEDS: (Novolog) Insulin Aspart, Recombinant 100 u/ml 10 ml vial SC SCH ×3 (08:16→17:44)
[2018-11-11 08:24] LABS: ALB/GLOB RATIO 0.9 (1.0-2.1); ALBUMIN 2.7 g/dL (3.5-5.0); CALCIUM 8.4 mg/dl (8.6-10.4)
[2018-11-11 09:02] LABS: BANDS 7 % (0-2); EOSINOPHIL 3 % (0-4); LYMPHOCYTE 8 % (20-40); MONOCYTE 6 % (0-10); NEUTROPHIL 76 % (50-75); PLATELET ESTIMATE NORMAL (NORMAL); TOTAL CELLS COUNTED 100
[2018-11-11 09:03] LABS: OVALOCYTES SLIGHT
[2018-11-11] MEDS: Naphazoline-Pheniramine Ophth Soln OD SCH ×2 (09:16→17:04)
--- NOTE | 2018-11-11 10:50 | CP.PCM.PN ---
Subjective - Date & Time of Evaluation Date of Evaluation: 11/11/18 Time of Evaluation: 10:49 - Subjective Subjective: pt is seen and examined, follow up consult is dictated #[id number] change ivf to 1/2 ns with 75 meq/lit at 70 ml/hr Objective - Vital Signs/Intake and Output Vital Signs (last 24 hours): Temp Pulse Resp BP Pulse Ox 97.6 F 87 20 161/72 H 99 11/11/18 08:00 11/11/18 09:17 11/11/18 08:00 11/11/18 09:17 11/11/18 08:00 Intake and Output: 11/11/18 11/11/18 06:59 18:59 Intake Total 1280 Output Total 330 Balance 950 - Medications Medications: Current Medications Acetaminophen (Tylenol 325mg Tab) 650 mg PO Q6 PRN PRN Reason: Pain, Mild (1-3) Cholestyramine Resin (Prevalite) 4 gm PO HS [facility] Last Admin: 11/10/18 21:55 Dose: 4 gm Clopidogrel Bisulfate (Plavix) 75 mg PO DAILY [facility] Last Admin: 11/11/18 09:16 Dose: 75 mg Famotidine (Pepcid) 20 mg PO DAILY [facility] Last Admin: 11/11/18 09:15 Dose: 20 mg Meropenem 500 mg/ Sodium (Chloride) 100 mls @ 100 mls/hr IVPB Q24H [facility]; Protocol Last Admin: 11/10/18 10:58 Dose: 100 mls/hr Sodium Chloride (Sodium Chloride 0.45%) 1,000 mls @ 100 mls/hr IV .Q10H [facility] Last Admin: 11/11/18 03:30 Dose: 100 mls/hr Insulin Aspart (Novolog) 0 unit SC [facility]; Protocol Last Admin: 11/11/18 08:16 Dose: 2 units Insulin Glargine (Lantus) 8 unit SC HS [facility] Last Admin: 11/10/18 21:30 Dose: 8 units Isosorbide Mononitrate (Imdur Er) 30 mg PO DAILY [facility] Last Admin: 11/11/18 09:15 Dose: 30 mg Levothyroxine Sodium (Synthroid) 25 mcg PO DAILY@0630 [facility] Last Admin: 11/11/18 05:34 Dose: 25 mcg Magnesium Hydroxide (Milk Of Magnesia) 30 ml PO Q24H PRN PRN Reason: Constipation Naphazoline HCl/Pheniramine Maleate (Naphcon-A Opht) 0 ml OD BID [facility] Last Admin: 11/11/18 09:16 Dose: 1 drop Ondansetron HCl (Zofran Odt) 4 mg PO Q6 PRN PRN Reason: Nausea/Vomiting Repaglinide (Prandin) 0.5 mg PO TIDAC [facility] Last Admin: 11/11/18 08:16 Dose: 0.5 mg Rosuvastatin Calcium (Crestor) 5 mg PO HS [facility] Last Admin: 11/10/18 21:29 Dose: 5 mg Sodium Bicarbonate (Sodium Bicarbonate Tab) 650 mg PO TID [facility] Last Admin: 11/11/18 09:15 Dose: 650 mg Tamsulosin HCl (Flomax) 0.4 mg PO DAILY [facility] Last Admin: 11/11/18 09:16 Dose: 0.4 mg - Labs Labs: 11/11/18 07:57 11/11/18 07:57 PT 12.5 SECONDS (9.7-12.2) H 11/03/18 11:20 INR 1.1 11/03/18 11:20 APTT 29 SECONDS (21-34) 11/03/18 11:20
[2018-11-11] MEDS: Meropenem 500 MG in Sodium Chloride 0.9% 100 ML IVPB SCH (11:23)
[2018-11-11] MEDS ORDERED: Magnesium Sulfate 1 gm in D5W 1 GM/100 ML BAG IVPB ONE (12:00)
[2018-11-11 12:33] LABS: URINE BILIRUBIN NEGATIVE (NEGATIVE); URINE BLOOD 2+ (NEGATIVE); URINE CLARITY Turbid (Clear); URINE COLOR Yellow (YELLOW); URINE GLUCOSE (UA) 1+ mg/dL (Normal); URINE LEUKOCYTE ESTERASE 3+ Leu/uL (Negative); URINE PROTEIN 2+ mg/dL (NEGATIVE); URINE UROBILINOGEN NORMAL mg/dL (0.2-1.0); WBC CLUMPS MANY /hpf
--- NOTE | 2018-11-11 13:20 | CP.PCM.PN ---
<Flex Hoyos - Last Filed: 11/11/18 17:14> Subjective - Date & Time of Evaluation Date of Evaluation: 11/11/18 Time of Evaluation: 13:17 - Subjective Subjective: PGY-2 Progress Note: Dr. Malik Cardiology Service Patient seen and examined at bedside. Patient denies any chest pain, fevers, chills, nausea, vomiting, abdominal pain, or any other complaints. Objective - Vital Signs/Intake and Output Vital Signs (last 24 hours): Temp Pulse Resp BP Pulse Ox 97.6 F 87 20 161/72 H 99 11/11/18 08:00 11/11/18 09:17 11/11/18 08:00 11/11/18 09:17 11/11/18 08:00 Intake and Output: 11/11/18 11/11/18 06:59 18:59 Intake Total 1280 Output Total 330 Balance 950 - Medications Medications: Current Medications Acetaminophen (Tylenol 325mg Tab) 650 mg PO Q6 PRN PRN Reason: Pain, Mild (1-3) Cholestyramine Resin (Prevalite) 4 gm PO HS [facility] Last Admin: 11/10/18 21:55 Dose: 4 gm Clopidogrel Bisulfate (Plavix) 75 mg PO DAILY [facility] Last Admin: 11/11/18 09:16 Dose: 75 mg Famotidine (Pepcid) 20 mg PO DAILY [facility] Last Admin: 11/11/18 09:15 Dose: 20 mg Meropenem 500 mg/ Sodium (Chloride) 100 mls @ 100 mls/hr IVPB Q24H [facility]; Protocol Last Admin: 11/11/18 11:23 Dose: 100 mls/hr Sodium Bicarbonate 75 meq/ (Sodium Chloride) 1,075 mls @ 70 mls/hr IV .[id number] [facility] Last Admin: 11/11/18 11:50 Dose: 70 mls/hr Insulin Aspart (Novolog) 0 unit SC [facility]; Protocol Last Admin: 11/11/18 12:10 Dose: 3 units Insulin Glargine (Lantus) 8 unit SC HS [facility] Last Admin: 11/10/18 21:30 Dose: 8 units Isosorbide Mononitrate (Imdur Er) 30 mg PO DAILY [facility] Last Admin: 11/11/18 09:15 Dose: 30 mg Levothyroxine Sodium (Synthroid) 25 mcg PO DAILY@0630 [facility] Last Admin: 11/11/18 05:34 Dose: 25 mcg Magnesium Hydroxide (Milk Of Magnesia) 30 ml PO Q24H PRN PRN Reason: Constipation Naphazoline HCl/Pheniramine Maleate (Naphcon-A Opht) 0 ml OD BID [facility] Last Admin: 11/11/18 09:16 Dose: 1 drop Ondansetron HCl (Zofran Odt) 4 mg PO Q6 PRN PRN Reason: Nausea/Vomiting Repaglinide (Prandin) 0.5 mg PO TIDAC [facility] Last Admin: 11/11/18 08:16 Dose: 0.5 mg Rosuvastatin Calcium (Crestor) 5 mg PO HS [facility] Last Admin: 11/10/18 21:29 Dose: 5 mg Sodium Bicarbonate (Sodium Bicarbonate Tab) 650 mg PO TID [facility] Last Admin: 11/11/18 13:09 Dose: 650 mg Tamsulosin HCl (Flomax) 0.4 mg PO DAILY [facility] Last Admin: 11/11/18 09:16 Dose: 0.4 mg - Labs Labs: 11/11/18 07:57 11/11/18 07:57 PT 12.5 SECONDS (9.7-12.2) H 11/03/18 11:20 INR 1.1 11/03/18 11:20 APTT 29 SECONDS (21-34) 11/03/18 11:20 - Head Exam Head Exam: ATRAUMATIC, NORMAL INSPECTION - Eye Exam Eye Exam: EOMI, Normal appearance, PERRL. absent: Periorbital tenderness Pupil Exam: NORMAL ACCOMODATION - ENT Exam ENT Exam: Mucous Membranes Moist, Normal Oropharynx - Neck Exam Neck Exam: absent: Lymphadenopathy, Thyromegaly - Respiratory Exam Respiratory Exam: Clear to Ausculation Bilateral, NORMAL BREATHING PATTERN. absent: Chest Wall Tenderness, Prolonged Expiratory Phase, Respiratory Distress - Cardiovascular Exam Cardiovascular Exam: REGULAR RHYTHM, +S1, +S2. absent: Rubs - GI/Abdominal Exam GI & Abdominal Exam: Soft, Normal Bowel Sounds. absent: Hyperactive Bowel Sounds - Extremities Exam Extremities Exam: absent: Joint Swelling, Tenderness - Back Exam Back Exam: NORMAL INSPECTION. absent: CVA tenderness (R), paraspinal tenderness - Neurological Exam Neurological Exam: Awake, CN II-XII Intact, Oriented x3 - Psychiatric Exam Psychiatric exam: Normal Affect, Normal Mood - Skin Skin Exam: Dry, Intact, Normal Color. absent: Erythema, Petechiae, Rash Assessment and Plan - Assessment and Plan (Free Text) Assessment: 77 year old female with past medical histoy of DM, HTN, CAD s/p CABG, s/p pacemaker, diabetic retinopathy CKD is being seen for episode of vtach-Non sustained. Plan: 1.Non-sustained vtach -Resolved. -No further intervention at this time. 2.CAD -Plavix 75mg PO Daily -Crestor 5mg PO HS 3.D.M. ISS Lantus 8 units SC HS Prandin .5mg PO TIDAC [facility] 4.Hypothryoidism Levothyroixine 25mcg Daily 5.Urinary retention -Tamsulosin .4mg PO Daily 6.Anxiety -Xanax .25 mg PO BID PRN 7. Nausea -Zofran 4 po q6 prn PPX -Pepcid -IV NaCl .45% @100mls/hr Plan discussed with Attending Dr. Malik. Flex Hoyos, PGY-2 <Fabricio Malik - Last Filed: 11/12/18 21:22> Objective - Vital Signs/Intake and Output Vital Signs (last 24 hours): Temp Pulse Resp BP Pulse Ox 98.1 F 82 18 123/51 L 97 11/12/18 17:23 11/12/18 17:23 11/12/18 17:23 11/12/18 17:23 11/12/18 17:23 - Labs Labs: 11/12/18 11:36 11/12/18 11:36 PT 12.5 SECONDS (9.7-12.2) H 11/03/18 11:20 INR 1.1 11/03/18 11:20 APTT 29 SECONDS (21-34) 11/03/18 11:20 Assessment and Plan - Assessment and Plan (Free Text) Assessment: Patient examined and evaluated personally by me. Plan of care d/w the medical reception specialist and as documented
--- NOTE | 2018-11-11 13:56 | CP.PCM.PN ---
Subjective - Date & Time of Evaluation Date of Evaluation: 11/11/18 Time of Evaluation: 13:56 - Subjective Subjective: Neuro Follow-Up Note: Mrs. Lovell was evaluated this afternoon. She continues to feel the left side of her face numb with no change in sensation. She states that she is stressed and frustrated because she has to have a procedure done on her bladder tomorrow. Denies other symptoms; no h/a, dizziness, chest pain, palpitations, sob, abd pain, n/v/d. Objective - Vital Signs/Intake and Output Vital Signs (last 24 hours): Temp Pulse Resp BP Pulse Ox 97.6 F 87 20 161/72 H 99 11/11/18 08:00 11/11/18 09:17 11/11/18 08:00 11/11/18 09:17 11/11/18 08:00 Intake and Output: 11/11/18 11/11/18 06:59 18:59 Intake Total 1280 Output Total 330 Balance 950 - Medications Medications: Current Medications Acetaminophen (Tylenol 325mg Tab) 650 mg PO Q6 PRN PRN Reason: Pain, Mild (1-3) Cholestyramine Resin (Prevalite) 4 gm PO HS [facility] Last Admin: 11/10/18 21:55 Dose: 4 gm Clopidogrel Bisulfate (Plavix) 75 mg PO DAILY [facility] Last Admin: 11/11/18 09:16 Dose: 75 mg Famotidine (Pepcid) 20 mg PO DAILY [facility] Last Admin: 11/11/18 09:15 Dose: 20 mg Meropenem 500 mg/ Sodium (Chloride) 100 mls @ 100 mls/hr IVPB Q24H [facility]; Protocol Last Admin: 11/11/18 11:23 Dose: 100 mls/hr Sodium Bicarbonate 75 meq/ (Sodium Chloride) 1,075 mls @ 70 mls/hr IV .[id number] [facility] Last Admin: 11/11/18 11:50 Dose: 70 mls/hr Insulin Aspart (Novolog) 0 unit SC ACHS [facility]; Protocol Last Admin: 11/11/18 12:10 Dose: 3 units Insulin Glargine (Lantus) 8 unit SC HS [facility] Last Admin: 11/10/18 21:30 Dose: 8 units Isosorbide Mononitrate (Imdur Er) 30 mg PO DAILY [facility] Last Admin: 11/11/18 09:15 Dose: 30 mg Levothyroxine Sodium (Synthroid) 25 mcg PO DAILY@0630 [facility] Last Admin: 11/11/18 05:34 Dose: 25 mcg Magnesium Hydroxide (Milk Of Magnesia) 30 ml PO Q24H PRN PRN Reason: Constipation Naphazoline HCl/Pheniramine Maleate (Naphcon-A Opht) 0 ml OD BID [facility] Last Admin: 11/11/18 09:16 Dose: 1 drop Ondansetron HCl (Zofran Odt) 4 mg PO Q6 PRN PRN Reason: Nausea/Vomiting Repaglinide (Prandin) 0.5 mg PO TIDAC [facility] Last Admin: 11/11/18 08:16 Dose: 0.5 mg Rosuvastatin Calcium (Crestor) 5 mg PO HS [facility] Last Admin: 11/10/18 21:29 Dose: 5 mg Sodium Bicarbonate (Sodium Bicarbonate Tab) 650 mg PO TID [facility] Last Admin: 11/11/18 13:09 Dose: 650 mg Tamsulosin HCl (Flomax) 0.4 mg PO DAILY [facility] Last Admin: 11/11/18 09:16 Dose: 0.4 mg - Labs Labs: 11/11/18 07:57 11/11/18 07:57 PT 12.5 SECONDS (9.7-12.2) H 11/03/18 11:20 INR 1.1 11/03/18 11:20 APTT 29 SECONDS (21-34) 11/03/18 11:20 - Constitutional Appears: Non-toxic, No Acute Distress - Head Exam Head Exam: ATRAUMATIC, NORMAL INSPECTION, NORMOCEPHALIC - Eye Exam Additional comments: pt is blind - ENT Exam ENT Exam: Mucous Membranes Moist - Neck Exam Neck Exam: Full ROM, Normal Inspection - Respiratory Exam Respiratory Exam: NORMAL BREATHING PATTERN - GI/Abdominal Exam GI & Abdominal Exam: Soft - Extremities Exam Extremities Exam: absent: Calf Tenderness, Full ROM, Pedal Edema Additional comments: right bka generalized weakness noted to ELLA KANG RUE 2/2 deconditioning - Neurological Exam Neurological Exam: Alert, Awake, Reflexes Normal Neuro motor strength exam: Left Upper Extremity: 4, Right Upper Extremity: 4, Left Lower Extremity: 3, Right Lower Extremity: 3 (bka) Additional comments: speech clear, fluid follows all commands + left sided droop noted Sensation still slightly diminished to left side of face compared to right No tremors or clonus - Psychiatric Exam Psychiatric exam: Anxious - Skin Skin Exam: Normal Color Assessment and Plan (1) Acute encephalopathy Assessment & Plan: Imaging reviewed: -CT head (11/06/18): No acute intracranial abnormalities. No significant findings to account for the clinical presentation. No significant interval change compared to the prior examination(s). -Repeat CT Head without contrast ordered to r/o acute changes---still waiting for it to be done---will f/u with results once completed. -Continue current medications and treatment, including Plavix and statin. -Will hold off on ASA 81mg as the pt admitted that she was recently taken off of Ecotrin by her plant anatomy teacher, Dr. Malik, and placed on Plavix instead. -Continue PT/OT -Notify neuro team of any acute changes in pt's condition. Case discussed with Dr. Bosch Status: Acute
--- NOTE | 2018-11-11 14:39 | CP.PCM.PN ---
Subjective - Date & Time of Evaluation Date of Evaluation: 11/11/18 Time of Evaluation: 14:00 - Subjective Subjective: dictated Objective - Vital Signs/Intake and Output Vital Signs (last 24 hours): Temp Pulse Resp BP Pulse Ox 97.6 F 87 20 161/72 H 99 11/11/18 08:00 11/11/18 09:17 11/11/18 08:00 11/11/18 09:17 11/11/18 08:00 Intake and Output: 11/11/18 11/11/18 06:59 18:59 Intake Total 1280 Output Total 330 Balance 950 - Medications Medications: Current Medications Acetaminophen (Tylenol 325mg Tab) 650 mg PO Q6 PRN PRN Reason: Pain, Mild (1-3) Cholestyramine Resin (Prevalite) 4 gm PO [facility] Last Admin: 11/10/18 21:55 Dose: 4 gm Clopidogrel Bisulfate (Plavix) 75 mg PO DAILY [facility] Last Admin: 11/11/18 09:16 Dose: 75 mg Famotidine (Pepcid) 20 mg PO DAILY [facility] Last Admin: 11/11/18 09:15 Dose: 20 mg Meropenem 500 mg/ Sodium (Chloride) 100 mls @ 100 mls/hr IVPB Q24H [facility]; Protocol Last Admin: 11/11/18 11:23 Dose: 100 mls/hr Sodium Bicarbonate 75 meq/ (Sodium Chloride) 1,075 mls @ 70 mls/hr IV .[id number] [facility] Last Admin: 11/11/18 11:50 Dose: 70 mls/hr Insulin Aspart (Novolog) 0 unit SC [facility]; Protocol Last Admin: 11/11/18 12:10 Dose: 3 units Insulin Glargine (Lantus) 8 unit SC [facility] Last Admin: 11/10/18 21:30 Dose: 8 units Isosorbide Mononitrate (Imdur Er) 30 mg PO DAILY [facility] Last Admin: 11/11/18 09:15 Dose: 30 mg Levothyroxine Sodium (Synthroid) 25 mcg PO DAILY@0630 [facility] Last Admin: 11/11/18 05:34 Dose: 25 mcg Magnesium Hydroxide (Milk Of Magnesia) 30 ml PO Q24H PRN PRN Reason: Constipation Naphazoline HCl/Pheniramine Maleate (Naphcon-A Opht) 0 ml OD BID [facility] Last Admin: 11/11/18 09:16 Dose: 1 drop Ondansetron HCl (Zofran Odt) 4 mg PO Q6 PRN PRN Reason: Nausea/Vomiting Repaglinide (Prandin) 0.5 mg PO TIDAC [facility] Last Admin: 11/11/18 08:16 Dose: 0.5 mg Rosuvastatin Calcium (Crestor) 5 mg PO HS [facility] Last Admin: 11/10/18 21:29 Dose: 5 mg Sodium Bicarbonate (Sodium Bicarbonate Tab) 650 mg PO TID [facility] Last Admin: 11/11/18 13:09 Dose: 650 mg Tamsulosin HCl (Flomax) 0.4 mg PO DAILY [facility] Last Admin: 11/11/18 09:16 Dose: 0.4 mg - Labs Labs: 11/11/18 07:57 11/11/18 07:57 PT 12.5 SECONDS (9.7-12.2) H 11/03/18 11:20 INR 1.1 11/03/18 11:20 APTT 29 SECONDS (21-34) 11/03/18 11:20
--- NOTE | 2018-11-11 17:39 | CT ---
Date of service: 11/11/2018 PROCEDURE: CT HEAD WITHOUT CONTRAST. HISTORY: Re-evaluation 4 acute infarct/hemorrhage COMPARISON: Comparison made with prior CT scan brain 11/06/2018. TECHNIQUE: Axial computed tomography images were obtained through the head/brain without intravenous contrast. Radiation dose: Total exam DLP = 1192.41 mGy-cm. This CT exam was performed using one or more of the following dose reduction techniques: Automated exposure control, adjustment of the mA and/or kV according to patient size, and/or use of iterative reconstruction technique. FINDINGS: Study is limited due to patient head tilt and streak and beam hardening artifact related to some motion. HEMORRHAGE: No intracranial hemorrhage. BRAIN: Redemonstrated is a localized area of encephalomalacia left posterior temporal occipital watershed zone likely related to old infarct. This is associated with mild ex vacuo dilatation of the left atrium and occipital horn. Mild chronic periventricular white matter ischemic changes are felt to be present.. Moderate to fairly significant generalized volume loss. VENTRICLES: No obstructive hydrocephalus. CALVARIUM: The calvarium appears intact.. PARANASAL SINUSES: Unremarkable as visualized. No significant inflammatory changes. MASTOID AIR CELLS: Partial opacification inferior margins of both mastoid air complexes right more so than left. OTHER FINDINGS: Redemonstrated is diffuse hyperdense homogeneous appearance of the right globe. Correlation with fundoscopic examination recommended. IMPRESSION: Limited study as described. Large partially cystic area of encephalomalacia left posterior temporal occipital watershed zone associated mild ex vacuo dilatation left atrium. Mild chronic white matter ischemic changes. Moderate generalized volume loss. Hyperdense right globe unchanged from prior study. Consider follow-up fundoscopic examination.
--- NOTE | 2018-11-11 20:00 | PN ---
DATE: 11/11/2018 INFECTIOUS DISEASE FOLLOWUP SUBJECTIVE: The patient is , but she feels a little cold otherwise. She had a UA and urine culture done, straight cath and we are waiting for the results. She needs a cystoscopy to know why she has this hydronephrosis as well as she has some opacities in the bladder to rule out any cancer. She is an elderly female with diabetes and has had frequent UTIs. PHYSICAL EXAMINATION: VITAL SIGNS: T-max is 97.6, pulse is 83, blood pressure is 153/68, respirations are 20. HEENT: Head is atraumatic, normocephalic. She is blind. NECK: Supple. LUNGS: Clear. HEART: S1 and S2 regular. ABDOMEN: Soft. She has ileostomy tube. EXTREMITIES: Right BKA and left leg is unremarkable while she has a diaper on. LABORATORY DATA: White count is 8.6, hemoglobin 8.9, hematocrit 26.5, platelet count is 223. BUN is 32, creatinine is 1.7. ASSESSMENT AND PLAN: Kidney functions are getting better. She remains on meropenem at this time, and we have started it on 11/06/2018, and today is the sixth day. UA and urine C and S is ordered. UA shows now 3+ leukocytes, 40 to 42 and rbc 69, wbc many. We are hoping to get a clear urine culture; however, if the culture itself shows ESBL and cystoscopy is needed, I think since we want to exclude the problem of the bladder. Ultrasound shows wall thickening and intraluminal debris. I would wait for it to be negative; however, if it remains positive, I would still attempt to do a cystoscopy. As she is covered with the antibiotic at this time, it would rather be a risk to do it when she is not on an ESBL coverage, and I will follow the urine culture report, which was done. The patient also needs to be cleared by Cardiology as she had some cardiac arrhythmias. Teresa Tellez MD
[2018-11-11] MEDS: (Lantus) Insulin Glargine, Recombinant SC SCH (21:50)
[2018-11-11] MEDS: Cholestyramine 4 gm/5.5 gm UD Packet PO SCH (21:52)
--- NOTE | 2018-11-11 23:37 | PN ---
DATE: 11/11/2018 SUBJECTIVE: The patient is seen today, 11/11/2018. She is not in any cardiopulmonary distress, still complaining of left-sided face numbness. PHYSICAL EXAMINATION: VITAL SIGNS: Blood pressure 123/74, temperature 97.9, respiratory rate 20, and pulse 77. HEENT: Blindness of both eyes. NECK: Supple. No JVD. No carotid bruit. No lymph nodes. No thyromegaly. CHEST AND LUNGS: Bilateral symmetrical expansion. Good air exchange. No rales, no rhonchi. CARDIOVASCULAR SYSTEM: PMI not localized. S1 and S2. No additional sounds. ABDOMEN: Normoactive bowel sounds. No tenderness. No organomegaly. No masses. EXTREMITIES: Right BKA. FABRICATION MANAGER: Alert, awake, oriented x2. Moves all extremities equally. ASSESSMENT: Recurrent urinary tract infection, [id number] kidney disease, status post cerebrovascular accident, type 2 diabetes mellitus, coronary artery disease, ischemic cardiomyopathy, bilateral hydronephrosis. PLAN: Discussed with Dr. Malik who stated that the patient is high risk for any procedure or anesthesia. Discussed with Dr. Gill of Urology who advised to do cystogram if the patient has no more urinary tract infection. We will repeat urinalysis and culture. Discussed the patient's condition with Dr. Tellez. We will follow also with Neurology. Keyla Washington MD
--- NOTE | 2018-11-12 03:45 | PN ---
DATE: 11/11/2018 FOLLOWUP RENAL CONSULTATION LOCATION: The patient is located in room 551, bed B. REQUESTED BY: Keyla Washington MD REASON FOR FOLLOWUP: Acute renal failure, chronic kidney disease. SUBJECTIVE: Mrs. Lovell is a 77-year-old elderly female with a past medical history significant for longstanding hypertension, diabetes, legally blind, coronary artery disease, status post CABG, status post pacemaker, status post right partial colectomy, ileostomy, right BKA, who was admitted with worsening renal function, dehydration, and altered mental status. The patient was started on IV fluids. The patient is feeling much better. Renal function gradually improving, almost back to her baseline 1.7 to 1.8. Denies any headache or dizziness. Denies any chest pain or palpitation. Denies any fever or cough. No abdominal pain. No nausea, vomiting, or diarrhea. PHYSICAL EXAMINATION: VITAL SIGNS: This morning as follows: Blood pressure 152/68, pulse 83, respirations 20, temperature 97.6, saturation 99%. Height 5 feet 2 inches, weight is 143 pounds. GENERAL: Mrs. Lovell is a 77-year-old elderly female, moderately built, moderately nourished, not in distress. HEENT: Cornea is opaque in both sides and legally blind. Conjunctivae pink. Sclerae anicteric. Tongue is moist. Trachea is midline. LUNGS: Symmetric on both sides. Bilateral breath sounds present. Clear to auscultation. CVS: Fonda at the fifth intercostal space, midclavicular line. S1, S2 audible. No murmur or gallop. ABDOMEN: The patient has ileostomy with liquid stool. Abdomen is soft, tympanitic. No guarding. No rigidity. No hepatosplenomegaly. BIO MEDICAL TECHNICIAN: The patient is alert, awake, and oriented x2 to 3. Sensory and motor system is grossly within normal limits. EXTREMITIES: No cyanosis, no clubbing, no edema on the left leg, is status post right BKA. CURRENT MEDICATIONS: Include as follows: Crestor 5 mg at bedtime, Flomax 0.4 mg daily, Imdur 30 mg p.o. daily, Lantus 8 units subcu at bedtime, meropenem 500 mg every 24 hours, Milk of Magnesia, Naphcon ophthalmic drops, Pepcid 20 mg p.o. daily, Prandin 0.5 mg p.o. t.i.d., Plavix 75 mg daily, sodium bicarb drip, add half-normal saline with 75 mEq in each liter at 70 mL/hour, levothyroxine 25 mcg p.o. daily, Tylenol, Xanax, and Zofran. LABORATORY DATA: Include as follows: As of 11/11/2018, WBC 8.6, hemoglobin 8.9, hematocrit is 26.5, platelets 223. Sodium 132, potassium 4.9, chloride 110, CO2 16, BUN 32, creatinine 1.7, glucose 173, calcium is 8.4, magnesium 1.4. Total bilirubin 0.3, AST 13, ALT 18, alkaline phosphatase 99, total protein 5.9, albumin is 3.1. Urine: Yellow, turbid, pH 7, specific gravity 1.008, protein 2+, glucose 1+, ketones negative, blood 2+, nitrites negative, bilirubin negative, urobilinogen normal, leukocyte esterase 3+, wbc 4042, rbc 69, bacteria is not reported, and wbc, many clumps. ASSESSMENT AND PLAN: In summary, Mrs. Lovell is a 77-year-old elderly female with a history of hypertension, diabetes, coronary artery disease, status post coronary artery bypass graft, status post ileostomy, chronic kidney disease, who was admitted with decreased p.o. intake, dehydration, and acute renal failure on chronic kidney disease, being treated for urinary tract infection with Escherichia coli Extended-Spectrum Beta-Lactamase positive. 1. Acute renal failure, chronic kidney disease. Renal function is almost back to her baseline at 1.7. 2. Urinary tract infection. Continue antibiotics Merrem as per Infectious Disease recommendations. 3. Anemia, secondary to acute renal failure. Continue Epogen. 4. Metabolic acidosis. We will change intravenous fluids to half-normal saline with 75 mEq sodium bicarb at 70 mL/hour. We will follow with you. Thank you for allowing me to participate in your patient's care for possible cystoscopy as per the patient's family. Rafael Krishna MD [facility] # [id number]
[2018-11-12] MEDS: Levothyroxine 25 MCG TAB PO SCH (06:19)
[2018-11-12] MEDS: (Novolog) Insulin Aspart, Recombinant 100 u/ml 10 ml vial SC SCH ×2 (08:12→12:11)
[2018-11-12] MEDS: Naphazoline-Pheniramine Ophth Soln OD SCH (09:16)
[2018-11-12] MEDS: Meropenem 500 MG in Sodium Chloride 0.9% 100 ML IVPB SCH (11:41)
[2018-11-12 12:01] LABS: BASO % 0.4 % (0.0-2.0); EOS # 0.2 K/uL (0.0-0.7); EOS % 2.6 % (0.0-4.0); HEMOGLOBIN 8.8 g/dL (11.0-16.0); LYMPH # 0.6 K/uL (1.0-4.3); LYMPH % 10.7 % (20.0-40.0); MEAN CELL VOLUME 88.8 fL (81.0-99.0); MEAN CORPUSCULAR HEMOGLOBIN 28.8 pg (27.0-31.0); MEAN CORPUSCULAR HGB CONC 32.4 g/dL (33.0-37.0); MEAN PLATELET VOLUME 6.6 fL (7.2-11.7); MONO # 0.4 K/uL (0.0-0.8); MONO % 6.9 % (0.0-10.0); NEUT # 4.8 K/uL (1.8-7.0); NEUT % 79.4 % (50.0-75.0); RBC 3.07 Mil/uL (3.80-5.20); RED CELL DISTRIBUTION WIDTH 13.2 % (11.5-14.5)
[2018-11-12 12:20] LABS: ALB/GLOB RATIO 0.9 (1.0-2.1); ALBUMIN 2.7 g/dL (3.5-5.0); ALT/SGPT < 6 U/L (9-52); AST/SGOT 12 U/L (14-36); BLOOD UREA NITROGEN 31 mg/dL (7-17); CALCIUM 8.4 mg/dl (8.6-10.4); GFR NON-AFRICAN AMERICAN 31
--- NOTE | 2018-11-12 13:01 | CP.PCM.PN ---
Subjective - Date & Time of Evaluation Date of Evaluation: 11/12/18 Time of Evaluation: 13:01 - Subjective Subjective: Neuro Follow-Up Note: Mrs. Lovell was evaluated this afternoon. She continues to feel the left side of her face numb with no change in sensation. She still states that she is stressed and frustrated because she has to have a cysto with . Denies other symptoms; no h/a, dizziness, chest pain, palpitations, sob, abd pain, n/v/d. Objective - Vital Signs/Intake and Output Vital Signs (last 24 hours): Temp Pulse Resp BP Pulse Ox 98.4 F 83 20 149/63 98 11/12/18 08:00 11/12/18 09:14 11/12/18 08:00 11/12/18 09:14 11/12/18 08:00 Intake and Output: 11/12/18 11/12/18 06:59 18:59 Output Total 200 Balance -200 - Medications Medications: Current Medications Acetaminophen (Tylenol 325mg Tab) 650 mg PO Q6 PRN PRN Reason: Pain, Mild (1-3) Alprazolam (Xanax) 0.25 mg PO BID PRN PRN Reason: Anxiety Stop: 11/18/18 17:53 Last Admin: 11/11/18 21:44 Dose: 0.25 mg Cholestyramine Resin (Prevalite) 4 gm PO HS [facility] Last Admin: 11/11/18 21:52 Dose: 4 gm Clopidogrel Bisulfate (Plavix) 75 mg PO DAILY [facility] Last Admin: 11/12/18 09:13 Dose: 75 mg Famotidine (Pepcid) 20 mg PO DAILY [facility] Last Admin: 11/12/18 09:12 Dose: 20 mg Heparin Sodium (Porcine) (Heparin) 5,000 units SC Q12 [facility] Meropenem 500 mg/ Sodium (Chloride) 100 mls @ 100 mls/hr IVPB Q24H [facility]; Pr otocol Last Admin: 11/12/18 11:41 Dose: 100 mls/hr Sodium Bicarbonate 75 meq/ (Sodium Chloride) 1,075 mls @ 70 mls/hr IV .[id number] [facility] Last Admin: 11/11/18 11:50 Dose: 70 mls/hr Insulin Aspart (Novolog) 0 unit SC ACHS [facility]; Protocol Last Admin: 11/12/18 08:12 Dose: 2 units Insulin Glargine (Lantus) 8 unit SC [facility] Last Admin: 11/11/18 21:50 Dose: 2 units Isosorbide Mononitrate (Imdur Er) 30 mg PO DAILY [facility] Last Admin: 11/12/18 09:12 Dose: 30 mg Levothyroxine Sodium (Synthroid) 25 mcg PO DAILY@0630 [facility] Last Admin: 11/12/18 06:19 Dose: 25 mcg Magnesium Hydroxide (Milk Of Magnesia) 30 ml PO Q24H PRN PRN Reason: Constipation Naphazoline HCl/Pheniramine Maleate (Naphcon-A Opht) 0 ml OD BID [facility] Last Admin: 11/12/18 09:16 Dose: 1 drop Ondansetron HCl (Zofran Odt) 4 mg PO Q6 PRN PRN Reason: Nausea/Vomiting Repaglinide (Prandin) 0.5 mg PO TIDAC [facility] Last Admin: 11/12/18 08:12 Dose: 0.5 mg Rosuvastatin Calcium (Crestor) 5 mg PO [facility] Last Admin: 11/11/18 21:43 Dose: 5 mg Sodium Bicarbonate (Sodium Bicarbonate Tab) 650 mg PO TID [facility] Last Admin: 11/12/18 09:13 Dose: 650 mg Tamsulosin HCl (Flomax) 0.4 mg PO DAILY [facility] Last Admin: 11/12/18 09:13 Dose: 0.4 mg - Labs Labs: 11/12/18 11:36 11/12/18 11:36 PT 12.5 SECONDS (9.7-12.2) H 11/03/18 11:20 INR 1.1 11/03/18 11:20 APTT 29 SECONDS (21-34) 11/03/18 11:20 Assessment and Plan (1) Acute encephalopathy Assessment & Plan: Imaging reviewed: -CT Head (11/11/18): Limited study as described. Large partially cystic area of encephalomalacia left posterior temporal occipital watershed zone associated mild ex vacuo dilatation left atrium. Mild chronic white matter ischemic changes. Moderate generalized volume loss. Hyperdense right globe unchanged from prior study. Consider follow-up fundoscopic examination. -CT head (11/06/18): No acute intracranial abnormalities. No significant findings to account for the clinical presentation. No significant interval change compared to the prior examination(s). -Continue current medications and treatment, including Plavix and statin. -Will hold off on ASA 81mg as the pt admitted that she was recently taken off of Ecotrin by her exploitation analyst, Dr. Malik, and placed on Plavix instead. -Continue PT/OT -Notify neuro team of any acute changes in pt's condition. Thank you for allownig us to participate in this pt's care. Reconsult prn. Case discussed with Dr. Bosch Status: Acute
--- NOTE | 2018-11-12 13:31 | CP.PCM.PN ---
Subjective - Date & Time of Evaluation Date of Evaluation: 11/12/18 Time of Evaluation: 13:30 - Subjective Subjective: PATIENT SEEN AND EXAMINED AT THE BEDSIDE Objective - Vital Signs/Intake and Output Vital Signs (last 24 hours): Temp Pulse Resp BP Pulse Ox 98.4 F 83 20 149/63 98 11/12/18 08:00 11/12/18 09:14 11/12/18 08:00 11/12/18 09:14 11/12/18 08:00 Intake and Output: 11/12/18 11/12/18 06:59 18:59 Output Total 200 Balance -200 - Medications Medications: Current Medications Acetaminophen (Tylenol 325mg Tab) 650 mg PO Q6 PRN PRN Reason: Pain, Mild (1-3) Alprazolam (Xanax) 0.25 mg PO BID PRN PRN Reason: Anxiety Stop: 11/18/18 17:53 Last Admin: 11/11/18 21:44 Dose: 0.25 mg Cholestyramine Resin (Prevalite) 4 gm PO HS [facility] Last Admin: 11/11/18 21:52 Dose: 4 gm Clopidogrel Bisulfate (Plavix) 75 mg PO DAILY [facility] Last Admin: 11/12/18 09:13 Dose: 75 mg Famotidine (Pepcid) 20 mg PO DAILY [facility] Last Admin: 11/12/18 09:12 Dose: 20 mg Heparin Sodium (Porcine) (Heparin) 5,000 units SC Q12 [facility] Meropenem 500 mg/ Sodium (Chloride) 100 mls @ 100 mls/hr IVPB Q24H [facility]; Protocol Last Admin: 11/12/18 11:41 Dose: 100 mls/hr Sodium Bicarbonate 75 meq/ (Sodium Chloride) 1,075 mls @ 70 mls/hr IV .[id number] [facility] Last Admin: 11/11/18 11:50 Dose: 70 mls/hr Insulin Aspart (Novolog) 0 unit SC ACHS [facility]; Protocol Last Admin: 11/12/18 12:11 Dose: 3 units Insulin Glargine (Lantus) 8 unit SC HS [facility] Last Admin: 11/11/18 21:50 Dose: 2 units Isosorbide Mononitrate (Imdur Er) 30 mg PO DAILY [facility] Last Admin: 11/12/18 09:12 Dose: 30 mg Levothyroxine Sodium (Synthroid) 25 mcg PO DAILY@0630 [facility] Last Admin: 11/12/18 06:19 Dose: 25 mcg Magnesium Hydroxide (Milk Of Magnesia) 30 ml PO Q24H PRN PRN Reason: Constipation Naphazoline HCl/Pheniramine Maleate (Naphcon-A Opht) 0 ml OD BID [facility] Last Admin: 11/12/18 09:16 Dose: 1 drop Ondansetron HCl (Zofran Odt) 4 mg PO Q6 PRN PRN Reason: Nausea/Vomiting Repaglinide (Prandin) 0.5 mg PO TIDAC [facility] Last Admin: 11/12/18 12:11 Dose: 0.5 mg Rosuvastatin Calcium (Crestor) 5 mg PO HS [facility] Last Admin: 11/11/18 21:43 Dose: 5 mg Sodium Bicarbonate (Sodium Bicarbonate Tab) 650 mg PO TID [facility] Last Admin: 11/12/18 13:11 Dose: 650 mg Tamsulosin HCl (Flomax) 0.4 mg PO DAILY [facility] Last Admin: 11/12/18 09:13 Dose: 0.4 mg - Labs Labs: 11/12/18 11:36 11/12/18 11:36 PT 12.5 SECONDS (9.7-12.2) H 11/03/18 11:20 INR 1.1 11/03/18 11:20 APTT 29 SECONDS (21-34) 11/03/18 11:20 Assessment and Plan - Assessment and Plan (Free Text) Assessment: PLACE UNDER THE SERVICE OF DR WILLIAM AT [facility] -----CALL FOR ADMITTING ORDER CONTINUE HOME MEDICATION NEW PRESCRIPTION GIVEN MERREM 1 G IVPB Q24H FOR 4 DAYS ACTIVITY TOLERATED AND FACILITY PROTOCOL CALL DR WILLIAM FOR FURTHER ORDER
--- NOTE | 2018-11-12 14:14 | CP.PCM.PN ---
Subjective - Date & Time of Evaluation Date of Evaluation: 11/12/18 Time of Evaluation: 14:00 - Subjective Subjective: dictated Objective - Vital Signs/Intake and Output Vital Signs (last 24 hours): Temp Pulse Resp BP Pulse Ox 98.4 F 83 20 149/63 98 11/12/18 08:00 11/12/18 09:14 11/12/18 08:00 11/12/18 09:14 11/12/18 08:00 Intake and Output: 11/12/18 11/12/18 06:59 18:59 Output Total 200 Balance -200 - Medications Medications: Current Medications Acetaminophen (Tylenol 325mg Tab) 650 mg PO Q6 PRN PRN Reason: Pain, Mild (1-3) Alprazolam (Xanax) 0.25 mg PO BID PRN PRN Reason: Anxiety Stop: 11/18/18 17:53 Last Admin: 11/11/18 21:44 Dose: 0.25 mg Cholestyramine Resin (Prevalite) 4 gm PO HS [facility] Last Admin: 11/11/18 21:52 Dose: 4 gm Clopidogrel Bisulfate (Plavix) 75 mg PO DAILY [facility] Last Admin: 11/12/18 09:13 Dose: 75 mg Famotidine (Pepcid) 20 mg PO DAILY [facility] Last Admin: 11/12/18 09:12 Dose: 20 mg Heparin Sodium (Porcine) (Heparin) 5,000 units SC Q12 [facility] Meropenem 500 mg/ Sodium (Chloride) 100 mls @ 100 mls/hr IVPB Q24H [facility]; Protocol Last Admin: 11/12/18 11:41 Dose: 100 mls/hr Sodium Bicarbonate 75 meq/ (Sodium Chloride) 1,075 mls @ 70 mls/hr IV .[id number] [facility] Last Admin: 11/11/18 11:50 Dose: 70 mls/hr Insulin Aspart (Novolog) 0 unit SC ACHS [facility]; Protocol Last Admin: 11/12/18 12:11 Dose: 3 units Insulin Glargine (Lantus) 8 unit SC HS [facility] Last Admin: 11/11/18 21:50 Dose: 2 units Isosorbide Mononitrate (Imdur Er) 30 mg PO DAILY [facility] Last Admin: 11/12/18 09:12 Dose: 30 mg Levothyroxine Sodium (Synthroid) 25 mcg PO DAILY@0630 [facility] Last Admin: 11/12/18 06:19 Dose: 25 mcg Magnesium Hydroxide (Milk Of Magnesia) 30 ml PO Q24H PRN PRN Reason: Constipation Naphazoline HCl/Pheniramine Maleate (Naphcon-A Opht) 0 ml OD BID [facility] Last Admin: 11/12/18 09:16 Dose: 1 drop Ondansetron HCl (Zofran Odt) 4 mg PO Q6 PRN PRN Reason: Nausea/Vomiting Repaglinide (Prandin) 0.5 mg PO TIDAC [facility] Last Admin: 11/12/18 12:11 Dose: 0.5 mg Rosuvastatin Calcium (Crestor) 5 mg PO HS [facility] Last Admin: 11/11/18 21:43 Dose: 5 mg Sodium Bicarbonate (Sodium Bicarbonate Tab) 650 mg PO TID [facility] Last Admin: 11/12/18 13:11 Dose: 650 mg Tamsulosin HCl (Flomax) 0.4 mg PO DAILY [facility] Last Admin: 11/12/18 09:13 Dose: 0.4 mg - Labs Labs: 11/12/18 11:36 11/12/18 11:36 PT 12.5 SECONDS (9.7-12.2) H 11/03/18 11:20 INR 1.1 11/03/18 11:20 APTT 29 SECONDS (21-34) 11/03/18 11:20
--- NOTE | 2018-11-12 16:59 | CP.PCM.PN ---
<Flex Hoyos - Last Filed: 11/12/18 17:01> Subjective - Date & Time of Evaluation Date of Evaluation: 11/12/18 Time of Evaluation: 16:59 - Subjective Subjective: PGY-2 Progress Note: Dr. Malik Cardiology Service Patient seen and examined at bedside. Patient denies any chest pain, fevers, chills, nausea, vomiting, abdominal pain, or any other complaints. Objective - Vital Signs/Intake and Output Vital Signs (last 24 hours): Temp Pulse Resp BP Pulse Ox 98.4 F 83 20 149/63 98 11/12/18 08:00 11/12/18 09:14 11/12/18 08:00 11/12/18 09:14 11/12/18 08:00 Intake and Output: 11/12/18 11/12/18 06:59 18:59 Output Total 200 Balance -200 - Medications Medications: Current Medications Acetaminophen (Tylenol 325mg Tab) 650 mg PO Q6 PRN PRN Reason: Pain, Mild (1-3) Alprazolam (Xanax) 0.25 mg PO BID PRN PRN Reason: Anxiety Stop: 11/18/18 17:53 Last Admin: 11/11/18 21:44 Dose: 0.25 mg Cholestyramine Resin (Prevalite) 4 gm PO HS [facility] Last Admin: 11/11/18 21:52 Dose: 4 gm Clopidogrel Bisulfate (Plavix) 75 mg PO DAILY [facility] Last Admin: 11/12/18 09:13 Dose: 75 mg Famotidine (Pepcid) 20 mg PO DAILY [facility] Last Admin: 11/12/18 09:12 Dose: 20 mg Heparin Sodium (Porcine) (Heparin) 5,000 units SC Q12 [facility] Meropenem 500 mg/ Sodium (Chloride) 100 mls @ 100 mls/hr IVPB Q24H [facility]; Protocol Last Admin: 11/12/18 11:41 Dose: 100 mls/hr Sodium Bicarbonate 75 meq/ (Sodium Chloride) 1,075 mls @ 70 mls/hr IV .[id number] [facility] Last Admin: 11/11/18 11:50 Dose: 70 mls/hr Insulin Aspart (Novolog) 0 unit SC ACHS [facility]; Protocol Last Admin: 11/12/18 12:11 Dose: 3 units Insulin Glargine (Lantus) 8 unit SC HS [facility] Last Admin: 11/11/18 21:50 Dose: 2 units Isosorbide Mononitrate (Imdur Er) 30 mg PO DAILY [facility] Last Admin: 11/12/18 09:12 Dose: 30 mg Levothyroxine Sodium (Synthroid) 25 mcg PO DAILY@0630 [facility] Last Admin: 11/12/18 06:19 Dose: 25 mcg Magnesium Hydroxide (Milk Of Magnesia) 30 ml PO Q24H PRN PRN Reason: Constipation Naphazoline HCl/Pheniramine Maleate (Naphcon-A Opht) 0 ml OD BID [facility] Last Admin: 11/12/18 09:16 Dose: 1 drop Ondansetron HCl (Zofran Odt) 4 mg PO Q6 PRN PRN Reason: Nausea/Vomiting Repaglinide (Prandin) 0.5 mg PO TIDAC [facility] Last Admin: 11/12/18 12:11 Dose: 0.5 mg Rosuvastatin Calcium (Crestor) [address] [facility] Last Admin: 11/11/18 21:43 Dose: 5 mg Sodium Bicarbonate (Sodium Bicarbonate Tab) 650 mg PO TID [facility] Last Admin: 11/12/18 13:11 Dose: 650 mg Tamsulosin HCl (Flomax) 0.4 mg PO DAILY [facility] Last Admin: 11/12/18 09:13 Dose: 0.4 mg - Labs Labs: 11/12/18 11:36 11/12/18 11:36 PT 12.5 SECONDS (9.7-12.2) H 11/03/18 11:20 INR 1.1 11/03/18 11:20 APTT 29 SECONDS (21-34) 11/03/18 11:20 - Head Exam Head Exam: ATRAUMATIC, NORMAL INSPECTION, NORMOCEPHALIC - Eye Exam Eye Exam: EOMI, Normal appearance Pupil Exam: NORMAL ACCOMODATION, PERRL - ENT Exam ENT Exam: Mucous Membranes Moist, Normal Exam - Neck Exam Neck Exam: Normal Inspection - Respiratory Exam Respiratory Exam: Clear to Ausculation Bilateral, NORMAL BREATHING PATTERN - Cardiovascular Exam Cardiovascular Exam: REGULAR RHYTHM, +S1, +S2 - GI/Abdominal Exam GI & Abdominal Exam: Soft, Normal Bowel Sounds - Extremities Exam Extremities Exam: Full ROM, Normal Capillary Refill. absent: Joint Swelling - Back Exam Back Exam: NORMAL INSPECTION - Neurological Exam Neurological Exam: Alert, Awake, CN II-XII Intact, Oriented x3 - Psychiatric Exam Psychiatric exam: Normal Affect, Normal Mood - Skin Skin Exam: Dry, Intact, Normal Color Assessment and Plan - Assessment and Plan (Free Text) Assessment: 77 year old female with past medical histoy of DM, HTN, CAD s/p CABG, s/p pacemaker, diabetic retinopathy CKD is being seen for episode of vtach-Non sustained. Plan: 1.Non-sustained vtach -Resolved. -No further intervention at this time. 2.CAD -Plavix 75mg PO Daily -Crestor 5mg PO HS 3.D.M. ISS Lantus 8 units SC HS Prandin .5mg PO TIDAC [facility] 4.Hypothryoidism Levothyroixine 25mcg Daily 5.Urinary retention -Tamsulosin .4mg PO Daily 6.Anxiety -Xanax .25 mg PO BID PRN 7. Nausea -Zofran 4 po q6 prn PPX -Pepcid -IV NaCl .45% @100mls/hr Patient stable with further instances of vtach. Will sign off at this time. Feel free to contact us in the future if needed. Plan discussed with Attending Dr. Malik. Flex Hoyos, PGY-2 <Fabricio Malik - Last Filed: 11/12/18 21:23> Objective - Vital Signs/Intake and Output Vital Signs (last 24 hours): Temp Pulse Resp BP Pulse Ox 98.1 F 82 18 123/51 L 97 11/12/18 17:23 11/12/18 17:23 11/12/18 17:23 11/12/18 17:23 11/12/18 17:23 - Labs Labs: 11/12/18 11:36 11/12/18 11:36 PT 12.5 SECONDS (9.7-12.2) H 11/03/18 11:20 INR 1.1 11/03/18 11:20 APTT 29 SECONDS (21-34) 11/03/18 11:20 Assessment and Plan - Assessment and Plan (Free Text) Assessment: Patient examined and evaluated personally by me. Plan of care d/w the medical claims assistant and as documented
[2018-11-12 17:25] VITALS: BP 123/51; PULSE 82; RESP 18; TEMP 98.1; O2SAT 97
--- NOTE | 2018-11-12 17:51 | CP.PCM.PN ---
Subjective - Date & Time of Evaluation Date of Evaluation: 11/12/18 Time of Evaluation: 17:50 - Subjective Subjective: pt is seen and examined, follow up consult is dictated #[id number] Objective - Vital Signs/Intake and Output Vital Signs (last 24 hours): Temp Pulse Resp BP Pulse Ox 98.1 F 82 18 123/51 L 97 11/12/18 17:23 11/12/18 17:23 11/12/18 17:23 11/12/18 17:23 11/12/18 17:23 Intake and Output: 11/12/18 11/12/18 06:59 18:59 Output Total 200 Balance -200 - Medications Medications: Current Medications Acetaminophen (Tylenol 325mg Tab) 650 mg PO Q6 PRN PRN Reason: Pain, Mild (1-3) Alprazolam (Xanax) 0.25 mg PO BID PRN PRN Reason: Anxiety Stop: 11/18/18 17:53 Last Admin: 11/11/18 21:44 Dose: 0.25 mg Cholestyramine Resin (Prevalite) 4 gm PO HS [facility] Last Admin: 11/11/18 21:52 Dose: 4 gm Clopidogrel Bisulfate (Plavix) 75 mg PO DAILY [facility] Last Admin: 11/12/18 09:13 Dose: 75 mg Famotidine (Pepcid) 20 mg PO DAILY [facility] Last Admin: 11/12/18 09:12 Dose: 20 mg Heparin Sodium (Porcine) (Heparin) 5,000 units SC Q12 [facility] Meropenem 500 mg/ Sodium (Chloride) 100 mls @ 100 mls/hr IVPB Q24H [facility]; Protocol Last Admin: 11/12/18 11:41 Dose: 100 mls/hr Sodium Bicarbonate 75 meq/ (Sodium Chloride) 1,075 mls @ 70 mls/hr IV .[id number] [facility] Last Admin: 11/11/18 11:50 Dose: 70 mls/hr Insulin Aspart (Novolog) 0 unit SC ACHS [facility]; Protocol Last Admin: 11/12/18 12:11 Dose: 3 units Insulin Glargine (Lantus) 8 unit SC HS [facility] Last Admin: 11/11/18 21:50 Dose: 2 units Isosorbide Mononitrate (Imdur Er) 30 mg PO DAILY [facility] Last Admin: 11/12/18 09:12 Dose: 30 mg Levothyroxine Sodium (Synthroid) 25 mcg PO DAILY@0630 [facility] Last Admin: 11/12/18 06:19 Dose: 25 mcg Magnesium Hydroxide (Milk Of Magnesia) 30 ml PO Q24H PRN PRN Reason: Constipation Naphazoline HCl/Pheniramine Maleate (Naphcon-A Opht) 0 ml OD BID [facility] Last Admin: 11/12/18 09:16 Dose: 1 drop Ondansetron HCl (Zofran Odt) 4 mg PO Q6 PRN PRN Reason: Nausea/Vomiting Repaglinide (Prandin) 0.5 mg PO TIDAC [facility] Last Admin: 11/12/18 12:11 Dose: 0.5 mg Rosuvastatin Calcium (Crestor) 5 mg PO HS [facility] Last Admin: 11/11/18 21:43 Dose: 5 mg Sodium Bicarbonate (Sodium Bicarbonate Tab) 650 mg PO TID [facility] Last Admin: 11/12/18 13:11 Dose: 650 mg Tamsulosin HCl (Flomax) 0.4 mg PO DAILY [facility] Last Admin: 11/12/18 09:13 Dose: 0.4 mg - Labs Labs: 11/12/18 11:36 11/12/18 11:36 PT 12.5 SECONDS (9.7-12.2) H 11/03/18 11:20 INR 1.1 11/03/18 11:20 APTT 29 SECONDS (21-34) 11/03/18 11:20
--- NOTE | 2018-11-12 18:56 | PN ---
DATE: 11/12/2018 INFECTIOUS DISEASE FOLLOWUP NOTE SUBJECTIVE: The patient is doing well. She is already made aware that she will be getting IV antibiotics. She is not having the cystoscopy done because of the cardiac arrhythmia she had and is not cleared and there is a risk involved. So at this time, I would continue meropenem to complete 10 days total of this treatment; 4 days are left. The patient otherwise denies any diarrhea. No abdominal pain, no nausea, no vomiting. She says she is totally dependent and she will be going to the rehab. PHYSICAL EXAMINATION VITAL SIGNS: T-max is 98.4, pulse 83, blood pressure 149/63, respirations are 20. HEENT: Head is atraumatic and normocephalic. She is legally blind. Tongue is moist. NECK: Supple. JVP is flat. LUNGS: Clear. No crackles or rales present. HEART: S1 and S2 regular. ABDOMEN: Soft. She has an ileostomy tube. EXTREMITIES: Right BKA. Left leg is unremarkable at this time. LABORATORY DATA: Labs are noted. White count is 6, hemoglobin 8.8, hematocrit 27.2, platelet count is 228. BUN is 31 and creatinine is 1.6 which is improved markedly. ASSESSMENT AND PLAN: The patient had extended-spectrum beta-lactamase in urine and had hydronephrosis. She had in the bladder; could be stone, could be malignancy, but she refused a procedure, I am told, so the patient will be on meropenem for 4 days, and the patient is aware of it. Teresa Tellez MD
--- NOTE | 2018-11-13 02:02 | CON ---
DATE: 11/12/2018 FOLLOWUP RENAL CONSULTATION LOCATION: Room 551, bed B. REQUESTED BY: Keyla Washington MD REASON FOR RENAL CONSULTATION: Acute renal failure, chronic kidney disease, for further evaluation. SUBJECTIVE: Mrs. Lovell is a 77-year-old elderly female with a past medical history significant for longstanding hypertension, diabetes, coronary artery disease, status post CABG, status post pacemaker placement, status post right partial colectomy, ileostomy, right BKA who was [facility] from the [facility] with increasing BUN and creatinine, decreased p.o. intake, and poor appetite. The patient is being hydrated with IV fluids half-normal saline at 100 mL per hour and IV fluids were changed to half normal saline with 75 mg sodium bicarb for persistent metabolic acidosis. The patient is feeling much better, not in acute distress. No complaints. PHYSICAL EXAMINATION: VITAL SIGNS: As follows: Blood pressure 123/51, pulse 82, respirations 18, temperature 98.1, saturation 97%. Height 5 feet 2 inches, weight is 143 pounds. GENERAL: Mrs. Lovell is a 77-year-old elderly female, moderately built, moderately nourished, not in distress. HEENT: Pupils normal, reactive to light and accommodation. The patient is legally blind. Conjunctivae pink. Sclerae anicteric. Tongue is moist. Trachea is midline. LUNGS: Symmetric on both sides. Bilateral breath sounds present. Clear to auscultation. CARDIOVASCULAR SYSTEM: [place] at the fifth intercostal space, midclavicular area. S1, S2 audible. No murmur or gallop. ABDOMEN: Normal in appearance, soft, tympanitic. No guarding, no rigidity. The patient has ileostomy. CENTRAL NERVOUS SYSTEM: The patient is alert, awake, oriented x2-3. Sensory and motor system within normal limits. EXTREMITIES: No cyanosis, no clubbing, no edema on the left side. Status post right BKA. CURRENT MEDICATIONS: Include as follows: Tylenol, Xanax, cholestyramine, Plavix 75 mg p.o. daily, Pepcid 20 mg p.o. daily, subcu heparin 5000 every 12 hours, meropenem 500 mg IV daily, IV fluids half-normal saline with 75 mEq sodium bicarb at 70 mL per hour, NovoLog for sliding scale, Lantus 8 units subcu at bedtime, Imdur 30 mg p.o. daily, Lantus 8 units, levothyroxine 25 mcg daily, milk of magnesia, Naphcon ophthalmic drops, Zofran, Prandin 0.5 mg p.o. t.i.d., Crestor 5 mg at bedtime, sodium bicarb tablet 650 mg p.o. t.i.d., and Flomax 0.4 mg p.o. daily. LABORATORY DATA: Include as follows: WBC 6, hemoglobin 8.8, hematocrit is 27.2, platelets 228. Sodium 136, potassium 4.4, chloride 108, CO2 of 22, BUN 31, creatinine 1.6, glucose 222, calcium 8.4, magnesium 1.62. Total bili 0.2. AST 12, ALT less than 6, alkaline phosphatase 98, total protein 5.7, albumin is 2.7. ASSESSMENT AND PLAN: In summary, Ms. Lovell is a 77-year-old elderly female with history of hypertension, diabetes, coronary artery disease, status post coronary artery bypass graft, status post pacemaker placement, hypothyroidism, hyperlipidemia, status post right partial colectomy, ileostomy, and right below-knee amputation with increased blood urea nitrogen and creatinine and dehydration, was admitted from the [facility], on intravenous hydration. 1. Acute renal failure on chronic kidney disease. Renal function improved and back to her baseline 1.6 . 2. Metabolic acidosis. Sodium bicarbonate is 22 today with intravenous bicarbonate drip. 3. Anemia secondary to renal failure. 4. Hypertension. 5. Diabetes. Continue sodium bicarbonate three times a day, continue to monitor basic metabolic profile, and increase p.o. fluid and p.o. diet intake. Thank you for allowing me to participate in your patient's care. Rafael Krishna MD
--- NOTE | 2018-11-13 02:34 | DS ---
REASON FOR ADMISSION: This is a 77-year-old female with history of multiple medical problems, was admitted for acute on chronic kidney disease with urinary tract infection. COURSE IN HOSPITALIZATION: The patient was admitted to medical floor, and she was started on both IV antibiotics as per infectious disease coding consultant. The patient's urine culture grew E. coli. The patient was found also to have bilateral hydronephrosis and urinary bladder debris. Urology consultation was done, and the patient was advised to have cystoscopy, but the patient refused to take the high risk of surgery as per Cardiology. The patient remained to have urinalysis with numerous wbc's and positive leukocyte esterase. The patient was discharged back to [place] to treat conservatively due to the multiple risk factors as well as the multiple comorbidities, especially the ischemic cardiomyopathy. FINAL DIAGNOSES: 1. Toxic metabolic encephalopathy. 2. Acute on chronic kidney disease. 3. Hypertension. 4. Hypothyroidism. 5. Type 2 diabetes mellitus. 6. Urinary tract infection. 7. Acute on chronic renal failure. Ashley MD Felix
== END 2018-11-12 18:02 | DRG 682 ==
LOC: C.ER 09:46 → C.9E 12:30 → C.5S 15:17
PROVIDERS: ADMIT Internal Medicine; ATTEND Internal Medicine
DX: N17.9 Acute kidney failure, unspecified (principal); G92 Toxic encephalopathy; I13.0 Hypertensive heart and chronic kidney disease with heart failure and stage 1 through stage 4 chronic kidney disease, or unspecified chronic kidney disease; I47.2 Ventricular tachycardia; N39.0 Urinary tract infection, site not specified; I25.5 Ischemic cardiomyopathy; I25.10 Atherosclerotic heart disease of native coronary artery without angina pectoris; J44.9 Chronic obstructive pulmonary disease, unspecified; J43.9 Emphysema, unspecified; H54.8 Legal blindness, as defined in USA; I50.9 Heart failure, unspecified; L98.429 Non-pressure chronic ulcer of back with unspecified severity; F03.90 Unspecified dementia, unspecified severity, without behavioral disturbance, psychotic disturbance, mood disturbance, and anxiety; E87.5 Hyperkalemia; N18.3 Chronic kidney disease, stage 3 (moderate); Z87.891 Personal history of nicotine dependence; Z86.73 Personal history of transient ischemic attack (TIA), and cerebral infarction without residual deficits; Z89.511 Acquired absence of right leg below knee; Z89.512 Acquired absence of left leg below knee; Z90.49 Acquired absence of other specified parts of digestive tract; Z93.2 Ileostomy status; Z95.0 Presence of cardiac pacemaker; R29.810 Facial weakness; Z95.1 Presence of aortocoronary bypass graft; E78.5 Hyperlipidemia, unspecified; E86.0 Dehydration; B96.20 Unspecified Escherichia coli [E. coli] as the cause of diseases classified elsewhere; E11.22 Type 2 diabetes mellitus with diabetic chronic kidney disease